=== PATIENT | female | born 1955 | race Caucasian/White ===

== ENCOUNTER 2023-11-13 00:27 | Inpatient (IN) ==
--- NOTE | 2023-11-13 00:48 | Emergency Department Note ---
Impression & Plan Acute on chronic respiratory failure with hypoxia and hypercapnia, CHF (congestive heart failure), Hypotension, Atrial fibrillation with rapid ventricular response, Hypokalemia, Renal insufficiency, Atrial fibrillation, new onset ED Provider Note NAME: KHARI RODRIGUEZ AGE: 68 SEX: F : 1955 ARRIVES VIA: Walk-In INFORMANT: Patient ED PROVIDER(S): Surya Johnson MD CHIEF COMPLAINT: Shortness of breath. PLAN: Disposition: Admit MEDICAL DECISION MAKING: The patient is a pleasant 68-year-old woman with a past medical history of longstanding smoking where she suddenly quit in July after developing increasing shortness of breath however she reports since then her shortness of breath has continued to worsen with bilateral lower extremity swelling who presents to emergency department via walk-in accompanied by her friend for evaluation of worsening shortness of breath. She had not gone to see a doctor in the past several months for her worsening symptoms nor has she seen a doctor regularly in the recent past. She lives by herself. She denies any fevers, nausea, vomiting or urinary symptoms. Of note, the patient did arrive to emergency department during time of high volume, acuity and prolonged emergency department waiting times. On evaluation the patient is uncomfortable, mildly dyspneic in mild respiratory distress, afebrile with heart rate in the 130s in atrial fibrillation with respiratory rate in the mid upper 20s with O2 saturation down to 85% on room air improving to mid 90s on 3 L nasal cannula. She appears hypervolemic with 1+ bilateral lower extremity pitting edema with excoriation of the dorsal aspect of her left foot. She has diminished breath sounds bilaterally with underlying wheeze and prolonged expiratory phase. EKG demonstrates atrial fibrillation with RVR, 141 bpm, LVH, no overt ST elevation or depression, QTc 517, QRS 88 Chest x-ray with vascular congestion and interstitial thickening with bibasilar opacities and suspected left pleural effusion per my preliminary independent interpretation. WBC 16.6K with neutrophil predominance though no left shift, nonspecific. H/H and platelets within normal limits. VBG with pCO2 of 60 with pH of 7.35. Chemistry with bicarbonate of 33 suggestive of component of chronic hypercapnia. Creatinine 1.36 without prior for comparison. Potassium 2.8 and magnesium 1.9 with IV repletion initiated. Initial lactic acid 3.2. High-sensitivity troponin was 125 and BNP 1100 in the setting of suspected new heart failure in the setting of new atrial fibrillation. TSH within normal limits. Respiratory viral panel/BioFire was negative. Treatment initiated with CPAP, Xopenex and Solu-Medrol given component of bronchospasm and suspected underlying COPD. Of note, I was alerted by nursing that patient's blood pressure did drift down to 70 systolic though she appeared improved in terms of respiratory status and was mentating normally. Repeat pressure at this time was in the 80s. This gradually improved to the low 100s with some positioning changes. I did perform a limited bedside cardiac ultrasound that demonstrates mild-moderate pericardial effusion without overt evidence of tamponade. LV is dilated with global hypokinesis with suspected moderately reduced EF. Bilateral left greater than right pleural effusions noted. Patient was given 5 mg of IV Lopressor with improvement in rate to the low 100s and stable blood pressure ranging from 90s/60s-100s/60s with Maps of 68 and above. Given [id number] heparin initiated. Blood cultures were also obtained and empiric antibiotics initiated with Zosyn and daptomycin for patient's left lower extremity/foot cellulitis. Case was discussed with Dr. Beckham, [facility] hospitalist, who will evaluate the patient for admission. Triage Nursing notes reviewed and agree them. Prior/external medical records reviewed Vital Signs: reviewed Differential diagnosis: Reactive airway disease, pneumonia, pneumothorax, COPD, CHF, infections, cardiac ischemia, pulmonary embolism, musculoskeletal, gastrointestinal, as well as other pathologies. ER treatment provided: See below. Diagnostics interpreted by me: ECG: Atrial fibrillation, 141 bpm, no ectopy, LVH, no overt ST elevation or depression, QTc 517, QRS 88. Cardiac Monitoring: An order for continuous cardiac monitoring was placed and demonstrated Atrial fibrillation, 141 bpm, no ectopy. Laboratory studies: See below Imaging studies: See below Consultation(s): Case was discussed with Dr. Beckham [facility] [place] hospitalist, who will evaluate the patient for admission. HPI: The patient is a pleasant 68-year-old woman with a past medical history of longstanding smoking where she suddenly quit in July after developing increasing shortness of breath however she reports since then her shortness of breath has continued to worsen with bilateral lower extremity swelling who presents to emergency department via walk-in accompanied by her friend for evaluation of worsening shortness of breath. She had not gone to see a doctor in the past several months for her worsening symptoms nor has she seen a doctor regularly in the recent past. She lives by herself. She denies any fevers, nausea, vomiting or urinary symptoms. ROS: See above HPI for pertinent positives & negatives. A total of 10 systems reviewed and were otherwise negative. VITALS:See Below PHYSICAL EXAMINATION: GENERAL: Awake, alert, ill-appearing, mildly dyspneic/mild respiratory distress HENT: Normocephalic, atraumatic. Oropharynx unremarkable. EYES: Normal conjunctiva. Sclera non-icteric. NECK: Supple. No nuchal rigidity. FROM. No JVD. RESPIRATORY: Diminished breath sounds bilaterally with underlying wheeze and prolonged expiratory phase. CARDIAC: Tachycardic rate, irregular rhythm. Extremities warm and well perfused. Pulses equal. ABDOMEN: Soft, non-distended. No tenderness to palpation. No rebound or guarding. No masses. RECTAL: Deferred. MUSCULOSKELETAL: Chest examination reveals no tenderness. The back is symmetrical on inspection without obvious abnormality. There is no CVA tenderness to palpation. No joint edema. LOWER EXTREMITIES: 1+ bilateral lower extremity pitting edema with excoriation of the dorsal aspect of her left foot. NEURO: Normal sensorium. No sensory or motor deficits noted. SKIN: No rash or jaundice noted. ED COURSE: Critical Care: I have personally spent greater than 65 minutes of critical care time in the direct management of this patient. This includes bedside care, interpretation of diagnostic studies, and testing, discussion with consultants, patient, and family members, and other required patient management activities. This 65 minutes is in excess of all separately billable procedures. Surya Johnson MD Past Med/Surg History Medical History History of tobacco abuse Social History Smoking Status: Former smoker Tobacco Type: Cigarettes Cigarettes Per Day: 30; Hx Alcohol Use: No Hx Substance Use: No Preferred Language: Swazi Communication Ability: [employer] Dies Required: No Beliefs That Will Affect Care: None Current Living Situation: Alone Current Living Situation Comment: Lives home alone Feels Safe at Home: Yes Assistive Devices: Cane and Walker Allergies Allergies Allergy/AdvReac Type Severity Reaction Status Date / Time Iodinated Contrast Media Allergy Intermediate RASH Unverified 11/13/23 02:29 Home Meds Home Medications Medication Instructions Recorded Confirmed diphenhydramine HCl 25 mg capsule 25 mg PO HS PRN Sleep 11/13/23 11/13/23 (Benadryl) Results & Data (ED) Vital Signs Vital Signs - 24 hr 11/13/23 00:31 11/13/23 00:50 11/13/23 00:54 Temperature 36.3 C L Temperature Source Temporal Artery Scan Pulse Rate 67 97 H Pulse Rate [Apical] Pulse Rate from SpO2 Sensor Pulse Rhythm Regular Pulse Strength Normal Respiratory Rate 20 31 H Respiratory Effort / Characteristics Non-Labored Spontaneous Respiratory Depth Normal Respiratory Pattern Regular Blood Pressure 101/73 Blood Pressure Mean 82 Blood Pressure Position Sitting Pulse Oximetry 93 Oxygen Delivery Method Room Air Room Air Oxygen Flow Rate 93 Fraction of Inspired Oxygen Sepsis Recent Fever Within 48 Hours No Sepsis New/Unexplained Change in Mental Status No Sepsis Action Taken by Nursing No Action Required 11/13/23 00:54 11/13/23 00:54 11/13/23 00:54 Temperature Temperature Source Pulse Rate 120 H Pulse Rate [Apical] 130 H Pulse Rate from SpO2 Sensor Pulse Rhythm Pulse Strength Respiratory Rate 27 H 25 H Respiratory Effort / Characteristics Respiratory Depth Respiratory Pattern Blood Pressure Blood Pressure Mean Blood Pressure Position Pulse Oximetry 94 91 Oxygen Delivery Method Room Air Room Air Oxygen Flow Rate Fraction of Inspired Oxygen Sepsis Recent Fever Within 48 Hours Sepsis New/Unexplained Change in Mental Status Sepsis Action Taken by Nursing 11/13/23 00:54 11/13/23 00:57 11/13/23 00:57 Temperature Temperature Source Pulse Rate 121 H Pulse Rate [Apical] Pulse Rate from SpO2 Sensor 106 H Pulse Rhythm Pulse Strength Respiratory Rate 41 H Respiratory Effort / Characteristics Respiratory Depth Respiratory Pattern Blood Pressure 98/73 L 102/70 Blood Pressure Mean 84 89 Blood Pressure Position Pulse Oximetry 90 Oxygen Delivery Method Oxygen Flow Rate Fraction of Inspired Oxygen Sepsis Recent Fever Within 48 Hours Sepsis New/Unexplained Change in Mental Status Sepsis Action Taken by Nursing 11/13/23 01:00 11/13/23 01:02 11/13/23 01:04 Temperature Temperature Source Pulse Rate 130 H 125 H 127 H Pulse Rate [Apical] Pulse Rate from SpO2 Sensor 119 H 110 H Pulse Rhythm Pulse Strength Respiratory Rate 22 32 H Respiratory Effort / Characteristics Respiratory Depth Respiratory Pattern Blood Pressure Blood Pressure Mean Blood Pressure Position Pulse Oximetry 87 L 95 Oxygen Delivery Method Oxygen Flow Rate Fraction of Inspired Oxygen Sepsis Recent Fever Within 48 Hours Sepsis New/Unexplained Change in Mental Status Sepsis Action Taken by Nursing 11/13/23 01:04 11/13/23 01:30 11/13/23 01:32 Temperature Temperature Source Pulse Rate 107 H 118 H Pulse Rate [Apical] Pulse Rate from SpO2 Sensor 102 H Pulse Rhythm Pulse Strength Respiratory Rate 22 17 Respiratory Effort / Characteristics Non-Labored Spontaneous Respiratory Depth Normal Respiratory Pattern Regular Blood Pressure 93/56 L Blood Pressure Mean 87 Blood Pressure Position Pulse Oximetry 98 93 Oxygen Delivery Method Oxygen Flow Rate Fraction of Inspired Oxygen 30 Sepsis Recent Fever Within 48 Hours Sepsis New/Unexplained Change in Mental Status Sepsis Action Taken by Nursing 11/13/23 01:39 11/13/23 01:39 11/13/23 01:44 Temperature Temperature Source Pulse Rate 135 H Pulse Rate [Apical] Pulse Rate from SpO2 Sensor 108 H Pulse Rhythm Pulse Strength Respiratory Rate 21 Respiratory Effort / Characteristics Respiratory Depth Respiratory Pattern Blood Pressure 83/44 L 74/56 L Blood Pressure Mean 64 66 Blood Pressure Position Pulse Oximetry 99 Oxygen Delivery Method Oxygen Flow Rate Fraction of Inspired Oxygen Sepsis Recent Fever Within 48 Hours Sepsis New/Unexplained Change in Mental Status Sepsis Action Taken by Nursing 11/13/23 01:44 11/13/23 01:48 11/13/23 01:48 Temperature Temperature Source Pulse Rate 125 H 120 H Pulse Rate [Apical] Pulse Rate from SpO2 Sensor 119 H 102 H Pulse Rhythm Pulse Strength Respiratory Rate 11 L 23 Respiratory Effort / Characteristics Respiratory Depth Respiratory Pattern Blood Pressure 84/64 L Blood Pressure Mean 69 Blood Pressure Position Pulse Oximetry 100 99 Oxygen Delivery Method Oxygen Flow Rate Fraction of Inspired Oxygen Sepsis Recent Fever Within 48 Hours Sepsis New/Unexplained Change in Mental Status Sepsis Action Taken by Nursing 11/13/23 01:55 11/13/23 01:55 11/13/23 01:56 Temperature Temperature Source Pulse Rate 121 H Pulse Rate [Apical] Pulse Rate from SpO2 Sensor 112 H Pulse Rhythm Pulse Strength Respiratory Rate 14 Respiratory Effort / Characteristics Respiratory Depth Respiratory Pattern Blood Pressure 106/63 106/63 Blood Pressure Mean 73 Blood Pressure Position Pulse Oximetry 100 Oxygen Delivery Method Oxygen Flow Rate Fraction of Inspired Oxygen Sepsis Recent Fever Within 48 Hours Sepsis New/Unexplained Change in Mental Status Sepsis Action Taken by Nursing 11/13/23 02:00 11/13/23 02:00 11/13/23 02:15 Temperature Temperature Source Pulse Rate 119 H 107 H Pulse Rate [Apical] Pulse Rate from SpO2 Sensor 108 H 104 H Pulse Rhythm Pulse Strength Respiratory Rate 21 22 Respiratory Effort / Characteristics Respiratory Depth Respiratory Pattern Blood Pressure 98/61 L Blood Pressure Mean 68 Blood Pressure Position Pulse Oximetry 97 100 Oxygen Delivery Method Oxygen Flow Rate Fraction of Inspired Oxygen Sepsis Recent Fever Within 48 Hours Sepsis New/Unexplained Change in Mental Status Sepsis Action Taken by Nursing 11/13/23 02:15 11/13/23 02:30 Temperature Temperature Source Pulse Rate 111 H Pulse Rate [Apical] Pulse Rate from SpO2 Sensor 115 H Pulse Rhythm Pulse Strength Respiratory Rate 24 Respiratory Effort / Characteristics Respiratory Depth Respiratory Pattern Blood Pressure 109/62 Blood Pressure Mean 79 Blood Pressure Position Pulse Oximetry 98 Oxygen Delivery Method Oxygen Flow Rate Fraction of Inspired Oxygen Sepsis Recent Fever Within 48 Hours Sepsis New/Unexplained Change in Mental Status Sepsis Action Taken by Nursing Laboratory Data Attestation: I reviewed the patient's lab results. 11/13/23 00:44 11/13/23 00:44 Lab Results 11/13/23 11/13/23 11/13/23 Range/Units 00:44 00:45 00:53 WBC 16.69 H (4.8-10.8) K/ul RBC 4.50 (4.20-5.40) M/uL Hgb 13.1 (12.0-16.0) g/dl Hct 41.9 (37.0-47.0) % MCV 93.1 (80.0-100.0) fL MCH 29.1 (25.0-34.0) pg MCHC 31.3 L (32.0-36.0) g/dL RDW Std Deviation 55.8 H (36.4-46.3) fL RDW Coeff of Jame 17.1 H (11.5-14.5) % Plt Count 202 (130-400) K/uL MPV 10.6 (9.4-12.4) fL Immature Gran % (Auto) 1.0 % Neut % (Auto) 86.5 % Lymph % (Auto) 4.6 % [place] % (Auto) 7.4 % Eos % (Auto) 0.3 % Baso % (Auto) 0.2 % Neut # (Auto) 14.44 H (1.40-6.50) K/uL Lymph # (Auto) 0.76 L (1.20-3.40) K/uL [place] # (Auto) 1.24 H (0.11-0.59) K/uL Eos # (Auto) 0.05 (0.00-0.50) K/uL Baso # (Auto) 0.03 (0.00-0.20) K/uL Immature Gran # (Auto) 0.17 (0.01-0.20) K/uL ESR 14 (0-30) mm/hr PT 12.7 H (9.0-12.0) Seconds INR 1.2 H (0.9-1.1) APTT 27 (21-31) Seconds PTT Ratio 1.0 VBG pH (7.36-7.41) VBG pCO2 (38-50) mmHg VBG pO2 mmHg VBG HCO3 mmol/L VBG O2 Saturation % VBG Base Excess mEq/L Sodium 145 (136-145) mmol/L Potassium 2.8 L (3.5-5.1) mmol/L Chloride 105 (98-107) mmol/L Carbon Dioxide 33 H (21-32) mmol/L Anion Gap 7 (3-11) BUN 29 H (6-23) mg/dl Creatinine 1.36 H (0.6-1.2) mg/dl Est Cr Clr Drug Dosing 40.2 ml/min Est GFR ( Amer) 45.6 ml/min Est GFR (Non-Af Amer) 39.3 ml/min BUN/Creatinine Ratio 21.3 H (10-20) Glucose 112 H (70-99(Fasting)) mg/dl POC Glucose 134 H (70-99) mg/dl Lactate (0.4-2.0) mmol/L Calcium 9.2 (8.6-10.3) mg/dl Phosphorus 2.8 (2.5-4.9) mg/dl Magnesium 1.9 (1.7-2.4) mg/dl Total Bilirubin 1.2 H (0.2-1.0) mg/dl AST 27 (13-39) U/L ALT 39 (7-52) U/L Alkaline Phosphatase 67 (34-104) U/L Troponin I High Sens 125.9 H* (0-14) pg/ml C-Reactive Protein 0.76 H (0-0.5) mg/dl B-Natriuretic Peptide 1115 H (0-100) pg/ml Total Protein 6.2 (6.0-8.3) gm/dl Albumin 3.3 L (3.4-5.0) gm/dl Globulin 2.9 (2.5-4.0) gm/dl Albumin/Globulin Ratio 1.1 (0.9-2) Procalcitonin (0-0.5) ng/ml TSH 3.720 (0.300-4.500) uIu/ml Adenovirus (PCR) Not Detected (NotDetected) B. pertussis DNA (PCR) Not Detected (NotDetected) B.parapertussis DNA PCR Not Detected (NotDetected) C. pneumoniae DNA (PCR) Not Detected (NotDetected) Coronavirus OC43 (PCR) Not Detected (NotDetected) Coronavirus HKU1 (PCR) Not Detected (NotDetected) Coronavirus 229E (PCR) Not Detected (NotDetected) SARS-CoV-2 (PCR) Not Detected (NotDetected) Coronavirus NL63 (PCR) Not Detected (NotDetected) Human Metapneumovir PCR Not Detected (NotDetected) Influenza Type A (PCR) Not Detected (NotDetected) Influenza Type B (PCR) Not Detected (NotDetected) M. pneumoniae (PCR) Not Detected (NotDetected) Parainfluenza 1 (PCR) Not Detected (NotDetected) Parainfluenza 2 (PCR) Not Detected (NotDetected) Parainfluenza 3 (PCR) Not Detected (NotDetected) Parainfluenza 4 (PCR) Not Detected (NotDetected) RSV (PCR) Not Detected (NotDetected) Entero/Rhino (PCR) Not Detected (NotDetected) 11/13/23 Range/Units 01:22 WBC (4.8-10.8) K/ul RBC (4.20-5.40) M/uL Hgb (12.0-16.0) g/dl Hct (37.0-47.0) % MCV (80.0-100.0) fL MCH (25.0-34.0) pg MCHC (32.0-36.0) g/dL RDW Std Deviation (36.4-46.3) fL RDW Coeff of Jame (11.5-14.5) % Plt Count (130-400) K/uL MPV (9.4-12.4) fL Immature Gran % (Auto) % Neut % (Auto) % Lymph % (Auto) % [place] % (Auto) % Eos % (Auto) % Baso % (Auto) % Neut # (Auto) (1.40-6.50) K/uL Lymph # (Auto) (1.20-3.40) K/uL [place] # (Auto) (0.11-0.59) K/uL Eos # (Auto) (0.00-0.50) K/uL Baso # (Auto) (0.00-0.20) K/uL Immature Gran # (Auto) (0.01-0.20) K/uL ESR (0-30) mm/hr PT (9.0-12.0) Seconds INR (0.9-1.1) APTT (21-31) Seconds PTT Ratio VBG pH 7.35 L (7.36-7.41) VBG pCO2 60 H (38-50) mmHg VBG pO2 28 mmHg VBG HCO3 33 mmol/L VBG O2 Saturation < 60.0 % VBG Base Excess 5.6 mEq/L Sodium (136-145) mmol/L Potassium (3.5-5.1) mmol/L Chloride (98-107) mmol/L Carbon Dioxide (21-32) mmol/L Anion Gap (3-11) BUN (6-23) mg/dl Creatinine (0.6-1.2) mg/dl Est Cr Clr Drug Dosing ml/min Est GFR ( Amer) ml/min Est GFR (Non-Af Amer) ml/min BUN/Creatinine Ratio (10-20) Glucose (70-99(Fasting)) mg/dl POC Glucose (70-99) mg/dl Lactate 3.2 H* (0.4-2.0) mmol/L Calcium (8.6-10.3) mg/dl Phosphorus (2.5-4.9) mg/dl Magnesium (1.7-2.4) mg/dl Total Bilirubin (0.2-1.0) mg/dl AST (13-39) U/L ALT (7-52) U/L Alkaline Phosphatase (34-104) U/L Troponin I High Sens (0-14) pg/ml C-Reactive Protein (0-0.5) mg/dl B-Natriuretic Peptide (0-100) pg/ml Total Protein (6.0-8.3) gm/dl Albumin (3.4-5.0) gm/dl Globulin (2.5-4.0) gm/dl Albumin/Globulin Ratio (0.9-2) Procalcitonin 0.18 (0-0.5) ng/ml TSH (0.300-4.500) uIu/ml Adenovirus (PCR) (NotDetected) B. pertussis DNA (PCR) (NotDetected) B.parapertussis DNA PCR (NotDetected) C. pneumoniae DNA (PCR) (NotDetected) Coronavirus OC43 (PCR) (NotDetected) Coronavirus HKU1 (PCR) (NotDetected) Coronavirus 229E (PCR) (NotDetected) SARS-CoV-2 (PCR) (NotDetected) Coronavirus NL63 (PCR) (NotDetected) Human Metapneumovir PCR (NotDetected) Influenza Type A (PCR) (NotDetected) Influenza Type B (PCR) (NotDetected) M. pneumoniae (PCR) (NotDetected) Parainfluenza 1 (PCR) (NotDetected) Parainfluenza 2 (PCR) (NotDetected) Parainfluenza 3 (PCR) (NotDetected) Parainfluenza 4 (PCR) (NotDetected) RSV (PCR) (NotDetected) Entero/Rhino (PCR) (NotDetected) Administered Medications Heparin Sodium/Dextrose (Heparin Sodium/Dextrose) 25,000 units in 500 mls @ 24 mls/hr IV .[id number] [facility]; Protocol Stop: 12/13/23 02:29 Last Titration: 11/13/23 07:21 Dose: 1,200 units/hr, 24 mls/hr Documented By: TLM Co-signed By: MTP Admin: 11/13/23 02:55 Dose: 1,200 units/hr, 24 mls/hr Documented By: NATA Co-signed By: MED Piperacillin Sod/Tazobactam (Sod 4.5 gm/ Dextrose) 100 mls @ 25 mls/hr IV Q8H [facility]; Protocol Stop: 11/20/23 07:59 Last Admin: 11/13/23 09:47 Dose: 25 mls/hr Documented By: RANDAL Diltiazem HCl 125 mg/ Dextrose 125 mls @ 5 mls/hr IV .Q24H [facility]; Protocol Stop: 12/13/23 11:29 Last Admin: 11/13/23 11:40 Dose: 5 mg/hr, 5 mls/hr Documented By: RANDAL Co-signed By: DMB Discontinued Medications Heparin Sodium/Dextrose (Heparin Iv Adult Wt-Based Standard *No* Initial Bolus Protocol) 1 each IV ONE STA; Protocol Stop: 11/13/23 02:08 Last Admin: 11/13/23 04:02 Dose: Not Given Documented By: NISREEN Potassium Chloride (K Mehran / Wtr) 10 meq in 100 mls @ 100 mls/hr IV Q1H [facility] Stop: 11/13/23 04:14 Last Infusion: 11/13/23 05:31 Dose: Infused Documented By: Admin: 11/13/23 03:37 Dose: 100 mls/hr Documented By: Infusion: 11/13/23 03:36 Dose: Infused Documented By: Admin: 11/13/23 02:27 Dose: 100 mls/hr Documented By: NATA Magnesium Sulfate/Dextrose (Magnesium Sulfate / D5w) 1 gm in 100 mls @ 100 mls/hr IV NOW STA Stop: 11/13/23 03:06 Last Infusion: 11/13/23 03:37 Dose: Infused Documented By: Admin: 11/13/23 02:26 Dose: 100 mls/hr Documented By: NATA Piperacillin Sod/Tazobactam Sod (Zosyn) 4.5 gm in 100 mls @ 200 mls/hr IV NOW ONE Stop: 11/13/23 02:54 Last Infusion: 11/13/23 05:30 Dose: Infused Documented By: Admin: 11/13/23 04:57 Dose: 200 mls/hr Documented By: NISREEN Daptomycin 400 mg/ Syringe 8 mls @ 4 mls/min IV Q24H [facility]; Protocol Stop: 11/13/23 02:31 Last Admin: 11/13/23 03:42 Dose: 4 mls/min Documented By: KLS Albumin Human (Albumin 25%) 25 gm in 100 mls @ 50 mls/hr IV ONE STA Stop: 11/13/23 04:30 Last Admin: 11/13/23 09:36 Dose: Not Given Documented By: MTP Levalbuterol HCl (Levalbuterol Hcl 0.63 Mg/3 Ml Neb) 0.63 mg NEB NOW STA; Protocol Stop: 11/13/23 01:08 Last Admin: 11/13/23 01:18 Dose: 0.63 mg Documented By: NATA Methylprednisolone (Methylprednisolone 125 Mg/2 Ml Vial) 125 mg IV NOW STA Stop: 11/13/23 01:08 Last Admin: 11/13/23 01:18 Dose: 125 mg Documented By: NATA Metoprolol Tartrate (Metoprolol Tartrate 1 Mg/Ml Vial) Confirm Administered Dose 5 mg IV .STK-MED ONE Stop: 11/13/23 01:55 Last Admin: 11/13/23 01:56 Dose: Not Given Documented By: NATA Metoprolol Tartrate (Metoprolol Tartrate 1 Mg/Ml Vial) 5 mg IV NOW STA Stop: 11/13/23 01:56 Last Admin: 11/13/23 01:56 Dose: 5 mg Documented By: NATA Imaging Data Radiologist's Impression: Chest X-Ray 11/13/23 00:34 SINGLE VIEW CHEST CLINICAL HISTORY: Dyspnea FINDINGS: An AP, portable, upright chest radiograph is obtained. No prior studies are available for comparison at the time of dictation. The examination is degraded by portable technique and apical lordotic positioning. The heart is enlarged noting atherosclerotic calcification of the thoracic aorta. There is mild pulmonary vascular congestion. There are left larger than right pleural effusions with dependent consolidation. No pneumothorax is seen. The skeletal structures are osteopenic. The bony thorax is grossly intact. IMPRESSION: 1. Cardiomegaly with mild pulmonary vascular congestion. 2. Layering pleural effusions with dependent consolidation. ACT 112: Negative or not required by law. Electronically signed by: Nikhil Owen M.D. 11/13/2023 7:54 AM Discharge Plan Visit Data Chief Complaint: Shortness of Breath/Dyspnea Stated Complaint: HARD TO BREATHE,LEG NUMBNESS AND SWELLING ED Provider: Surya Johnson Discharge Problem: Acute on chronic respiratory failure with hypoxia and hypercapnia, CHF (congestive heart failure), Hypotension, Atrial fibrillation with rapid ventricular response, Hypokalemia, Renal insufficiency, Atrial fibrillation, new onset Patient Disposition: Admitted As Inpatient Discharge Instructions Interventions: ED Discharge Assessment Last Done: 11/13/23 05:45 Discharge Problem: CHF (congestive heart failure) Qualifiers: Heart failure type: unspecified Heart failure chronicity: acute Qualified Code(s): I50.9 - Heart failure, unspecified Hypotension Qualifiers: Hypotension type: unspecified hypotension type Qualified Code(s): I95.9 - Hypotension, unspecified
[2023-11-13 01:06] LABS: Basophils # (auto) 0.03 K/uL (0.00-0.20); Basophils % (auto) 0.2 %; Eosinophils # (auto) 0.05 K/uL (0.00-0.50); Eosinophils % (auto) 0.3 %; Hematocrit (blood only) 41.9 % (37.0-47.0); Hemoglobin 13.1 g/dl (12.0-16.0); Immature Granulocytes # (auto) 0.17 K/uL (0.01-0.20); Lymphocytes # (auto) 0.76 K/uL (1.20-3.40); Lymphocytes % (auto) 4.6 %; Mean Corpuscular Hemoglobin 29.1 pg (25.0-34.0); Mean Corpuscular Hgb Conc 31.3 g/dL (32.0-36.0); Mean Corpuscular Volume 93.1 fL (80.0-100.0); Mean Platelet Volume 10.6 fL (9.4-12.4); Monocytes # (auto) 1.24 K/uL (0.11-0.59); Monocytes % (auto) 7.4 %; Neutrophils # (auto) 14.44 K/uL (1.40-6.50); Neutrophils % (auto) 86.5 %; Platelet Count 202 K/uL (130-400); RDW Coefficient of Variation 17.1 % (11.5-14.5); RDW Standard Deviation 55.8 fL (36.4-46.3); White Blood Count 16.69 K/ul (4.8-10.8)
[2023-11-13 01:18] LABS: Albumin Globulin Ratio 1.1 (0.9-2); Albumin Level 3.3 gm/dl (3.4-5.0); BUN Creatinine Ratio 21.3 (10-20); Bilirubin,Total 1.2 mg/dl (0.2-1.0); Calcium 9.2 mg/dl (8.6-10.3); Creatinine Clr Calc Pharmacy 40.2 ml/min; Est GFR (African American) 45.6 ml/min; Est GFR (Non-African American) 39.3 ml/min; Globulin 2.9 gm/dl (2.5-4.0); Magnesium 1.9 mg/dl (1.7-2.4); Phosphorus 2.8 mg/dl (2.5-4.9); Potassium 2.8 mmol/L (3.5-5.1); Total Protein 6.2 gm/dl (6.0-8.3)
[2023-11-13] MEDS: methylPREDNISolone 125 MG/2 ML VIAL IV STA (01:18)
[2023-11-13] MEDS: LEVALBUTEROL HCL 0.63 MG/3 ML NEB NEB STA (01:18)
[2023-11-13 01:28] LABS: Troponin I High Sensitivity 125.9 pg/ml (0-14)
[2023-11-13 01:34] LABS: Thyroid Stimulating Hormone 3.72 uIu/ml (0.300-4.500)
[2023-11-13 01:36] LABS: Base Excess VBG 5.6 mEq/L; HCO3 VBG 33 mmol/L; Oxygen Saturation VBG < 60.0 %; PCO2 VBG 60 mmHg (38-50); PO2 VBG 28 mmHg; pH VBG 7.35 (7.36-7.41)
[2023-11-13 01:50] LABS: Adenovirus PCR Not Detected (NotDetected); Bordetella parapertussis PCR Not Detected (NotDetected); Bordetella pertussis PCR Not Detected (NotDetected); Chlamydia pneumoniae PCR Not Detected (NotDetected); Coronavirus 229E PCR Not Detected (NotDetected); Coronavirus CoV-2 (COVID19)PCR Not Detected (NotDetected); Coronavirus HKU1 PCR Not Detected (NotDetected); Coronavirus NL63 PCR Not Detected (NotDetected); Coronavirus OC43PCR Not Detected (NotDetected); Human Metapneumovirus PCR Not Detected (NotDetected); Influenza A PCR Not Detected (NotDetected); Influenza B PCR Not Detected (NotDetected); Mycoplasma pneumoniae PCR Not Detected (NotDetected); Parainfluenza Virus 1 PCR Not Detected (NotDetected); Parainfluenza Virus 2 PCR Not Detected (NotDetected); Parainfluenza Virus 3 PCR Not Detected (NotDetected); Parainfluenza Virus 4 PCR Not Detected (NotDetected); Respiratory Syncytial VirusPCR Not Detected (NotDetected); Rhinovirus/Enterovirus PCR Not Detected (NotDetected)
[2023-11-13] MEDS: METOPROLOL TARTRATE 1 MG/ML VIAL IV ONE (01:56)
[2023-11-13] MEDS: METOPROLOL TARTRATE 1 MG/ML VIAL IV STA (01:56)
[2023-11-13] MEDS: MAGNESIUM SULFATE / D5W 1 GM/100 ML BAG IV STA (02:26)
[2023-11-13] MEDS: POTASSIUM CHLORIDE / WTR 10 MEQ/100 ML PLCT IV SCH (02:27)
[2023-11-13 02:38] LABS: C Reactive Protein 0.76 mg/dl (0-0.5)
--- NOTE | 2023-11-13 02:47 | History & Physical Report ---
Date of Service November 13, 2023 Assessment & Plan (1) Acute respiratory failure with hypoxia: (2) Atrial fibrillation with RVR: (3) Hypokalemia: (4) Renal insufficiency: (5) NSTEMI (non-ST elevated myocardial infarction): (6) Pleural effusion: (7) CHF (congestive heart failure): (8) Cellulitis of left lower extremity: (9) Hypotension: (10) Lactic acidosis: (11) History of tobacco abuse: Plan Acute respiratory failure with hypoxia/bilateral pleural effusions/CHF- Continue BiPAP with target pulse ox 92% Blood pressure is relatively low to be able to be diuresed Order complete echocardiogram Control atrial fibrillation to improve blood pressure Atrial fibrillation with RVR/NSTEMI/hypotension- The patient will be admitted to telemetry for serial cardiac enzymes, serial EKG's, cardiac rhythm monitoring and a 2-D echocardiogram with Dopplers. Potassium 2.8, to receive 2 KCl 10 mill equivalent riders Magnesium 1.9 Troponin 125.9, BNP 1115 Repeat laboratories in a.m. Did receive Lopressor 5 mg IV from the ED with modest decrease in from 141 initially down to 100-110 Systolic blood pressure initially in the mid 90s, has improved to the 105 range Give albumin 25 g IV x 1 If blood pressure continues borderline, and heart rate does not improve with supplement of potassium, will give IV digoxin Consult cardiology Left lower extremity cellulitis- Reports significant abrasion and infection on the dorsum of left foot began after buying new sneakers, and then gained a lot of fluid Consult wound care Placed on daptomycin IV and Zosyn IV May be causing a septic picture, with it being the cause of lower blood pressure affecting ability to control atrial fibrillation She will need a PCP upon discharge to follow-up with CODE STATUS: Full code History of Present Illness Chief Complaint: The patient presents to the emergency department with worsening fatigue, shortness of breath, dyspnea on exertion and bilateral lower extremity swelling since July, which initially prompted her to quit tobacco use at that time. Primary Care Provider: NO PCP The patient is a 68-year-old female with no significant PMH, who presents to the emergency department with 4 months of progressively worsening fatigue, shortness of breath, dyspnea on exertion and bilateral lower extremity swelling. She reports that the symptoms prompted her to quit tobacco use, however, she has had persistently worsening symptoms. Upon arrival to the emergency department, she was found to be in atrial fibrillation with RVR, and CHF, with borderline blood pressure, and was referred for evaluation for admission. Allergies Allergy/AdvReac Type Severity Reaction Status Date / Time Iodinated Contrast Media Allergy Intermediate RASH Unverified 11/13/23 02:29 Home Medications Medication Instructions Recorded Confirmed Type diphenhydramine HCl 25 mg capsule 25 mg PO HS PRN Sleep 11/13/23 11/13/23 History (Benadryl) Past Med/Surg History Social History Smoking Status: Former smoker Tobacco Type: Cigarettes Preferred Language: Chilean Feels Safe at Home: Yes Review of Systems Review of Systems: The patient denies chest pain, palpitations, cough, sore throat, fevers, chills, sweats, nausea, vomiting, diarrhea , constipation, abdominal pain, pelvic pain, blood in urine or stool, dysuria, urinary frequency or urgency, lightheadedness, dizziness, headache, memory loss, loss of consciousness, rash, abnormal bruising or bleeding, imbalance, focal weakness, numbness or tingling in arms or legs, generalized arthralgias or myalgias, back or neck pain, or night sweats. The review of systems is otherwise negative other than for that already noted above, and at least 10 systems have been reviewed. Physical Exam Physical Exam: The patient is awake, alert and oriented 3, well developed and well nourished, BiPAP in place, sitting upright in bed and in otherwise no acute distress. HEENT--PERRL, EOMI, mucous membranes and oropharynx mildly dry. Neck--supple. No JVD. No bruits. Thyroid normal, trachea midline, no ad enopathy. Heart--atrial fibrillation with tachycardia. No murmurs, rubs or gallops. Lungs--crackles at the bases bilaterally. No further respiratory distress on BiPAP. No accessory muscle use. Abdomen--normal bowel sounds and soft. Nontender. Nondistended Extremities--2+ bilateral pretibial pitting edema Dermatologic--normal skin turgor, normal color, no abnormal lymph nodes, no rash. Neurologic--cranial nerves II through XII grossly intact. Rheumatologic--normal range of motion. Psychiatric--normal affect. Results & Data Results & Data Vital Signs (Past 12 Hours) Vital Signs Temp Pulse Pulse Resp BP Pulse Ox O2 Del Method 11/13/23 01:56 121 H 106/63 11/13/23 01:32 118 H 17 93 11/13/23 01:02 125 H 11/13/23 00:54 91 Room Air 11/13/23 00:54 130 H 27 H 94 Room Air 11/13/23 00:54 Room Air 11/13/23 00:31 36.3 C L 67 20 101/73 93 Room Air O2 Flow Rate FiO2 11/13/23 01:56 11/13/23 01:32 30 11/13/23 01:02 11/13/23 00:54 11/13/23 00:54 11/13/23 00:54 93 11/13/23 00:31 Laboratory Results Laboratory Results WBC 16.69 K/ul (4.8-10.8) H 11/13/23 00:44 RBC 4.50 M/uL (4.20-5.40) 11/13/23 00:44 Hgb 13.1 g/dl (12.0-16.0) 11/13/23 00:44 Hct 41.9 % (37.0-47.0) 11/13/23 00:44 MCV 93.1 fL (80.0-100.0) 11/13/23 00:44 MCH 29.1 pg (25.0-34.0) 11/13/23 00:44 MCHC 31.3 g/dL (32.0-36.0) L 11/13/23 00:44 RDW Std Deviation 55.8 fL (36.4-46.3) H 11/13/23 00:44 RDW Coeff of Jame 17.1 % (11.5-14.5) H 11/13/23 00:44 Plt Count 202 K/uL (130-400) 11/13/23 00:44 MPV 10.6 fL (9.4-12.4) 11/13/23 00:44 Immature Gran % (Auto) 1.0 % 11/13/23 00:44 Neut % (Auto) 86.5 % 11/13/23 00:44 Lymph % (Auto) 4.6 % 11/13/23 00:44 [place] % (Auto) 7.4 % 11/13/23 00:44 Eos % (Auto) 0.3 % 11/13/23 00:44 Baso % (Auto) 0.2 % 11/13/23 00:44 Neut # (Auto) 14.44 K/uL (1.40-6.50) H 11/13/23 00:44 Lymph # (Auto) 0.76 K/uL (1.20-3.40) L 11/13/23 00:44 [place] # (Auto) 1.24 K/uL (0.11-0.59) H 11/13/23 00:44 Eos # (Auto) 0.05 K/uL (0.00-0.50) 11/13/23 00:44 Baso # (Auto) 0.03 K/uL (0.00-0.20) 11/13/23 00:44 Immature Gran # (Auto) 0.17 K/uL (0.01-0.20) 11/13/23 00:44 ESR 14 mm/hr (0-30) 11/13/23 00:44 PT 12.7 Seconds (9.0-12.0) H 11/13/23 00:44 INR 1.2 (0.9-1.1) H 11/13/23 00:44 APTT 27 Seconds (21-31) 11/13/23 00:44 PTT Ratio 1.0 11/13/23 00:44 VBG pH 7.35 (7.36-7.41) L 11/13/23 01:22 VBG pCO2 60 mmHg (38-50) H 11/13/23 01:22 VBG pO2 28 mmHg 11/13/23 01:22 VBG HCO3 33 mmol/L 11/13/23 01:22 VBG O2 Saturation < 60.0 % 11/13/23 01:22 VBG Base Excess 5.6 mEq/L 11/13/23 01:22 Sodium 145 mmol/L (136-145) 11/13/23 00:44 Potassium 2.8 mmol/L (3.5-5.1) L 11/13/23 00:44 Chloride 105 mmol/L (98-107) 11/13/23 00:44 Carbon Dioxide 33 mmol/L (21-32) H 11/13/23 00:44 Anion Gap 7 (3-11) 11/13/23 00:44 BUN 29 mg/dl (6-23) H 11/13/23 00:44 Creatinine 1.36 mg/dl (0.6-1.2) H 11/13/23 00:44 Est Cr Clr Drug Dosing 40.2 ml/min 11/13/23 00:44 Est GFR ( Amer) 45.6 ml/min 11/13/23 00:44 Est GFR (Non-Af Amer) 39.3 ml/min 11/13/23 00:44 BUN/Creatinine Ratio 21.3 (10-20) H 11/13/23 00:44 Glucose 112 mg/dl (70-99(Fasting)) H 11/13/23 00:44 POC Glucose 134 mg/dl (70-99) H 11/13/23 00:53 Lactate 2.5 mmol/L (0.4-2.0) H* 11/13/23 03:58 Calcium 9.2 mg/dl (8.6-10.3) 11/13/23 00:44 Phosphorus 2.8 mg/dl (2.5-4.9) 11/13/23 00:44 Magnesium 1.9 mg/dl (1.7-2.4) 11/13/23 00:44 Total Bilirubin 1.2 mg/dl (0.2-1.0) H 11/13/23 00:44 AST 27 U/L (13-39) 11/13/23 00:44 ALT 39 U/L (7-52) 11/13/23 00:44 Alkaline Phosphatase 67 U/L (34-104) 11/13/23 00:44 Troponin I High Sens 125.9 pg/ml (0-14) H* 11/13/23 00:44 C-Reactive Protein 0.76 mg/dl (0-0.5) H 11/13/23 00:44 B-Natriuretic Peptide 1115 pg/ml (0-100) H 11/13/23 00:44 Total Protein 6.2 gm/dl (6.0-8.3) 11/13/23 00:44 Albumin 3.3 gm/dl (3.4-5.0) L 11/13/23 00:44 Globulin 2.9 gm/dl (2.5-4.0) 11/13/23 00:44 Albumin/Globulin Ratio 1.1 (0.9-2) 11/13/23 00:44 Procalcitonin 0.18 ng/ml (0-0.5) 11/13/23 01:22 TSH 3.720 uIu/ml (0.300-4.500) 11/13/23 00:44 Adenovirus (PCR) Not Detected (NotDetected) 11/13/23 00:45 B. pertussis DNA (PCR) Not Detected (NotDetected) 11/13/23 00:45 B.parapertussis DNA PCR Not Detected (NotDetected) 11/13/23 00:45 C. pneumoniae DNA (PCR) Not Detected (NotDetected) 11/13/23 00:45 Coronavirus OC43 (PCR) Not Detected (NotDetected) 11/13/23 00:45 Coronavirus HKU1 (PCR) Not Detected (NotDetected) 11/13/23 00:45 Coronavirus 229E (PCR) Not Detected (NotDetected) 11/13/23 00:45 SARS-CoV-2 (PCR) Not Detected (NotDetected) 11/13/23 00:45 Coronavirus NL63 (PCR) Not Detected (NotDetected) 11/13/23 00:45 Human Metapneumovir PCR Not Detected (NotDetected) 11/13/23 00:45 Influenza Type A (PCR) Not Detected (NotDetected) 11/13/23 00:45 Influenza Type B (PCR) Not Detected (NotDetected) 11/13/23 00:45 M. pneumoniae (PCR) Not Detected (NotDetected) 11/13/23 00:45 Parainfluenza 1 (PCR) Not Detected (NotDetected) 11/13/23 00:45 Parainfluenza 2 (PCR) Not Detected (NotDetected) 11/13/23 00:45 Parainfluenza 3 (PCR) Not Detected (NotDetected) 11/13/23 00:45 Parainfluenza 4 (PCR) Not Detected (NotDetected) 11/13/23 00:45 RSV (PCR) Not Detected (NotDetected) 11/13/23 00:45 Entero/Rhino (PCR) Not Detected (NotDetected) 11/13/23 00:45 Code Status & VTE Plan Code Status Full code VTE Prophylaxis Plan VTE Prophylaxis will be ordered: Yes PG Care Time/CCT Total # of Minutes Spent Total Time Spent with Patient: Total time spent is greater than 50% in coordination of care (as documented) at patient's floor/unit and/or counseling patient: Coding Level of Care Code 45354 INT INP/OBS CARE 3/75MIN Diagnoses Acute respiratory failure with hypoxia J96.01 Atrial fibrillation with RVR I48.91 Hypokalemia E87.6 Renal insufficiency N28.9 NSTEMI (non-ST elevated myocardial infarction) I21.4 Pleural effusion J90 CHF (congestive heart failure) I50.9 Cellulitis of left lower extremity L03.116 Hypotension I95.9 Lactic acidosis E87.20 History of tobacco abuse Z87.891
[2023-11-13] MEDS: HEPARIN SODIUM/DEXTROSE 25,000 UNITS/500 ML BAG IV SCH (02:55)
[2023-11-13 03:00] LABS: INR 1.2 (0.9-1.1); Partial Thromboplastin Time 27 Seconds (21-31); Prothrombin Time 12.7 Seconds (9.0-12.0)
[2023-11-13] MEDS: DAPTOmycin 400 MG in SYRINGE 0 ML IV SCH (03:42)
[2023-11-13] MEDS: Heparin IV Adult Wt-Based Standard *NO* INITIAL Bolus Protocol IV STA (04:02)
[2023-11-13] MEDS ORDERED: ONDANSETRON INJ 2 MG/ML 2 ML VIAL IV PRN (04:06)
[2023-11-13] MEDS: PIPERACILLIN/TAZOBACTAM 4.5 GM/100 ML BAG IV ONE (04:57)
--- NOTE | 2023-11-13 07:49 | Hospitalist Progress Note ---
Date of Service November 13, 2023 Assessment & Plan (1) Hypotension: (2) Acute respiratory failure with hypoxia: (3) Atrial fibrillation with RVR: (4) CHF (congestive heart failure): (5) Cellulitis of left lower extremity: Plan Acute respiratory failure with hypoxia/bilateral pleural effusions/CHF -Currently on 4L NC, wean supplemental oxygen as able -CXR shows evidence of pleural effusion, pulmonary vascular congestion -BNP of 1115 on arrival, no prior diagnosis of CHF -Creatinine elevated at 1.46, no known prior history of CKD -Will try gentle diuresis and monitor Cr response Atrial fibrillation with RVR/NSTEMI/hypotension -Echo completed, formal read is pending. Cardiology consulted, appreciate recommendations -Received IV Lopressor in ED, was later started on Cardizem by cardiology -If BP drops, would add Digoxin per cardiology -Monitor electrolytes, hypokalemia on arrival with IV and PO repletion Left lower extremity cellulitis -Reports significant abrasion and infection on the dorsum of left foot began after buying new sneakers, and then gained a lot of fluid -Consult placed for wound care -Placed on daptomycin IV and Zosyn IV initially, now d/c Daptomycin. MRSA nares negative. Blood cultures pending, can consider de-escalation to Ceftriaxone if negative -Monitor daily CBC Admission and Anticipated Discharge Date Admission Date: November 13, 2023 Supervising Physician Co-Signing Physician Notes Attending Physician Supervision Note: I independently interviewed and examined the patient and verified the hinojosa history and physical, reviewed labs and image studies and agree with findings and care plan noted above. Acute resp failure hypoxic - continue O2 support. Acute systolic chf - EF 35%. also with LVH and thus diastolic dysfunction. systolic dysfunction likely from a fib. -s/p lasix 10mgs in ED. with rise in bun/creat - hold further lasix. A fib with RVR - started IV cardizem drip. continue heparin drip. -if hypotensive - add digoxin Leg cellulitis/skin tear - IV abx. if culture neg - will de-escalate. Long standing h/o smoking - ~30ppd. will need outpatient PFT. s/p dose of methylpred in ED Subjective Patient was seen and examined at bedside. Patient notes that she has had shortness of breath since around [place], but generally feels "fine" at rest. But notes she has had trouble breathing while walking around the house, denies chest pain. She notes that she lives alone, does her own cooking and mows her own lawn, etc. She notes she has lower extremity swelling which has gotten better since she came to the hospital. She does not have a PCP at present, states she has not seen a doctor in "many years" as she has felt well. She endorses a family history of her mother having atrial fibrillation. Review of Systems Review of Systems: As per above Physical Exam Constitutional: WD/WN, vitals as above Eyes: + anicteric sclerae; no conjunctival abn ormality ENMT: Ears: no external ear abnormality Nose: no external nose abnormality moist mucous membranes Respiratory: normal respiratory effort Auscultation: + diminished lung sounds nasal cannula oxygen in place Cardiovascular: Rate/Rhythm: + irregularly irregular Gastrointestinal (Abdomen): Inspection/Auscultation: abdomen not distended Percussion/Palpation: abdomen soft; abdomen nontender Skin: +1 edema of bilateral lower extremities, some erythema noted Neurologic: no focal motor deficits Psychiatric: A+Ox3, euthymic affect Results & Data Results & Data Vital Signs (Past 12 Hours) Vital Signs Temp Pulse Pulse Resp BP BP Pulse Ox 11/13/23 06:15 11/13/23 06:06 36.9 C 125 H 28 H 130/87 93 11/13/23 06:04 127 H 11/13/23 05:16 111 H 19 94 11/13/23 05:16 115/70 11/13/23 05:15 113 H 16 97 11/13/23 05:01 115 H 18 11/13/23 05:01 128/97 99 11/13/23 05:00 107 H 19 11/13/23 04:59 123/83 97 11/13/23 04:59 134 H 19 11/13/23 04:45 119 H 23 100 11/13/23 04:45 109/71 11/13/23 04:32 108/79 11/13/23 04:32 111 H 22 92 11/13/23 04:30 115 H 21 95 11/13/23 04:15 105 H 22 95 11/13/23 04:15 105/79 11/13/23 04:01 103 H 115/81 11/13/23 04:00 115/81 11/13/23 04:00 113 H 20 95 11/13/23 03:45 121 H 18 97 11/13/23 03:45 119/70 11/13/23 03:30 117 H 19 99 11/13/23 03:30 116/85 11/13/23 03:16 120 H 23 96 11/13/23 03:15 98/70 L 11/13/23 03:15 104 H 19 98 11/13/23 03:00 111/64 11/13/23 03:00 100 H 21 98 11/13/23 02:58 109 H 21 96/65 L 95 11/13/23 02:45 116 H 22 98 11/13/23 02:45 96/65 L 11/13/23 02:30 111 H 24 98 11/13/23 02:15 109/62 11/13/23 02:15 107 H 22 100 11/13/23 02:00 98/61 L 11/13/23 02:00 119 H 21 97 11/13/23 01:56 121 H 106/63 11/13/23 01:55 106/63 11/13/23 01:55 14 100 11/13/23 01:48 120 H 23 99 11/13/23 01:48 84/64 L 11/13/23 01:44 125 H 11 L 100 11/13/23 01:44 74/56 L 11/13/23 01:39 135 H 21 99 11/13/23 01:39 83/44 L 11/13/23 01:32 118 H 17 93 11/13/23 01:30 107 H 22 98 11/13/23 01:04 93/56 L 11/13/23 01:04 127 H 32 H 95 11/13/23 01:02 125 H 11/13/23 01:00 130 H 22 87 L 11/13/23 00:57 121 H 41 H 90 11/13/23 00:57 102/70 11/13/23 00:54 98/73 L 11/13/23 00:54 120 H 25 H 11/13/23 00:54 91 11/13/23 00:54 130 H 27 H 94 11/13/23 00:54 11/13/23 00:50 97 H 31 H 11/13/23 00:31 36.3 C L 67 20 101/73 93 O2 Del Method O2 Flow Rate FiO2 11/13/23 06:15 Nasal Cannula 4 11/13/23 06:06 Nasal Cannula 3 11/13/23 06:04 11/13/23 05:16 Nasal Cannula 4 11/13/23 05:16 11/13/23 05:15 BiPAP 11/13/23 05:01 11/13/23 05:01 BiPAP 11/13/23 05:00 11/13/23 04:59 BiPAP 11/13/23 04:59 11/13/23 04:45 BiPAP 11/13/23 04:45 11/13/23 04:32 11/13/23 04:32 BiPAP 11/13/23 04:30 BiPAP 11/13/23 04:15 BiPAP 11/13/23 04:15 11/13/23 04:01 11/13/23 04:00 11/13/23 04:00 BiPAP 11/13/23 03:45 BiPAP 11/13/23 03:45 11/13/23 03:30 BiPAP 11/13/23 03:30 11/13/23 03:16 30 11/13/23 03:15 11/13/23 03:15 BiPAP 11/13/23 03:00 11/13/23 03:00 BiPAP 11/13/23 02:58 BiPAP 11/13/23 02:45 11/13/23 02:45 11/13/23 02:30 11/13/23 02:15 11/13/23 02:15 11/13/23 02:00 11/13/23 02:00 11/13/23 01:56 11/13/23 01:55 11/13/23 01:55 11/13/23 01:48 11/13/23 01:48 11/13/23 01:44 11/13/23 01:44 11/13/23 01:39 11/13/23 01:39 11/13/23 01:32 30 11/13/23 01:30 11/13/23 01:04 11/13/23 01:04 11/13/23 01:02 11/13/23 01:00 11/13/23 00:57 11/13/23 00:57 11/13/23 00:54 11/13/23 00:54 11/13/23 00:54 Room Air 11/13/23 00:54 Room Air 11/13/23 00:54 Room Air 93 11/13/23 00:50 11/13/23 00:31 Room Air Diagnostic Findings Chest X-Ray 11/13/23 00:34 SINGLE VIEW CHEST CLINICAL HISTORY: Dyspnea FINDINGS: An AP, portable, upright chest radiograph is obtained. No prior studies are available for comparison at the time of dictation. The examination is degraded by portable technique and apical lordotic positioning. The heart is enlarged noting atherosclerotic calcification of the thoracic aorta. There is mild pulmonary vascular congestion. There are left larger than right pleural effusions with dependent consolidation. No pneumothorax is seen. The skeletal structures are osteopenic. The bony thorax is grossly intact. IMPRESSION: 1. Cardiomegaly with mild pulmonary vascular congestion. 2. Layering pleural effusions with dependent consolidation. ACT 112: Negative or not required by law. Electronically signed by: Nikhil Owen M.D. 11/13/2023 7:54 AM Resident Activity Tracking Resident Involvement: Resident Care Provided Care Provided: Adult Hospital Medicine
--- NOTE | 2023-11-13 07:55 | XRay Report ---
SINGLE VIEW CHEST CLINICAL HISTORY: Dyspnea FINDINGS: An AP, portable, upright chest radiograph is obtained. No prior studies are available for c omparison at the time of dictation. The examination is degraded by portable technique and apical lord otic positioning. The heart is enlarged noting atherosclerotic calcification of the thoracic aorta. There is mild pulmonary vascular congestion. There are left larger than right pleural effusions with dependent consolidation. No pneumothorax is seen. The skeletal structures are osteopenic. The bony th orax is grossly intact. IMPRESSION: 1. Cardiomegaly with mild pulmonary vascular congestion. 2. Layering pleural effusions with dependent consolidation. ACT 112: Negative or not required by law. Electronically signed by: Nikhil Owen M.D. 11/13/2023 7:54 AM
[2023-11-13 09:31] LABS: ANTI-Xa, UFH(UnfractionatedHep 0.37 IU/ml (0.3-0.7)
[2023-11-13] MEDS: ALBUMIN 25% 25 GM/100 ML VIAL IV STA (09:36)
[2023-11-13] MEDS: PIPERACILLIN/TAZOBACTAM 4.5 GM in DEXTROSE 5% MINI-B 100 ML IV SCH (09:47)
--- NOTE | 2023-11-13 10:26 | Cardiology Consultation ---
Date of Consultation November 13, 2023 Assessment & Plan (1) Atrial fibrillation with rapid ventricular response: (2) CHF (congestive heart failure): (3) Elevated troponin: (4) Hypokalemia: (5) Cardiomyopathy: Plan 1. Atrial fibrillation: She presents in atrial fibrillation of unknown duration. It may have been present for the 4 months that she is having symptoms but I cannot be sure. I think it has been a long time since she was evaluated to try to determine an onset. For now I would anticoagulate and attempt rate control. I am going to start low-dose diltiazem, I am going to titrate slowly to try to avoid hypotension. If she gets hypotension we can add digoxin. 2. Congestive heart failure: She has significant congestive heart failure which is likely related to her left ventricular dysfunction, which in turn is likely related to her atrial fibrillation although not definitely so. She also has left ventricular hypertrophy and probably has diastolic dysfunction as well. Agree with diuresis. 3. Elevated troponin: I do not think she has an acute ischemic event, I suspect this is demand ischemia. 4. Hypokalemia: I do not know why she is so hypokalemic, I do not think that that has anything to do with the onset of the atrial fibrillation but since she is not on a diuretic I am not sure why she would lose potassium. 5. Cardiomyopathy: On her echocardiogram she has a cardiomyopathy, in addition she has left ventricular hypertrophy. It is certainly possible that the cardiomyopathy is due to the atrial fibrillation for some period of time. My approach would be to control the arrhythmia and see if the cardiomyopathy resolves. If not we can look for other causes. History of Present Illness Reason for Consultation: Atrial fibrillation, congestive heart failure Attending Physician: Diane Sterling MD History of Present Illness This is a 68-year-old woman with no significant longstanding cardiovascular history who developed worsening shortness of breath over the past 4 months associated with bilateral lower extremity edema. These symptoms have been progressive and she presented to the emergency room where she was noted to be in atrial fibrillation with a rapid heart rate and hypoxic and probably in congestive heart failure. She is on essentially no outpatient medications other than Benadryl for sleeping. A bedside echo suggested left ventricular dysfunction and some element of pericardial effusion. In the emergency room she was treated with intravenous Lopressor but she is on no other rate control medications and she was started on heparin intravenously. An echocardiogram was done this morning and I reviewed it, the formal report is pending. She does not have a significant effusion, the left ventricle is quite thick (LVH) and there is definitely significant left ventricular dysfunction. At the time of my evaluation this morning she was minimally conversational, she was sound asleep and I was able to wake her up however she seemed to have trouble staying awake. I suspect it was from not sleeping much lately. She seems to have no complaints and seems unaware of her rhythm. Allergies Allergy/AdvReac Type Severity Reaction Status Date / Time Iodinated Contrast Media Allergy Intermediate RASH Unverified 11/13/23 02:29 Home Medications Medication Instructions Recorded Confirmed Type diphenhydramine HCl 25 mg capsule 25 mg PO HS PRN Sleep 11/13/23 11/13/23 History (Benadryl) Patient History Medical History History of tobacco abuse Social History Smoking Status: Former smoker Tobacco Type: Cigarettes Cigarettes Per Day: 30; Hx Alcohol Use: No Hx Substance Use: No Preferred Language: Ecuadorean Communication Ability: Effective Building Illuminating Engineer Required: No Beliefs That Will Affect Care: None Current Living Situation: Alone Current Living Situation Comment: Lives home alone Feels Safe at Home: Yes Assistive Devices: Cane and Walker Review of Systems Review of Systems: Unobtainable due to cognitive status Physical Exam Physical Exam: Constitutional: Alert, cooperative and in no distress. Very sleepy. HEENT: Unremarkable Neck: No jugular venous distention, carotid pulses are irregular but otherwise normal and equal bilaterally without bruits. Pulmonary: Crackles on auscultation bilaterally. Cardiac: Irregular rhythm with no murmur, gallop or rub. Abdomen: Soft, nontender with normal bowel sounds. Extremities: +2 pretibial edema. Neurologic: No focal findings. Skin: No rash, ecchymoses or petechiae. Results & Data Vital Signs (Past 12 Hours) Vital Signs Temp Pulse Pulse Resp BP BP Pulse Ox 11/13/23 06:15 11/13/23 06:06 36.9 C 125 H 28 H 130/87 93 11/13/23 06:04 127 H 11/13/23 05:16 111 H 19 94 11/13/23 05:16 115/70 11/13/23 05:15 113 H 16 97 11/13/23 05:01 115 H 18 11/13/23 05:01 128/97 99 11/13/23 05:00 107 H 19 11/13/23 04:59 123/83 97 11/13/23 04:59 134 H 19 11/13/23 04:45 119 H 23 100 11/13/23 04:45 109/71 11/13/23 04:32 108/79 11/13/23 04:32 111 H 22 92 11/13/23 04:30 115 H 21 95 11/13/23 04:15 105 H 22 95 11/13/23 04:15 105/79 11/13/23 04:01 103 H 115/81 11/13/23 04:00 115/81 11/13/23 04:00 113 H 20 95 11/13/23 03:45 121 H 18 97 11/13/23 03:45 119/70 11/13/23 03:30 117 H 19 99 11/13/23 03:30 116/85 11/13/23 03:16 120 H 23 96 11/13/23 03:15 98/70 L 11/13/23 03:15 104 H 19 98 11/13/23 03:00 111/64 11/13/23 03:00 100 H 21 98 11/13/23 02:58 109 H 21 96/65 L 95 11/13/23 02:45 116 H 22 98 11/13/23 02:45 96/65 L 11/13/23 02:30 111 H 24 98 11/13/23 02:15 109/62 11/13/23 02:15 107 H 22 100 11/13/23 02:00 98/61 L 11/13/23 02:00 119 H 21 97 11/13/23 01:56 121 H 106/63 11/13/23 01:55 106/63 11/13/23 01:55 14 100 11/13/23 01:48 120 H 23 99 11/13/23 01:48 84/64 L 11/13/23 01:44 125 H 11 L 100 11/13/23 01:44 74/56 L 11/13/23 01:39 135 H 21 99 11/13/23 01:39 83/44 L 11/13/23 01:32 118 H 17 93 11/13/23 01:30 107 H 22 98 11/13/23 01:04 93/56 L 11/13/23 01:04 127 H 32 H 95 11/13/23 01:02 125 H 11/13/23 01:00 130 H 22 87 L 11/13/23 00:57 121 H 41 H 90 11/13/23 00:57 102/70 11/13/23 00:54 98/73 L 11/13/23 00:54 120 H 25 H 11/13/23 00:54 91 11/13/23 00:54 130 H 27 H 94 11/13/23 00:54 11/13/23 00:50 97 H 31 H 11/13/23 00:31 36.3 C L 67 20 101/73 93 O2 Del Method O2 Flow Rate FiO2 11/13/23 06:15 Nasal Cannula 4 11/13/23 06:06 Nasal Cannula 3 11/13/23 06:04 11/13/23 05:16 Nasal Cannula 4 11/13/23 05:16 11/13/23 05:15 BiPAP 11/13/23 05:01 11/13/23 05:01 BiPAP 11/13/23 05:00 11/13/23 04:59 BiPAP 11/13/23 04:59 11/13/23 04:45 BiPAP 11/13/23 04:45 11/13/23 04:32 11/13/23 04:32 BiPAP 11/13/23 04:30 BiPAP 11/13/23 04:15 BiPAP 11/13/23 04:15 11/13/23 04:01 11/13/23 04:00 11/13/23 04:00 BiPAP 11/13/23 03:45 BiPAP 11/13/23 03:45 11/13/23 03:30 BiPAP 11/13/23 03:30 11/13/23 03:16 30 11/13/23 03:15 11/13/23 03:15 BiPAP 11/13/23 03:00 11/13/23 03:00 BiPAP 11/13/23 02:58 BiPAP 11/13/23 02:45 11/13/23 02:45 11/13/23 02:30 11/13/23 02:15 11/13/23 02:15 11/13/23 02:00 11/13/23 02:00 11/13/23 01:56 11/13/23 01:55 11/13/23 01:55 11/13/23 01:48 11/13/23 01:48 11/13/23 01:44 11/13/23 01:44 11/13/23 01:39 11/13/23 01:39 11/13/23 01:32 30 11/13/23 01:30 11/13/23 01:04 11/13/23 01:04 11/13/23 01:02 11/13/23 01:00 11/13/23 00:57 11/13/23 00:57 11/13/23 00:54 11/13/23 00:54 11/13/23 00:54 Room Air 11/13/23 00:54 Room Air 11/13/23 00:54 Room Air 93 11/13/23 00:50 11/13/23 00:31 Room Air Laboratory Results Cardiac Enzymes 11/13/23 Range/Units 00:44 AST 27 (13-39) U/L Troponin I High Sens 125.9 H* (0-14) pg/ml B-Natriuretic Peptide 1115 H (0-100) pg/ml Coagulation 11/13/23 Range/Units 00:44 PT 12.7 H (9.0-12.0) Seconds APTT 27 (21-31) Seconds B-Natriuretic Peptide 1115 H (0-100) pg/ml CBC 11/13/23 Range/Units 00:44 WBC 16.69 H (4.8-10.8) K/ul RBC 4.50 (4.20-5.40) M/uL Hgb 13.1 (12.0-16.0) g/dl Hct 41.9 (37.0-47.0) % Plt Count 202 (130-400) K/uL Neut # (Auto) 14.44 H (1.40-6.50) K/uL Lymph # (Auto) 0.76 L (1.20-3.40) K/uL [place] # (Auto) 1.24 H (0.11-0.59) K/uL Eos # (Auto) 0.05 (0.00-0.50) K/uL Baso # (Auto) 0.03 (0.00-0.20) K/uL Comprehensive Metabolic Panel 11/13/23 Range/Units 00:44 Sodium 145 (136-145) mmol/L Potassium 2.8 L (3.5-5.1) mmol/L Chloride 105 (98-107) mmol/L Carbon Dioxide 33 H (21-32) mmol/L BUN 29 H (6-23) mg/dl Creatinine 1.36 H (0.6-1.2) mg/dl Glucose 112 H (70-99(Fasting)) mg/dl Calcium 9.2 (8.6-10.3) mg/dl AST 27 (13-39) U/L ALT 39 (7-52) U/L Alkaline Phosphatase 67 (34-104) U/L Total Protein 6.2 (6.0-8.3) gm/dl Albumin 3.3 L (3.4-5.0) gm/dl Intake and Output 11/12/23 11/13/23 11/13/23 22:59 06:59 14:59 Intake Total 400 / 400 106.4 / 106.4 Balance 400 / 400 106.4 / 106.4 Intake: IV 400 / 400 106.4 / 106.4 Heparin Sodium/Dextrose 25,000 106.4 / 106.4 units In 500 ml @ 1,200 UNITS/ HR 24 mls/hr IV .[id number] [facility] Rx #:[id number] Magnesium Sulfate / D5w 1 gm In 100 / 100 100 ml @ 100 mls/hr IV NOW STA Rx#:[id number] Piperacillin/Tazobactam 4.5 gm 100 / 100 In 100 ml @ 200 mls/hr IV NOW ONE Rx#:[id number] Potassium Chloride / Wtr 10 meq 200 / 200 In 100 ml @ 100 mls/hr IV Q1H [facility] Rx#:[id number] Other: Weight 83.5 kg Weight Measurement Method Built in [facility] Diagnostic Findings Telemetry: Atrial fibrillation with a rapid heart rate. PG Care Time/CCT Total # of Minutes Spent Total Time Spent with Patient: Total time spent is greater than 50% in coordination of care (as documented) at patient's floor/unit and/or counseling patient: Coding Level of Care Code 43199 INT INP/OBS CARE 3/75MIN Diagnoses Atrial fibrillation with rapid ventricular response I48.91 Acute on chronic combined systolic and diastolic congestive heart failure I50.43 Heart failure type: combined systolic and diastolic Heart failure chronicity: acute on chronic Elevated troponin R79.89 Hypokalemia E87.6 Cardiomyopathy, unspecified type I42.9 Cardiomyopathy type: unspecified (2) CHF (congestive heart failure) Heart failure type: combined systolic and diastolic Heart failure chronicity: acute on chronic Qualified Code(s): I50.43 - Acute on chronic combined systolic (congestive) and diastolic (congestive) heart failure (5) Cardiomyopathy Cardiomyopathy type: unspecified Qualified Code(s): I42.9 - Cardiomyopathy, unspecified
[2023-11-13] MEDS ORDERED: STAT IV Infusion **Titration per Protocol STA (11:07)
[2023-11-13] MEDS ORDERED: dilTIAZem HCL 125 MG in DEXTROSE 5% 100 ML IV SCH (11:15)
[2023-11-13] MEDS: dilTIAZem HCL 125 MG in DEXTROSE 5% 100 ML IV SCH (11:40)
[2023-11-13] MEDS: POTASSIUM CHLORIDE CRTAB 20 MEQ TABCR PO STA ×2 (12:34→18:43)
[2023-11-13] MEDS: dilTIAZem HCl 5 MG/ML 5 ML VIAL IV STA (14:01)
[2023-11-13 15:02] LABS: ANTI-Xa, UFH(UnfractionatedHep 0.48 IU/ml (0.3-0.7)
[2023-11-13 15:11] LABS: Calcium 8.4 mg/dl (8.6-10.3); Potassium 3.3 mmol/L (3.5-5.1)
[2023-11-13 15:16] LABS: BUN Creatinine Ratio 22.6 (10-20); Creatinine Clr Calc Pharmacy 37.5 ml/min; Est GFR (African American) 41.8 ml/min; Est GFR (Non-African American) 36.1 ml/min
[2023-11-13] MEDS: FUROSEMIDE INJ 20 MG/2 ML VIAL IV ONE (18:43)
--- NOTE | 2023-11-13 19:36 | XCELERA ---
[id number] \\[email or web address]\[email or web address]_[email or web address]\[id number]
[2023-11-14] MEDS: ACETAMINOPHEN 325 MG TAB PO PRN
[2023-11-14 04:23] LABS: Basophils # (auto) 0.01 K/uL (0.00-0.20); Basophils % (auto) 0.1 %; Eosinophils # (auto) 0.12 K/uL (0.00-0.50); Eosinophils % (auto) 0.9 %; Hemoglobin 10.3 g/dl (12.0-16.0); Immature Granulocytes % (auto) 0.8 %; Lymphocytes # (auto) 0.78 K/uL (1.20-3.40); Lymphocytes % (auto) 5.9 %; Mean Corpuscular Hemoglobin 29.5 pg (25.0-34.0); Mean Corpuscular Hgb Conc 31.2 g/dL (32.0-36.0); Mean Corpuscular Volume 94.6 fL (80.0-100.0); Mean Platelet Volume 11.8 fL (9.4-12.4); Monocytes # (auto) 1.02 K/uL (0.11-0.59); Monocytes % (auto) 7.7 %; Neutrophils # (auto) 11.28 K/uL (1.40-6.50); Neutrophils % (auto) 84.6 %; Platelet Count 145 K/uL (130-400); RDW Coefficient of Variation 17.2 % (11.5-14.5); RDW Standard Deviation 58.1 fL (36.4-46.3); Red Blood Count 3.49 M/uL (4.20-5.40); White Blood Count 13.31 K/ul (4.8-10.8)
[2023-11-14 04:54] LABS: Albumin Level 2.7 gm/dl (3.4-5.0); Calcium 8.2 mg/dl (8.6-10.3); Creatinine Clr Calc Pharmacy 31.1 ml/min; Est GFR (African American) 33.4 ml/min; Est GFR (Non-African American) 28.8 ml/min; Phosphorus 3.9 mg/dl (2.5-4.9); Potassium 3.5 mmol/L (3.5-5.1)
[2023-11-14 05:21] LABS: ANTI-Xa, UFH(UnfractionatedHep 0.48 IU/ml (0.3-0.7)
[2023-11-14] MEDS ORDERED: DAPTOmycin 275 MG in SYRINGE 0 ML IV SCH (06:00)
--- NOTE | 2023-11-14 09:30 | Hospitalist Progress Note ---
Date of Service November 14, 2023 Assessment & Plan (1) Hypotension: (2) Acute respiratory failure with hypoxia: (3) Atrial fibrillation with RVR: (4) CHF (congestive heart failure): (5) Cellulitis of left lower extremity: Plan Acute respiratory failure with hypoxia/bilateral pleural effusions/CHF -Not on home O2, currently on 3L NC, wean supplemental oxygen as able -Still with shortness of breath with exertion. -Initial CXR shows evidence of pleural effusion, pulmonary vascular congestion -BNP of 1115 on arrival, no prior diagnosis of CHF -Creatinine elevated at 1.46, no known prior history of CKD -Creatinine bump with 10mg IV Lasix to 1.76. -Will hold on further diuresis for now. Atrial fibrillation with RVR/NSTEMI/hypotension/cardiomyopathy -Echo completed, EF 35-40%, pericardial effusion without evidence tamponade, L ventricular hypertrophy. -Received lopresser 5mg in ER. -Cardiology consulted, appreciate recommendations -Cardiology titrating diltiazem, if hypotension an issue can add digoxin. -CHF likely related to left ventricular hypertrophy, in turn related to a. fib. -Cardiomyopathy on echo possibly from atrial fibrillation - control arrhythmia and check for resolution. -Monitor electrolytes, hypokalemia on arrival with IV and PO repletion Left lower extremity cellulitis -Reports significant abrasion and infection on the dorsum of left foot began after buying new sneakers, and then gained a lot of fluid -Consult placed for wound care -Placed on daptomycin IV and Zosyn IV initially, now d/c Daptomycin. MRSA nares negative. Blood cultures negative at 24 hours, will switch to Ceftriaxone 2g q24h -Monitor daily CBC DVT Prophylaxis: Heparin gtt Dispo: PCU, will add on PT/OT to help with strength and movement while hospitalized. Admission and Anticipated Discharge Date Admission Date: November 13, 2023 Supervising Physician Co-Signing Physician Notes Attending Physician Supervision Note: I independently interviewed and examined the patient and verified the hinojosa history and physical, reviewed labs and image studies and agree with findings and care plan noted above. Acute resp failure hypoxic - continue O2 support. Acute systolic chf - EF 35%. also with LVH and thus diastolic dysfunction. systolic dysfunction likely from a fib. -s/p lasix 10mgs in ED and also a repeat dose with rise in bun/creat - hold further lasix. -controlling HR should improve renal perfusion. A fib with RVR - started on IV cardizem drip - held this am due to drop in BP. BP better - will start metoprolol 25mgs bid. -consider digoxin for further HR titration if BP limits metoprolol dose adjustment. -continue heparin drip. Leg cellulitis/skin tear - IV abx switched to rocephin. cultures neg. Long standing h/o smoking - ~30ppd. will need outpatient PFT. s/p dose of methylpred in ED Subjective Patient feeling okay today no complaints other than she is fine with sitting and then gets more short of breath with movement. Other than that her friend did bring her some candy however she states she does not like [employer] as she has not had them since she was 18, kindly offered to this physician however this physician politely declined. Review of Systems Review of Systems: As per above Physical Exam Constitutional: WD/WN, vitals as above Eyes: PERRL, conjunctivae normal, anicteric sclerae Respiratory: normal respiratory effort, lungs clear to auscultation Cardiovascular: Rate/Rhythm: regular rate and regular rhythm Heart Sounds: normal S1 and normal S2 2+ pitting edema up to the knees bilater ally. Gastrointestinal (Abdomen): normal bowel sounds, soft, nontender, no hepatosplenomegaly Skin: erythema noted surrounding skin ulceration sites at two locations on the dorsal foot and lateral heel. Psychiatric: A+Ox3, euthymic affect Results & Data Results & Data Vital Signs (Past 12 Hours) Vital Signs Pulse Pulse Resp BP BP Pulse Ox O2 Del Method 11/14/23 04:04 85/48 L 11/14/23 03:16 85 14 96/56 L 97 Nasal Cannula 11/14/23 00:45 93 H 27 H 100 11/14/23 00:30 90 24 99 11/14/23 00:15 95 H 30 H 98 11/14/23 00:01 95 H 24 99 11/14/23 00:01 119/66 11/14/23 00:00 93 H 11/14/23 00:00 90 19 97 11/13/23 23:45 94 H 17 98 11/13/23 23:30 93 H 19 96 11/13/23 23:15 91 H 25 H 90 11/13/23 23:01 98 H 30 H 89 L 11/13/23 23:01 104/60 11/13/23 23:00 98 H 29 H 87 L 11/13/23 22:45 99 H 14 97 11/13/23 22:30 81 17 90 11/13/23 22:15 89 15 96 11/13/23 22:00 91 H 17 91 11/13/23 21:45 95 H 14 98 11/13/23 21:30 90 15 99 O2 Flow Rate 11/14/23 04:04 11/14/23 03:16 3 11/14/23 00:45 11/14/23 00:30 11/14/23 00:15 11/14/23 00:01 11/14/23 00:01 11/14/23 00:00 11/14/23 00:00 11/13/23 23:45 11/13/23 23:30 11/13/23 23:15 11/13/23 23:01 11/13/23 23:01 11/13/23 23:00 11/13/23 22:45 11/13/23 22:30 11/13/23 22:15 11/13/23 22:00 11/13/23 21:45 11/13/23 21:30 Resident Activity Tracking Resident Involvement: Resident Care Provided Care Provided: Adult Hospital Medicine (1) Hypotension Hypotension type: unspecified hypotension type Qualified Code(s): I95.9 - Hypotension, unspecified (4) CHF (congestive heart failure) Heart failure chronicity: acute on chronic Heart failure type: combined systolic and diastolic Qualified Code(s): I50.43 - Acute on chronic combined systolic (congestive) and diastolic (congestive) heart failure
[2023-11-14 12:30] LABS: Appearance Urine Cloudy (Clear); Bacteria Urine Automated Negative (Negative); Bilirubin Urine Negative (Negative); Blood Urine 3+ (Negative); Color Urine Dark Yellow; Epithelial Cell Urine Auto >30 /lpf (0-5); Glucose Urine UA Negative (Negative); Ketones Urine Trace (Negative); Leukocyte Esterase Urine 2+ (Negative); Nitrite Urine Negative (Negative); Protein Urine 2+ (Negative); Specific Gravity Urine 1.024 (1.000-1.030); Urobilinogen Urine Negative (Negative); WBC Urine Automated >30 /hpf (0-5); pH Urine 5.5 (4.5-7.5)
[2023-11-14 13:11] LABS: RBC Urine Automated >30 /hpf (0-4)
[2023-11-14 13:13] LABS: Renal Epithelial Cells Urine 0-5 /lpf (0-5)
[2023-11-14] MEDS: POTASSIUM CHLORIDE CRTAB 20 MEQ TABCR PO STA (15:10)
--- NOTE | 2023-11-14 16:29 | Cardiology Progress Note ---
Date of Service November 14, 2023 Assessment & Plan (1) Atrial fibrillation with rapid ventricular response: (2) CHF (congestive heart failure): (3) Elevated troponin: (4) Hypokalemia: (5) Cardiomyopathy: Plan 1. Atrial fibrillation: She presents in atrial fibrillation of unknown duration. It may have been present for the 4 months that she is having symptoms but I cannot be sure. I think it has been a long time since she was evaluated to try to determine an onset. For now I would anticoagulate and attempt rate control. Her heart rate is little bit better on intravenous diltiazem, oral metoprolol tartrate started today. Agree with titration of metoprolol to try to keep heart rate consistently under 100. I would use Eliquis 5 mg twice a day once we are able to convert to oral anticoagulation. 2. Congestive heart failure: She has significant congestive heart failure which is likely related to her left ventricular dysfunction, which in turn is likely related to her atrial fibrillation although not definitely so. She also has left ventricular hypertrophy and probably has diastolic dysfunction as well. Agree with diuresis. 3. Elevated troponin: I do not think she has an acute ischemic event, I suspect this is demand ischemia. 4. Hypokalemia: I do not know why she was so hypokalemic, I do not think that that has anything to do with the onset of the atrial fibrillation but since she is not on a diuretic I am not sure why she would lose potassium. That is gradually improving. 5. Cardiomyopathy: On her echocardiogram she has a cardiomyopathy, in addition she has left ventricular hypertrophy. It is certainly possible that the cardiomyopathy is due to the atrial fibrillation for some period of time. My approach would be to control the arrhythmia and see if the cardiomyopathy resolves. If not we can look for other causes. Admission and Anticipated Discharge Date Admission Date: November 13, 2023 Subjective She is feeling quite well today, she is not aware of her arrhythmia and has no sense of palpitations. No shortness of breath but she has not been active. Physical Exam Physical Exam: Constitutional: Alert, cooperative and in no distress. Very sleepy. HEENT: Unremarkable Neck: No jugular venous distention, carotid pulses are irregular but otherwise normal and equal bilaterally without bruits. Pulmonary: Crackles on auscultation bilaterally. Cardiac: Irregular rhythm with no murmur, gallop or rub. Abdomen: Soft, nontender with normal bowel sounds. Extremities: +1 pretibial edema. Neurologic: No focal findings. Skin: No rash, ecchymoses or petechiae. Results & Data Vital Signs (Past 12 Hours) Vital Signs Pulse Resp BP Pulse Ox O2 Del Method O2 Flow Rate 11/14/23 11:00 109 H 21 95 Nasal Cannula 3 11/14/23 11:00 117/55 L 11/14/23 10:01 108 H 21 98 Nasal Cannula 3 11/14/23 10:01 99/81 L 11/14/23 10:00 107 H 20 86 L Nasal Cannula 3 11/14/23 09:38 Nasal Cannula 3 11/14/23 09:22 102 H 16 95 Nasal Cannula 3 11/14/23 09:22 115/60 11/14/23 08:00 99 H 26 H 96 Nasal Cannula 3 11/14/23 08:00 116/87 11/14/23 07:00 89/62 L 11/14/23 07:00 94 H 23 96 Nasal Cannula 3 11/14/23 07:00 100 H Laboratory Results CBC 11/14/23 Range/Units 03:38 WBC 13.31 H (4.8-10.8) K/ul RBC 3.49 L (4.20-5.40) M/uL Hgb 10.3 L (12.0-16.0) g/dl Hct 33.0 L (37.0-47.0) % Plt Count 145 (130-400) K/uL Neut # (Auto) 11.28 H (1.40-6.50) K/uL Lymph # (Auto) 0.78 L (1.20-3.40) K/uL [place] # (Auto) 1.02 H (0.11-0.59) K/uL Eos # (Auto) 0.12 (0.00-0.50) K/uL Baso # (Auto) 0.01 (0.00-0.20) K/uL Comprehensive Metabolic Panel 11/14/23 Range/Units 03:38 Sodium 143 (136-145) mmol/L Potassium 3.5 (3.5-5.1) mmol/L Chloride 106 (98-107) mmol/L Carbon Dioxide 31 (21-32) mmol/L BUN 37 H (6-23) mg/dl Creatinine 1.76 H D (0.6-1.2) mg/dl Glucose 127 H (70-99(Fasting)) mg/dl Calcium 8.2 L (8.6-10.3) mg/dl Albumin 2.7 L (3.4-5.0) gm/dl Intake and Output 11/14/23 11/14/23 11/14/23 06:59 14:59 22:59 Intake Total 417.367 / 1194.925 100 / 100 Output Total 375 / 625 Balance 42.367 / 569.925 100 / 100 Intake: IV 417.367 / 1044.925 100 / 100 Heparin Sodium/Dextrose 25,000 251.2 / 634.8 units In 500 ml @ 1,200 UNITS/ HR 24 mls/hr IV .[id number] [facility] Rx #:[id number] Piperacillin/Tazobactam 4.5 gm 100 / 300 100 / 100 In Dextrose 5% Mini-B 100 ml @ 25 mls/hr IV Q8H [facility] Rx#: [id number] dilTIAZem HCL 125 mg In 66.167 / 110.125 Dextrose 5% 100 ml @ 0 MG/HR IV .Q0M [facility] Rx#:[id number] Output: Urine Amount (Catheter) 375 / 625 Frias/Indwelling 375 / 625 Diagnostic Findings Telemetry: Atrial fibrillation continues, heart rate slightly improved today but still running around 100. PG Care Time/CCT Total # of Minutes Spent Total Time Spent with Patient: Total time spent is greater than 50% in coordination of care (as documented) at patient's floor/unit and/or counseling patient: Coding Level of Care Code 44901 SUB INP/OBS CARE 2/35MIN Diagnoses Atrial fibrillation with rapid ventricular response I48.91 Acute on chronic combined systolic and diastolic congestive heart failure I50.43 Heart failure chronicity: acute on chronic Heart failure type: combined systolic and diastolic Elevated troponin R79.89 Hypokalemia E87.6 Cardiomyopathy, unspecified type I42.9 Cardiomyopathy type: unspecified (2) CHF (congestive heart failure) Heart failure chronicity: acute on chronic Heart failure type: combined systolic and diastolic Qualified Code(s): I50.43 - Acute on chronic combined systolic (congestive) and diastolic (congestive) heart failure (5) Cardiomyopathy Cardiomyopathy type: unspecified Qualified Code(s): I42.9 - Cardiomyopathy, unspecified
[2023-11-14] MEDS: cefTRIAXone SODIUM 2,000 MG in DEXTROSE 5 % MINI-B 50 ML IV SCH (16:48)
[2023-11-14] MEDS: METOPROLOL TARTRATE 25 MG TAB PO SCH (20:14)
[2023-11-15 04:27] LABS: Albumin Level 2.8 gm/dl (3.4-5.0); Basophils # (auto) 0.02 K/uL (0.00-0.20); Basophils % (auto) 0.1 %; Creatinine Clr Calc Pharmacy 30.9 ml/min; Eosinophils # (auto) 0.16 K/uL (0.00-0.50); Eosinophils % (auto) 1.2 %; Est GFR (African American) 33.1 ml/min; Est GFR (Non-African American) 28.6 ml/min; Hematocrit (blood only) 34.1 % (37.0-47.0); Hemoglobin 10.5 g/dl (12.0-16.0); Immature Granulocytes # (auto) 0.19 K/uL (0.01-0.20); Immature Granulocytes % (auto) 1.4 %; Lymphocytes # (auto) 1.09 K/uL (1.20-3.40); Lymphocytes % (auto) 7.8 %; Mean Corpuscular Hemoglobin 29.5 pg (25.0-34.0); Mean Corpuscular Hgb Conc 30.8 g/dL (32.0-36.0); Mean Corpuscular Volume 95.8 fL (80.0-100.0); Mean Platelet Volume 11.2 fL (9.4-12.4); Monocytes # (auto) 0.97 K/uL (0.11-0.59); Neutrophils # (auto) 11.46 K/uL (1.40-6.50); Neutrophils % (auto) 82.5 %; Phosphorus 4.1 mg/dl (2.5-4.9); Platelet Count 170 K/uL (130-400); Potassium 4.1 mmol/L (3.5-5.1); RDW Coefficient of Variation 17.2 % (11.5-14.5); RDW Standard Deviation 59.6 fL (36.4-46.3); Red Blood Count 3.56 M/uL (4.20-5.40); White Blood Count 13.89 K/ul (4.8-10.8)
[2023-11-15 04:51] LABS: ANTI-Xa, UFH(UnfractionatedHep 0.47 IU/ml (0.3-0.7)
--- NOTE | 2023-11-15 06:33 | Electrocardiogram Report ---
Test Reason : Blood Pressure : / mmHG Vent. Rate : 141 BPM Atrial Rate : 000 BPM P-R Int : 000 ms QRS Dur : 088 ms QT Int : 338 ms P-R-T Axes : 000 -18 164 degrees QTc Int : 517 ms Atrial fibrillation with rapid ventricular response Moderate voltage criteria for LVH, may be normal variant ( R in aVL , Animas product ) Poor R wave progression, consider anterior [place] vs. lead placement vs. LVH Nonspecific T wave abnormality Abnormal ECG No previous ECGs available Confirmed by Eddie Faust ([id number]) on 11/15/2023 6:32:46 AM Referred By: NO PCP Confirmed By:Eddie Faust
--- NOTE | 2023-11-15 07:23 | Electrocardiogram Report ---
Test Reason : Blood Pressure : / mmHG Vent. Rate : 093 BPM Atrial Rate : 080 BPM P-R Int : 000 ms QRS Dur : 090 ms QT Int : 354 ms P-R-T Axes : 000 -19 124 degrees QTc Int : 440 ms Poor data quality, interpretation may be adversely affected Atrial fibrillation Anterior infarct (cited on or before 13-NOV-2023) Abnormal ECG When compared with ECG of 13-NOV-2023 00:40, (unconfirmed) Vent. rate has decreased BY 48 BPM Serial changes of Anterior infarct Present Confirmed by Mick Martinez ([id number]) on 11/15/2023 7:23:26 AM Referred By: NO PCP Confirmed By:Mick Martinez
--- NOTE | 2023-11-15 07:27 | Hospitalist Progress Note ---
Date of Service November 15, 2023 Assessment & Plan (1) Hypotension: Plan: Acute respiratory failure with hypoxia/bilateral pleural effusions/CHF -Not on home O2, currently on 3L NC, wean supplemental oxygen as able -Still with shortness of breath with exertion. -Initial CXR shows evidence of pleural effusion, pulmonary vascular congestion -BNP of 1115 on arrival, no prior diagnosis of CHF -Creatinine bump to 1.76 after only IV Lasix 10 mg -Continue holding on further diuresis. Atrial fibrillation with RVR/NSTEMI/hypotension/cardiomyopathy -Echo completed, EF 35-40%, pericardial effusion without evidence tamponade, L ventricular hypertrophy. -Received Lopressor 5mg in ER. -Cardiology consulted, appreciate recommendations -CHF likely related to left ventricular hypertrophy, in turn related to a. fib. -Cardiomyopathy on echo possibly from atrial fibrillation - control arrhythmia and check for resolution. * Stopped diltiazem drip. Continue metoprolol 25 mg twice daily. * Monitor electrolytes, hypokalemia on arrival with IV and PO repletion Left lower extremity cellulitis -Reports significant abrasion and infection on the dorsum of left foot began after buying new sneakers, and then gained a lot of fluid -Consult placed for wound care -Placed on daptomycin IV and Zosyn IV initially, now d/c Daptomycin. MRSA nares negative. Blood cultures negative at 24 hours, will switch to Ceftriaxone 2g q24h -Monitor daily CBC DVT Prophylaxis: Eliquis 5 mg twice daily Dispo: PCU, will add on PT/OT to help with strength and movement while hospitalized. (2) Acute respiratory failure with hypoxia: (3) Atrial fibrillation with RVR: (4) CHF (congestive heart failure): (5) Cellulitis of left lower extremity: Admission and Anticipated Discharge Date Admission Date: November 13, 2023 Supervising Physician Co-Signing Physician Notes Attending Physician Supervision Note: I independently interviewed and examined the patient and verified the hinojosa history and physical, reviewed labs and image studies and agree with findings and care plan noted above. Acute resp failure hypoxic - resolved Acute systolic chf - EF 35% with moderate pericardial effusion. also with LVH and thus diastolic dysfunction. systolic dysfunction likely from a fib. -s/p lasix 10mgs in ED and also a repeat dose with rise in bun/creat. -per cardio - will diurese further and monitor renal function. -40mgs lasix IV today -recheck echo to f/u on effusion in am A fib with RVR - received IV cardizem drip - d/alicia d/t hypotension. Initiated metoprolol 25mgs bid. -to consider digoxin for further HR titration if BP limits metoprolol dose adjustment. -switch anticoagulation to apixaban. NARAYAN - follow renal function while diuresing Leg cellulitis/skin tear - IV abx switched to rocephin. cultures neg. Long standing h/o smoking - ~30ppd. will need outpatient PFT. s/p dose of methylpred in ED Subjective Patient sleeping on arrival this morning. Easily roused to voice. She reports some tiredness this morning. Otherwise, denies headaches, shortness of breath, chest pain, nausea, or vomiting. Review of Systems Review of Systems: All systems reviewed & are unremarkable except as noted in HPI & below Physical Exam Physical Exam: General: No acute distress HEENT: PERRLA. Normal conjunctiva, anicteric sclera. Oropharynx normal. Respiratory: Normal respiratory effort, CTABL. Cardiovascular: RRR without murmurs, gallops, or rubs. No pedal edema. GI: Soft abdomen with normal bowel sounds heard on auscultation. Nontender x4 quadrants Neuro: Alert and oriented x3. Results & Data Results & Data Vital Signs (Past 12 Hours) Vital Signs Pulse Resp BP Pulse Ox 11/15/23 07:17 96 H 11/15/23 06:00 85/48 L 11/15/23 06:00 94 H 1 L 98 11/15/23 05:00 86/43 L 11/15/23 05:00 85 14 100 11/15/23 04:03 89 16 99 11/15/23 04:03 90/49 L 11/15/23 04:01 88 13 99 11/15/23 04:01 76/53 L 11/15/23 04:00 86 18 98 11/15/23 03:01 86 8 L 94 11/15/23 03:01 104/66 11/15/23 03:00 88 20 95 11/15/23 02:00 88 16 96 11/15/23 01:00 91/61 L 11/15/23 01:00 87 14 96 11/15/23 00:01 103/67 11/15/23 00:01 87 15 95 11/15/23 00:00 89 15 96 11/14/23 23:00 96/70 L 11/14/23 23:00 92 H 15 99 11/14/23 22:02 83 24 99 11/14/23 22:02 125/73 11/14/23 22:00 90 24 97 11/14/23 21:00 117 H 29 H 94 11/14/23 20:00 115 H 20 95 11/14/23 20:00 115/73 Resident Activity Tracking Resident Involvement: Resident Care Provided Care Provided: Adult Hospital Medicine (1) Hypotension Hypotension type: unspecified hypotension type Qualified Code(s): I95.9 - Hypotension, unspecified (4) CHF (congestive heart failure) Heart failure chronicity: acute on chronic Heart failure type: combined systolic and diastolic Qualified Code(s): I50.43 - Acute on chronic combined systolic (congestive) and diastolic (congestive) heart failure
[2023-11-15] MEDS: APIXABAN 5 MG TABLET PO SCH (11:42)
--- NOTE | 2023-11-15 11:53 | Electrocardiogram Report ---
Test Reason : Blood Pressure : / mmHG Vent. Rate : 102 BPM Atrial Rate : 208 BPM P-R Int : 000 ms QRS Dur : 084 ms QT Int : 334 ms P-R-T Axes : 000 -05 149 degrees QTc Int : 435 ms Atrial fibrillation with rapid ventricular response Possible Anterior infarct (cited on or before 14-NOV-2023) T wave abnormality, consider lateral ischemia Abnormal ECG When compared with ECG of 14-NOV-2023 06:35, No significant change was found Confirmed by Eddie Faust ([id number]) on 11/15/2023 11:53:45 AM Referred By: CHEIKH PCP Confirmed By:Eddie Faust
--- NOTE | 2023-11-15 15:55 | Cardiology Progress Note ---
Date of Service November 15, 2023 Assessment & Plan (1) Acute HFrEF (heart failure with reduced ejection fraction): (2) Cardiomyopathy: (3) Atrial fibrillation with rapid ventricular response: (4) Pericardial effusion: (5) Elevated troponin: Plan ASSESSMENT/PLAN: 1. Acute heart failure with reduced EF: She appears hypervolemic. Will give Lasix 40 mg IV x 1. Monitor renal function and electrolytes carefully. Strict I's and O's. Daily weights. Low-sodium diet, less than 2000 mg daily. She does not maintain a low-sodium diet at home. Recommend metoprolol succinate in place of metoprolol tartrate when done titrating. When volume status improved, if renal function allows, plan on initiating typical heart failure medications such as ARNI, mineralocorticoid receptor antagonist, and consideration for SGLT2 inhibitor. 2. Cardiomyopathy: Likely related to tachycardia in the setting of atrial fibrillation with RVR. If LV systolic function does not improve with improved rate control, would consider ischemic evaluation and secondary workup. Does not qualify for ICD for primary prevention at this time. Medical therapy as above. 3. Atrial fibrillation: Persistent/permanent. Asymptomatic from the rhythm itself but likely contributing to her cardiomyopathy. Agree with anticoagulation for stroke risk reduction. Heart rate much improved with low- dose beta-mckay. Could titrate beta-mckay if tolerated. Continue current regimen for now. Can add dose of digoxin if needed and BP won't allow for betablocker, but not needed currently. 4. Pericardial effusion: No tamponade physiology on echo. Heart rate has improved. Blood pressure stable. Repeat limited echo. 5. Elevated troponin: Likely represents demand ischemia due to A-fib with RVR and heart failure. Repeat to ensure no significant further elevation. 6. Disposition: Cardiology will continue to follow along. Plan of care communicated with Dr. Sterling of the primary hospitalist service. Discussed plan with Josette CASIANO. Admission and Anticipated Discharge Date Admission Date: November 13, 2023 Subjective Patient seen this morning. She feels much better today than previously this hospital stay. She continues to require supplemental oxygen, but she does not require such at home. She denies chest pain, syncope, near syncope, palpitations. She has had edema and increased dyspnea on exertion for months. She does not maintain a low-sodium diet. She is typically active at home. She was alone in her hospital room. Physical Exam Physical Exam: Gen.: No acute distress. Alert. HEENT: Anicteric sclera. Neck: Mild JVD. Cardiac: Irregularly irregular. Normal rate. Normal S1-S2. No murmurs, rubs, or gallops. Pulmonary: Decreased breath sounds bilaterally, specifically at the bases and occasional expiratory wheezes. No rales. Abdomen: Soft, nontender, nondistended, with normoactive bowel sounds. No bruits noted. Extremities: 2+ radial pulses bilaterally. 2+ posterior tibialis pulses bilaterally. 3+ bilateral lower extremity edema. No cyanosis. Psychiatric: Affect appears appropriate. Results & Data Vital Signs (Past 12 Hours) Vital Signs Pulse Pulse Resp BP BP BP Pulse Ox 11/15/23 15:46 103 H 14 91/58 L 99 11/15/23 12:00 101/63 11/15/23 12:00 90 4 L 100 11/15/23 11:00 102/71 11/15/23 11:00 97 H 100 11/15/23 10:00 105/71 11/15/23 10:00 87 100 11/15/23 09:00 97 H 22 98 11/15/23 09:00 105/56 L 11/15/23 08:54 99 H 23 98 11/15/23 08:54 105/53 L 11/15/23 08:28 11/15/23 08:00 103/68 11/15/23 07:49 103 H 22 104/75 97 11/15/23 07:47 101 H 92 11/15/23 07:47 104/75 11/15/23 07:17 96 H 11/15/23 07:00 93 H 17 97 11/15/23 07:00 87/70 L 11/15/23 06:00 85/48 L 11/15/23 06:00 94 H 1 L 98 11/15/23 05:00 86/43 L 11/15/23 05:00 85 14 100 11/15/23 04:03 89 16 99 11/15/23 04:03 90/49 L 11/15/23 04:01 88 13 99 11/15/23 04:01 76/53 L 11/15/23 04:00 86 18 98 O2 Del Method O2 Flow Rate 11/15/23 15:46 Nasal Cannula 11/15/23 12:00 11/15/23 12:00 Nasal Cannula 3 11/15/23 11:00 11/15/23 11:00 Nasal Cannula 3 11/15/23 10:00 11/15/23 10:00 11/15/23 09:00 Nasal Cannula 3 11/15/23 09:00 11/15/23 08:54 11/15/23 08:54 11/15/23 08:28 Nasal Cannula 3 11/15/23 08:00 11/15/23 07:49 Nasal Cannula 11/15/23 07:47 11/15/23 07:47 11/15/23 07:17 11/15/23 07:00 11/15/23 07:00 11/15/23 06:00 11/15/23 06:00 11/15/23 05:00 11/15/23 05:00 11/15/23 04:03 11/15/23 04:03 11/15/23 04:01 11/15/23 04:01 11/15/23 04:00 Intake & Output 11/13/23 11/14/23 11/15/23 11/16/23 06:59 06:59 06:59 06:59 Intake Total 400 / 400 1194.925 / 1194.925 856.5 / 856.5 319.083 / 319.083 Output Total 625 / 625 450 / 450 Balance 400 / 400 569.925 / 569.925 406.5 / 406.5 319.083 / 319.083 Weight 184 lb 1.376 oz 184 lb 1.376 oz 194 lb 0.108 oz Laboratory Results Laboratory Results - last 24 hr 11/15/23 03:25 WBC 13.89 H RBC 3.56 L Hgb 10.5 L Hct 34.1 L MCV 95.8 MCH 29.5 MCHC 30.8 L RDW Std Deviation 59.6 H RDW Coeff of Jame 17.2 H Plt Count 170 MPV 11.2 Immature Gran % (Auto) 1.4 Neut % (Auto) 82.5 Lymph % (Auto) 7.8 [place] % (Auto) 7.0 Eos % (Auto) 1.2 Baso % (Auto) 0.1 Neut # (Auto) 11.46 H Lymph # (Auto) 1.09 L [place] # (Auto) 0.97 H Eos # (Auto) 0.16 Baso # (Auto) 0.02 Immature Gran # (Auto) 0.19 Heparin Anti-Xa, Unfract 0.47 Sodium 143 Potassium 4.1 Chloride 106 Carbon Dioxide 30 Anion Gap 7 BUN 39 H Creatinine 1.77 H Est Cr Clr Drug Dosing 30.9 Est GFR ( Amer) 33.1 Est GFR (Non-Af Amer) 28.6 BUN/Creatinine Ratio 22.0 H Glucose 123 H Calcium 8.0 L Phosphorus 4.1 Magnesium 2.0 Albumin 2.8 L Diagnostic Findings Labs reviewed and notable for elevated BNP, abnormal renal function, mild anemia, mild leukocytosis, normal transaminase levels, normal TSH, elevated high-sensitivity troponin. Telemetry personally reviewed: Remains in atrial fibrillation but heart rate trend has improved and mostly 80 to 100 bpm today. ECG personally reviewed from 11/15/2023: Atrial fibrillation 102 bpm. Possible anterior infarct. T wave inversion. Blood and urine cultures negative to date. Chart reviewed. Echo 11/13/2023: Reports moderately reduced systolic function with an EF of 35 to 40%. No significant valvular abnormalities. Small pericardial effusion. Echo images personally reviewed: Pericardial effusion appears moderate in some views but agree no echocardiographic evidence of tamponade physiology. Wall motion seems globally hypokinetic. Medications Administered Current Inpatient Medications Acetaminophen (Acetaminophen 325 Mg Tab) 650 mg PO Q4H PRN PRN Reason: Pain or Fever Stop: 12/13/23 04:05 Last Admin: 11/14/23 00:00 Dose: 650 mg Apixaban (Apixaban 5 Mg Tablet) 5 mg PO BID [facility] Stop: 12/15/23 11:29 Last Admin: 11/15/23 11:42 Dose: 5 mg Ceftriaxone Sodium 2,000 mg/ (Dextrose) 50 mls @ 100 mls/hr IV Q24H [facility]; Protocol Stop: 11/21/23 15:59 Last Infusion: 11/14/23 18:15 Dose: Infused Metoprolol Tartrate (Metoprolol Tartrate 25 Mg Tab) 25 mg PO BID [facility] Stop: 12/14/23 20:59 Last Admin: 11/15/23 07:46 Dose: 25 mg Ondansetron HCl (Ondansetron Inj 2 Mg/Ml 2 Ml Vial) 4 mg IV Q6H PRN PRN Reason: Nausea Stop: 12/13/23 04:05 PG Care Time/CCT Total # of Minutes Spent Total Time Spent with Patient: Total time spent is greater than 50% in coordination of care (as documented) at patient's floor/unit and/or counseling patient: Coding Level of Care Code 59616 SUB INP/OBS CARE 3/50MIN Diagnoses Acute HFrEF (heart failure with reduced ejection fraction) I50.21 Cardiomyopathy, unspecified type I42.9 Cardiomyopathy type: unspecified Atrial fibrillation with rapid ventricular response I48.91 Pericardial effusion I31.39 Elevated troponin R79.89 (2) Cardiomyopathy Cardiomyopathy type: unspecified Qualified Code(s): I42.9 - Cardiomyopathy, unspecified
[2023-11-15] MEDS: FUROSEMIDE INJ 20 MG/2 ML VIAL IV ONE ×2 (16:20→20:11)
[2023-11-15] MEDS: POLYETHYLENE (MIRALAX) 17 GM PACK PO PRN (20:40)
[2023-11-16 04:27] LABS: BUN Creatinine Ratio 24.6 (10-20); Calcium 8.1 mg/dl (8.6-10.3); Creatinine Clr Calc Pharmacy 29.4 ml/min; Est GFR (African American) 30.2 ml/min; Est GFR (Non-African American) 26.1 ml/min; Potassium 4.8 mmol/L (3.5-5.1)
--- NOTE | 2023-11-16 07:47 | Hospitalist Progress Note ---
Date of Service November 16, 2023 Assessment & Plan (1) Hypotension: Plan: 68 F with no significant past medical history, who presented to the emergency room with progressively worsening fatigue, shortness of breath, dyspnea on exertion, and bilateral pedal edema x 4 months. Admitted to the hospital for further evaluation, management of AF with RVR, CHF. Now stable, undergoing medical management. Acute respiratory failure with hypoxia/bilateral pleural effusions/CHF -Not on home O2, currently on 3L NC, wean supplemental oxygen as able -Still with shortness of breath with exertion. -Initial CXR shows evidence of pleural effusion, pulmonary vascular congestion -BNP of 1115 on arrival, no prior diagnosis of CHF -Creatinine bump to 1.76 after only IV Lasix 10 mg * Diurese as tolerated: IV Lasix 40 mg x 1 dose (cardiology) * Low-sodium diet (<2 g daily) * Metoprolol tartrate 25 mg twice daily. Atrial fibrillation with RVR/NSTEMI/hypotension/cardiomyopathy -Echo completed, EF 35-40%, pericardial effusion without evidence tamponade, L ventricular hypertrophy. -Received Lopressor 5mg in ER. -Cardiology consulted, appreciate recommendations -CHF likely related to left ventricular hypertrophy, in turn related to a. fib. -Cardiomyopathy on echo possibly from atrial fibrillation - control arrhythmia and check for resolution. * Continue metoprolol 25 mg twice daily as above. * Monitor electrolytes, hypokalemia on arrival with IV and PO repletion Left lower extremity cellulitis -Reports significant abrasion and infection on the dorsum of left foot began after buying new sneakers, and then gained a lot of fluid -Consult placed for wound care -Placed on daptomycin IV and Zosyn IV initially, now d/c Daptomycin. MRSA nares negative. Blood cultures negative at 24 hours, will switch to Ceftriaxone 2g q24h * Monitor daily CBC * IV ceftriaxone 2 g every 24 hours: Day 11/15 Code: Full code Dispo: PCU FEN/GI: Heart Healthy/Low-Sodium Diet (<2 g) DVT Prophylaxis: Eliquis 5 mg twice daily PT/OT: Yes Consults: Cardiology (2) Acute respiratory failure with hypoxia: (3) Atrial fibrillation with RVR: (4) CHF (congestive heart failure): (5) Cellulitis of left lower extremity: Admission and Anticipated Discharge Date Admission Date: November 13, 2023 Supervising Physician Co-Signing Physician Notes Attending Physician Supervision Note: I independently interviewed and examined the patient and verified the hinojosa history and physical, reviewed labs and image studies and agree with findings and care plan noted above. Acute resp failure hypoxic - resolved Acute systolic chf - EF 35% with moderate pericardial effusion. also with LVH and thus diastolic dysfunction. systolic dysfunction likely from a fib. -negative fluid volume after 40mgs lasix 11/14 though with creatinine rise. -per cardio - will give another dose of lasix 40mgs 11/15. follow Is and Os and creat. A fib with RVR - metoprolol dose increased to 37.5mgs bid. -switched anticoagulation to apixaban. Moderate Pericardial effusion -repeat echo 11/15 - slight improvement vs stable. NARAYAN - follow renal function while diuresing Leg cellulitis/skin tear - IV abx switched to rocephin. cultures neg. Long standing h/o smoking - ~30ppd. will need outpatient PFT. s/p dose of methylpred in ED Subjective Awake and alert in bed on arrival this morning. No acute complaints. Review of Systems Review of Systems: All systems reviewed & are unremarkable except as noted in HPI & below Physical Exam Physical Exam: General: No acute distress HEENT: PERRLA. Normal conjunctiva, anicteric sclera. Oropharynx normal. Respiratory: Normal respiratory effort, CTABL. Cardiovascular: RRR without murmurs, gallops, or rubs. No pedal edema. GI: Soft abdomen with normal bowel sounds heard on auscultation. Nontender x4 quadrants Neuro: Alert and oriented x3. Results & Data Results & Data Vital Signs (Past 12 Hours) Vital Signs Temp Pulse Pulse Resp BP BP Pulse Ox 11/16/23 00:16 96 H 11/16/23 00:10 36.6 C 90 14 95/62 L 100 11/16/23 00:00 110 H 14 100 11/15/23 23:00 112/66 11/15/23 23:00 106 H 18 91 11/15/23 22:50 102/70 11/15/23 22:50 114 H 17 93 11/15/23 22:00 111 H 17 98 11/15/23 22:00 113/70 11/15/23 21:00 99/81 L 11/15/23 21:00 116 H 21 92 11/15/23 20:47 111 H 19 93 11/15/23 20:47 100/78 11/15/23 20:04 120 H 14 93 O2 Del Method O2 Flow Rate 11/16/23 00:16 11/16/23 00:10 Nasal Cannula 3 11/16/23 00:00 Nasal Cannula 3 11/15/23 23:00 11/15/23 23:00 11/15/23 22:50 11/15/23 22:50 Nasal Cannula 3 11/15/23 22:00 11/15/23 22:00 11/15/23 21:00 11/15/23 21:00 11/15/23 20:47 11/15/23 20:47 11/15/23 20:04 Nasal Cannula 3 Resident Activity Tracking Resident Involvement: Resident Care Provided Care Provided: Adult Hospital Medicine (1) Hypotension Hypotension type: unspecified hypotension type Qualified Code(s): I95.9 - Hypotension, unspecified (4) CHF (congestive heart failure) Heart failure chronicity: acute on chronic Heart failure type: combined systolic and diastolic Qualified Code(s): I50.43 - Acute on chronic combined systolic (congestive) and diastolic (congestive) heart failure
--- NOTE | 2023-11-16 11:14 | Cardiology Progress Note ---
Date of Service November 16, 2023 Assessment & Plan (1) Acute HFrEF (heart failure with reduced ejection fraction): (2) Cardiomyopathy: (3) Atrial fibrillation with rapid ventricular response: (4) Pericardial effusion: (5) Elevated troponin: Plan ASSESSMENT/PLAN: 1. Acute heart failure with reduced EF: She appears hypervolemic. Had reasonable response to 40 mg of Lasix yesterday. Creatinine changed slightly upward. Repeat another dose of Lasix 40 mg IV today. Monitor renal function and electrolytes carefully. Strict I's and O's. Daily weights. Low-sodium diet, less than 2000 mg daily. She does not maintain a low-sodium diet at home. Recommend metoprolol succinate in place of metoprolol tartrate when done titrating. When volume status improved, if renal function allows, plan on initiating typical heart failure medications such as ARNI, mineralocorticoid receptor antagonist, and consideration for SGLT2 inhibitor. 2. Cardiomyopathy: Likely related to tachycardia in the setting of atrial fibrillation with RVR. If LV systolic function does not improve with improved rate control, would consider ischemic evaluation and secondary workup. Does not qualify for ICD for primary prevention at this time. Medical therapy as above. 3. Atrial fibrillation: Persistent/permanent. Asymptomatic from the rhythm itself but likely contributing to her cardiomyopathy. Agree with anticoagulation for stroke risk reduction. Heart rate much improved with low-do se beta-mckay. Increase metoprolol to 37.5 mg twice daily. Can add dose of digoxin if needed and BP won't allow for betablocker, but not needed currently. 4. Pericardial effusion: No tamponade physiology on echo. Heart rate has improved. Blood pressure stable. Repeat limited echo demonstrated stable versus slightly improved effusion. Monitor over time. 5. Elevated troponin: Likely represents demand ischemia due to A-fib with RVR and heart failure. 6. Disposition: Cardiology will continue to follow along. Plan of care communicated with Dr. Sterling of the primary hospitalist service. Admission and Anticipated Discharge Date Admission Date: November 13, 2023 Subjective Patient seen earlier today. She admits that she is more tired today. She denies chest pain, shortness of breath, syncope, near syncope, palpitations, or bleeding. She was unaccompanied in her room. Physical Exam Physical Exam: Gen.: No acute distress. Alert. HEENT: Anicteric sclera. Neck: Thick neck but mildly elevated JVD. Cardiac: Irregularly irregular. Mild tachycardia. Normal S1-S2. No murmurs, rubs, or gallops. Pulmonary: Decreased breath sounds bilaterally, specifically at the bases and occasional expiratory wheezes. No rales. Abdomen: Soft, nontender, nondistended, with normoactive bowel sounds. No bruits noted. Extremities: 2+ radial pulses bilaterally. 2+ posterior tibialis pulses bilaterally. 3+ bilateral lower extremity edema to the knees and 1+ above the knees bilaterally. No cyanosis. Psychiatric: Affect appears appropriate. Results & Data Vital Signs (Past 12 Hours) Vital Signs Temp Pulse Pulse Resp BP Pulse Ox O2 Del Method 11/16/23 11:01 37.1 C 86 20 99/68 L 99 Nasal Cannula 11/16/23 08:00 Nasal Cannula 11/16/23 07:00 36.7 C 99 H 22 116/69 99 Nasal Cannula 11/16/23 00:16 96 H 11/16/23 00:10 36.6 C 90 14 95/62 L 100 Nasal Cannula 11/16/23 00:00 110 H 14 100 Nasal Cannula O2 Flow Rate 11/16/23 11:01 3 11/16/23 08:00 3 11/16/23 07:00 3 11/16/23 00:16 11/16/23 00:10 3 11/16/23 00:00 3 Intake & Output 11/14/23 11/15/23 11/16/23 11/17/23 06:59 06:59 06:59 06:59 Intake Total 1194.925 / 1194.925 856.5 / 856.5 369.083 / 369.083 Output Total 625 / 625 450 / 450 965 / 965 Balance 569.925 / 569.925 406.5 / 406.5 -595.917 / -595.917 Weight 184 lb 1.376 oz 194 lb 14.218 oz Laboratory Results Laboratory Results - last 24 hr 11/15/23 11/16/23 21:47 03:34 Sodium 140 Potassium 4.8 Chloride 106 Carbon Dioxide 30 Anion Gap 4 BUN 47 H Creatinine 1.91 H Est Cr Clr Drug Dosing 29.4 Est GFR ( Amer) 30.2 Est GFR (Non-Af Amer) 26.1 BUN/Creatinine Ratio 24.6 H Glucose 141 H Calcium 8.1 L Troponin I High Sens 46.5 H 42.0 H Diagnostic Findings LIMITED ECHO 11/16/23: 1. Normal left ventricular size with moderately to severely reduced systolic function. EF 35-40%. Global hypokinesis. Mild to moderate concentric left ventricular hypertrophy. 2. Small to moderate circumferential pericardial effusion without echocardi ographic evidence of tamponade physiology. 3. Limited 2D echo with limited spectral Doppler. 4. Compared to prior study on 11/13/2023, pericardial fusion is stable to slightly smaller. Telemetry personally reviewed: Atrial fibrillation with heart rate mostly 90s to 110 bpm. Labs reviewed from 11/16/2023 and demonstrated mildly increased creatinine from previous days, normal potassium. Medications Administered Current Inpatient Medications Acetaminophen (Acetaminophen 325 Mg Tab) 650 mg PO Q4H PRN PRN Reason: Pain or Fever Stop: 12/13/23 04:05 Last Admin: 11/14/23 00:00 Dose: 650 mg Apixaban (Apixaban 5 Mg Tablet) 5 mg PO BID [facility] Stop: 12/15/23 11:29 Last Admin: 11/16/23 07:55 Dose: 5 mg Ceftriaxone Sodium 2,000 mg/ (Dextrose) 50 mls @ 100 mls/hr IV Q24H [facility]; Protocol Stop: 11/21/23 15:59 Last Infusion: 11/15/23 19:10 Dose: Infused Metoprolol Tartrate (Metoprolol Tartrate 25 Mg Tab) 25 mg PO BID [facility] Stop: 12/14/23 20:59 Last Admin: 11/16/23 07:55 Dose: 25 mg Ondansetron HCl (Ondansetron Inj 2 Mg/Ml 2 Ml Vial) 4 mg IV Q6H PRN PRN Reason: Nausea Stop: 12/13/23 04:05 Polyethylene Glycol (Polyethylene (Miralax) 17 Gm Pack) 17 gm PO DAILY PRN PRN Reason: Constipation Stop: 12/15/23 20:26 Last Admin: 11/15/23 20:40 Dose: 17 gm PG Care Time/CCT Total # of Minutes Spent Total Time Spent with Patient: Total time spent is greater than 50% in coordination of care (as documented) at patient's floor/unit and/or counseling patient: Coding Level of Care Code 86126 SUB INP/OBS CARE 3/50MIN Diagnoses Acute HFrEF (heart failure with reduced ejection fraction) I50.21 Cardiomyopathy, unspecified type I42.9 Cardiomyopathy type: unspecified Atrial fibrillation with rapid ventricular response I48.91 Pericardial effusion I31.39 Elevated troponin R79.89 (2) Cardiomyopathy Cardiomyopathy type: unspecified Qualified Code(s): I42.9 - Cardiomyopathy, unspecified
--- NOTE | 2023-11-16 11:56 | XCELERA ---
[id number]
[2023-11-16] MEDS: FUROSEMIDE 40 MG/4 ML VIAL IV ONE (16:04)
[2023-11-16] MEDS: METOPROLOL TARTRATE 25 MG TAB PO SCH (16:04)
[2023-11-17 06:11] LABS: Basophils # (auto) 0.02 K/uL (0.00-0.20); Basophils % (auto) 0.2 %; Eosinophils # (auto) 0.08 K/uL (0.00-0.50); Eosinophils % (auto) 0.9 %; Hemoglobin 9.3 g/dl (12.0-16.0); Immature Granulocytes % (auto) 1.1 %; Lymphocytes # (auto) 1.12 K/uL (1.20-3.40); Lymphocytes % (auto) 12.3 %; Mean Corpuscular Hemoglobin 29.7 pg (25.0-34.0); Mean Platelet Volume 10.4 fL (9.4-12.4); Monocytes # (auto) 0.87 K/uL (0.11-0.59); Monocytes % (auto) 9.5 %; Neutrophils # (auto) 6.95 K/uL (1.40-6.50); Platelet Count 161 K/uL (130-400); RDW Coefficient of Variation 17.2 % (11.5-14.5); Red Blood Count 3.13 M/uL (4.20-5.40); White Blood Count 9.14 K/ul (4.8-10.8)
[2023-11-17 06:36] LABS: BUN Creatinine Ratio 27.8 (10-20); Calcium 8.6 mg/dl (8.6-10.3); Est GFR (African American) 33.4 ml/min; Est GFR (Non-African American) 28.8 ml/min; Potassium 5.3 mmol/L (3.5-5.1)
--- NOTE | 2023-11-17 07:23 | Hospitalist Progress Note ---
Date of Service November 17, 2023 Assessment & Plan (1) Hypotension: Plan: 68 F with no significant past medical history, who presented to the emergency room with progressively worsening fatigue, shortness of breath, dyspnea on exertion, and bilateral pedal edema x 4 months. Admitted to the hospital for further evaluation, management of AF with RVR, CHF. Now stable, undergoing medical management. Acute respiratory failure with hypoxia/bilateral pleural effusions/CHF -Not on home O2, currently on 3L NC, wean supplemental oxygen as able -Still with shortness of breath with exertion. -Initial CXR shows evidence of pleural effusion, pulmonary vascular congestion -BNP of 1115 on arrival, no prior diagnosis of CHF -Creatinine bump to 1.76 after only IV Lasix 10 mg * Diurese as tolerated: IV Lasix 40 mg x 2 dose (cardiology) * Cr improved from 1.91--> 1.76. Will continue to monitor * Low-sodium diet (<2 g daily) * Metoprolol tartrate 37.5 mg twice daily. Atrial fibrillation with RVR/NSTEMI/hypotension/cardiomyopathy -Echo completed, EF 35-40%, pericardial effusion without evidence tamponade, L ventricular hypertrophy. -Received Lopressor 5mg in ER. -Cardiology consulted, appreciate recommendations -CHF likely related to left ventricular hypertrophy, in turn related to a. fib. -Cardiomyopathy on echo possibly from atrial fibrillation - control arrhythmia and check for resolution. * Continue metoprolol 37.5 mg twice daily as above. * Monitor electrolytes, hypokalemia on arrival with IV and PO repletion * can consider digoxin via cards. * Will refer to cardiology regarding if ischemic evaluation is needed d/t LV systolic function has not improved on ECHO. Left lower extremity cellulitis -Reports significant abrasion and infection on the dorsum of left foot began after buying new sneakers, and then gained a lot of fluid -Consult placed for wound care -Placed on daptomycin IV and Zosyn IV initially, now d/c Daptomycin. MRSA nares negative. Blood cultures negative at 24 hours, will switch to Ceftriaxone 2g q24h * Monitor daily CBC * IV ceftriaxone 2 g every 24 hours. Hyperkalemia -hypokalemia on arrival, repleted. -K of 5.3, will continue monitor. History of smoking -30 ppd, recommend outpatient PFTs. Code: Full code Dispo: PCU FEN/GI: Heart Healthy/Low-Sodium Diet (<2 g) DVT Prophylaxis: Eliquis 5 mg twice daily PT/OT: Yes, inpatient rehab needed. Consults: Cardiology (2) Acute respiratory failure with hypoxia: (3) Atrial fibrillation with RVR: (4) CHF (congestive heart failure): (5) Cellulitis of left lower extremity: Admission and Anticipated Discharge Date Admission Date: November 13, 2023 Supervising Physician Co-Signing Physician Notes I personally examined the patient and verified all hinojosa points of history and exam, discussed case, and agree with decision making with Dr Schmidt feeling better breathing better. vitals noted lungs clear Acute resp failure hypoxic - resolved Acute systolic chf - EF 35% with moderate pericardial effusion. also with LVH and thus diastolic dysfunction. systolic dysfunction likely from a fib. -doing better A fib with RVR - escalate rate control, continue anticoagulation Moderate Pericardial effusion -repeat echo 11/15 - slight improvement vs stable. NARAYAN - follow renal function while diuresing Leg cellulitis/skin tear - continue abx Long standing h/o smoking - ~30ppd. will need outpatient PFT. s/p dose of methylpred in ED Subjective Patient was seen bedside this AM. Continues to require 3L NC. Still having some SOB but improving. Orthopnea has vastly improved. No chest pain or palpations. Review of Systems Review of Systems: All systems reviewed & are unremarkable except as noted in Subjective Physical Exam Physical Exam: General: No acute distress HEENT: PERRLA. Normal conjunctiva, anicteric sclera. Oropharynx normal. Respiratory: Normal respiratory effort, CTABL. Cardiovascular: Irregularly irregular without murmurs, gallops, or rubs.BL LE putting edema GI: Soft abdomen with normal bowel sounds heard on auscultation. Nontender x4 quadrants Neuro: Alert and oriented x3. Results & Data Results & Data Vital Signs (Past 12 Hours) Vital Signs Temp Pulse Resp BP BP Pulse Ox O2 Del Method 11/17/23 03:10 36.9 C 97 H 18 133/73 99 Nasal Cannula 11/16/23 22:57 36.5 C 111 H 18 107/72 100 Nasal Cannula 11/16/23 19:52 Nasal Cannula 11/16/23 19:52 36.7 C 109 H 22 111/79 94 Nasal Cannula O2 Flow Rate 11/17/23 03:10 3 04/07/24 22:57 3 11/16/23 19:52 2 11/16/23 19:52 2 Resident Activity Tracking Resident Involvement: Resident Care Provided Care Provided: Adult Hospital Medicine (1) Hypotension Hypotension type: unspecified hypotension type Qualified Code(s): I95.9 - Hypotension, unspecified (4) CHF (congestive heart failure) Heart failure chronicity: acute on chronic Heart failure type: combined systolic and diastolic Qualified Code(s): I50.43 - Acute on chronic combined systolic (congestive) and diastolic (congestive) heart failure
[2023-11-17] MEDS: FUROSEMIDE 40 MG/4 ML VIAL IV ONE (09:37)
--- NOTE | 2023-11-17 13:24 | Billing Data ---
Date of Service November 17, 2023 Coding Level of Care Code 10974 SUB INP/OBS CARE
--- NOTE | 2023-11-17 15:54 | Cardiology Progress Note ---
Date of Service November 17, 2023 Assessment & Plan (1) Acute HFrEF (heart failure with reduced ejection fraction): (2) Cardiomyopathy: (3) Atrial fibrillation with rapid ventricular response: (4) Pericardial effusion: (5) Elevated troponin: Plan ASSESSMENT/PLAN: 1. Acute heart failure with reduced EF: She appears hypervolemic. Continue Lasix. Creatinine actually trended downward today. Increase Lasix to 40 mg IV twice daily. Repeat BMP this afternoon given mild hyperkalemia. Monitor renal function and electrolytes carefully. Strict I's and O's. Daily weights. Low- sodium diet, less than 2000 mg daily. She does not maintain a low-sodium diet at home. Recommend metoprolol succinate in place of metoprolol tartrate when done titrating. When volume status improved, if renal function allows, plan on initiating typical heart failure medications such as ARNI, mineralocorticoid receptor antagonist, and consideration for SGLT2 inhibitor. 2. Cardiomyopathy: Likely related to tachycardia in the setting of atrial fibrillation with RVR. If LV systolic function does not improve with improved rate control, would consider ischemic evaluation and secondary workup. Does not qualify for ICD for primary prevention at this time. Medical therapy as above. 3. Atrial fibrillation: Persistent/permanent. Asymptomatic from the rhythm itself but likely contributing to her cardiomyopathy. Agree with anticoagulation for stroke risk reduction. Heart rate much improved with low- dose beta-mckay. Increase metoprolol to 50 mg twice daily. Can add dose of digoxin if needed and BP won't allow for betablocker, but not needed currently. 4. Pericardial effusion: No tamponade physiology on echo. Heart rate has improved. Blood pressure stable. Repeat limited echo demonstrated stable versus slightly improved effusion. Monitor over time. 5. Elevated troponin: Likely represents demand ischemia due to A-fib with RVR and heart failure. 6. Disposition: Cardiology will continue to follow along. Plan of care communicated with Dr. Young of the primary hospitalist service. Admission and Anticipated Discharge Date Admission Date: November 13, 2023 Subjective Patient seen earlier today. Shortness of breath has improved. Still has dyspnea on exertion. She denies chest pain, palpitations, syncope, near syncope. Her legs remain edematous with some weeping but overall, feels better today. She was alone in her hospital room. Physical Exam Physical Exam: Gen.: No acute distress. Alert. HEENT: Anicteric sclera. Neck: Thick neck but mildly elevated JVD. Cardiac: Irregularly irregular. Normal rate. Normal S1-S2. No murmurs, rubs, or gallops. Pulmonary: Decreased breath sounds bilaterally, specifically at the bases. No rales. Abdomen: Soft, nontender, nondistended, with normoactive bowel sounds. No bruits noted. Extremities: 2+ radial pulses bilaterally. 2+ posterior tibialis pulses bilaterally. 3+ bilateral lower extremity edema to the knees and 1+ above the knees bilaterally. No cyanosis. Psychiatric: Affect appears appropriate. Results & Data Vital Signs (Past 12 Hours) Vital Signs Temp Pulse Pulse Resp BP Pulse Ox O2 Del Method 11/17/23 15:51 97 H 11/17/23 15:50 99 H 11/17/23 15:12 36.5 C 91 H 18 111/68 96 Nasal Cannula 11/17/23 10:54 36.8 C 94 H 16 96/61 L 100 Nasal Cannula 11/17/23 07:44 Nasal Cannula 11/17/23 07:21 36.6 C 107 H 20 101/77 99 Nasal Cannula O2 Flow Rate 11/17/23 15:51 11/17/23 15:50 11/17/23 15:12 11/17/23 10:54 11/17/23 07:44 3 11/17/23 07:21 3 Intake & Output 11/15/23 11/16/23 11/17/23 11/18/23 06:59 06:59 06:59 06:59 Intake Total 856.5 / 856.5 369.083 / 369.083 500 / 500 480 / 480 Output Total 450 / 450 965 / 965 1356 / 1356 850 / 850 Balance 406.5 / 406.5 -595.917 / -595.917 -856 / -856 -370 / -370 Weight 194 lb 14.218 oz Laboratory Results Laboratory Results - last 24 hr 11/17/23 05:31 WBC 9.14 RBC 3.13 L Hgb 9.3 L Hct 31.0 L MCV 99.0 MCH 29.7 MCHC 30.0 L RDW Std Deviation 61.0 H RDW Coeff of Jame 17.2 H Plt Count 161 MPV 10.4 Immature Gran % (Auto) 1.1 Neut % (Auto) 76.0 Lymph % (Auto) 12.3 [place] % (Auto) 9.5 Eos % (Auto) 0.9 Baso % (Auto) 0.2 Neut # (Auto) 6.95 H Lymph # (Auto) 1.12 L [place] # (Auto) 0.87 H Eos # (Auto) 0.08 Baso # (Auto) 0.02 Immature Gran # (Auto) 0.10 Sodium 141 Potassium 5.3 H Chloride 107 Carbon Dioxide 32 Anion Gap 2 L BUN 49 H Creatinine 1.76 H Est Cr Clr Drug Dosing 32.0 Est GFR ( Amer) 33.4 Est GFR (Non-Af Amer) 28.8 BUN/Creatinine Ratio 27.8 H Glucose 110 H Calcium 8.6 Diagnostic Findings Telemetry personally reviewed: Atrial fibrillation with heart rate mostly 90 to 110 bpm. Labs reviewed from 11/17/2023 and notable for anemia, abnormal but stable renal function, mild hyperkalemia. Medications Administered Current Inpatient Medications Acetaminophen (Acetaminophen 325 Mg Tab) 650 mg PO Q4H PRN PRN Reason: Pain or Fever Stop: 12/13/23 04:05 Last Admin: 11/14/23 00:00 Dose: 650 mg Apixaban (Apixaban 5 Mg Tablet) 5 mg PO BID [facility] Stop: 12/15/23 11:29 Last Admin: 11/17/23 08:21 Dose: 5 mg Ceftriaxone Sodium 2,000 mg/ (Dextrose) 50 mls @ 100 mls/hr IV Q24H [facility]; Protocol Stop: 11/21/23 15:59 Last Infusion: 11/16/23 17:00 Dose: Infused Metoprolol Tartrate (Metoprolol Tartrate 25 Mg Tab) 37.5 mg PO BID [facility] Stop: 12/16/23 15:14 Last Admin: 11/17/23 08:21 Dose: 37.5 mg Ondansetron HCl (Ondansetron Inj 2 Mg/Ml 2 Ml Vial) 4 mg IV Q6H PRN PRN Reason: Nausea Stop: 12/13/23 04:05 Polyethylene Glycol (Polyethylene (Miralax) 17 Gm Pack) 17 gm PO DAILY PRN PRN Reason: Constipation Stop: 12/15/23 20:26 Last Admin: 11/15/23 20:40 Dose: 17 gm PG Care Time/CCT Total # of Minutes Spent Total Time Spent with Patient: Total time spent is greater than 50% in coordination of care (as documented) at patient's floor/unit and/or counseling patient: Coding Level of Care Code 66009 SUB INP/OBS CARE MIN Diagnoses Acute HFrEF (heart failure with reduced ejection fraction) I50.21 Cardiomyopathy, unspecified type I42.9 Cardiomyopathy type: unspecified Atrial fibrillation with rapid ventricular response I48.91 Pericardial effusion I31.39 Elevated troponin R79.89 (2) Cardiomyopathy Cardiomyopathy type: unspecified Qualified Code(s): I42.9 - Cardiomyopathy, unspecified
[2023-11-17] MEDS: FUROSEMIDE 40 MG/4 ML VIAL IV SCH (16:35)
[2023-11-17 16:46] LABS: Calcium 8.7 mg/dl (8.6-10.3); Creatinine Clr Calc Pharmacy 33.5 ml/min; Est GFR (African American) 35.3 ml/min; Est GFR (Non-African American) 30.5 ml/min; Potassium 5.2 mmol/L (3.5-5.1)
[2023-11-17] MEDS: METOPROLOL TARTRATE 50 MG TAB PO SCH (20:41)
[2023-11-18 06:55] LABS: Basophils # (auto) 0.02 K/uL (0.00-0.20); Basophils % (auto) 0.2 %; Eosinophils # (auto) 0.11 K/uL (0.00-0.50); Eosinophils % (auto) 1.2 %; Hematocrit (blood only) 31.5 % (37.0-47.0); Hemoglobin 9.3 g/dl (12.0-16.0); Immature Granulocytes % (auto) 1.1 %; Lymphocytes # (auto) 1.06 K/uL (1.20-3.40); Lymphocytes % (auto) 11.8 %; Mean Corpuscular Hemoglobin 28.8 pg (25.0-34.0); Mean Corpuscular Hgb Conc 29.5 g/dL (32.0-36.0); Mean Corpuscular Volume 97.5 fL (80.0-100.0); Mean Platelet Volume 10.7 fL (9.4-12.4); Monocytes # (auto) 0.79 K/uL (0.11-0.59); Monocytes % (auto) 8.8 %; Neutrophils % (auto) 76.9 %; Platelet Count 172 K/uL (130-400); RDW Standard Deviation 59.7 fL (36.4-46.3); Red Blood Count 3.23 M/uL (4.20-5.40); White Blood Count 8.98 K/ul (4.8-10.8)
[2023-11-18 07:05] LABS: Estimated Average Glucose 94 mg/dl; Hemoglobin A1C 4.9 % (4.5-5.6)
[2023-11-18 07:07] LABS: BUN Creatinine Ratio 28.8 (10-20); Calcium 8.9 mg/dl (8.6-10.3); Creatinine Clr Calc Pharmacy 35.8 ml/min; Est GFR (African American) 38.6 ml/min; Est GFR (Non-African American) 33.3 ml/min
--- NOTE | 2023-11-18 07:23 | Hospitalist Progress Note ---
Date of Service November 18, 2023 Assessment & Plan (1) Hypotension: Plan: 68 F with no significant past medical history, who presented to the emergency room with progressively worsening fatigue, shortness of breath, dyspnea on exertion, and bilateral pedal edema x 4 months. Admitted to the hospital for further evaluation, management of AF with RVR, CHF. Now stable, undergoing medical management. Acute respiratory failure with hypoxia/bilateral pleural effusions/CHF -Not on home O2, currently on 3L NC, wean supplemental oxygen as able -Still with shortness of breath with exertion. -Initial CXR shows evidence of pleural effusion, pulmonary vascular congestion -BNP of 1115 on arrival, no prior diagnosis of CHF -Creatinine bump to 1.76 after only IV Lasix 10 mg * Diurese as tolerated: IV Lasix 40 mg x 2 dose (cardiology) * Cr continues to improve. * Low-sodium diet (<2 g daily) * Metoprolol tartrate 50 mg twice daily. Atrial fibrillation with RVR/NSTEMI/hypotension/cardiomyopathy -Echo completed, EF 35-40%, pericardial effusion without evidence tamponade, L ventricular hypertrophy. -Received Lopressor 5mg in ER. -Cardiology consulted, appreciate recommendations -CHF likely related to left ventricular hypertrophy, in turn related to a. fib. -Cardiomyopathy on echo possibly from atrial fibrillation - control arrhythmia and check for resolution. * Continue metoprolol 37.5 mg twice daily as above. * Monitor electrolytes, hypokalemia on arrival with IV and PO repletion * can consider digoxin via cards. * Will refer to cardiology regarding if ischemic evaluation is needed. Left lower extremity cellulitis -Reports significant abrasion and infection on the dorsum of left foot began after buying new sneakers, and then gained a lot of fluid -Consult placed for wound care -Placed on daptomycin IV and Zosyn IV initially, now d/c Daptomycin. MRSA nares negative. Blood cultures negative at 24 hours, will switch to Ceftriaxone 2g q24h * Monitor daily CBC * IV ceftriaxone 2 g every 24 hours. Hyperkalemia -hypokalemia on arrival, repleted. -K of 5.3, will continue monitor. Bowel Incontinence -Patient with right upper quadrant tenderness. Will get right upper quadrant ultrasound. -Recommend dietary changes. History of smoking -30 ppd, recommend outpatient PFTs. Code: Full code Dispo: PCU FEN/GI: Heart Healthy/Low-Sodium Diet (<2 g) DVT Prophylaxis: Eliquis 5 mg twice daily PT/OT: Yes, inpatient rehab needed. Consults: Cardiology (2) Acute respiratory failure with hypoxia: (3) Atrial fibrillation with RVR: (4) CHF (congestive heart failure): (5) Cellulitis of left lower extremity: Admission and Anticipated Discharge Date Admission Date: November 13, 2023 Subjective Patient seen earlier today. Shortness of breath has improved. She c/o of incontinence. She states that she has never had this issue. Review of Systems Review of Systems: All systems reviewed & are unremarkable except as noted in Subjective Physical Exam Physical Exam: General: No acute distress HEENT: PERRLA. Normal conjunctiva, anicteric sclera. Oropharynx normal. Respiratory: Normal respiratory effort, CTABL. Cardiovascular: Irregularly irregular without murmurs, gallops, or rubs.BL LE putting edema GI: Soft abdomen with normal bowel sounds heard on auscultation. RUQ tenderness Neuro: Alert and oriented x3. Results & Data Results & Data Vital Signs (Past 12 Hours) Vital Signs Temp Pulse Resp BP BP Pulse Ox O2 Del Method 11/18/23 02:38 36.8 C 109 H 16 109/66 93 Nasal Cannula 11/17/23 23:54 36.5 C 104 H 22 110/71 91 Nasal Cannula 11/17/23 19:35 Nasal Cannula 11/17/23 19:33 36.8 C 103 H 20 116/81 93 Nasal Cannula O2 Flow Rate 11/18/23 02:38 2.0 11/17/23 23:54 1.0 11/17/23 19:35 1 11/17/23 19:33 1 Resident Activity Tracking Resident Involvement: Resident Care Provided Care Provided: Adult Hospital Medicine (1) Hypotension Hypotension type: unspecified hypotension type Qualified Code(s): I95.9 - Hypotension, unspecified (4) CHF (congestive heart failure) Heart failure chronicity: acute on chronic Heart failure type: combined systolic and diastolic Qualified Code(s): I50.43 - Acute on chronic combined systolic (congestive) and diastolic (congestive) heart failure
[2023-11-18] MEDS ORDERED: FUROSEMIDE 40 MG/4 ML VIAL IV SCH (09:00)
--- NOTE | 2023-11-18 09:03 | Cardiology Progress Note ---
Date of Service November 18, 2023 Assessment & Plan (1) Acute HFrEF (heart failure with reduced ejection fraction): (2) Cardiomyopathy: (3) Atrial fibrillation with rapid ventricular response: (4) Pericardial effusion: (5) Elevated troponin: Plan ASSESSMENT/PLAN: 1. Acute heart failure with reduced EF: Still hypervolemic but volume status improving daily. Creatinine continues to trend downward. Continue Lasix to 40 mg IV twice daily. Hyperkalemia improved with additional Lasix. Monitor renal function and electrolytes carefully. Strict I's and O's. Daily weights. Low- sodium diet, less than 2000 mg daily. She does not maintain a low-sodium diet at home. Recommend metoprolol succinate in place of metoprolol tartrate when done titrating. When volume status improved, if renal function allows, plan on initiating typical heart failure medications such as ARNI, mineralocorticoid receptor antagonist, and consideration for SGLT2 inhibitor. ARNI and mineralocorticoid receptor antagonist are not currently prescribed as she has been having hyperkalemia during this hospital stay intermittently. 2. Cardiomyopathy: Likely related to tachycardia in the setting of atrial fibrillation with RVR. If LV systolic function does not improve with improved rate control, would consider ischemic evaluation and secondary workup. Does not qualify for ICD for primary prevention at this time. Medical therapy as above. 3. Atrial fibrillation: Persistent/permanent. Asymptomatic from the rhythm itself but likely contributing to her cardiomyopathy. Agree with anticoagulation for stroke risk reduction. Heart rate much improved with low- dose beta-mckay. Increase metoprolol to 75 mg twice daily. Can add dose of digoxin if needed and BP won't allow for betablocker, but not needed currently. 4. Pericardial effusion: No tamponade physiology on echo. Heart rate has improved. Blood pressure stable. Repeat limited echo demonstrated stable versus slightly improved effusion. Monitor over time. 5. Elevated troponin: Likely represents demand ischemia due to A-fib with RVR and heart failure. 6. Disposition: Cardiology will continue to follow along. Heart failure program on discharge. Plan of care communicated with Dr. Young of the primary hospitalist service. Admission and Anticipated Discharge Date Admission Date: November 13, 2023 Subjective Patient seen this morning. She states she feels better today than yesterday. Breathing continues to improve. She denies chest pain, syncope, near syncope, palpitations. She agrees that her edema is improving as well. Nursing staff was present, addressing her foot wounds. Physical Exam Physical Exam: Gen.: No acute distress. Alert. HEENT: Anicteric sclera. Neck: Thick neck but mildly elevated JVD. Cardiac: Irregularly irregular. Normal rate. Normal S1-S2. No murmurs, rubs, or gallops. Pulmonary: Decreased breath sounds bilaterally, specifically at the bases. No rales. Abdomen: Soft, nontender, nondistended, with normoactive bowel sounds. No bruits noted. Extremities: 2+ radial pulses bilaterally. 2+ posterior tibialis pulses bilaterally. 2+ bilateral lower extremity edema to the knees. No cyanosis. Psychiatric: Affect appears appropriate. Results & Data Vital Signs (Past 12 Hours) Vital Signs Temp Pulse Pulse Resp BP Pulse Ox O2 Del Method 11/18/23 08:11 36.8 C 91 H 17 123/80 99 Nasal Cannula 11/18/23 07:41 102 H 11/18/23 02:38 36.8 C 109 H 16 109/66 93 Nasal Cannula 11/17/23 23:54 36.5 C 104 H 22 110/71 91 Nasal Cannula O2 Flow Rate 11/18/23 08:11 11/18/23 07:41 11/18/23 02:38 2.0 11/17/23 23:54 1.0 Intake & Output 11/16/23 11/17/23 11/18/23 11/19/23 06:59 06:59 06:59 06:59 Intake Total 369.083 / 369.083 500 / 500 630 / 630 Output Total 965 / 965 1356 / 1356 1850 / 1850 300 / 300 Balance -595.917 / -595.917 -856 / -856 -1220 / -1220 -300 / -300 Weight 194 lb 14.218 oz 191 lb 9.307 oz Laboratory Results Laboratory Results - last 24 hr 11/17/23 11/18/23 16:12 06:08 WBC 8.98 RBC 3.23 L Hgb 9.3 L Hct 31.5 L MCV 97.5 MCH 28.8 MCHC 29.5 L RDW Std Deviation 59.7 H RDW Coeff of Jame 17.0 H Plt Count 172 MPV 10.7 Immature Gran % (Auto) 1.1 Neut % (Auto) 76.9 Lymph % (Auto) 11.8 Mclennan % (Auto) 8.8 Eos % (Auto) 1.2 Baso % (Auto) 0.2 Neut # (Auto) 6.90 H Lymph # (Auto) 1.06 L Mclennan # (Auto) 0.79 H Eos # (Auto) 0.11 Baso # (Auto) 0.02 Immature Gran # (Auto) 0.10 Sodium 140 141 Potassium 5.2 H 5.0 Chloride 104 104 Carbon Dioxide 34 H 34 H Anion Gap 2 L 3 BUN 47 H 45 H Creatinine 1.68 H 1.56 H Est Cr Clr Drug Dosing 33.5 35.8 Est GFR ( Amer) 35.3 38.6 Est GFR (Non-Af Amer) 30.5 33.3 BUN/Creatinine Ratio 28.0 H 28.8 H Glucose 120 H 98 Estimat Average Glucose 94 Hemoglobin A1c 4.9 Calcium 8.7 8.9 Diagnostic Findings Telemetry personally reviewed: Atrial fibrillation with heart rates 90-120s bpm. Labs reviewed from 11/18/2023 notable for continued improvement of renal function, normal potassium, stable anemia. Medications Administered Current Inpatient Medications Acetaminophen (Acetaminophen 325 Mg Tab) 650 mg PO Q4H PRN PRN Reason: Pain or Fever Stop: 12/13/23 04:05 Last Admin: 11/14/23 00:00 Dose: 650 mg Apixaban (Apixaban 5 Mg Tablet) 5 mg PO BID [facility] Stop: 12/15/23 11:29 Last Admin: 11/17/23 20:42 Dose: 5 mg Furosemide (Furosemide 40 Mg/4 Ml Vial) 40 mg IV BID17 [facility] Stop: 12/17/23 16:59 Last Admin: 11/17/23 16:35 Dose: 40 mg Ceftriaxone Sodium 2,000 mg/ (Dextrose) 50 mls @ 100 mls/hr IV Q24H [facility]; Protocol Stop: 11/21/23 15:59 Last Infusion: 11/17/23 16:28 Dose: Infused Metoprolol Tartrate (Metoprolol Tartrate 50 Mg Tab) 50 mg PO BID [facility] Stop: 12/17/23 20:59 Last Admin: 11/17/23 20:41 Dose: 50 mg Ondansetron HCl (Ondansetron Inj 2 Mg/Ml 2 Ml Vial) 4 mg IV Q6H PRN PRN Reason: Nausea Stop: 12/13/23 04:05 Polyethylene Glycol (Polyethylene (Miralax) 17 Gm Pack) 17 gm PO DAILY PRN PRN Reason: Constipation Stop: 12/15/23 20:26 Last Admin: 11/15/23 20:40 Dose: 17 gm PG Care Time/CCT Total # of Minutes Spent Total Time Spent with Patient: Total time spent is greater than 50% in coordination of care (as documented) at patient's floor/unit and/or counseling patient: Coding Level of Care Code 32275 SUB INP/OBS CARE 3/50MIN Diagnoses Acute HFrEF (heart failure with reduced ejection fraction) I50.21 Cardiomyopathy, unspecified type I42.9 Cardiomyopathy type: unspecified Atrial fibrillation with rapid ventricular response I48.91 Pericardial effusion I31.39 Elevated troponin R79.89 (2) Cardiomyopathy Cardiomyopathy type: unspecified Qualified Code(s): I42.9 - Cardiomyopathy, unspecified
--- NOTE | 2023-11-18 13:23 | Heart Failure Consultation ---
Date of Consultation November 18, 2023 Assessment & Plan (1) Acute HFrEF (heart failure with reduced ejection fraction): History of Present Illness Attending Physician: Satish Young DO History of Present Illness Meet with patient in their hospital room. We discussed the nature of heart failure and the goals of the heart failure program. Patient is agreeable to ongoing participation and will be formally enrolled in the [facility] heart failure program. Patient advised to weigh themselves daily on their home scale. Notify the office if 2+ lb weight gain overnight or 5+ lb in 1 week. Low sodium diet recommended on discharge. Contact information provided. Patient will have scheduled outpatient follow up within 7 days of discharge. Please see full cardiology consult for additional recommendations and formal plan of care. Allergies Allergy/AdvReac Type Severity Reaction Status Date / Time Iodinated Contrast Media Allergy Intermediate RASH Unverified 11/13/23 02:29 Home Medications Medication Instructions Recorded Confirmed Type diphenhydramine HCl 25 mg capsule 25 mg PO HS PRN Sleep 11/13/23 11/13/23 History (Benadryl) Patient History Medical History Pericardial effusion Acute HFrEF (heart failure with reduced ejection fraction) Cardiomyopathy Atrial fibrillation with rapid ventricular response History of tobacco abuse Social History Smoking Status: Former smoker Tobacco Type: Cigarettes Cigarettes Per Day: 30; Hx Alcohol Use: No Hx Substance Use: No Preferred Language: Panamanian Communication Ability: Effective Senior Marketing Analyst Required: No Beliefs That Will Affect Care: None Current Living Situation: Alone Current Living Situation Comment: Lives home alone Feels Safe at Home: Yes Assistive Devices: Cane and Walker Results & Data Vital Signs (Past 12 Hours) Vital Signs Temp Pulse Pulse Resp BP Pulse Ox O2 Del Method 11/18/23 12:46 Nasal Cannula 11/18/23 11:28 97.9 F 86 18 124/78 97 Nasal Cannula 11/18/23 08:11 98.2 F 91 H 17 123/80 99 Nasal Cannula 11/18/23 07:41 102 H 11/18/23 02:38 98.2 F 109 H 16 109/66 93 Nasal Cannula O2 Flow Rate 11/18/23 12:46 1 11/18/23 11:28 11/18/23 08:11 11/18/23 07:41 11/18/23 02:38 2.0 Heart Failure Data/Metrics Heart Failure Type: HFrEf (EF < 40%) Ejection Fraction: 35-40% Evidenced Based Beta Lexus Therapy Beta Lexus Therapy: Yes Beta Lexus Name: Metoprolol Succinate STEPHEN/ARB/ARNI Therapy STEPHEN/ARB/ARNI Therapy: Contraindicated STEPHEN/ARB/ANI Contraindications: NARAYAN/AKD Coding Level of Care Code None Diagnoses Acute HFrEF (heart failure with reduced ejection fraction) I50.21
--- NOTE | 2023-11-18 15:44 | Ultrasound Report ---
US liver CLINICAL HISTORY: RUQ tenderness TECHNIQUE: Multiple real-time sonographic images of the right upper quadrant were obtained. Comparison: None available at the time of this dictation. FINDINGS: The liver is diffusely homogenous with normal contour and echogenicity. No focal mass lesions are see n. No intrahepatic ductal dilatation is seen. Low level internal echoes are identified layering d ependently within the gallbladder, which is consistent with gallbladder sludge. The gallbladder wall measures 0.4 cm. There is mild pericholecystic fluid present. A sonographic Mcgrath's sign was not el icited by the market investigator. The common duct measures 0.6 cm in diameter at the level of the hepatic artery. The visualized portions of the pancreas appear normal. The right kidney shows normal echogenicity, cortical thickness and renal contour. The right kidney sh ows no evidence of hydronephrosis or mass. No ascites or free fluid is seen in Zuluaga's pouch. Incidental note is made of right pleural effusi on. IMPRESSION: Thickened gallbladder wall with sludge and mild pericholecystic fluid, however sonographic Mcgrath's s ign is negative. Findings are equivocal for acute cholecystitis. If further evaluation is desired, [facility] HIDA scan can be performed. ACT 112: Negative or not required by law. Electronically signed by: Jem Eli M.D. 11/18/2023 3:42 PM
--- NOTE | 2023-11-18 17:12 | Discharge Summary ---
Date of Service November 18, 2023 Admission HPI Per Admitting Provider The patient is a 68-year-old female with no significant PMH, who presents to the emergency department with 4 months of progressively worsening fatigue, shortness of breath, dyspnea on exertion and bilateral lower extremity swelling. She reports that the symptoms prompted her to quit tobacco use, however, she has had persistently worsening symptoms. Upon arrival to the emergency department, she was found to be in atrial fibrillation with RVR, and CHF, with borderline blood pressure, and was referred for evaluation for admission. Admission Exam Per Admitting Provider The patient is awake, alert and oriented 3, well developed and well nourished, BiPAP in place, sitting upright in bed and in otherwise no acute distress. HEENT--PERRL, EOMI, mucous membranes and oropharynx mildly dry. Neck--supple. No JVD. No bruits. Thyroid normal, trachea midline, no adenopathy. Heart--atrial fibrillation with tachycardia. No murmurs, rubs or gallops. Lungs--crackles at the bases bilaterally. No further respiratory distress on BiPAP. No accessory muscle use. Abdomen--normal bowel sounds and soft. Nontender. Nondistended Extremities--2+ bilateral pretibial pitting edema Dermatologic--normal skin turgor, normal color, no abnormal lymph nodes, no rash. Neurologic--cranial nerves II through XII grossly intact. Rheumatologic--normal range of motion. Psychiatric--normal affect. Principal Diagnosis CHF Discharge Exam General: No acute distress HEENT: PERRLA. Normal conjunctiva, anicteric sclera. Oropharynx normal. Respiratory: Normal respiratory effort, CTABL. Cardiovascular: Irregularly irregular without murmurs, gallops, or rubs.BL LE putting edema GI: Soft abdomen with normal bowel sounds heard on auscultation. Nontender x4 quadrants Neuro: Alert and oriented x3. Discharge Data Allergies Allergy/AdvReac Type Severity Reaction Status Date / Time Iodinated Contrast Media Allergy Intermediate RASH Unverified 11/13/23 02:29 Consultations 11/13/23 02:04 ED Decision to Admit Stat 11/13/23 04:06 Consult Cardiology Routine 11/17/23 15:54 [facility] CHF Program Referral Routine Ordered Studies 11/18/23 09:53 US RUQ [US liver] Urgent Hospital Course (1) Hypotension: (2) Acute respiratory failure with hypoxia: (3) Atrial fibrillation with RVR: (4) CHF (congestive heart failure): (5) Cellulitis of left lower extremity: Plan 68 F with no significant past medical history, who presented to the emergency room with progressively worsening fatigue, shortness of breath, dyspnea on exertion, and bilateral pedal edema x 4 months. Admitted to the hospital for further evaluation, management of AF with RVR, CHF. Now stable, undergoing medical management. Acute respiratory failure with hypoxia/bilateral pleural effusions/CHF -Not on home O2, currently on 3L NC, wean supplemental oxygen as able -Still with shortness of breath with exertion. -Initial CXR shows evidence of pleural effusion, pulmonary vascular congestion -BNP of 1115 on arrival, no prior diagnosis of CHF * Diurese as tolerated: IV Lasix 40 mg BID, will convert to lasix 80mg po BID. PLEASE RECHECK BMP 3 DAYS AFTER DISCHARGE, STOP LASIX IF CREAT RISING * Cr continues to improve. * Low-sodium diet (<2 g daily) * Metoprolol tartrate 75 mg twice daily. Atrial fibrillation with RVR/NSTEMI/hypotension/cardiomyopathy -CHF likely related to left ventricular hypertrophy, in turn related to a. fib. -Cardiomyopathy on echo possibly from atrial fibrillation -Echo completed, EF 35-40%, pericardial effusion without evidence tamponade, L ventricular hypertrophy. -Received Lopressor 5mg in ER. -Cardiology consulted volume status improved, if renal function allows, plan on initiating typical heart failure medications such as ARNI, mineralocorticoid receptor antagonist, and consideration for SGLT2 inhibitor add dose of digoxin if needed and BP won't allow for betablocker, but not needed currently Patient to follow Heart Failure Program upon discharge -continue metoprolol 75mg BID, eliquis 5mg BID Pericardial Effusion -no tamponade on echo, repeat echo slight improvement, HR BP stable -continue to monitor Left lower extremity cellulitis -Reports significant abrasion and infection on the dorsum of left foot began after buying new sneakers, and then gained a lot of fluid -Consult placed for wound care -Placed on daptomycin IV and Zosyn IV initially, now d/c Daptomycin. MRSA nares negative. Blood cultures negative at 24 hours, switched to Ceftriaxone 2g q24h. Has been treated for a total of 7 days, d/c at discharge Hyperkalemia -hypokalemia on arrival, repleted. -K of 5.3, has since improved Bowel Incontinence -Patient with right upper quadrant tenderness. -US: equivocal for acute cholecystitis. Negative hamlin sign -Recommend dietary changes. -given benign patient presentation, not concerned for cholecystitis at this time. History of smoking -30 ppd, recommend outpatient PFTs. Total Time Total Time Spent Total Time Spent (In Minutes): <30 mins Discharge Plan Discharge Items Patient Disposition: Transfer Inpatient Rehab Fac Reason For Visit: ATRIAL FIB W/ RVR, CHF, LLE CELLULITIS Discharge Diagnosis: CHF Activity: Per Instructions section Non-emergency contact: Primary Care Provider Call non-emergency contact if: your symptoms worsen, your pain is concerning for you and you have a fever Follow-up/Referrals: Ina Keyes PA-C [Physician Customer Loyalty Representative] - (Heart Failure Program) PCP,NO [Primary Care Provider] - Diet: Heart Healthy Ambulatory Orders: Basic Metabolic Panel (Routine) Timeframe: 3 Days Location: Determined by Patient Ordered By: Jelena Erickson Attending Provider Instructions: 68 F with no significant past medical history, who presented to the emergency room with progressively worsening fatigue, shortness of breath, dyspnea on exertion, and bilateral pedal edema x 4 months. Admitted to the hospital for further evaluation, management of AF with RVR, CHF. Now stable, undergoing medical management. Acute respiratory failure with hypoxia/bilateral pleural effusions/CHF -Not on home O2, currently on 3L NC, wean supplemental oxygen as able -Still with shortness of breath with exertion. -Initial CXR shows evidence of pleural effusion, pulmonary vascular congestion -BNP of 1115 on arrival, no prior diagnosis of CHF * Diurese as tolerated: IV Lasix 40 mg BID, will convert to lasix 80mg po BID. PLEASE RECHECK BMP 3 DAYS AFTER DISCHARGE, STOP LASIX IF CREAT RISING * Cr continues to improve. * Low-sodium diet (<2 g daily) * Metoprolol tartrate 75 mg twice daily. Atrial fibrillation with RVR/NSTEMI/hypotension/cardiomyopathy -CHF likely related to left ventricular hypertrophy, in turn related to a. fib. -Cardiomyopathy on echo possibly from atrial fibrillation -Echo completed, EF 35-40%, pericardial effusion without evidence tamponade, L ventricular hypertrophy. -Received Lopressor 5mg in ER. -Cardiology consulted volume status improved, if renal function allows, plan on initiating typical heart failure medications such as ARNI, mineralocorticoid receptor antagonist, and consideration for SGLT2 inhibitor add dose of digoxin if needed and BP won't allow for betablocker, but not needed currently Patient to follow Heart Failure Program upon discharge -continue metoprolol 75mg BID, eliquis 5mg BID Pericardial Effusion -no tamponade on echo, repeat echo slight improvement, HR BP stable -continue to monitor Left lower extremity cellulitis -Reports significant abrasion and infection on the dorsum of left foot began after buying new sneakers, and then gained a lot of fluid -Consult placed for wound care -Placed on daptomycin IV and Zosyn IV initially, now d/c Daptomycin. MRSA nares negative. Blood cultures negative at 24 hours, switched to Ceftriaxone 2g q24h. Has been treated for a total of 7 days, d/c at discharge Hyperkalemia -hypokalemia on arrival, repleted. -K of 5.3, has since improved Bowel Incontinence -Patient with right upper quadrant tenderness. -US: equivocal for acute cholecystitis. Negative hamlin sign -Recommend dietary changes. -given benign patient presentation, not concerned for cholecystitis at this time. History of smoking -30 ppd, recommend outpatient PFTs. Pending Studies at Discharge: No Stand-Alone Forms: My [facility] Skilled Items Patient informed of condition?: Yes DNR: No Discharge Level of Care: Acute rehab Communicable Disease: No Discharge Prognosis: Stable Lines: None Urinary Catheter: No Medications and DC Order Prescriptions: New Eliquis 5 mg Tablet 5 mg PO BID 30 Days Qty: 60 0RF metoprolol tartrate 25 mg Tablet 75 mg PO BID 30 Days Qty: 180 0RF furosemide [Lasix] 80 mg tablet 80 mg PO BID 7 Days Qty: 14 0RF Continued diphenhydramine HCl [Benadryl] 25 mg Capsule 25 mg PO HS PRN (Reason: Sleep) Discharge Orders: Discharge Order (Routine); Ordered 11/18/23 Ordered By: Jelena Haley Admission Data Admit Date/Time: 11/13/23 02:44 Attending Provider: Satish Young Admit Provider: Dawit Beckham Primary Care Provider: PCP,NO Other Providers: Dawit Beckham; Benny Ramsay; [facility]; Ina Keyes Other Interventions: Discharge Summary Assessment (RN) Last Done: 11/18/23 17:02 Supervising Physician Co-Signing Physician Notes I personally examined the patient and verified all hinojosa points of history and exam, discussed case, and agree with decision making with Dr Schmidt feels like her breathing is pretty good. would like to get to rehab. systems development consultant input greatly appreciated vitals noted lungs clear overall somewhat poor effort but no r/r/w Acute resp failure hypoxic - resolved Acute systolic chf - EF 35% with moderate pericardial effusion. also with LVH and thus diastolic dysfunction. systolic dysfunction likely from a fib. -doing better - [facility] PO lasix, BMP ~2-3 days, titrate dosing from there A fib with RVR - continue rate control, continue anticoagulation Moderate Pericardial effusion -repeat echo 11/15 - slight improvement vs stable. NARAYAN - follow renal function while diuresing - periodic BMP Leg cellulitis/skin tear - treated wtih course of abx Long standing h/o smoking - ~30ppd. will need outpatient PFT. s/p dose of methylpred in ED Resident Activity Tracking Resident Involvement: Resident Care Provided Care Provided: Adult Hospital Medicine
--- NOTE | 2023-11-18 18:29 | Billing Data ---
Date of Service November 18, 2023 Coding Level of Care Code 29301 IN/OBS DISCH 30 MIN/LESS
[2023-11-18] MEDS ORDERED: METOPROLOL TARTRATE 25 MG TAB PO SCH (21:00)
--- NOTE | 2023-11-21 12:59 | Coding Query ---
CODING QUERY To promote full compliance with coding requirements relating to patient care, provider participation is requested in all cases of elementary esl teacher uncertainty. Please assist us with the question(s) below: Coding Question(s): There is documentation of NSTEMI starting on the H&P and documented in the Hospitalist Progress Notes and on the Discharge Summary, however, the 11/12 Cardiology Consultation documents, "Elevated troponin: I do not think she has an acute ischemic event, I suspect this is demand ischemia, and the Cardiology Progress Notes document the same. It is not clear if there was still Possible NSTEMI, or if it was ruled out and was not removed from documentation. Please specify below, in your clinical opinion, regarding NSTEMI: ( ) Possible NSTEMI (x ) NSTEMI is Ruled-Out ( ) Other: Please Specify Physician's Response(s): Thank you Karen Ortiz Principal Diagnosis: "that condition established after study, to be chiefly responsible for occasioning the admission of the patient to the hospital for care." Co-Existing Principal Diagnosis: "when two or more diagnoses equally meet the criteria for principal diagnosis as determined by the circumstances of admission, diagnostic work up, and/or therapy provided, and the Alphabetic Index, Tabular List, or another coding guideline does not provide sequencing direction, any one of the diagnoses may be sequenced first." "When the physician has documented what appears to be a current diagnosis in the body of the record, but has not included the diagnosis in the final diagnostic statement, the physician should be asked whether the diagnosis should be added." (Source Coding Clinic 2 QTR90. p3-4) KMI
== END 2023-11-18 17:49 | DRG 291 ==
LOC: ED 00:27 → EDINP 02:44 → SUATTDRO 02:44 → 1E 05:45 → 2E 11-16 14:06

== ENCOUNTER 2024-02-09 14:58 | Inpatient (IN) ==
--- NOTE | 2024-02-09 15:16 | ED Triage Note ---
Date of Service February 09, 2024 Provider in Triage Author: Barrett Bateman History of Present Illness This patient was briefly evaluated while in triage. An abbreviated physical exam was performed. This patient is a 68-year-old Female who presents to the ED for evaluation sent by cardiology for elevated potassium (7.0) on routine labs done 1000 no CP or SOB +lightheaded/dizzy Physical Exam GENERAL: NAD CARDIOVASCULAR: RRR RESPIRATORY: CTA ABDOMEN: BS x 4. Nontender to palpation. Initial orders for labs and / or imaging were placed and patient was placed in the waiting area until a bed is available. Please see further documentation for the full ED course.
--- NOTE | 2024-02-09 15:49 | XRay Report ---
XR chest 1V not portable CLINICAL HISTORY: chest pain TECHNIQUE: Single frontal radiograph of the chest was obtained. Comparison: Comparison is made to 11/13/2023 FINDINGS: Exam is limited by underpenetration. Cardiomegaly is noted. The aortic arch is calcified. The lungs a re clear. No evidence of pleural effusion or pneumothorax. IMPRESSION: No acute chest disease. Cardiomegaly is noted. ACT 112: Negative or not required by law. Electronically signed by: Jem Eli M.D. 02/09/2024 3:48 PM
--- NOTE | 2024-02-09 16:11 | Emergency Department Note ---
Impression & Plan Hyperkalemia, Atrial fibrillation with rapid ventricular response, NARAYAN (acute kidney injury), Kidney stone on left side ED Provider Note Provider: Jimbo Amaya MD DATE OF SERVICE: 02/09/2024 CHIEF COMPLAINT: Abnormal labs HISTORY OF PRESENT ILLNESS: Patient is a 68-year-old female history diagnosis aspirin of atrial fibrillation, CHF, and CKD following with cardiology and nephrology referred today due to abnormal blood work. Patient is on Bumex daily and states has been eating and drinking. Reports she noticed some seeping from her left great toe and that was infected and Dr. With her doctors and was prescribed on February 04 prescription for Bactrim. Has been taking this send redness and seepage has begun to decrease a good bit. No significant swelling of the lower legs with her use of compression stockings. Denies significant breathing issues, fevers, sore throat, rhinorrhea, abdominal pain, nausea pain. Reports last several weeks has been having little bit of pain to left lower chest and breast area but she thought this might be related to her kidney stones and did not further work this up. Does states she has occasionally had some dizziness and last night she states at home with her home pulse ox her heart rate was reportedly 27. States has been feeling a little bit off but no syncope or fainting. Did take her medicines including her blood thinner and metoprolol this morning. Called by her doctor after routine blood work this morning and told to come here to elevated potassium levels. PAST MEDICAL HISTORY: As noted above MEDICATIONS: Reviewed home medications SOCIAL HISTORY: Resides at home PHYSICAL EXAM: GENERAL: alert and oriented in no acute distress on stretcher Head: normocephalic and atraumatic EYES: No injection, discharge or icterus. PERRL, EOMI. NECK: Trachea midline. ENT: Mucous membranes pink and moist. LUNGS: Airway patent. No retractions. Breath sounds clear HEART: Regular rate and rhythm. No chest wall tenderness ABDOMEN: Soft and non-tender, without guarding or rebound. SKIN: Acyanotic, warm, dry, without rashes lower extremities and compression stockings. Slight abrasion to the dorsum of the left foot bandaged without significant erythema. Left great toenail has some erythema and some dried crusting along the edges of the nail as well as some peeling skin on the lateral aspect of the great toe. No gangrenous changes noted. EXTREMITIES: Without swelling, tenderness or deformity NEUROLOGICAL: No focal deficits. No aphasia. No facial droop or slurred speech. Normal strength and tone in the extremities. Sensation to gross touch normal. EK beats per minute atrial fibrillation without acute ST segment elevation and nonspecific lateral T wave inversions. QTc 378. CONTINUOUS CARDIAC MONITORING: was ordered and showed a heart rate of 100s-120s bpm in atrial fibrillation Patient's laboratory studies and imaging reviewed. Differential includes Infection, kidney dysfunction, dehydration, metabolic abnormality, hypo/hyperglycemia, electrolyte disturbance, anemia, hypoxia, cardiac sources, intracerebral event, neurologic, as well as other pathologies. IMPRESSION/MEDICAL DECISION MAKING: Patient well-appearing in no distress. Does appear to be in rapid A-fib and given a dose of metoprolol here. Does report interestingly she does have some low heart rates at home by her report and has been feeling a bit off. Little bit left chest pain reported as well. Troponin was sent. Blood work electrolytes repeated here to look confirm worsened renal function and elevated potassium. Has been on Bactrim several days may be leading to her hyperkalemia. EKG without significantly peaked T waves. Benign abdomen without abdominal pain. Noncontrast CT abdomen pelvis to exclude obstructive uropathy once completed. Anticoagulated doubt PE. Not in any distress and I doubt dissection. No focal neurological deficits and doubt CVA. No significant findings of severe erythema around the left toe and I doubt osteomyelitis or sepsis. Does not appear fluid overload and chest x-ray reassuring without significant effusion or pulmonary edema. CT abdomen pelvis with nonobstructing right kidney stone with an obstructing chronic left kidney stone and hydronephrosis. Not assisting with her situation in regards to worsened renal function which is confirmed here today. Blood or today otherwise without leukocytosis minimal anemia. Again slightly worsening creatinine 2.5 with a potassium of 5.2. This is somewhat improved but still elevated compared to blood work earlier today. Troponin is normal. Again has been having reportedly some episodes of low heart rates. Given the worsened renal dysfunction, mild hyperkalemia, and reports of some dizziness and chest discomfort did recommend that we observe her here overnight. Will likely need to change antibiotics although she is not septic appearing in relation to the left great toe. She was agreeable to stay in the hospitalist was contacted. No significant bradycardia here but do question given her reported she may have underlying tachybradycardia syndrome. Further telemetry could be helpful as well. DIAGNOSIS: Mild hyperkalemia, NARAYAN, atrial fibrillation RVR, left-sided chronic kidney stone DISPOSITION: Hospitalist will evaluate Patient was agreeable with this plan. Past Med/Surg History Problem List (Updated 02/09/24 @ 17:32 by Courtney Cid PA-C) Kidney stone on left side (Acute) NARAYAN (acute kidney injury) (Acute) Hyperkalemia (Acute) Vitamin D deficiency Anemia Open wound of right ankle (Acute) Ulcer of right leg (Acute) Pressure ulcer of right foot, stage 3 (Acute) Atrial fibrillation with rapid ventricular response (Acute) Pericardial effusion Acute HFrEF (heart failure with reduced ejection fraction) Cardiomyopathy Pleural effusion NSTEMI (non-ST elevated myocardial infarction) Renal insufficiency (Acute) Medical History CKD (chronic kidney disease) stage 3, GFR 30-59 ml/min History of tobacco abuse Family History (Updated 02/09/24 @ 17:32 by Courtney Cid PA-C) Other Cancer Clotting disorder Social History (Updated 02/09/24 @ 17:32 by Courtney Cid PA-C) Smoking Status: Former smoker Tobacco Type: Cigarettes Age Started Using Tobacco: 18; Age Quit Using Tobacco: 68; Cigarettes Per Day: 30; Do You Dip or Chew Tobacco: No; Hx Alcohol Use: No Hx Substance Use: No Preferred Language: Sami Communication Ability: Effective Visual Impairment: No Limitations Hearing Ability: Normal 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 Beliefs That Will Affect Care: None marital status: Single Current Living Situation: Alone Current Living Situation Comment: Lives home alone current occupational status: retired current occupation: [employer] How many Children do You have: 0 Feels Safe at Home: Yes Diet: low salt caffeine: Yes Dental Care, Regularly: No Physical Activity Frequency: Daily Seatbelt Use: always Do you think of yourself as: straight/heterosexual Gender Identity: Female Assistive Devices: Cane and Walker Allergies Allergies Allergy/AdvReac Type Severity Reaction Status Date / Time Iodinated Contrast Media Allergy Intermediate RASH Unverified 02/09/24 17:27 Home Meds Home Medications Medication Instructions Recorded Confirmed sulfamethoxazole 800 1 tab PO BID 02/09/24 02/09/24 mg-trimethoprim 160 mg tablet (Bactrim DS) Previous Rx's Medication Instructions Recorded apixaban 5 mg tablet (Eliquis) 5 mg PO BID 90 days #180 tabs 12/04/23 empagliflozin 10 mg tablet 10 mg PO DAILY #14 tabs 01/12/24 (Jardiance) metoprolol succinate 200 mg 200 mg PO DAILY #90 tabs 01/12/24 tablet,extended release 24 hr bumetanide 2 mg tablet 2 mg PO DAILY #360 tabs 01/13/24 Results & Data (ED) Vital Signs Vital Signs - 24 hr 02/09/24 15:16 02/09/24 15:56 02/09/24 15:56 Temperature 36.5 C Temperature Source Temporal Artery Scan Pulse Rate 111 H Pulse Rate [Apical] 117 H Pulse Rhythm [Apical] Regular Respiratory Rate 20 18 Respiratory Effort / Characteristics Non-Labored Spontaneous Non-Labored Spontaneous Respiratory Depth Normal Normal Respiratory Pattern Regular Blood Pressure 109/71 Blood Pressure [Left Arm] Blood Pressure Mean 83 Blood Pressure Mean [Left Arm] Blood Pressure Position [Left Arm] Pulse Oximetry 97 99 99 Oxygen Delivery Method Room Air Room Air Room Air Sepsis Recent Fever Within 48 Hours No Sepsis New/Unexplained Change in Mental Status No Sepsis Action Taken by Nursing No Action Required 02/09/24 16:08 02/09/24 16:28 02/09/24 16:30 Temperature Temperature Source Pulse Rate 100 H Pulse Rate [Apical] 112 H Pulse Rhythm [Apical] Respiratory Rate 18 22 Respiratory Effort / Characteristics Non-Labored Spontaneous Respiratory Depth Normal Respiratory Pattern Regular Blood Pressure 101/65 Blood Pressure [Left Arm] 96/65 L 114/62 Blood Pressure Mean 78 Blood Pressure Mean [Left Arm] 75 79 Blood Pressure Position [Left Arm] Lying Lying Pulse Oximetry 99 97 Oxygen Delivery Method Sepsis Recent Fever Within 48 Hours Sepsis New/Unexplained Change in Mental Status Sepsis Action Taken by Nursing 02/09/24 16:45 02/09/24 17:00 02/09/24 17:00 Temperature Temperature Source Pulse Rate 111 H 99 H 105 H Pulse Rate [Apical] Pulse Rhythm [Apical] Respiratory Rate Respiratory Effort / Characteristics Respiratory Depth Respiratory Pattern Blood Pressure 101/65 99/64 L 99/64 L Blood Pressure [Left Arm] Blood Pressure Mean 81 Blood Pressure Mean [Left Arm] Blood Pressure Position [Left Arm] Pulse Oximetry 96 Oxygen Delivery Method Sepsis Recent Fever Within 48 Hours Sepsis New/Unexplained Change in Mental Status Sepsis Action Taken by Nursing Laboratory Data 02/09/24 15:59 02/09/24 15:59 Lab Results 02/09/24 02/09/24 Range/Units 15:59 17:25 WBC 7.75 (4.8-10.8) K/ul RBC 4.07 L (4.20-5.40) M/uL Hgb 11.3 L (12.0-16.0) g/dl Hct 36.4 L (37.0-47.0) % MCV 89.4 (80.0-100.0) fL MCH 27.8 (25.0-34.0) pg MCHC 31.0 L (32.0-36.0) g/dL RDW Std Deviation 48.5 H (36.4-46.3) fL RDW Coeff of Jame 14.8 H (11.5-14.5) % Plt Count 216 (130-400) K/uL MPV 10.2 (9.4-12.4) fL Immature Gran % (Auto) 1.8 % Neut % (Auto) 72.6 % Lymph % (Auto) 17.7 % Mcdonald % (Auto) 5.9 % Eos % (Auto) 1.5 % Baso % (Auto) 0.5 % Neut # (Auto) 5.62 (1.40-6.50) K/uL Lymph # (Auto) 1.37 (1.20-3.40) K/uL Mcdonald # (Auto) 0.46 (0.11-0.59) K/uL Eos # (Auto) 0.12 (0.00-0.50) K/uL Baso # (Auto) 0.04 (0.00-0.20) K/uL Immature Gran # (Auto) 0.14 (0.01-0.20) K/uL PT 11.3 (9.0-12.0) Seconds INR 1.0 (0.9-1.1) Sodium 136 (136-145) mmol/L Potassium 5.2 H D (3.5-5.1) mmol/L Chloride 104 (98-107) mmol/L Carbon Dioxide 25 (21-32) mmol/L Anion Gap 7 (3-11) BUN 60 H (6-23) mg/dl Creatinine 2.57 H (0.6-1.2) mg/dl Est Cr Clr Drug Dosing 19.6 ml/min Est GFR ( Amer) 21.1 ml/min Est GFR (Non-Af Amer) 18.2 ml/min BUN/Creatinine Ratio 23.3 H (10-20) Glucose 129 H (70-99(Fasting)) mg/dl Calcium 9.5 (8.6-10.3) mg/dl Magnesium 2.5 H (1.7-2.4) mg/dl Total Bilirubin 0.3 (0.2-1.0) mg/dl AST 11 L (13-39) U/L ALT 7 (7-52) U/L Alkaline Phosphatase 61 (34-104) U/L Troponin I High Sens 8.1 (0-14) pg/ml Total Protein 7.3 (6.0-8.3) gm/dl Albumin 4.2 (3.4-5.0) gm/dl Globulin 3.1 (2.5-4.0) gm/dl Albumin/Globulin Ratio 1.4 (0.9-2) Urine Color Yellow Urine Appearance Clear (Clear) Urine pH 6.0 (4.5-7.5) Ur Specific [place] 1.020 (1.000-1.030) Urine Protein 2+ H (Negative) Urine Glucose (UA) 3+ H (Negative) Urine Ketones Negative (Negative) Urine Blood 2+ H (Negative) Urine Nitrite Negative (Negative) Urine Bilirubin Negative (Negative) Urine Urobilinogen Negative (Negative) Ur Leukocyte Esterase 1+ H (Negative) Urine WBC (Auto) 21-50 H (0-5) /hpf Urine RBC (Auto) 11-20 H (0-2) /hpf U Hyaline Cast (Auto) 0-2 (0-2) /lpf U Epithel Cells (Auto) 6-10 H (0-2) /hpf Urine Bacteria (Auto) None Seen (None Seen) Urine Yeast Present A (None Prsent) Administered Medications Discontinued Medications Metoprolol Tartrate (Metoprolol Tartrate 1 Mg/Ml Vial) 5 mg IV NOW STA Stop: 02/09/24 16:03 Last Admin: 02/09/24 16:45 Dose: 5 mg Documented By: ROSAMARIA Imaging Data Radiologist's Impression: Chest X-Ray 02/09/24 15:16 XR chest 1V not portable CLINICAL HISTORY: chest pain TECHNIQUE: Single frontal radiograph of the chest was obtained. Comparison: Comparison is made to 11/13/2023 FINDINGS: Exam is limited by underpenetration. Cardiomegaly is noted. The aortic arch is calcified. The lungs are clear. No evidence of pleural effusion or pneumothorax. IMPRESSION: No acute chest disease. Cardiomegaly is noted. ACT 112: Negative or not required by law. Electronically signed by: Jem Eli M.D. 02/09/2024 3:48 PM Abdomen/Pelvis CT 02/09/24 15:58 CT abd pelvis wo con CLINICAL HISTORY: NARAYAN, hx stones TECHNIQUE: Helical axial images of the abdomen and pelvis were obtained. Automated dose lowering techniques and/or adjustment according to patient size were utilized for this exam. This exam was performed without intravenous contrast. CT DOSE: 1162.75 mGy.cm COMPARISON: Comparison is made to liver ultrasound 11/18/2023 FINDINGS: Lower chest: Partial visualization of a pericardial effusion. Liver: Unremarkable. No focal lesions are seen. Gallbladder and biliary tree: Cholelithiasis is seen without evidence of cholecystitis. No intra- or extrahepatic biliary ductal dilation. Pancreas: Fatty replacement of the pancreas is seen. Spleen: Unremarkable. Adrenals: Adrenal thickening is seen. Kidneys and ureters: Nonobstructive nephrolithiasis is seen. Atrophic left kidney is seen with hydronephrosis and an obstructing stone on the left measuring 9 mm. Bladder: Unremarkable. Reproductive organs: Unremarkable. Bowel: Diverticulosis is seen without diverticulitis. The appendix is normal. Lymph nodes Retroperitoneal: Unremarkable. Pelvic: Unremarkable. Mesenteric: Unremarkable. Peritoneum: Normal. Vessels: Atherosclerotic calcifications are seen. Abdominal wall: Unremarkable. Bones: Degenerative changes in the visualized spine. IMPRESSION: Nonobstructive nephrolithiasis is seen on the right. There is an obstructive stone on the left with chronic hydronephrosis and atrophic kidney. ACT 112: Negative or not required by law. Electronically signed by: Jem Eli M.D. 02/09/2024 4:40 PM Discharge Plan Visit Data Chief Complaint: Referred by Doctor Stated Complaint: HIGH POTASSIUM ED Provider: Jimbo Amaya Discharge Problem: Hyperkalemia, Atrial fibrillation with rapid ventricular response, NARAYAN (acute kidney injury), Kidney stone on left side Patient Disposition: Being Evaluated by Hospitalist Forms Stand Alone Forms: [facility] [employer] Prescriptions Prescriptions: No Action Eliquis 5 mg tablet 5 mg PO BID 90 Days Qty: 180 3RF bumetanide 2 mg tablet 2 mg PO DAILY Qty: 360 3RF metoprolol succinate 200 mg tablet extended release 24 hr 200 mg PO DAILY Qty: 90 3RF Jardiance 10 mg tablet 10 mg PO DAILY Qty: 14 2RF sulfamethoxazole-trimethoprim [Bactrim DS] 800-160 mg Tablet 1 tab PO BID Rx Instructions: BEGIN 02/05/24 X 10 DAYS Referrals Referrals: Rahel Buck MD [Primary Care Provider] -
[2024-02-09 16:27] LABS: Basophils # (auto) 0.04 K/uL (0.00-0.20); Basophils % (auto) 0.5 %; Eosinophils # (auto) 0.12 K/uL (0.00-0.50); Eosinophils % (auto) 1.5 %; Hematocrit (blood only) 36.4 % (37.0-47.0); Hemoglobin 11.3 g/dl (12.0-16.0); Immature Granulocytes # (auto) 0.14 K/uL (0.01-0.20); Immature Granulocytes % (auto) 1.8 %; Lymphocytes # (auto) 1.37 K/uL (1.20-3.40); Lymphocytes % (auto) 17.7 %; Mean Corpuscular Hemoglobin 27.8 pg (25.0-34.0); Mean Corpuscular Volume 89.4 fL (80.0-100.0); Mean Platelet Volume 10.2 fL (9.4-12.4); Monocytes # (auto) 0.46 K/uL (0.11-0.59); Monocytes % (auto) 5.9 %; Neutrophils # (auto) 5.62 K/uL (1.40-6.50); Neutrophils % (auto) 72.6 %; Platelet Count 216 K/uL (130-400); RDW Coefficient of Variation 14.8 % (11.5-14.5); RDW Standard Deviation 48.5 fL (36.4-46.3); Red Blood Count 4.07 M/uL (4.20-5.40); White Blood Count 7.75 K/ul (4.8-10.8)
[2024-02-09 16:32] LABS: Prothrombin Time 11.3 Seconds (9.0-12.0)
--- NOTE | 2024-02-09 16:42 | CT Scan Report ---
CT abd pelvis wo con CLINICAL HISTORY: NARAYAN, hx stones TECHNIQUE: Helical axial images of the abdomen and pelvis were obtained. Automated dose lowering tech niques and/or adjustment according to patient size were utilized for this exam. This exam was perfor med without intravenous contrast. CT DOSE: 1162.75 mGy.cm COMPARISON: Comparison is made to liver ultrasound 11/18/2023 FINDINGS: Lower chest: Partial visualization of a pericardial effusion. Liver: Unremarkable. No focal lesions are seen. Gallbladder and biliary tree: Cholelithiasis is seen without evidence of cholecystitis. No intra- or extrahepatic biliary ductal dilation. Pancreas: Fatty replacement of the pancreas is seen. Spleen: Unremarkable. Adrenals: Adrenal thickening is seen. Kidneys and ureters: Nonobstructive nephrolithiasis is seen. Atrophic left kidney is seen with hydron ephrosis and an obstructing stone on the left measuring 9 mm. Bladder: Unremarkable. Reproductive organs: Unremarkable. Bowel: Diverticulosis is seen without diverticulitis. The appendix is normal. Lymph nodes Retroperitoneal: Unremarkable. Pelvic: Unremarkable. Mesenteric: Unremarkable. Peritoneum: Normal. Vessels: Atherosclerotic calcifications are seen. Abdominal wall: Unremarkable. Bones: Degenerative changes in the visualized spine. IMPRESSION: Nonobstructive nephrolithiasis is seen on the right. There is an obstructive stone on the left with c hronic hydronephrosis and atrophic kidney. ACT 112: Negative or not required by law. Electronically signed by: Jem Eli M.D. 02/09/2024 4:40 PM
[2024-02-09 16:44] LABS: Albumin Globulin Ratio 1.4 (0.9-2); Albumin Level 4.2 gm/dl (3.4-5.0); BUN Creatinine Ratio 23.3 (10-20); Bilirubin,Total 0.3 mg/dl (0.2-1.0); Calcium 9.5 mg/dl (8.6-10.3); Creatinine Clr Calc Pharmacy 19.6 ml/min; Est GFR (African American) 21.1 ml/min; Est GFR (Non-African American) 18.2 ml/min; Globulin 3.1 gm/dl (2.5-4.0); Magnesium 2.5 mg/dl (1.7-2.4); Potassium 5.2 mmol/L (3.5-5.1); Total Protein 7.3 gm/dl (6.0-8.3); Troponin I High Sensitivity 8.1 pg/ml (0-14)
[2024-02-09] MEDS: METOPROLOL TARTRATE 1 MG/ML VIAL IV STA (16:45)
--- NOTE | 2024-02-09 17:33 | History & Physical Report ---
Date of Service February 09, 2024 Assessment & Plan (1) NARAYAN (acute kidney injury): Plan: This is a 68 y/o female with HFrEF, CKD3b, cardiomyopathy, persistent atrial fibrillation, pericardial effusion, bilateral ureteral calculi, and other history as outlined who was referred to the ED today after outpatient labs showed a potassium of 7.0. Repeat labs in the ED showed improvement to 5.2 but continued worsening of creatinine. Pt is scheduled for urologic procedure in March due to known stones. Pt's recent course of Bactrim started last week for cellulitis thought to be the etiology of pt's hyperkalemia and NARAYAN. - Admit to PCU - Potassium already improving so will continue to monitor closely - repeat in AM - Hold diuretic for now - repeat BMP in the AM and reassess - Consult nephrology for additional recommendations (2) Atrial fibrillation with rapid ventricular response: Plan: Improvement with Lopressor 5 mg IV x 1 in the ED Continue baseline beta-mckay for now due to afiib with RVR in the ED but will monitor rates closely in view of reported episodes of bradycardia Consult cardiology Continue Eliquis for anticoagulation Monitor in PCU - concern for tachy-harvey syndrome based on pt's report of episodes of bradycardia into the 20s and 30s with associated episodes of lightheadedness. EKG in the AM (3) Kidney stone on left side: Plan: Has f/u with urology (Dr. Frederick) for procedure in March Will defer to nephrology if more urgent evaluation in required while admitted (4) Hyperkalemia: Plan: See plan for #1 (5) Acute HFrEF (heart failure with reduced ejection fraction): Plan: Holding diuretics today due to NARAYAN and reassess in the AM Continue other outpatient meds Appreciate cardiology input (6) Cardiomyopathy: Plan: Defer need for repeat echo to cardiology - last one done on 01/27 (7) Cellulitis of left foot: Plan: Partially treated with Bactrim - d/c due to NARAYAN/elevated K Change to doxycycline to complete the course Plan Pt seen and reviewed with collaborating physician, Dr. Diggs. Plan of care discussed and as outlined above. Code status: Full code DVT Prophylaxis: on Eliquis Admit to PCU for close monitoring due to afib with RVR, reported episodes of bradycardia, hyperkalemia. Gualberto Cid PA-C History of Present Illness Chief Complaint: abnormal labs Primary Care Provider: Rahel Buck MD This is a 68 y/o female with HFrEF, CKD3b, cardiomyopathy, persistent atrial fibrillation, pericardial effusion, bilateral ureteral calculi, and other history as outlined who was referred to the ED today after outpatient labs showed a potassium of 7.0. Pt was seen at PCP office on 02/05/24 for new sores on left foot x 2, diagnosed with cellulitis, and started on Bactrim for ten days. Pt had been seeing wound care but original wounds had healed so she stopped seeing them. Since being on the antibiotics, pt has had some nausea with the antibiotics but feels like this has helped her foot so she was trying to finish the prescribed course. Pt was seen by cardiology today and had her pre-operative evaluation for urologic procedure scheduled in March that included routine labs done this morning. Potassium was 7.0 so pt was referred to the ED. Pt reports episodes of dizziness and lightheadedness since November. She has not been able to identify a specific pattern to her symptoms but the symptoms seem to go away on their own. She denies associated palpitations or chest pain. She checks her heart rate at home and has noted episodes of low heart rate in the 20s-30s as well as high heart rates in the 110s-120s. She also cannot identify a pattern to the heart rates. She reports feeling "washed out" and tired recently. She has known ureteral stones and is scheduled for a procedure in March. She notes good urine response to diuretics in the morning but output seems to drop throughout the day. She has noted some difficulty starting urinary stream but denies dysuria or hematuria. ECHO 01/28/24 (limited) - severe LV systolic dysfunction (EF 20-25%); severe global hypokinesis of LV; moderate LVH; normal RV systolic function; moderate left atrial dilatation; mild to moderate MR; small circumferential pericardial effusion without evidence of cardiac tamponade; probable elevated CVP Allergies Allergy/AdvReac Type Severity Reaction Status Date / Time Iodinated Contrast Media Allergy Intermediate RASH Unverified 02/09/24 17:27 Home Medications Medication Instructions Recorded Confirmed Type apixaban 5 mg tablet (Eliquis) 5 mg PO BID 90 days #180 tabs 12/04/23 02/09/24 Rx empagliflozin 10 mg tablet 10 mg PO DAILY #14 tabs 01/12/24 02/09/24 Rx (Jardiance) metoprolol succinate 200 mg 200 mg PO DAILY #90 tabs 01/12/24 02/09/24 Rx tablet,extended release 24 hr bumetanide 2 mg tablet 2 mg PO DAILY #360 tabs 01/13/24 02/09/24 Rx sulfamethoxazole 800 1 tab PO BID 02/09/24 02/09/24 History mg-trimethoprim 160 mg tablet (Bactrim DS) Past Med/Surg History Problem List (Updated 02/09/24 @ 18:23 by Courtney Cid PA-C) Cellulitis of left foot Kidney stone on left side (Acute) NARAYAN (acute kidney injury) (Acute) Hyperkalemia (Acute) Vitamin D deficiency Anemia Open wound of right ankle (Acute) Ulcer of right leg (Acute) Pressure ulcer of right foot, stage 3 (Acute) Atrial fibrillation with rapid ventricular response (Acute) Pericardial effusion Acute HFrEF (heart failure with reduced ejection fraction) Cardiomyopathy Pleural effusion NSTEMI (non-ST elevated myocardial infarction) Renal insufficiency (Acute) Medical History CKD (chronic kidney disease) stage 3, GFR 30-59 ml/min History of tobacco abuse Family History (Updated 02/09/24 @ 17:32 by Courtney Cid PA-C) Other Cancer Clotting disorder Social History (Updated 02/09/24 @ 17:32 by Courtney Cid PA-C) Smoking Status: Former smoker Tobacco Type: Cigarettes Age Started Using Tobacco: 18; Age Quit Using Tobacco: 68; Cigarettes Per Day: 30; Do You Dip or Chew Tobacco: No; Hx Alcohol Use: No Hx Substance Use: No Preferred Language: Nauruan Communication Ability: Effective Visual Impairment: No Limitations Hearing Ability: Normal 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 Required: No Beliefs That Will Affect Care: None marital status: Single Current Living Situation: Alone Current Living Situation Comment: Lives home alone current occupational status: retired 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 Results & Data Results & Data Vital Signs (Past 12 Hours) Vital Signs Temp Pulse Pulse Resp BP BP Pulse Ox 02/09/24 17:00 105 H 99/64 L 02/09/24 17:00 99 H 99/64 L 96 02/09/24 16:45 111 H 101/65 02/09/24 16:30 100 H 22 101/65 97 02/09/24 16:28 112 H 18 114/62 99 02/09/24 16:08 96/65 L 02/09/24 15:56 99 02/09/24 15:56 117 H 18 99 02/09/24 15:16 36.5 C 111 H 20 109/71 97 O2 Del Method 02/09/24 17:00 02/09/24 17:00 02/09/24 16:45 02/09/24 16:30 02/09/24 16:28 02/09/24 16:08 02/09/24 15:56 Room Air 02/09/24 15:56 Room Air 02/09/24 15:16 Room Air Laboratory Results Lab Results 02/09/24 Range/Units 15:59 WBC 7.75 (4.8-10.8) K/ul RBC 4.07 L (4.20-5.40) M/uL Hgb 11.3 L (12.0-16.0) g/dl Hct 36.4 L (37.0-47.0) % MCV 89.4 (80.0-100.0) fL MCH 27.8 (25.0-34.0) pg MCHC 31.0 L (32.0-36.0) g/dL RDW Std Deviation 48.5 H (36.4-46.3) fL RDW Coeff of Jame 14.8 H (11.5-14.5) % Plt Count 216 (130-400) K/uL MPV 10.2 (9.4-12.4) fL Immature Gran % (Auto) 1.8 % Neut % (Auto) 72.6 % Lymph % (Auto) 17.7 % Gilliam % (Auto) 5.9 % Eos % (Auto) 1.5 % Baso % (Auto) 0.5 % Neut # (Auto) 5.62 (1.40-6.50) K/uL Lymph # (Auto) 1.37 (1.20-3.40) K/uL Gilliam # (Auto) 0.46 (0.11-0.59) K/uL Eos # (Auto) 0.12 (0.00-0.50) K/uL Baso # (Auto) 0.04 (0.00-0.20) K/uL Immature Gran # (Auto) 0.14 (0.01-0.20) K/uL PT 11.3 (9.0-12.0) Seconds INR 1.0 (0.9-1.1) Sodium 136 (136-145) mmol/L Potassium 5.2 H D (3.5-5.1) mmol/L Chloride 104 (98-107) mmol/L Carbon Dioxide 25 (21-32) mmol/L Anion Gap 7 (3-11) BUN 60 H (6-23) mg/dl Creatinine 2.57 H (0.6-1.2) mg/dl Est Cr Clr Drug Dosing 19.6 ml/min Est GFR ( Amer) 21.1 ml/min Est GFR (Non-Af Amer) 18.2 ml/min BUN/Creatinine Ratio 23.3 H (10-20) Glucose 129 H (70-99(Fasting)) mg/dl Calcium 9.5 (8.6-10.3) mg/dl Magnesium 2.5 H (1.7-2.4) mg/dl Total Bilirubin 0.3 (0.2-1.0) mg/dl AST 11 L (13-39) U/L ALT 7 (7-52) U/L Alkaline Phosphatase 61 (34-104) U/L Troponin I High Sens 8.1 (0-14) pg/ml Total Protein 7.3 (6.0-8.3) gm/dl Albumin 4.2 (3.4-5.0) gm/dl Globulin 3.1 (2.5-4.0) gm/dl Albumin/Globulin Ratio 1.4 (0.9-2) Diagnostic Findings Chest X-Ray 02/09/24 15:16 XR chest 1V not portable CLINICAL HISTORY: chest pain TECHNIQUE: Single frontal radiograph of the chest was obtained. Comparison: Comparison is made to 11/13/2023 FINDINGS: Exam is limited by underpenetration. Cardiomegaly is noted. The aortic arch is calcified. The lungs are clear. No evidence of pleural effusion or pneumothorax. IMPRESSION: No acute chest disease. Cardiomegaly is noted. ACT 112: Negative or not required by law. Electronically signed by: Jem Eli M.D. 02/09/2024 3:48 PM Abdomen/Pelvis CT 02/09/24 15:58 CT abd pelvis wo con CLINICAL HISTORY: NARAYAN, hx stones TECHNIQUE: Helical axial images of the abdomen and pelvis were obtained. Automated dose lowering techniques and/or adjustment according to patient size were utilized for this exam. This exam was performed without intravenous contrast. CT DOSE: 1162.75 mGy.cm COMPARISON: Comparison is made to liver ultrasound 11/18/2023 FINDINGS: Lower chest: Partial visualization of a pericardial effusion. Liver: Unremarkable. No focal lesions are seen. Gallbladder and biliary tree: Cholelithiasis is seen without evidence of cholecystitis. No intra- or extrahepatic biliary ductal dilation. Pancreas: Fatty replacement of the pancreas is seen. Spleen: Unremarkable. Adrenals: Adrenal thickening is seen. Kidneys and ureters: Nonobstructive nephrolithiasis is seen. Atrophic left kidney is seen with hydronephrosis and an obstructing stone on the left measuring 9 mm. Bladder: Unremarkable. Reproductive organs: Unremarkable. Bowel: Diverticulosis is seen without diverticulitis. The appendix is normal. Lymph nodes Retroperitoneal: Unremarkable. Pelvic: Unremarkable. Mesenteric: Unremarkable. Peritoneum: Normal. Vessels: Atherosclerotic calcifications are seen. Abdominal wall: Unremarkable. Bones: Degenerative changes in the visualized spine. IMPRESSION: Nonobstructive nephrolithiasis is seen on the right. There is an obstructive stone on the left with chronic hydronephrosis and atrophic kidney. ACT 112: Negative or not required by law. Electronically signed by: Jem Eli M.D. 02/09/2024 4:40 PM Medications Administered Discontinued Medications Metoprolol Tartrate (Metoprolol Tartrate 1 Mg/Ml Vial) 5 mg IV NOW STA Stop: 02/09/24 16:03 Last Admin: 02/09/24 16:45 Dose: 5 mg Documented By: ROSAMARIA Supervising Physician Co-Signing Physician Notes Patient was seen and examined independently at bedside. Chart reviewed. Case discussed with and agree with the documentation above. In summary, this is a 68 year old female with systolic cardiomyopathy with EF <20%, systolic CHF, Afib, obstructing left UPJ stone with atrophic left kidney and resultant CKD who was sent to the ED from cardio office for hyperkalemia. Patient is being planned for lithotripsy in Mar and saw cardio today for medical clearance- labs was done which showed K of 7 with Cr 2.7 for which she was sent to the ED. In the ED, her K 5.2 and Cr 2.57. She was also in Afib with RVR and received 1 dose of iv lopressor. During my encounter, she is sitting in bed, feels fine, complains of intermittent dizziness with HR in 30s at home, most recent episode being yesterday. Cardio was also planning for DCCV per patient. She is on eliquis which she does not miss any dose. She is on bumex and looks euvolemic. She was started on bactrim on 02/04 for her right great toe infection by her PCP which likely resulted in her hyperkalemia and worsening renal function- bactrim will be switched to doxycycline. UA noted to be concerning for UTI, hence will start on ceftriaxone pending final urine clx results. If UTI, will need to consider discontinuation of Jardiance. Lokelma x3 doses started for hyperkalemia given her renal dysfunction and will follow up BMP in the morning. Hold bumex for now, consider resuming in morning if renal function stable to improved. Reported episodes of bradycardia at home ?tachybrady syndrome. Cardio will be consulted for her Afib for ?DCCV or ?pacer if tachybrady syndrome and for systolic cardiomyopathy ?ischemic eval or life vest. GDMT challenging due to CKD and low BP. Will keep NPO overnight just in case cardio decides for DCCV tomorrow. Continue eliquis which she denies missing any dose. Rest as per the note above. On exam- General: Sitting comfortably in bed, not in distress, on room air HEENT: EOMI, MARIYA, MMM Chest: Clear breath sounds bilaterally, no wheezes or crackles CVS: Irregular rate and rhythm Abdomen: Soft, non tender, not distended, normal bowel sounds Neuro: Awake, alert, oriented, conversing well, non focal Extremities: Mild edema, on compression stocking Onychomycosis of toenails with healing wound of left great toe (6) Cardiomyopathy Cardiomyopathy type: unspecified Qualified Code(s): I42.9 - Cardiomyopathy, unspecified
[2024-02-09 18:10] LABS: Appearance Urine Clear (Clear); Bacteria Urine Automated None Seen (None Seen); Bilirubin Urine Negative (Negative); Blood Urine 2+ (Negative); Cast Urine Automated 0-2 /lpf (0-2); Color Urine Yellow; Glucose Urine UA 3+ (Negative); Ketones Urine Negative (Negative); Leukocyte Esterase Urine 1+ (Negative); Nitrite Urine Negative (Negative); Protein Urine 2+ (Negative); Urobilinogen Urine Negative (Negative); WBC Urine Automated 21-50 /hpf (0-5)
[2024-02-09] MEDS: cefTRIAXone SODIUM 2,000 MG/50 ML BAG IV SCH (20:24)
[2024-02-09] MEDS: SODIUM ZIRCONIUM CYCLOSILICATE 10 GM PACKET PO SCH (20:43)
[2024-02-09] MEDS: APIXABAN 5 MG TABLET PO SCH (22:36)
[2024-02-09] MEDS: DOXYCYCLINE HYCLATE 100 MG CAP PO SCH (22:36)
[2024-02-10 06:40] LABS: Basophils # (auto) 0.05 K/uL (0.00-0.20); Basophils % (auto) 0.7 %; Eosinophils # (auto) 0.13 K/uL (0.00-0.50); Eosinophils % (auto) 1.9 %; Hematocrit (blood only) 32.3 % (37.0-47.0); Hemoglobin 10.1 g/dl (12.0-16.0); Immature Granulocytes # (auto) 0.03 K/uL (0.01-0.20); Immature Granulocytes % (auto) 0.4 %; Lymphocytes # (auto) 1.45 K/uL (1.20-3.40); Mean Corpuscular Hemoglobin 27.8 pg (25.0-34.0); Mean Corpuscular Hgb Conc 31.3 g/dL (32.0-36.0); Mean Platelet Volume 10.1 fL (9.4-12.4); Monocytes # (auto) 0.53 K/uL (0.11-0.59); Monocytes % (auto) 7.7 %; Neutrophils % (auto) 68.3 %; Platelet Count 185 K/uL (130-400); RDW Coefficient of Variation 14.7 % (11.5-14.5); RDW Standard Deviation 48.6 fL (36.4-46.3); Red Blood Count 3.63 M/uL (4.20-5.40); White Blood Count 6.89 K/ul (4.8-10.8)
[2024-02-10 07:38] LABS: Magnesium 2.5 mg/dl (1.7-2.4); Potassium 5.2 mmol/L (3.5-5.1)
[2024-02-10 07:44] LABS: BUN Creatinine Ratio 27.9 (10-20); Creatinine Clr Calc Pharmacy 21.4 ml/min; Est GFR (African American) 24.3 ml/min; Est GFR (Non-African American) 20.9 ml/min
[2024-02-10] MEDS: EMPAGLIFLOZIN 10 MG TAB PO SCH (07:55)
[2024-02-10] MEDS: METOPROLOL SUCC 50MG EXT REL TAB PO SCH (07:55)
--- NOTE | 2024-02-10 09:25 | Anesthesiology Consultation ---
Date of Service February 10, 2024 Assessment & Plan (1) Encounter for pre-operative examination: Chart Review Chart Review: Acceptable Risk for Surgery ((cardioversion)) History Surgery Operation Date: 02/10/24 12:00 Proposed Procedures p Cardioversion [id number] Administrator w/Anesthesia - Mick Martinez MD Height/Weight Height: 5 ft 2 in Weight: 73.2 kg Allergies Allergy/AdvReac Type Severity Reaction Status Date / Time Iodinated Contrast Media Allergy Intermediate Nausea Verified 02/09/24 20:17 Medications Home Medications Medication Instructions Recorded Confirmed Last Taken apixaban 5 mg tablet (Eliquis) 5 mg PO BID 90 days #180 tabs 12/04/23 02/09/24 Unknown empagliflozin 10 mg tablet 10 mg PO DAILY #14 tabs 01/12/24 02/09/24 Unknown (Jardiance) metoprolol succinate 200 mg 200 mg PO DAILY #90 tabs 01/12/24 02/09/24 Unknown tablet,extended release 24 hr bumetanide 2 mg tablet 2 mg PO DAILY #360 tabs 01/13/24 02/09/24 Unknown sulfamethoxazole 800 1 tab PO BID 02/09/24 02/09/24 Unknown mg-trimethoprim 160 mg tablet (Bactrim DS) Active Medications Generic Name Dose Route Start Last Admin Trade Name Freq PRN Reason Stop Dose Admin Apixaban 5 mg 02/09/24 21:00 02/10/24 07:55 Apixaban 5 Mg Tablet PO 03/10/24 20:59 5 mg BID PILO Administration Doxycycline Hyclate 100 mg 02/09/24 21:00 02/10/24 07:55 Doxycycline Hyclate 100 Mg Cap PO 02/13/24 20:59 100 mg BID PILO Administration Empagliflozin 10 mg 02/10/24 09:00 02/10/24 07:55 Empagliflozin 10 Mg Tab PO 03/11/24 08:59 10 mg DAILY PILO Administration Ceftriaxone Sodium 2,000 mg in 50 mls @ 100 mls/hr 02/09/24 19:30 02/09/24 20:54 Rocephin IV 02/14/24 19:29 Infused Q24H PILO Infusion Metoprolol Succinate 200 mg 02/10/24 09:00 02/10/24 07:55 Metoprolol Succ 50mg Ext Rel Tab PO 03/11/24 08:59 200 mg DAILY PILO Administration Sodium Zirconium Cyclosilicate 10 gm 02/09/24 21:00 02/10/24 07:56 Sodium Zirconium Cyclosilicate 10 Gm Packet PO 02/10/24 14:01 10 gm TID PILO Administration Past Medical History Medical History Hyperkalemia Anemia 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, stage 3 Acute HFrEF (heart failure with reduced ejection fraction) Atrial fibrillation with rapid ventricular response NSTEMI (non-ST elevated myocardial infarction) Renal insufficiency CKD (chronic kidney disease) stage 3, GFR 30-59 ml/min History of tobacco abuse Past Family History Family History Other Cancer Clotting disorder Past Surgical History Surgical History (Updated 02/10/24 @ 09:28 by Raul Peacock MD) No pertinent past surgical history Social History Smoking Status: Former smoker Smoking cigarettes per day: 30 Do You Dip or Chew Tobacco: No Smoking End Date: 07/2023 Hx Alcohol Use: No Hx Substance Use: No substance use type: does not use Physical Exam Vital Signs Last Vital Signs Temp 36.3 C L 02/10/24 07:45 Pulse 100 H 02/10/24 07:45 Resp 25 H 02/10/24 07:45 BP 111/78 02/10/24 07:45 Pulse Ox 98 02/10/24 07:45 O2 Del Method Room Air 02/10/24 07:45 Testing Laboratory Results 02/10/24 05:46 02/10/24 05:46 PT 11.3 Seconds (9.0-12.0) 02/09/24 15:59 INR 1.0 (0.9-1.1) 02/09/24 15:59 Urine Color Yellow 02/09/24 17:25 Urine Appearance Clear (Clear) 02/09/24 17:25 Urine pH 6.0 (4.5-7.5) 02/09/24 17:25 Ur Specific [place] 1.020 (1.000-1.030) 02/09/24 17:25 Urine Protein 2+ (Negative) H 02/09/24 17:25 Urine Glucose (UA) 3+ (Negative) H 02/09/24 17:25 Urine Ketones Negative (Negative) 02/09/24 17:25 Urine Nitrite Negative (Negative) 02/09/24 17:25 Ur Leukocyte Esterase 1+ (Negative) H 02/09/24 17:25 Urine WBC (Auto) 21-50 /hpf (0-5) H 02/09/24 17:25 Urine RBC (Auto) 11-20 /hpf (0-2) H 02/09/24 17:25 U Hyaline Cast (Auto) 0-2 /lpf (0-2) 02/09/24 17:25 U Epithel Cells (Auto) 6-10 /hpf (0-2) H 02/09/24 17:25 Urine Bacteria (Auto) None Seen (None Seen) 02/09/24 17:25 Echocardiogram Date: 02/27/24 EF: 20-25% Valvular Disease: + no significant valvular disease RV function normal small pericardial effusion - not hemodynamically significant
--- NOTE | 2024-02-10 09:52 | Cardiology Progress Note ---
Date of Service February 10, 2024 Assessment & Plan (1) Unspecified atrial fibrillation: Plan 1. Atrial fibrillation: She has what appears to be persistent atrial fibrillation, her left ventricular function has not improved and although she does not feel her atrial fibrillation we were planning on performing cardioversion as an outpatient. Since she is hospitalized now I think we should go ahead and plan cardioversion here. 2. Hyperkalemia: Her potassium is 5.2 on the last 2 measures, that is what it had been historically for the most part. Perhaps the 7 reading was spurious, or it has been appropriately treated. In either case I think it is safe enough to proceed to cardioversion this afternoon. I will try to arrange that and she should be kept NPO. Admission and Anticipated Discharge Date Admission Date: February 09, 2024 Results & Data Vital Signs (Past 12 Hours) Vital Signs Temp Pulse Pulse Resp BP Pulse Ox O2 Del Method 02/10/24 07:45 36.3 C L 100 H 25 H 111/78 98 Room Air 02/10/24 02:10 36.5 C 102 H 18 134/92 98 Room Air 02/09/24 23:00 36.6 C 108 H 22 126/92 97 Room Air 02/09/24 23:00 111 H PG Care Time/CCT Total # of Minutes Spent Total Time Spent with Patient: Total time spent is greater than 50% in coordination of care (as documented) at patient's floor/unit and/or counseling patient: Coding Diagnoses Unspecified atrial fibrillation I48.91
--- NOTE | 2024-02-10 10:18 | Nephrology Consultation ---
Date of Consultation February 10, 2024 Assessment & Plan (1) NARAYAN (acute kidney injury): (2) Kidney stone on left side: (3) Hyperkalemia: (4) Anemia: Plan 68-year-old female with history of hypertension, cardiomyopathy, A-fib with RVR and progressive worsening of renal function over 3 months with left atrophic kidney and hydronephrosis with ureteral stone. Admitted with routine labs showing hyperkalemia and NARAYAN as well as A-fib with RVR. Potassium was 7, improved with Lokelma down to 5.2. Creatinine on admission was 2.7 which improved to 2.3 this morning. Creatinine was 1.4 in early November which has been progressively worsening. No prior record available. Hyperkalemia and acute kidney injury improving, off of Bactrim. -- Considering progressive worsening of kidney function over just 3 months with left-sided hydronephrosis and atrophic kidney, it is reasonable to consider urological intervention now rather than waiting for mid March. -- Cardioversion is planned for this afternoon, once her heart rate improved and cardiac escamilla she is otherwise stable, appreciate urology recommendation for further management of left-sided hydronephrosis. -- Continue to monitor kidney function and electrolyte -- Avoid nephrotoxic medications, encouraged to keep well-hydrated, if she is n.p.o. for procedure, consider maintenance IV fluids Thank you for allowing me to participate in your patient's care. It was a pleasure to see Angela History of Present Illness Reason for Consultation: NARAYAN, Hyperkalemia, obstructive uropathy. Attending Physician: Curtis Sawant MD History of Present Illness Ms. Angela Acuna is a 68-year-old female with past medical history is significant for hypertension, cardiomyopathy, A-fib with RVR and progressive renal insufficiency over last few months with obstructive uropathy admitted to the hospital with hyperkalemia, NARAYAN and A-fib with RVR. Nephrology consult requested for management of NARAYAN, hyperkalemia. EMR records are reviewed in detail during patient's visit. Angela presented to ER yesterday after outpatient lab showing hyperkalemia, potassium was 7.0. She was started on Bactrim on 02/05/24 for left foot cellulitis. She has been having some nausea after started on antibiotic but no vomiting or diarrhea. She was seen by cardiology yesterday as part of preoperative evaluation for upcoming urological intervention in March for left- sided hydronephrosis with ureteral stone. Routine labs done yesterday showed hyperkalemia and she was referred to ER for further evaluation. She reports feeling episodes of dizziness, lightheadedness as well as feeling washed out. Lab on admission was notable for potassium 7, creatinine 2.7. Was on Bumex 2 mg daily at home which has been on hold now. Continued on Jardiance. Has not been on STEPHEN inhibitor or ARB. She was started on Lokelma and received 2 doses already and potassium came down to 5.2. Creatinine slightly improved to 2.3 this morning. Urinalysis with proteinuria and microscopic hematuria. CT abdomen pelvis showing left-sided hydronephrosis and relatively atrophic left kidney. Bactrim was stopped and she was started on ceftriaxone and doxycycline. Since admission her heart rate staying around 110s to 120s and currently plan to have cardioversion this afternoon. 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 Records available from early November showed creatinine 1.3-1.4 mg/dl which progressively worsened over last 3 months and recent lab showing creatinines mostly staying around 2 or higher. As part of evaluation she was noted to have left-sided hydronephrosis and plan was to have outpatient urological intervention 03/18/2024 with [facility] urology in [place]. She was also found to have cardiomyopathy, EF around 25 to 30%, thought to be tachycardia induced. Overall she feels tired but denies SOB, CP. Reports low UO. Allergies Allergy/AdvReac Type Severity Reaction Status Date / Time Iodinated Contrast Media Allergy Intermediate Nausea Verified 02/09/24 20:17 Home Medications Medication Instructions Recorded Confirmed Type apixaban 5 mg tablet (Eliquis) 5 mg PO BID 90 days #180 tabs 12/04/23 02/09/24 Rx empagliflozin 10 mg tablet 10 mg PO DAILY #14 tabs 01/12/24 02/09/24 Rx (Jardiance) metoprolol succinate 200 mg 200 mg PO DAILY #90 tabs 01/12/24 02/09/24 Rx tablet,extended release 24 hr bumetanide 2 mg tablet 2 mg PO DAILY #360 tabs 01/13/24 02/09/24 Rx sulfamethoxazole 800 1 tab PO BID 02/09/24 02/09/24 History mg-trimethoprim 160 mg tablet (Bactrim DS) Patient History Medical History 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, stage 3 Acute HFrEF (heart failure with reduced ejection fraction) Atrial fibrillation with rapid ventricular response NSTEMI (non-ST elevated myocardial infarction) Renal insufficiency CKD (chronic kidney disease) stage 3, GFR 30-59 ml/min History of tobacco abuse Surgical History (Updated 02/10/24 @ 09:28 by Raul Peacock MD) No pertinent past surgical history Family History Other Cancer Clotting disorder Social History (Updated 02/09/24 @ 17:32 by Courtney Cid PA-C) Smoking Status: Former smoker Tobacco Type: Cigarettes Age Started Using Tobacco: 18; Age Quit Using Tobacco: 68; Cigarettes Per Day: 30; Smoking End Date: 07/2023; Do You Dip or Chew Tobacco: No; Hx Alcohol Use: No Hx Substance Use: No Preferred Language: Gabonese Communication Ability: Effective Visual Impairment: No Limitations Hearing Ability: Normal Digital Account Supervisor Required: No Beliefs That Will Affect Care: None marital status: Single Current Living Situation: Alone Current Living Situation Comment: Lives home alone current occupational status: retired 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 Physical Exam Constitutional: WD/WN, vitals as above no acute distress Eyes: + anicteric sclerae Neck: normal visual inspection Respiratory: Auscultation: lungs clear to auscultation bilaterally Cardiovascular: Rate/Rhythm: + tachycardic and + irregularly irregular Heart Sounds: normal S1 and normal S2 Extremities: no edema Gastrointestinal (Abdomen): Inspection/Auscultation: abdomen normal to inspection and normal bowel sounds Percussion/Palpation: abdomen soft; abdomen nontender Musculoskeletal: Extremities: extremities normal to inspection Neurologic: no focal motor deficits Psychiatric: Orientation: alert and oriented x 3 Affect: euthymic affect Results & Data Vital Signs (Past 12 Hours) Vital Signs Temp Pulse Pulse Resp BP Pulse Ox O2 Del Method 02/10/24 09:50 Room Air 02/10/24 07:45 36.3 C L 100 H 25 H 111/78 98 Room Air 02/10/24 02:10 36.5 C 102 H 18 134/92 98 Room Air 02/09/24 23:00 36.6 C 108 H 22 126/92 97 Room Air 02/09/24 23:00 111 H PG Care Time/CCT Total # of Minutes Spent Total Time Spent with Patient: Total time spent is greater than 50% in coordination of care (as documented) at patient's floor/unit and/or counseling patient: Coding Level of Care Code 51343 INT INP/OBS CARE 375MIN Diagnoses NARAYAN (acute kidney injury) N17.9 Kidney stone on left side N20.0 Hyperkalemia E87.5 Anemia D64.9
--- NOTE | 2024-02-10 11:02 | Urology Consultation ---
Date of Consultation February 10, 2024 Assessment & Plan (1) Kidney stone on left side: (2) Calcium nephrolithiasis: Plan Bilateral nephrolithiasis She has no urgent needs I did discuss her long-term management She has surgery tentatively planned with [facility] but not for greater than 1 month I think we could certainly offer her surgery sooner although she is not currently under any duress to pursue this urgently Her left kidney is compromised beyond recovery and I suspect is completely asymptomatic. Her right kidney has some stones but nothing obstructing the ureter or causing major issues. Current focus should reside on improving her lab parameters and stabilizing her from a cardiac standpoint. No intervention planned during this hospitalization barring a substantial change. History of Present Illness Attending Physician: Curtis Sawant MD History of Present Illness 68-year-old female admitted secondary to hyperkalemia found incidentally during outpatient labs She denies any severe abnormal feelings although she had a bit of extra fatigue over the past several days Her potassium has corrected substantially since arrival Her kidney function is inching back towards baseline (~1.8), but is currently still elevated at 2.[address] Frederick from [facility] urology and has surgery scheduled for right renal stones and a left ureteral stonethis surgery is not scheduled until March 18 She is not currently experience any symptoms from the right renal stones and on imaging these are nonobstructive calculi She has no hydronephrosis on the right Her left kidney is severely atrophic/nonfunctional and does have some dilation of the renal pelvis with a stone in the proximal ureter, however I highly doubt that this is the cause of her underlying pain She is not toxic or manifesting signs of infection She tentatively has cardioversion planned for later today She is on Eliquis currently She denies any hematuria Allergies Allergy/AdvReac Type Severity Reaction Status Date / Time Iodinated Contrast Media Allergy Intermediate Nausea Verified 02/09/24 20:17 Home Medications Medication Instructions Recorded Confirmed Type apixaban 5 mg tablet (Eliquis) 5 mg PO BID 90 days #180 tabs 12/04/23 02/09/24 Rx empagliflozin 10 mg tablet 10 mg PO DAILY #14 tabs 01/12/24 02/09/24 Rx (Jardiance) metoprolol succinate 200 mg 200 mg PO DAILY #90 tabs 01/12/24 02/09/24 Rx tablet,extended release 24 hr bumetanide 2 mg tablet 2 mg PO DAILY #360 tabs 01/13/24 02/09/24 Rx sulfamethoxazole 800 1 tab PO BID 02/09/24 02/09/24 History mg-trimethoprim 160 mg tablet (Bactrim DS) Patient History Medical History 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, stage 3 Acute HFrEF (heart failure with reduced ejection fraction) Atrial fibrillation with rapid ventricular response NSTEMI (non-ST elevated myocardial infarction) Renal insufficiency CKD (chronic kidney disease) stage 3, GFR 30-59 ml/min History of tobacco abuse Surgical History No pertinent past surgical history Family History Other Cancer Clotting disorder Social History Smoking Status: Former smoker Tobacco Type: Cigarettes Age Started Using Tobacco: 18; Age Quit Using Tobacco: 68; Cigarettes Per Day: 30; Smoking End Date: 07/2023; Do You Dip or Chew Tobacco: No; Hx Alcohol Use: No Hx Substance Use: No Preferred Language: Serbian Communication Ability: Effective Visual Impairment: No Limitations Hearing Ability: Normal Zoning Assistant Required: No Beliefs That Will Affect Care: None marital status: Single Current Living Situation: Alone Current Living Situation Comment: Lives home alone current occupational status: 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 Physical Exam Constitutional: well developed and well nourished Neck: neck nontender Respiratory: normal respiratory effort; no respiratory distress and does not use accessory muscles Cardiovascular: Vessels: radial pulses present Extremities: no edema Gastrointestinal (Abdomen): Inspection/Auscultation: abdomen normal to inspection Percussion/Palpation: abdomen soft; abdomen nontender and no guarding Musculoskeletal: Head/Neck/Chest: normocephalic and head atraumatic Extremities: extremities normal to inspection Skin: no rashes and no lesions Trauma: no evidence of skin trauma Neurologic: awake; not obtunded Speech / Cognition: normal speech Motor/Sensory: no tremor Psychiatric: Orientation: alert and oriented x 3 Lymphatic: no lymphadenopathy Results & Data Vital Signs (Past 12 Hours) Vital Signs Temp Pulse Pulse Resp BP BP Pulse Ox 02/10/24 10:45 36.3 C L 95 H 20 113/89 98 02/10/24 09:50 02/10/24 07:45 36.3 C L 100 H 25 H 111/78 98 02/10/24 02:10 36.5 C 102 H 18 134/92 98 02/09/24 23:00 36.6 C 108 H 22 126/92 97 02/09/24 23:00 111 H O2 Del Method 02/10/24 10:45 Room Air 02/10/24 09:50 Room Air 02/10/24 07:45 Room Air 02/10/24 02:10 Room Air 02/09/24 23:00 Room Air 02/09/24 23:00 PG Care Time/CCT Total # of Minutes Spent Total Time Spent with Patient: Total time spent is greater than 50% in coordination of care (as documented) at patient's floor/unit and/or counseling patient: Coding Level of Care Code 60427 IN/OBS CONSULT LVL 4,60M Diagnoses Kidney stone on left side N20.0 Calcium nephrolithiasis N20.0
--- NOTE | 2024-02-10 11:17 | Hospitalist Progress Note ---
Date of Service February 10, 2024 Assessment & Plan (1) Hyperkalemia: Plan 68 y/o female with PMH of HFrEF, CKD3b, cardiomyopathy, persistent atrial fibrillation, pericardial effusion, bilateral ureteral calculi, and other history as outlined who was referred to the ED 02/08 after outpatient labs showed a potassium of 7.0. Repeat labs in the ED showed improvement to 5.2 but continued worsening of creatinine. Pt is scheduled for urologic procedure in March due to known stones. Pt's recent course of Bactrim started last week for cellulitis thought to be the etiology of pt's hyperkalemia and NARAYAN. She is being managed for the following: Possible UTI: Patient with increased urinary frequency at presentation, urine culture pending, continue with Rocephin 02/08, hold Jardiance. Patient reports improving urinary frequency. Acute kidney injury over CKD stage IIIb Hyperkalemia Obstructive uropathy Admitting creatinine of 2.7, creatinine was 1.4 in early November which has been progressively worsening Admitting potassium of 7.0 Renal fxn worsening likely /2 use of bactrim. Admitting CTAP: Nonobstructive nephrolithiasis on the right, obstructive stone on the left with chronic hydronephrosis and atrophic kidney. Potassium of 5.2 and creatinine of 2.3 this morning. Due to progressive worsening of renal function ISO left-sided hydronephrosis/renal stone/atrophic kidney, urology evaluated Discussed with urology 02/09, Plan for urological intervention as an outpatient earlier than her scheduled procedure on March. Continue with IV fluid, avoid nephrotoxic's, labs in AM. Nephrology following, appreciate recommendation. Discontinue Bactrim at discharge. Atrial fibrillation with rapid ventricular response Improvement with Lopressor 5 mg IV x 1 in the ED Continue home beta-mckay and home Eliquis Cardiology on board, plan for cardioversion later in the noon today. Continue telemetry monitoring Cellulitis of left foot: Partially treated with Bactrim, discontinued due to NARAYAN/elevated potassium. Changed to doxycycline. Complete the course. Other chronic medical conditions: Continue with/resume home meds as and when able History of heart failure with reduced ejection fraction: Not in any acute exacerbation, BNP lower than her previous BNP level. At 639. Chest x-ray without congestion. Patient with no shortness of breath. Diuretics on hold due to NARAYAN, resume when able. Patient on gentle IV fluid due to n.p.o. status and NARAYAN. Reassess volume status daily for continuous monitoring. Cardiomyopathycontinue home medications Code status: Full code DVT Prophylaxis: on Eliquis Admission and Anticipated Discharge Date Admission Date: February 09, 2024 Subjective Patient was seen and examined at bedside. Patient was lying in bed, on room air, resting comfortably, not in any acute distress. Patient reports improving urinary frequency, reports feeling better. Patient denies vomiting/cough/chest pain. Patient is n.p.o., plan for cardioversion later in the noon. Physical Exam Physical Exam: GENERAL: Alert and oriented x3. NAD, on RA. HEENT: No pallor, no icterus. Pupils equal, round and reactive to light. Oral mucosa moist. NECK: No JVD, no neck masses. HEART: S1 and S2 heard. irregular rate and rhythm. No murmur, no gallop. RESPIRATORY SYSTEM: Normal AP diameter. No accessory muscle use. No wheezing, no crackles. ABDOMEN: Soft, bowel sounds present, nontender, no distention. CENTRAL NERVOUS SYSTEM: No facial droop. Speech is clear. Obeys simple commands. Moves extremities. EXTREMITIES: mild edema on compression stockings Onychomycosis of toenails with healing wound of left great toe Results & Data Results & Data Vital Signs (Past 12 Hours) Vital Signs Temp Pulse Resp BP BP Pulse Ox O2 Del Method 02/10/24 10:45 36.3 C L 95 H 20 113/89 98 Room Air 02/10/24 09:50 Room Air 02/10/24 07:45 36.3 C L 100 H 25 H 111/78 98 Room Air 02/10/24 02:10 36.5 C 102 H 18 134/92 98 Room Air
[2024-02-10] MEDS ORDERED: PROPOFOL IV EMULSION 10 MG/ML 20 ML VIAL IV ONE (13:28)
--- NOTE | 2024-02-10 13:28 | Cardioversion ---
Date of Service February 10, 2024 PG Electrical Cardioversion Rp Electrical Cardioversion Report The patient was brought to the laboratory being NPO after midnight and was identified in the laboratory, connected to the recording apparatus including electrocardiographic monitoring, noninvasive blood pressure monitoring and pulse oximetry. Anteroposterior patch electrodes were placed. The patient was anesthetized by the anesthesia department. Once adequate anesthesia was obtained a synchronized biphasic shock was delivered using 200 J with conversion to a sinus rhythm. The patient awoke from the anesthetic without sequela, will be observed briefly and returned to her room. She can be discharged today if appropriate. Coding Level of Care Code 22167 CARDIOVERSION, ELECTIVE Additional Codes Electrical Cardioversion Report ([id number])
--- NOTE | 2024-02-10 13:34 | Anesthesiology Progress Note ---
Date of Service February 10, 2024 Anesthesia Post Procedure Vital Signs Vital Signs: Temp Pulse Pulse Resp BP BP BP 02/10/24 13:29 50 L 16 96/57 L 02/10/24 12:23 99 H 16 122/93 02/10/24 10:45 36.3 C L 95 H 20 113/89 02/10/24 09:50 02/10/24 07:45 36.3 C L 100 H 25 H 111/78 02/10/24 02:10 36.5 C 102 H 18 134/92 02/09/24 23:00 36.6 C 108 H 22 126/92 02/09/24 23:00 111 H 02/09/24 21:00 02/09/24 19:51 36.3 C L 94 H 18 116/75 02/09/24 19:50 02/09/24 19:50 02/09/24 18:33 105 H 17 02/09/24 18:31 94/74 L 02/09/24 18:18 108 H 17 02/09/24 18:00 123 H 02/09/24 17:00 105 H 99/64 L 02/09/24 17:00 99 H 99/64 L 02/09/24 16:45 111 H 101/65 02/09/24 16:30 100 H 22 101/65 02/09/24 16:28 112 H 18 114/62 02/09/24 16:08 96/65 L 02/09/24 15:56 02/09/24 15:56 117 H 18 02/09/24 15:16 36.5 C 111 H 20 109/71 Pulse Ox O2 Del Method 02/10/24 13:29 99 Room Air 02/10/24 12:23 99 Room Air 02/10/24 10:45 98 Room Air 02/10/24 09:50 Room Air 02/10/24 07:45 98 Room Air 02/10/24 02:10 98 Room Air 02/09/24 23:00 97 Room Air 02/09/24 23:00 02/09/24 21:00 Room Air 02/09/24 19:51 96 Room Air 02/09/24 19:50 Room Air 02/09/24 19:50 Room Air 02/09/24 18:33 95 Room Air 02/09/24 18:31 02/09/24 18:18 02/09/24 18:00 98 Room Air 02/09/24 17:00 02/09/24 17:00 96 02/09/24 16:45 02/09/24 16:30 97 02/09/24 16:28 99 02/09/24 16:08 02/09/24 15:56 99 Room Air 02/09/24 15:56 99 Room Air 02/09/24 15:16 97 Room Air Transfer of Care Handoff Completed per policy Notes Mental Status: alert / awake / arousable Patient Amnestic to Procedure: Yes Nausea / Vomiting: adequately controlled Pain: adequately controlled Airway Patency, RR, SpO2: stable & adequate BP & HR: stable & adequate Hydration State: stable & adequate Anesthetic Complications: no major complications apparent
[2024-02-10] MEDS: SODIUM CHLORIDE 0.9% 1,000 ML IV SCH (13:54)
[2024-02-10] MEDS: ADVANCED PROBIOTIC 625 MG CAPSULE PO SCH (16:52)
[2024-02-11] MEDS: ACETAMINOPHEN 325 MG TAB PO PRN (01:41)
--- NOTE | 2024-02-11 06:06 | Electrocardiogram Report ---
Test Reason : Blood Pressure : / mmHG Vent. Rate : 110 BPM Atrial Rate : 000 BPM P-R Int : 000 ms QRS Dur : 086 ms QT Int : 312 ms P-R-T Axes : 000 -13 155 degrees QTc Int : 422 ms Atrial fibrillation with rapid ventricular response Nonspecific T wave abnormality Abnormal ECG When compared with ECG of 09-FEB-2024 09:26, No significant change was found Confirmed by Eddie Faust ([id number]) on 02/11/2024 6:05:49 AM Referred By: Confirmed By:Eddie Faust
--- NOTE | 2024-02-11 06:41 | Electrocardiogram Report ---
Test Reason : Blood Pressure : / mmHG Vent. Rate : 100 BPM Atrial Rate : 110 BPM P-R Int : 000 ms QRS Dur : 086 ms QT Int : 352 ms P-R-T Axes : 000 -03 123 degrees QTc Int : 454 ms Atrial fibrillation Nonspecific T wave abnormality Abnormal ECG When compared with ECG of 09-FEB-2024 15:46, No significant change was found Confirmed by Eddie Faust ([id number]) on 02/11/2024 6:40:47 AM Referred By: REFERRED SELF Confirmed By:Eddie Faust
[2024-02-11 07:36] LABS: Basophils # (auto) 0.05 K/uL (0.00-0.20); Basophils % (auto) 0.8 %; Eosinophils # (auto) 0.13 K/uL (0.00-0.50); Eosinophils % (auto) 2.1 %; Hematocrit (blood only) 30.6 % (37.0-47.0); Hemoglobin 9.5 g/dl (12.0-16.0); Immature Granulocytes # (auto) 0.01 K/uL (0.01-0.20); Immature Granulocytes % (auto) 0.2 %; Lymphocytes # (auto) 1.41 K/uL (1.20-3.40); Lymphocytes % (auto) 22.2 %; Mean Corpuscular Hemoglobin 27.9 pg (25.0-34.0); Mean Platelet Volume 9.9 fL (9.4-12.4); Monocytes # (auto) 0.44 K/uL (0.11-0.59); Monocytes % (auto) 6.9 %; Neutrophils % (auto) 67.8 %; Platelet Count 184 K/uL (130-400); RDW Coefficient of Variation 15.1 % (11.5-14.5); RDW Standard Deviation 49.8 fL (36.4-46.3); White Blood Count 6.34 K/ul (4.8-10.8)
[2024-02-11] MEDS: METOPROLOL SUCC 50MG EXT REL TAB PO SCH (07:38)
[2024-02-11 07:47] LABS: BUN Creatinine Ratio 26.1 (10-20); Calcium 9.1 mg/dl (8.6-10.3); Creatinine Clr Calc Pharmacy 18.9 ml/min; Est GFR (African American) 20.7 ml/min; Est GFR (Non-African American) 17.9 ml/min; Magnesium 2.4 mg/dl (1.7-2.4); Potassium 5.4 mmol/L (3.5-5.1)
[2024-02-11] MEDS: SODIUM ZIRCONIUM CYCLOSILICATE 10 GM PACKET PO SCH (09:19)
--- NOTE | 2024-02-11 11:17 | Nephrology Progress Note ---
Date of Service February 11, 2024 Assessment & Plan (1) NARAYAN (acute kidney injury): (2) Kidney stone on left side: (3) Hyperkalemia: (4) Anemia: Plan 68-year-old female with history of hypertension, cardiomyopathy, A-fib with RVR and progressive worsening of renal function over 3 months with left atrophic kidney and hydronephrosis with ureteral stone. Admitted with routine labs showing hyperkalemia and NARAYAN as well as A-fib with RVR. Potassium was 7, improved with Lokelma down to 5.2. Creatinine on admission was 2.7 which improved to 2.3. Creatinine was 1.4 in early November which has been progressively worsening. No prior record available. Hyperkalemia and acute kidney injury, slightly improved but again noted to have worsened on labs today with potassium 5.4 and creatinine 2.7. -- Continue to monitor kidney function and electrolyte, appreciate urology recommendation with plan for intervention next week. However, if kidney function continue to worsen may need to consider intervention during this hospitalization. -- Avoid nephrotoxic medications, encouraged to keep well-hydrated. Admission and Anticipated Discharge Date Admission Date: February 09, 2024 Dima Miller was seen and evaluated this morning. Overall she is feeling better, had cardioversion yesterday, converted to sinus rhythm, rate controlled, blood pressure stable. Slight worsening of creatinine again noted with potassium 5.4. Decent urine output. Review of Systems Review of Systems: Detail ROS was otherwise unremarkable. Physical Exam Constitutional: WD/WN, vitals as above no acute distress Eyes: + anicteric sclerae Neck: normal visual inspection Respiratory: Auscultation: lungs clear to auscultation bilaterally Cardiovascular: RRR, no murmur, no edema Musculoskeletal: Extremities: extremities normal to inspection Skin: no rashes, warm and dry Neurologic: no focal motor deficits Psychiatric: Orientation: alert and oriented x 3 Affect: euthymic affect Results & Data Vital Signs (Past 12 Hours) Vital Signs Temp Pulse Pulse Resp BP BP Pulse Ox 02/11/24 08:26 58 L 02/11/24 08:26 02/11/24 08:05 36.7 C 57 L 18 115/61 97 02/11/24 02:50 36.7 C 55 L 16 107/60 97 O2 Del Method 02/11/24 08:26 07/03/24 08:26 Room Air 02/11/24 08:05 Room Air 02/11/24 02:50 Room Air PG Care Time/CCT Total # of Minutes Spent Total Time Spent with Patient: Total time spent is greater than 50% in coordination of care (as documented) at patient's floor/unit and/or counseling patient: Coding Level of Care Code 89489 SUB INP/OBS CARE 2/35MIN Diagnoses NARAYAN (acute kidney injury) N17.9 Kidney stone on left side N20.0 Hyperkalemia E87.5 Anemia D64.9
--- NOTE | 2024-02-11 12:40 | Hospitalist Progress Note ---
Date of Service February 11, 2024 Assessment & Plan (1) Hyperkalemia: Plan 68 y/o female with PMH of HFrEF, CKD3b, cardiomyopathy, persistent atrial fibrillation, pericardial effusion, bilateral ureteral calculi, and other history as outlined who was referred to the ED 02/08 after outpatient labs showed a potassium of 7.0. Repeat labs in the ED showed improvement to 5.2 but continued worsening of creatinine. Pt is scheduled for urologic procedure in March due to known stones. Pt's recent course of Bactrim started last week for cellulitis thought to be the etiology of pt's hyperkalemia and NARAYAN. She is being managed for the following: Concern for UTI: Patient with increased urinary frequency at presentation, continue with Rocephin 02/08, JORGE Jardicharlie. Patient reports improving urinary frequency. Rx w/ 5 day course. Acute kidney injury over CKD stage IIIb Hyperkalemia Obstructive uropathy Admitting creatinine of 2.7, creatinine was 1.4 in early November which has been progressively worsening Admitting potassium of 7.0 Renal fxn worsening likely 2/2 use of bactrim. Admitting CTAP: Nonobstructive nephrolithiasis on the right, obstructive stone on the left with chronic hydronephrosis and atrophic kidney. Potassium of 5.4 and creatinine of 2.61 this morning. Due to progressive worsening of renal function ISO left-sided hydronephrosis/renal stone/atrophic kidney, urology evaluated Discussed with urology 02/09, Plan for urological intervention as an outpatient earlier than her scheduled procedure on March. likely coming Friday. D/w cardio 02/09 for preop clearance eval for urological procedure coming friday. c/w nephro 02/10, avoid nephrotoxic's, labs in AM, observe next 1-2 days. Nephrology following, appreciate recommendation. Discontinue Bactrim at discharge. Atrial fibrillation with rapid ventricular response Improvement with Lopressor 5 mg IV x 1 in the ED s/p cardioversion 7.2, now in sinus rhythm Continue home beta-mckay and home Eliquis Cardiology on board, plan for cardioversion later in the noon today. Continue telemetry monitoring Cellulitis of left foot: Partially treated with Bactrim, discontinued due to NARAYAN /elevated potassium. Changed to doxycycline. Complete the course. Other chronic medical conditions: Continue with/resume home meds as and when able History of heart failure with reduced ejection fraction: Not in any acute exacerbation, BNP lower than her previous BNP level. At 639. Chest x-ray without congestion. Patient with no shortness of breath. Diuretics on hold due to NARAYAN, resume when able. Reassess volume status daily for continuous monitoring. Cardiomyopathycontinue home medications Code status: Full code DVT Prophylaxis: on Eliquis Admission and Anticipated Discharge Date Admission Date: February 09, 2024 Subjective Patient was seen and examined at bedside. Patient was sitting up in bed, on room air, resting comfortably, not in any acute distress. Patient reports improving urinary frequency, reports feeling better. Patient denies vomiting/cough/chest pain. s/p cardioversion yesterday, in sinus rhythm. Physical Exam Physical Exam: GENERAL: Alert and oriented x3. NAD, on RA. HEENT: No pallor, no icterus. Pupils equal, round and reactive to light. Oral mucosa moist. NECK: No JVD, no neck masses. HEART: S1 and S2 heard. irregular rate and rhythm. No murmur, no gallop. RESPIRATORY SYSTEM: Normal AP diameter. No accessory muscle use. No wheezing, no crackles. ABDOMEN: Soft, bowel sounds present, nontender, no distention. CENTRAL NERVOUS SYSTEM: No facial droop. Speech is clear. Obeys simple commands. Moves extremities. EXTREMITIES: mild edema on compression stockings Onychomycosis of toenails with healing wound of left great toe Results & Data Results & Data Vital Signs (Past 12 Hours) Vital Signs Temp Pulse Pulse Resp BP BP Pulse Ox 02/11/24 11:50 36.7 C 51 L 18 122/79 97 02/11/24 08:26 58 L 02/11/24 08:26 02/11/24 08:05 36.7 C 57 L 18 115/61 97 02/11/24 02:50 36.7 C 55 L 16 107/60 97 O2 Del Method 02/11/24 11:50 Room Air 02/11/24 08:26 02/11/24 08:26 Room Air 02/11/24 08:05 Room Air 02/11/24 02:50 Room Air
--- NOTE | 2024-02-11 16:07 | Cardiology Progress Note ---
Date of Service February 11, 2024 Assessment & Plan (1) Unspecified atrial fibrillation: Plan 1. Atrial fibrillation: She has not had recurrence of her atrial fibrillation since cardioversion. I would continue as we are with anticoagulation and observation. 2. Hyperkalemia: Her potassium has normalized following admission. Admission and Anticipated Discharge Date Admission Date: February 09, 2024 Subjective She is feeling well following cardioversion, she has remained in sinus rhythm. Physical Exam Physical Exam: Constitutional: Alert, cooperative and in no distress. HEENT: Unremarkable Neck: No jugular venous distention, carotid pulses are normal and equal bilaterally without bruits. Pulmonary: Clear to auscultation bilaterally. Cardiac: Regular rhythm with no murmur, gallop or rub. Abdomen: Soft, nontender with normal bowel sounds. Extremities: No edema. Distal pulses intact. Neurologic: No focal findings. Skin: No rash, ecchymoses or petechiae. Results & Data Vital Signs (Past 12 Hours) Vital Signs Temp Pulse Pulse Resp BP Pulse Ox O2 Del Method 02/11/24 13:37 56 L 02/11/24 11:50 36.7 C 51 L 18 122/79 97 Room Air 02/11/24 08:26 58 L 02/11/24 08:26 Room Air 02/11/24 08:05 36.7 C 57 L 18 115/61 97 Room Air Diagnostic Findings Telemetry: She has remained in sinus rhythm since cardioversion PG Care Time/CCT Total # of Minutes Spent Total Time Spent with Patient: Total time spent is greater than 50% in coordination of care (as documented) at patient's floor/unit and/or counseling patient: Coding Level of Care Code 92903 SUB INP/OBS CARE 2/35MIN Diagnoses Unspecified atrial fibrillation I48.91
--- NOTE | 2024-02-11 23:58 | Electrocardiogram Report ---
Test Reason : Blood Pressure : / mmHG Vent. Rate : 048 BPM Atrial Rate : 048 BPM P-R Int : 182 ms QRS Dur : 086 ms QT Int : 442 ms P-R-T Axes : 073 -12 073 degrees QTc Int : 394 ms Sinus bradycardia Nonspecific T wave abnormality Abnormal ECG When compared with ECG of 10-FEB-2024 05:06, Sinus rhythm has replaced Atrial fibrillation Vent. rate has decreased BY 52 BPM QT has shortened Confirmed by Eddie Faust ([id number]) on 02/11/2024 11:58:06 PM Referred By: REFERRED SELF Confirmed By:Eddie Faust
--- NOTE | 2024-02-12 07:33 | Electrocardiogram Report ---
Test Reason : Blood Pressure : / mmHG Vent. Rate : 060 BPM Atrial Rate : 060 BPM P-R Int : 204 ms QRS Dur : 086 ms QT Int : 444 ms P-R-T Axes : 061 -05 257 degrees QTc Int : 444 ms Normal sinus rhythm Septal infarct , age undetermined Nonspecific T wave abnormality Abnormal ECG When compared with ECG of 10-FEB-2024 13:26, Septal infarct is now Present Confirmed by Eddie Faust ([id number]) on 02/12/2024 7:32:55 AM Referred By: REFERRED SELF Confirmed By:Eddie Faust
[2024-02-12 07:47] LABS: Basophils # (auto) 0.05 K/uL (0.00-0.20); Basophils % (auto) 0.8 %; Eosinophils # (auto) 0.13 K/uL (0.00-0.50); Hematocrit (blood only) 30.7 % (37.0-47.0); Hemoglobin 9.6 g/dl (12.0-16.0); Immature Granulocytes # (auto) 0.02 K/uL (0.01-0.20); Immature Granulocytes % (auto) 0.3 %; Lymphocytes # (auto) 1.25 K/uL (1.20-3.40); Lymphocytes % (auto) 19.4 %; Mean Corpuscular Hemoglobin 28.2 pg (25.0-34.0); Mean Corpuscular Hgb Conc 31.3 g/dL (32.0-36.0); Mean Corpuscular Volume 90.3 fL (80.0-100.0); Mean Platelet Volume 10.2 fL (9.4-12.4); Monocytes # (auto) 0.41 K/uL (0.11-0.59); Monocytes % (auto) 6.4 %; Neutrophils # (auto) 4.59 K/uL (1.40-6.50); Neutrophils % (auto) 71.1 %; Platelet Count 181 K/uL (130-400); RDW Coefficient of Variation 14.9 % (11.5-14.5); RDW Standard Deviation 48.7 fL (36.4-46.3); White Blood Count 6.45 K/ul (4.8-10.8)
[2024-02-12 08:00] LABS: BUN Creatinine Ratio 31.2 (10-20); Calcium 9.1 mg/dl (8.6-10.3); Creatinine Clr Calc Pharmacy 22.2 ml/min; Est GFR (African American) 25.3 ml/min; Est GFR (Non-African American) 21.9 ml/min; Magnesium 2.5 mg/dl (1.7-2.4)
--- NOTE | 2024-02-12 10:38 | Nephrology Progress Note ---
Date of Service February 12, 2024 Assessment & Plan (1) NARAYAN (acute kidney injury): (2) Kidney stone on left side: (3) Hyperkalemia: (4) Anemia: Plan 68-year-old female with history of hypertension, cardiomyopathy, A-fib with RVR and progressive worsening of renal function over 3 months with left atrophic kidney and hydronephrosis with ureteral stone. Admitted with routine labs showing hyperkalemia and NARAYAN as well as A-fib with RVR. Potassium was 7, improved with Lokelma down to 5.2. Creatinine on admission was 2.7 which improved to 2.3. Creatinine was 1.4 in early November which has been progressively worsening. No prior record available. Hyperkalemia and acute kidney injury, potassium improved on Lokelma but creatinine continues to be variable with slight improvement today. Hemoglobin dropped and has been staying low. -- Hold discharge today, continue to monitor kidney function and electrolyte, if kidney function continue to improve and stay relatively stable, will be okay to discharge tomorrow with outpatient lab monitoring early next week. -- Follow-up with urology and nephrology as an outpatient. -- Continue on Lokelma 10 g daily and discharge with 3 times a week -- Avoid nephrotoxic medications, encouraged to keep well-hydrated. -- Recommend iron study Admission and Anticipated Discharge Date Admission Date: February 09, 2024 Dima Miller was seen and evaluated this morning. Overall she is feeling better, in sinus rhythm, rate controlled, blood pressure stable. Creatinine relatively stable, potassium 5. Decent urine output. Review of Systems Review of Systems: Detail ROS was otherwise unremarkable. Physical Exam Constitutional: WD/WN, vitals as above no acute distress Eyes: + anicteric sclerae Neck: normal visual inspection Respiratory: Auscultation: lungs clear to auscultation bilaterally Cardiovascular: RRR, no murmur, no edema Musculoskeletal: Extremities: extremities normal to inspection Skin: no rashes, warm and dry Neurologic: no focal motor deficits Psychiatric: Orientation: alert and oriented x 3 Affect: euthymic affect Results & Data Vital Signs (Past 12 Hours) Vital Signs Temp Pulse Pulse Resp BP Pulse Ox O2 Del Method 02/12/24 07:00 Room Air 02/12/24 07:00 62 02/12/24 07:00 36.5 C 62 18 120/65 98 Room Air 02/12/24 03:01 36.8 C 61 18 126/59 L 99 Room Air 02/11/24 22:48 37.0 C 48 L 18 120/61 97 Room Air PG Care Time/CCT Total # of Minutes Spent Total Time Spent with Patient: Total time spent is greater than 50% in coordination of care (as documented) at patient's floor/unit and/or counseling patient: Coding Level of Care Code 24692 SUB INP/OBS CARE 2/35MIN Diagnoses NARAYAN (acute kidney injury) N17.9 Kidney stone on left side N20.0 Hyperkalemia E87.5 Anemia D64.9
--- NOTE | 2024-02-12 14:33 | Hospitalist Progress Note ---
Date of Service February 12, 2024 Assessment & Plan (1) Hyperkalemia: Plan 68 y/o female with PMH of HFrEF, CKD3b, cardiomyopathy, persistent atrial fibrillation, pericardial effusion, bilateral ureteral calculi, and other history as outlined who was referred to the ED 02/08 after outpatient labs showed a potassium of 7.0. Repeat labs in the ED showed improvement to 5.2 but continued worsening of creatinine. Pt is scheduled for urologic procedure in March due to known stones. Pt's recent course of Bactrim started last week for cellulitis thought to be the etiology of pt's hyperkalemia and NARAYAN. She is being managed for the following: Concern for UTI: Patient with increased urinary frequency at presentation, continue with Rocephin 02/08, JORGE Mesadicharlie. Patient reports improving urinary frequency. Rx w/ 5 day course. Acute kidney injury over CKD stage IIIb Hyperkalemia Obstructive uropathy Admitting creatinine of 2.7, creatinine was 1.4 in early November which has been progressively worsening Admitting potassium of 7.0 Renal fxn worsening likely 2/2 use of bactrim. Admitting CTAP: Nonobstructive nephrolithiasis on the right, obstructive stone on the left with chronic hydronephrosis and atrophic kidney. Potassium of 5.4 and creatinine of 2.61 this morning. Due to progressive worsening of renal function ISO left-sided hydronephrosis/renal stone/atrophic kidney, urology evaluated Discussed with urology 02/09, Plan for urological intervention as an outpatient earlier than her scheduled procedure on March. likely coming Friday. D/w cardio 02/09 for preop clearance eval for urological procedure coming friday. c/w nephro 02/11, avoid nephrotoxic's, labs in AM, observe today. Nephrology following, appreciate recommendation. Discontinue Bactrim at discharge. Atrial fibrillation with rapid ventricular response Improvement with Lopressor 5 mg IV x 1 in the ED s/p cardioversion 7.2, now in sinus rhythm Continue home beta-mckay and home Eliquis Cardiology on board, plan for cardioversion later in the noon today. Continue telemetry monitoring Cellulitis of left foot: Partially treated with Bactrim, discontinued due to NARAYAN/elevated potassium. Changed to doxycycline. Complete the course. Other chronic medical conditions: Continue with/resume home meds as and when able History of heart failure with reduced ejection fraction: Not in any acute exacerbation, BNP lower than her previous BNP level. At 639. Chest x-ray without congestion. Patient with no shortness of breath. Diuretics on hold due to NARAYAN, resume when able. Reassess volume status daily for continuous monitoring. Cardiomyopathycontinue home medications Code status: Full code DVT Prophylaxis: on Eliquis Admission and Anticipated Discharge Date Admission Date: February 09, 2024 Subjective Patient was seen and examined at bedside. Patient was sitting up in bed, on room air, resting comfortably, not in any acute distress. Patient reports improving urinary frequency, reports feeling better. Patient denies vomiting/cough/chest pain. s/p cardioversion 02/09, in sinus rhythm. Physical Exam Physical Exam: GENERAL: Alert and oriented x3. NAD, on RA. HEENT: No pallor, no icterus. Pupils equal, round and reactive to light. Oral mucosa moist. NECK: No JVD, no neck masses. HEART: S1 and S2 heard. regular rate and rhythm. No murmur, no gallop. RESPIRATORY SYSTEM: Normal AP diameter. No accessory muscle use. No wheezing, no crackles. ABDOMEN: Soft, bowel sounds present, nontender, no distention. CENTRAL NERVOUS SYSTEM: No facial droop. Speech is clear. Obeys simple commands. Moves extremities. EXTREMITIES: mild edema on compression stockings Onychomycosis of toenails with healing wound of left great toe Results & Data Results & Data Vital Signs (Past 12 Hours) Vital Signs Temp Pulse Pulse Resp BP Pulse Ox O2 Del Method 02/12/24 13:00 61 02/12/24 11:33 36.6 C 66 20 146/82 H 100 Room Air 02/12/24 07:00 Room Air 02/12/24 07:00 62 02/12/24 07:00 36.5 C 62 18 120/65 98 Room Air 02/12/24 03:01 36.8 C 61 18 126/59 L 99 Room Air
[2024-02-12] MEDS: NITROGLYCERIN SL 0.4 MG/TAB TAB SL STA (22:48)
--- NOTE | 2024-02-12 23:11 | Communication Note ---
Date of Service: February 12, 2024 Patient with chest pain relieved by nitroglycerin as per RN. EKG as per my interpretation rate 55, sinus bradycardia, LAD, LAFB, nonspecific T wave abnormalities Check troponin x 2
[2024-02-13 00:01] LABS: Partial Thromboplastin Time 28 Seconds (21-31)
[2024-02-13 06:45] LABS: BUN Creatinine Ratio 32.3 (10-20); Calcium 9.2 mg/dl (8.6-10.3); Creatinine Clr Calc Pharmacy 25.2 ml/min; Est GFR (African American) 29.5 ml/min; Est GFR (Non-African American) 25.4 ml/min; Magnesium 2.4 mg/dl (1.7-2.4); Phosphorus 4.4 mg/dl (2.5-4.9); Potassium 4.9 mmol/L (3.5-5.1)
[2024-02-13 07:58] VITALS: O2SAT 97
--- NOTE | 2024-02-13 09:59 | Nephrology Progress Note ---
Date of Service February 13, 2024 Assessment & Plan (1) NARAYAN (acute kidney injury): (2) Kidney stone on left side: (3) Hyperkalemia: (4) Anemia: Plan 68-year-old female with history of hypertension, cardiomyopathy, A-fib with RVR and progressive worsening of renal function over 3 months with left atrophic kidney and hydronephrosis with ureteral stone. Admitted with routine labs showing hyperkalemia and NARAYAN as well as A-fib with RVR. Potassium was 7, improved with Lokelma down to 5.2. Creatinine on admission was 2.7 which improved to 2.3. Creatinine was 1.4 in early November which has been progressively worsening. No prior record available. Hyperkalemia and acute kidney injury resolved, creatinine down to 1.9, electrolyte acceptable. Currently getting evaluated for new onset chest pain, so far troponin normal. -- continue to monitor kidney function and electrolyte while inpatient and okay to be discharged when clinically stable with outpatient lab early next week and copy to her PCP and nephrology. -- Follow-up with urology and nephrology as an outpatient. -- Continue on Lokelma 10 g daily and discharge with 3 times a week -- Avoid nephrotoxic medications, encouraged to keep well-hydrated. Admission and Anticipated Discharge Date Admission Date: February 09, 2024 Dima Miller was seen and evaluated this morning. She has been having off and on crushing chest pain since last night. Denies shortness of breath, dizziness, lightheadedness or diaphoresis. Blood pressure stable. Heart rate controlled, on sinus rhythm. Kidney function continues to improve, creatinine down to 1.9, close to baseline, electrolyte acceptable. Voiding normally. Reports decent appetite. Review of Systems Review of Systems: Detail ROS was otherwise unremarkable. Physical Exam Constitutional: WD/WN, vitals as above no acute distress Eyes: + anicteric sclerae Neck: normal visual inspection Respiratory: Auscultation: lungs clear to auscultation bilaterally Cardiovascular: RRR, no murmur, no edema Musculoskeletal: Extremities: extremities normal to inspection Skin: no rashes, warm and dry Neurologic: no focal motor deficits Psychiatric: Orientation: alert and oriented x 3 Affect: euthymic affect Results & Data Vital Signs (Past 12 Hours) Vital Signs Temp Pulse Pulse Resp BP Pulse Ox O2 Del Method 02/13/24 08:00 60 02/13/24 07:57 36.4 C L 52 L 18 137/97 97 Room Air 02/13/24 02:09 36.6 C 57 L 18 128/87 98 Room Air 02/12/24 23:01 36.7 C 55 L 18 119/65 96 Room Air 02/12/24 22:47 142/77 H PG Care Time/CCT Total # of Minutes Spent Total Time Spent with Patient: Total time spent is greater than 50% in coordination of care (as documented) at patient's floor/unit and/or counseling patient: Coding Level of Care Code 84149 SUB INP/OBS CARE 235MIN Diagnoses NARAYAN (acute kidney injury) N17.9 Kidney stone on left side N20.0 Hyperkalemia E87.5 Anemia D64.9
--- NOTE | 2024-02-13 10:14 | Cardiology Progress Note ---
Date of Service February 13, 2024 Assessment & Plan (1) Chest discomfort: (2) Unspecified atrial fibrillation: (3) Cardiomyopathy: (4) Hyperkalemia: Plan 1. Chest discomfort: I suspect this is not cardiac in nature, at least not ischemic, based on her electrocardiogram and her lack of enzyme elevation. The symptoms are suggestive however. In addition we had intended to do an ischemia evaluation for her cardiomyopathy (although it is likely rate related from A- fib), however I wanted to wait until she was in sinus rhythm to do that as she has not had evidence of ischemia. Now with this discomfort and now that she is back in sinus rhythm I would like to do an ischemic evaluation. Possibilities are catheterization or nuclear stress testing, I believe a pharmacologic nuclear stress test is reasonable and I will schedule that. If that is positive we will have to consider catheterization but if negative I would not pursue this further. 2. Atrial fibrillation: She has remained in sinus rhythm since cardioversion, this is encouraging and I am hopeful she will remain in sinus rhythm but only time will tell. 3. Cardiomyopathy: I have suspected that her cardiomyopathy is due to atrial fibrillation with a rapid heart rate but that is a diagnosis of exclusion. Typ ically we exclude ischemia and other causes, as noted above we have not done an ischemic evaluation as yet. 4. Hyperkalemia: Her potassium often runs around 5, I suspect the 7 prompting her admission was spurious. Her potassium has been under good control during the hospitalization. Admission and Anticipated Discharge Date Admission Date: February 09, 2024 Subjective She has been feeling relatively well but did develop some chest discomfort last evening and again this morning. She describes it as a heaviness, smothering sensation, which she has not experienced before. She is pain-free at the moment. Evaluation has included an electrocardiogram and cardiac enzymes, 2 sets of cardiac enzymes are negative so far with the third pending. Electrocardiogram does not show ischemic change and she remains in sinus rhythm. Of note we had intended to do an ischemic evaluation for her cardiomyopathy once we got her back into sinus rhythm, that has not been done as yet so we do not know the status of her coronary arteries. Physical Exam Physical Exam: Constitutional: Alert, cooperative and in no distress. HEENT: Unremarkable Neck: No jugular venous distention, carotid pulses are normal and equal bilaterally without bruits. Pulmonary: Clear to auscultation bilaterally. Cardiac: Regular rhythm with no murmur, gallop or rub. Abdomen: Soft, nontender with normal bowel sounds. Extremities: No edema. Distal pulses intact. Neurologic: No focal findings. Skin: No rash, ecchymoses or petechiae. Results & Data Vital Signs (Past 12 Hours) Vital Signs Temp Pulse Pulse Resp BP Pulse Ox O2 Del Method 02/13/24 08:00 60 02/13/24 07:57 36.4 C L 52 L 18 137/97 97 Room Air 02/13/24 02:09 36.6 C 57 L 18 128/87 98 Room Air 02/12/24 23:01 36.7 C 55 L 18 119/65 96 Room Air 02/12/24 22:47 142/77 H Laboratory Results Cardiac Enzymes 02/12/24 02/13/24 Range/Units 22:54 02:29 Troponin I High Sens 10.4 9.1 (0-14) pg/ml Coagulation 02/12/24 Range/Units 22:54 APTT 28 (21-31) Seconds Comprehensive Metabolic Panel 02/13/24 Range/Units 05:32 Sodium 137 (136-145) mmol/L Potassium 4.9 (3.5-5.1) mmol/L Chloride 109 H (98-107) mmol/L Carbon Dioxide 21 (21-32) mmol/L BUN 63 H (6-23) mg/dl Creatinine 1.95 H (0.6-1.2) mg/dl Glucose 86 (70-99(Fasting)) mg/dl Calcium 9.2 (8.6-10.3) mg/dl Intake and Output 02/12/24 02/13/24 02/13/24 22:59 06:59 14:59 Intake Total 290 / 630 100 / 630 Output Total 1000 / 1000 Balance -710 / -370 100 / -370 Intake: IV 50 / 50 [id number] SODIUM 2,000 mg In 50 / 50 50 ml @ 100 mls/hr IV Q24H [facility] Rx#:[id number] Oral 240 / 580 100 / 580 Output: Urine 1000 / 1000 Other: # Unmeasured Voids 350 Weight 73.6 kg Weight Measurement Method Built in [facility] Diagnostic Findings ECG this a.m.: Sinus rhythm, no acute changes. PG Care Time/CCT Total # of Minutes Spent Total Time Spent with Patient: Total time spent is greater than 50% in coordination of care (as documented) at patient's floor/unit and/or counseling patient: Coding Level of Care Code 12274 SUB INP/OBS CARE 3/50MIN Diagnoses Chest discomfort R07.89 Unspecified atrial fibrillation I48.91 Cardiomyopathy, unspecified type I42.9 Cardiomyopathy type: unspecified Hyperkalemia E87.5 (3) Cardiomyopathy Cardiomyopathy type: unspecified Qualified Code(s): I42.9 - Cardiomyopathy, unspecified
[2024-02-13 11:43] VITALS: PULSE 48; RESP 20; TEMP 97.7
--- NOTE | 2024-02-13 12:06 | XCELERA ---
[id number] \\[id number]
[2024-02-13] MEDS ORDERED: NITROGLYCERIN SL 0.4 MG/TAB TAB SL PRN (13:10)
--- NOTE | 2024-02-13 13:10 | Discharge Summary ---
Date of Service February 13, 2024 Admission HPI Per Admitting Provider This is a 68 y/o female with HFrEF, CKD3b, cardiomyopathy, persistent atrial fibrillation, pericardial effusion, bilateral ureteral calculi, and other history as outlined who was referred to the ED today after outpatient labs showed a potassium of 7.0. Pt was seen at PCP office on 02/05/24 for new sores on left foot x 2, diagnosed with cellulitis, and started on Bactrim for ten days. Pt had been seeing wound care but original wounds had healed so she stopped seeing them. Since being on the antibiotics, pt has had some nausea with the antibiotics but feels like this has helped her foot so she was trying to finish the prescribed course. Pt was seen by cardiology today and had her pre- operative evaluation for urologic procedure scheduled in March that included routine labs done this morning. Potassium was 7.0 so pt was referred to the ED. Pt reports episodes of dizziness and lightheadedness since November. She has not been able to identify a specific pattern to her symptoms but the symptoms seem to go away on their own. She denies associated palpitations or chest pain. She checks her heart rate at home and has noted episodes of low heart rate in the 20s-30s as well as high heart rates in the 110s-120s. She also cannot identify a pattern to the heart rates. She reports feeling "washed out" and tired recently. She has known ureteral stones and is scheduled for a procedure in March. She notes good urine response to diuretics in the morning but output seems to drop throughout the day. She has noted some difficulty starting urinary stream but denies dysuria or hematuria. ECHO 01/28/24 (limited) - severe LV systolic dysfunction (EF 20-25%); severe global hypokinesis of LV; moderate LVH; normal RV systolic function; moderate left atrial dilatation; mild to moderate MR; small circumferential pericardial effusion without evidence of cardiac tamponade; probable elevated CVP Admission Exam Per Admitting Provider General: Sitting comfortably in bed, not in distress, on room air HEENT: EOMI, MARIYA, MMM Chest: Clear breath sounds bilaterally, no wheezes or crackles CVS: Irregular rate and rhythm Abdomen: Soft, non tender, not distended, normal bowel sounds Neuro: Awake, alert, oriented, conversing well, non focal Extremities: Mild edema, on compression stocking Onychomycosis of toenails with healing wound of left great toe Principal Diagnosis concern for UTI Cellulitis of left foot NARAYAN over CKD IIIb Hyperkalemia Adverse reaction to Bactrim Obstructive uropathy Afib RVR Chest pain, ruled out ACS. Discharge Exam GENERAL: Alert and oriented x3. NAD, on RA. HEENT: No pallor, no icterus. Pupils equal, round and reactive to light. Oral mucosa moist. NECK: No JVD, no neck masses. HEART: S1 and S2 heard. regular rate and rhythm. No murmur, no gallop. RESPIRATORY SYSTEM: Normal AP diameter. No accessory muscle use. No wheezing, no crackles. ABDOMEN: Soft, bowel sounds present, nontender, no distention. CENTRAL NERVOUS SYSTEM: No facial droop. Speech is clear. Obeys simple commands. Moves extremities. EXTREMITIES: mild edema on compression stockings Onychomycosis of toenails with healing wound of left great toe Discharge Data Allergies Allergy/AdvReac Type Severity Reaction Status Date / Time Iodinated Contrast Media Allergy Intermediate Nausea Verified 02/09/24 20:17 Consultations 02/09/24 17:13 ED Decision to Admit Stat 02/09/24 19:51 Consult Cardiology Routine Consult Nephrology Routine 02/10/24 08:34 Consult Urology Routine Procedures Performed Operation Date: 02/10/24 12:00 Actual Procedures p Cardioversion - Mick Martinez MD Ordered Studies 02/09/24 15:58 CT abd pelvis wo con Stat Hospital Course (1) Hyperkalemia: Plan 68 y/o female with PMH of HFrEF, CKD3b, cardiomyopathy, persistent atrial fibrillation, pericardial effusion, bilateral ureteral calculi, and other history as outlined who was referred to the ED 02/08 after outpatient labs showed a potassium of 7.0. Repeat labs in the ED showed improvement to 5.2 but contin ued worsening of creatinine. Pt is scheduled for urologic procedure in March due to known stones. Pt's recent course of Bactrim started last week for cellulitis thought to be the etiology of pt's hyperkalemia and NARAYAN. She was managed for the following: Concern for UTI: Patient with increased urinary frequency at presentation, continue with Rocephin 02/08, DC Jardiance. Patient reports improving urinary frequency. to po antibiotic on dc. Acute kidney injury over CKD stage IIIb Hyperkalemia Obstructive uropathy Admitting creatinine of 2.7, creatinine was 1.4 in early November which has been progressively worsening Admitting potassium of 7.0 Renal fxn worsening likely 2/2 use of bactrim. Admitting CTAP: Nonobstructive nephrolithiasis on the right, obstructive stone on the left with chronic hydronephrosis and atrophic kidney. Potassium of 5.4 and creatinine of 2.61 this morning. Due to progressive worsening of renal function ISO left-sided hydronephrosis/renal stone/atrophic kidney, urology evaluated, plan for Ix on Friday as OP Cardio aware for pre-op clearance for the same. Nephro evaled, ok for DC from their POV, dc on lokelma 3x/week and avoid nephrotoxics. Bactrim DC'd Atrial fibrillation with rapid ventricular response Improvement with Lopressor 5 mg IV x 1 in the ED s/p cardioversion 02/09, now in sinus rhythm Continue w/ beta-mckay and home Eliquis Chest discomfort: noted since last evening, on and off, trop x 3 neg, EKG x 2 w/ no acute changes, ECHO w/ no regional wall motion abn. d/w cardio, less likely ACS, ok to dc from their POV. Plan for OP stress test on Friday prior to preop clearance for Friday's urological procedure. Pt has been made aware of the plan and advised to report to emergency if she has increasing chest pain/sob. Communicated w/ uro as well regarding this development, they are aware. Cellulitis of left foot: Partially treated with Bactrim, discontinued due to NARAYAN/elevated potassium. Changed to doxycycline. Complete the course. Other chronic medical conditions: Continue with/resume home meds as and when able History of heart failure with reduced ejection fraction: Not in any acute exacerbation, BNP lower than her previous BNP level. At 639. Chest x-ray without congestion. Patient with no shortness of breath. Diuretics on hold due to NARAYAN, resume when able. Reassess volume status daily for continuous monitoring. Cardiomyopathycontinue home medications Code status: Full code DVT Prophylaxis: on Eliquis Patient is being discharged home with home health with following instruction at the point of discharge: Follow-up with your primary care physician within a week time and likely you will need labs CBC/CMP/magnesium/phosphorus. You were evaluated for acute kidney injury over CKD stage IIIb and hyperkalemia in the setting of kidney stones and adverse drug reaction from Bactrim. Discontinue Bactrim. Follow-up with urology, you have tentative plan for urological intervention on coming Friday. Follow-up with nephrology in 1 to 2 weeks time upon discharge . Follow low potassium diet, you will be discharged on Lokelma 3 times a week. For your atrial fibrillation with rapid ventricular response, you underwent cardioversion which was successful. You had chest pain while in the hospital, cardiology evaluated you, there is a plan for outpatient stress test on Friday. As discussed at the bedside, you will have to come to the hospital for stress test on Friday for you to be able to undergo urological intervention on Friday. Take your medications as prescribed. Please make sure that you are able to get your medications today by calling your pharmacy before you leave the hospital so that your treatment continuity is not broken. Home Health Attestation I certify that this patient is under my care and that I, or a physicians seed analysis laboratory assistant working with me, had a face to-face encounter that meets the home health [id number] encounter requirements with this patient. The encounter with the patient was in whole, or in part, for the following medical condition, which is the primary reason for home health care (list medical condition): I certify that, based on my findings, the following services are medically necessary home health services: My clinical findings support the need for the above services because: OT Assess ADL Status and Restore Function w ADLs PT Assessment for Endurance / Balance / Strength Skilled Nsg Assessment Further, I certify that my clinical findings support that this patient is homebound (i.e. absences from home require considerable and taxing effort and are for medical reasons or anglican services or infrequently or of short duration when for other reasons) because: Certification for Home Health Services: Based on the above findings, I certify that this patient is confined to the home and needs intermittent jail care, physical therapy and/or speech therapy or continues to need occupational therapy. The patient is under my care, and I have initiated the establishment of the plan of care. This patient will be followed by a physician who will periodically review the plan of care. Total Time Total Time Spent Total Time Spent (In Minutes): 55 Discharge Plan Discharge Items Patient Disposition: Home - Home Health Services Reason For Visit: HYPERKALEMIA, AFIB W/ RVR Discharge Diagnosis: concern for UTI Cellulitis of left foot NARAYAN over CKD IIIb Hyperkalemia Adverse reaction to Bactrim Obstructive uropathy Afib RVR Chest pain, ruled out ACS. Activity: Resume your previous activity Non-emergency contact: Primary Care Provider Call non-emergency contact if: you have any medication questions and your pain is worsening Follow-up/Referrals: Benny Perez MD [Physician] - 02/13/24 10:30 am Rahel Buck MD [Primary Care Provider] - (Date & Time 02/16/2024 12:20 PM Provider Iftikhar Borden MD Department [facility] ) Diet: Heart Healthy and Low Potassium (2gm) Addtl Attending Provider Instructions: Follow-up with your primary care physician within a week time and likely you will need labs CBC/CMP/magnesium/phosphorus. You were evaluated for acute kidney injury over CKD stage IIIb and hyperkalemia in the setting of kidney stones and adverse drug reaction from Bactrim. Discontinue Bactrim. Follow-up with urology, you have tentative plan for urological intervention on coming Friday. Follow-up with nephrology in 1 to 2 weeks time upon discharge . Follow low potassium diet, you will be discharged on Lokelma 3 times a week. For your atrial fibrillation with rapid ventricular response, you underwent cardioversion which was successful. You had chest pain while in the hospital, cardiology evaluated you, there is a plan for outpatient stress test on Friday. As discussed at the bedside, you will have to come to the hospital for stress test on Friday for you to be able to undergo urological intervention on Friday. Take your medications as prescribed. Please make sure that you are able to get your medications today by calling your pharmacy before you leave the hospital so that your treatment continuity is not broken. Pending Studies at Discharge: No Stand-Alone Forms: [facility], Smoking Cessation Medications and DC Order Prescriptions: New metoprolol succinate 100 mg tablet extended release 24 hr 100 mg PO DAILY Qty: 30 0RF Lokelma 10 gram Powder In Packet 10 g PO UD Qty: 15 0RF Rx Instructions: take 10 g every other day. doxycycline hyclate 100 mg Capsule 100 mg PO BID 4 Days Qty: 8 0RF Advanced Probiotic 625 mg (10 billion cell) Capsule 1 cap PO DAILY 7 Days Qty: 7 0RF cefdinir 300 mg capsule 300 mg PO DAILY 4 Days Qty: 4 0RF nitroglycerin [Nitrostat] 0.4 mg Tablet, Sublingual 0.4 mg sublingual UD PRN (Reason: chest pain) Qty: 20 0RF Continued Eliquis 5 mg tablet 5 mg PO BID 90 Days Qty: 180 3RF Held bumetanide 2 mg tablet 2 mg PO DAILY Qty: 360 3RF Hold Instructions: Resume on 02/18/24. Hold until PCP evaluation in 3-5 days time upon discharge. Discontinued metoprolol succinate 200 mg tablet extended release 24 hr 200 mg PO DAILY Qty: 90 3RF Jardiance 10 mg tablet 10 mg PO DAILY Qty: 14 2RF sulfamethoxazole-trimethoprim [Bactrim DS] 800-160 mg Tablet 1 tab PO BID Rx Instructions: BEGIN 02/05/24 X 10 DAYS Discharge Orders: Discharge Order (Routine); Ordered 02/13/24 Ordered By: Curtis Sawant Admission Data Admit Date/Time: 02/09/24 17:45 Attending Provider: Curtis Sawant Admit Provider: Jimmy Diggs Primary Care Provider: Rahel Buck Other Providers: Jimmy Diggs; Brendan Callahan Jr; Rhianna Francois; Mick Sanders; Ugo Santos; Benny Perez; Liseth Ramírez; Alvarado Alonso; Vidhi Berg; Marisa Fernando; Kal Lassiter; Rahel Hong; Ji Fernández; Fareed Real; Christopher Quigley; [facility]
[2024-02-13 13:41] VITALS: BP 107/60
--- NOTE | 2024-02-13 22:45 | Electrocardiogram Report ---
Test Reason : Blood Pressure : / mmHG Vent. Rate : 053 BPM Atrial Rate : 053 BPM P-R Int : 174 ms QRS Dur : 090 ms QT Int : 470 ms P-R-T Axes : 000 -12 054 degrees QTc Int : 441 ms Sinus bradycardia Otherwise normal ECG When compared with ECG of 11-FEB-2024 05:02, Criteria for Septal infarct are no longer Present Confirmed by Eddie Faust ([id number]) on 02/13/2024 10:45:25 PM Referred By: REFERRED SELF Confirmed By:Eddie Faust
--- NOTE | 2024-02-13 23:09 | Electrocardiogram Report ---
Test Reason : Blood Pressure : / mmHG Vent. Rate : 066 BPM Atrial Rate : 066 BPM P-R Int : 200 ms QRS Dur : 086 ms QT Int : 432 ms P-R-T Axes : 106 -11 092 degrees QTc Int : 452 ms Sinus rhythm with Premature supraventricular complexes Nonspecific T wave abnormality Abnormal ECG When compared with ECG of 12-FEB-2024 23:02, Premature supraventricular complexes are now Present Confirmed by Eddie Faust ([id number]) on 02/13/2024 11:09:44 PM Referred By: REFERRED SELF Confirmed By:Eddie Faust
== END 2024-02-13 15:50 | disposition home health service (06) | DRG 683 ==
LOC: ED 14:58 → SUATTDRO 17:45 → 2E 17:45

== ENCOUNTER 2024-04-05 08:56 | Inpatient (IN) ==
--- NOTE | 2024-04-05 09:18 | Emergency Department Note ---
Impression & Plan BRBPR (bright red blood per rectum), Anemia, UTI (urinary tract infection) ED Provider Note NAME: KHARI RODRIGUEZ AGE: 68 SEX: F : 1955 ARRIVES VIA: Walk-In INFORMANT: Patient ED PROVIDER(S): Satish Arias DO CHIEF COMPLAINT: BRBPR HPI: Patient is a 68-year-old female with a past medical history of A-fib, anticoagulated on Eliquis and Plavix, CAD, and a cardiomyopathy who presents to the ER for bright red blood per rectum which occurred earlier today. She notes she had a large amount of blood in the stool. She believes it was more bright and dark. She denies all other complaints including headache, change in vision, chest pain, shortness of breath, nausea, and vomiting. She denies any new belly pain. No dizziness or lightheadedness. No other exacerbating or remitting factors. ADDITIONAL HISTORY OBTAINED: Per HPI Chronic Medical/Social Conditions Affecting Care: Per HPI PAST MEDICAL HISTORY:See Below PAST SURGICAL HISTORY:See Below FAMILY HISTORY:See Below SOCIAL HISTORY:See Below HOME MEDICATIONS:See Below ALLERGIES:See Below VITALS:See Below PHYSICAL EXAMINATION: GENERAL: Sitting up in bed, alert, well appearing, well nourished, no distress, non-toxic EYE EXAM: normal conjunctiva. OROPHARYNX: mucous membranes are moist LUNGS: Clear to auscultation. Normal chest wall mechanics HEART: no murmurs, S1 normal and S2 normal ABDOMEN: abdomen soft, non-tender, normo-active bowel sounds, no masses, no rebound or guarding. BACK: Back is symmetrical on inspection and there is no deformity, no midline tenderness, no CVA tenderness. SKIN: no rashes and no bruising UPPER EXTREMITIES: upper extremities are grossly normal. LOWER EXTREMITIES: No pitting edema. NEURO EXAM: Normal sensorium, cranial nerves II-XII grossly intact, normal speech, no gross weakness of arms, no gross weakness of legs. MEDICAL DECISION MAKING: Patient is a 68-year-old female who presents ER for above-stated complaint. IV was established blood work was obtained. Labs show no significant leukocytosis. Mild anemia 10.6. BMP with a creatinine 1.9 up from baseline of 1.4. LFTs and lipase is unremarkable. UA was slightly contaminated. Patient was given IV antibiotics and IV fluids. She was updated at bedside. CT abdomen pelvis showed no acute pathology. Case was discussed with the hospitalist for further evaluation management treatment. She will continue to be monitored for any additional GI bleeding. Consults/Care Managements Discussions: Per [facility] Triage Nursing notes reviewed. Limited review of prior medical records performed Vital Signs: reviewed and remarkable for no significant abnormalities Differential diagnosis: Differential diagnoses includes but is not limited to gastritis, peptic ulcer disease, GERD, gallbladder disease, pancreatitis, small bowel obstruction, appendicitis, diverticulitis, hernia, urinary tract infection, torsion, perforation, trauma, infectious. ER treatment provided: See below Diagnostics interpreted by me include EKG and cardiac monitoring as listed below: -Cardiac Monitoring: An order was placed for continuous cardiac monitoring. The monitor shows a rate of 80 with sinus rhythm. -ECG: Sinus rhythm rate of 79 Normal axis PVCs QTc 421 T wave inversion in aVL No change from previous -Laboratory studies:Interpreted by me as stated above in MDM and shown below. Imaging studies: Xrays: As interpreted by me:none CTs show: CT abdomen pelvis per my preliminary interpretation showed no pneumonia CT abdomen pelvis per radiology showed no acute pathology Procedures:none Critical Care: None Past Med/Surg History Problem List (Updated 04/05/24 @ 15:22 by Satish Arias DO) UTI (urinary tract infection) (Acute) Anemia (Acute) BRBPR (bright red blood per rectum) (Acute) Bright red blood per rectum Congestive heart failure Anticoagulant long-term use Persistent atrial fibrillation CAD (coronary artery disease) 03/2024- PCI x 2 LAD Chest discomfort Calcium nephrolithiasis Unspecified atrial fibrillation Cellulitis of left foot Kidney stone on left side (Acute) NARAYAN (acute kidney injury) (Acute) Hyperkalemia Vitamin D deficiency Anemia Open wound of right ankle (Acute) Ulcer of right leg (Acute) Pressure ulcer of right foot, stage 3 (Acute) Pericardial effusion Cardiomyopathy Pleural effusion Medical History Cellulitis of left foot being treated for at present 02/2024 Hx of non-ST elevation myocardial infarction (NSTEMI) November 2023 [facility] Kidney stone at present 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, stage 3 Acute HFrEF (heart failure with reduced ejection fraction) follows with Ina [facility] Atrial fibrillation with rapid ventricular response one episode at [facility] 02/2024 > cardioversion Renal insufficiency CKD (chronic kidney disease) stage 3, GFR 30-59 ml/min History of tobacco abuse Surgical History History of tooth extraction History of colonoscopy Family History Other Cancer Clotting disorder Social History Smoking Status: Never smoker Tobacco Type: Cigarettes Age Started Using Tobacco: 18; Age Quit Using Tobacco: 68; Cigarettes Per Day: 30; Second Hand Exposure: No; Do You Dip or Chew Tobacco: No; Hx Alcohol Use: No Hx Substance Use: No Preferred Language: Danish Communication Ability: Effective Visual Impairment: No Limitations Hearing Ability: Normal [employer]inter [employer] Operator Required: No Beliefs That Will Affect Care: None marital status: Single Current Living Situation: Alone Current Living Situation Comment: friend 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 How many Children do You have: 0 Feels Safe at Home: Yes Diet: low salt caffeine: Yes Dental Care, Regularly: No Physical Activity Frequency: Daily Seatbelt Use: always Do you think of yourself as: straight/heterosexual Gender Identity: Female Assistive Devices: None Allergies Allergies Allergy/AdvReac Type Severity Reaction Status Date / Time Iodinated Contrast Media AdvReac Intermediate Nausea Verified 04/02/24 09:18 Home Meds Home Medications Medication Instructions Recorded Confirmed metoprolol succinate 100 mg 100 mg PO QAM 02/16/24 04/05/24 tablet,extended release 24 hr atorvastatin 40 mg tablet 40 mg PO DAILY 04/05/24 04/05/24 bumetanide 2 mg tablet 2 mg PO DAILY 04/05/24 04/05/24 Previous Rx's Medication Instructions Recorded apixaban 5 mg tablet (Eliquis) 5 mg PO BID 90 days #180 tabs 12/04/23 nitroglycerin 0.4 mg sublingual 0.4 mg sublingual UD PRN chest 02/13/24 tablet (Nitrostat) pain #20 tabs clopidogrel 75 mg tablet 75 mg PO DAILY #30 tabs 03/11/24 Results & Data (ED) Vital Signs Vital Signs - 24 hr 04/05/24 09:04 04/05/24 09:29 04/05/24 09:29 Temperature 36.2 C L Temperature Source Oral Pulse Rate 78 102 H Pulse Rate [Apical] 102 H Pulse Rhythm Regular Pulse Rhythm [Apical] Regular Pulse Strength [Apical] Normal Respiratory Rate 18 22 23 Respiratory Effort / Characteristics Non-Labored Spontaneous Respiratory Depth Normal Respiratory Pattern Regular Blood Pressure 122/58 L Blood Pressure [Left Arm] 150/67 H Blood Pressure Mean 79 Blood Pressure Mean [Left Arm] 94 Blood Pressure Position Sitting Blood Pressure Position [Left Arm] Lying Pulse Oximetry 98 92 92 Oxygen Delivery Method Room Air Room Air Room Air Sepsis Recent Fever Within 48 Hours No Sepsis New/Unexplained Change in Mental Status No Sepsis Action Taken by Nursing No Action Required 04/05/24 10:27 04/05/24 10:38 Temperature Temperature Source Pulse Rate 66 Pulse Rate [Apical] 73 Pulse Rhythm Pulse Rhythm [Apical] Regular Pulse Strength [Apical] Normal Respiratory Rate 13 Respiratory Effort / Characteristics Non-Labored Spontaneous Respiratory Depth Normal Respiratory Pattern Regular Blood Pressure Blood Pressure [Left Arm] 134/71 Blood Pressure Mean Blood Pressure Mean [Left Arm] 92 Blood Pressure Position Blood Pressure Position [Left Arm] Lying Pulse Oximetry 97 Oxygen Delivery Method Room Air Sepsis Recent Fever Within 48 Hours Sepsis New/Unexplained Change in Mental Status Sepsis Action Taken by Nursing Laboratory Data 04/05/24 09:18 04/05/24 10:27 Lab Results 04/05/24 04/05/24 04/05/24 Range/Units 09:18 10:27 10:35 WBC 9.81 (4.8-10.8) K/ul RBC 3.64 L (4.20-5.40) M/uL Hgb 10.7 L (12.0-16.0) g/dl Hct 32.5 L (37.0-47.0) % MCV 89.3 (80.0-100.0) fL MCH 29.4 (25.0-34.0) pg MCHC 32.9 (32.0-36.0) g/dL RDW Std Deviation 53.1 H (36.4-46.3) fL RDW Coeff of Jame 16.4 H (11.5-14.5) % Plt Count 230 (130-400) K/uL MPV 10.1 (9.4-12.4) fL Immature Gran % (Auto) 0.2 % Neut % (Auto) 80.9 % Lymph % (Auto) 12.2 % [place] % (Auto) 4.1 % Eos % (Auto) 2.0 % Baso % (Auto) 0.6 % Neut # (Auto) 7.93 H (1.40-6.50) K/uL Lymph # (Auto) 1.20 (1.20-3.40) K/uL [place] # (Auto) 0.40 (0.11-0.59) K/uL Eos # (Auto) 0.20 (0.00-0.50) K/uL Baso # (Auto) 0.06 (0.00-0.20) K/uL Immature Gran # (Auto) 0.02 (0.01-0.20) K/uL Sodium Cancelled 137 Potassium Cancelled 4.7 Chloride Cancelled 109 H Carbon Dioxide Cancelled 24 Anion Gap Cancelled 4 BUN Cancelled 88 H Creatinine Cancelled 1.98 H Est Cr Clr Drug Dosing Cancelled 26.4 Est GFR ( Amer) Cancelled 28.9 Est GFR (Non-Af Amer) Cancelled 25.0 BUN/Creatinine Ratio Cancelled 44.4 H Glucose Cancelled 119 H Calcium Cancelled 10.0 Iron 62 (35-150) mcg/dl TIBC 379 (250-450) mcg/dl Unsaturated IBC 317 (155-355) mcg/dl Transferrin % Sat 16 (15-50) % Ferritin 26.0 (8-388) ng/ml Total Bilirubin Cancelled 0.4 AST Cancelled 11 L ALT Cancelled 8 Alkaline Phosphatase Cancelled 64 Total Protein Cancelled 7.4 Albumin Cancelled 4.4 Globulin Cancelled 3.0 Albumin/Globulin Ratio Cancelled 1.5 Lipase Cancelled 22 Vitamin B12 227 (180-914) pg/ml Folate > 22.30 (>5.38) ng/ml Urine Color Yellow Urine Appearance Cloudy A (Clear) Urine pH 5.5 (4.5-7.5) Ur Specific [place] 1.018 (1.000-1.030) Urine Protein 2+ H (Negative) Urine Glucose (UA) Negative (Negative) Urine Ketones Negative (Negative) Urine Blood 2+ H (Negative) Urine Nitrite Negative (Negative) Urine Bilirubin Negative (Negative) Urine Urobilinogen Negative (Negative) Ur Leukocyte Esterase 1+ H (Negative) Urine WBC (Auto) 11-20 H (0-5) /hpf Urine RBC (Auto) 3-5 H (0-2) /hpf U Hyaline Cast (Auto) 0-2 (0-2) /lpf U Epithel Cells (Auto) 11-20 H (0-2) /hpf Urine Bacteria (Auto) 2+ H (None Seen) Administered Medications Discontinued Medications Ceftriaxone Sodium (Rocephin) 2,000 mg in 50 mls @ 100 mls/hr IV NOW STA Stop: 04/05/24 12:07 Last Infusion: 04/05/24 12:20 Dose: Infused Documented By: Admin: 04/05/24 11:50 Dose: 100 mls/hr Documented By: YAJAIRA Imaging Data Radiologist's Impression: Abdomen/Pelvis CT 04/05/24 09:50 CT SCAN OF THE ABDOMEN AND PELVIS WITHOUT IV CONTRAST CLINICAL HISTORY: Generalized abdominal pain. Hematochezia. COMPARISON STUDY: Abdominal CT dated 02/09/2024 TECHNIQUE: CT scan of the abdomen and pelvis is performed from the lung bases to the proximal femora. Images are reviewed in the axial, sagittal, and coronal planes. IV contrast was not administered for this examination. A dose lowering technique was utilized adhering to the principles of ALARA. CT DOSE: 1150.29 mGy.cm FINDINGS: Lung bases: The heart is mildly enlarged noting a small to moderate pericardial effusion. There is diminished attenuation of the cardiac blood pool as compared to the myocardium suggesting anemia. The coronary arteries are densely calcified. Scattered lower lobe pulmonary nodules measuring up to 5 mm carcinoma previous. Persistent nodules in the right lower lobe are seen on images #9 and #21. No airspace consolidation or pleural effusion is identified. There is a tiny hiatal hernia. Liver: The unenhanced liver is normal in size, contour, and attenuation. There is no intrahepatic biliary ductal dilatation. Gallbladder: There are numerous layering calcified gallstones with no CT evidence of acute cholecystitis. Spleen: Normal in size and attenuation. There are calcified splenic granulomas. Pancreas: The unenhanced pancreas is mildly atrophic and grossly unremarkable. Adrenal glands: Nonspecific thickening of the adrenal glands is similar to previous. Kidneys: There is markedly asymmetric cortical atrophy of the left kidney as compared to the right. Large calculi at/below the left ureteropelvic junction measure up to 1.5 cm in aggregate dimension as seen on axial image #125. This causes severe left hydroureteronephrosis and is similar to previous. There are at least 4 additional nonobstructing left renal calculi which measure up to 8 mm. There are at least 6 nonobstructing right renal calculi which measure up to 12 mm. There is no right ureteral stone and no right-sided hydronephrosis is seen. There is no evidence of contour deforming renal mass lesion. Abdominal vasculature: The abdominal aorta is normal in course and caliber noting advanced atherosclerotic calcification. Bowel: There is moderate to advanced colonic diverticulosis without CT evidence of acute diverticulitis. No bowel obstruction is seen. The appendix is well- visualized and normal. Peritoneum: There is no intraperitoneal free air or abdominal ascites. There is a fat-containing umbilical hernia. Lymphadenopathy: None. Pelvic viscera: The bladder and uterus are normal as visualized. The ovaries are prominent for age. Skeletal structures: The skeletal structures are osteopenic. There is moderate lumbosacral spondylosis. No lytic or blastic lesions are seen. IMPRESSION: 1. There is a 1.5 cm obstructing calculus/calculi at/below the left ureteropelvic junction. This causes severe left-sided hydronephrosis and is similar to the 02/09/2024 examination. 2. Additional bilateral nonobstructing renal calculi as above. 3. There is markedly asymmetric cortical atrophy of the left kidney as compared to the right. 4. Colonic diverticulosis without CT evidence of acute diverticulitis. 5. Cardiomegaly noting a small to moderate pericardial effusion. 6. Cholelithiasis. 7. The ovaries are prominent for age. This is not well assessed by CT. A nonemergent pelvic ultrasound is recommended in follow-up. 8. Additional findings as above. ACT 112: Negative or not required by law. Electronically signed by: Nikhil Owen M.D. 04/05/2024 10:25 AM Discharge Plan Visit Data Chief Complaint: GI Assessment Stated Complaint: BLOOD IN STOOL, ON BLOOD THINNERS. BACK PAIN ED Provider: Satish Arias Discharge Problem: BRBPR (bright red blood per rectum), Anemia, UTI (urinary tract infection) Patient Disposition: Admitted As Inpatient Discharge Instructions Interventions: ED Discharge Assessment Last Done: 04/05/24 14:20 Discharge Problem: Anemia Qualifiers: Anemia type: unspecified type Qualified Code(s): D64.9 - Anemia, unspecified UTI (urinary tract infection) Qualifiers: Urinary tract infection type: site unspecified Hematuria presence: without hematuria Qualified Code(s): N39.0 - Urinary tract infection, site not specified
[2024-04-05 09:45] LABS: Basophils # (auto) 0.06 K/uL (0.00-0.20); Basophils % (auto) 0.6 %; Hematocrit (blood only) 32.5 % (37.0-47.0); Hemoglobin 10.7 g/dl (12.0-16.0); Immature Granulocytes # (auto) 0.02 K/uL (0.01-0.20); Immature Granulocytes % (auto) 0.2 %; Lymphocytes % (auto) 12.2 %; Mean Corpuscular Hemoglobin 29.4 pg (25.0-34.0); Mean Corpuscular Hgb Conc 32.9 g/dL (32.0-36.0); Mean Corpuscular Volume 89.3 fL (80.0-100.0); Mean Platelet Volume 10.1 fL (9.4-12.4); Monocytes % (auto) 4.1 %; Neutrophils # (auto) 7.93 K/uL (1.40-6.50); Neutrophils % (auto) 80.9 %; Platelet Count 230 K/uL (130-400); RDW Coefficient of Variation 16.4 % (11.5-14.5); RDW Standard Deviation 53.1 fL (36.4-46.3); Red Blood Count 3.64 M/uL (4.20-5.40); White Blood Count 9.81 K/ul (4.8-10.8)
--- NOTE | 2024-04-05 10:28 | CT Scan Report ---
CT SCAN OF THE ABDOMEN AND PELVIS WITHOUT IV CONTRAST CLINICAL HISTORY: Generalized abdominal pain. Hematochezia. COMPARISON STUDY: Abdominal CT dated 02/09/2024 TECHNIQUE: CT scan of the abdomen and pelvis is performed from the lung bases to the proximal femora. Images are reviewed in the axial, sagittal, and coronal planes. IV contrast was not administered for this examination. A dose lowering technique was utilized adhering to the principles of ALARA. CT DOSE: 1150.29 mGy.cm FINDINGS: Lung bases: The heart is mildly enlarged noting a small to moderate pericardial effusion. There is di minished attenuation of the cardiac blood pool as compared to the myocardium suggesting anemia. The c oronary arteries are densely calcified. Scattered lower lobe pulmonary nodules measuring up to 5 mm c arcinoma previous. Persistent nodules in the right lower lobe are seen on images #9 and #21. No airsp annika consolidation or pleural effusion is identified. There is a tiny hiatal hernia. Liver: The unenhanced liver is normal in size, contour, and attenuation. There is no intrahepatic manuel iary ductal dilatation. Gallbladder: There are numerous layering calcified gallstones with no CT evidence of acute cholecysti tis. Spleen: Normal in size and attenuation. There are calcified splenic granulomas. Pancreas: The unenhanced pancreas is mildly atrophic and grossly unremarkable. Adrenal glands: Nonspecific thickening of the adrenal glands is similar to previous. Kidneys: There is markedly asymmetric cortical atrophy of the left kidney as compared to the right. L arge calculi at/below the left ureteropelvic junction measure up to 1.5 cm in aggregate dimension as seen on axial image #125. This causes severe left hydroureteronephrosis and is similar to previous. T here are at least 4 additional nonobstructing left renal calculi which measure up to 8 mm. There are at least 6 nonobstructing right renal calculi which measure up to 12 mm. There is no right ureteral s tone and no right-sided hydronephrosis is seen. There is no evidence of contour deforming renal mass lesion. Abdominal vasculature: The abdominal aorta is normal in course and caliber noting advanced atheroscle rotic calcification. Bowel: There is moderate to advanced colonic diverticulosis without CT evidence of acute diverticulit is. No bowel obstruction is seen. The appendix is well-visualized and normal. Peritoneum: There is no intraperitoneal free air or abdominal ascites. There is a fat-containing umbi lical hernia. Lymphadenopathy: None. Pelvic viscera: The bladder and uterus are normal as visualized. The ovaries are prominent for age. Skeletal structures: The skeletal structures are osteopenic. There is moderate lumbosacral spondylosi s. No lytic or blastic lesions are seen. IMPRESSION: 1. There is a 1.5 cm obstructing calculus/calculi at/below the left ureteropelvic junction. This caus es severe left-sided hydronephrosis and is similar to the 02/09/2024 examination. 2. Additional bilateral nonobstructing renal calculi as above. 3. There is markedly asymmetric cortical atrophy of the left kidney as compared to the right. 4. Colonic diverticulosis without CT evidence of acute diverticulitis. 5. Cardiomegaly noting a small to moderate pericardial effusion. 6. Cholelithiasis. 7. The ovaries are prominent for age. This is not well assessed by CT. A nonemergent pelvic ultrasoun d is recommended in follow-up. 8. Additional findings as above. ACT 112: Negative or not required by law. Electronically signed by: Nikhil Owen M.D. 04/05/2024 10:25 AM
[2024-04-05 11:01] LABS: Albumin Globulin Ratio 1.5 (0.9-2); Albumin Level 4.4 gm/dl (3.4-5.0); BUN Creatinine Ratio 44.4 (10-20); Bilirubin,Total 0.4 mg/dl (0.2-1.0); Creatinine Clr Calc Pharmacy 26.4 ml/min; Est GFR (African American) 28.9 ml/min; Potassium 4.7 mmol/L (3.5-5.1); Total Protein 7.4 gm/dl (6.0-8.3)
[2024-04-05 11:20] LABS: Appearance Urine Cloudy (Clear); Bacteria Urine Automated 2+ (None Seen); Bilirubin Urine Negative (Negative); Blood Urine 2+ (Negative); Cast Urine Automated 0-2 /lpf (0-2); Color Urine Yellow; Glucose Urine UA Negative (Negative); Ketones Urine Negative (Negative); Leukocyte Esterase Urine 1+ (Negative); Nitrite Urine Negative (Negative); Protein Urine 2+ (Negative); Specific Gravity Urine 1.018 (1.000-1.030); Urobilinogen Urine Negative (Negative); pH Urine 5.5 (4.5-7.5)
[2024-04-05] MEDS: cefTRIAXone SODIUM 2,000 MG/50 ML BAG IV STA (11:50)
--- NOTE | 2024-04-05 12:23 | History & Physical Report ---
Date of Service April 05, 2024 Assessment & Plan (1) Bright red blood per rectum: (2) CAD (coronary artery disease): (3) Anticoagulant long-term use: (4) Congestive heart failure: (5) CKD (chronic kidney disease) stage 3, GFR 30-59 ml/min: Plan This is a 68 yr old F Who has a significant past medical history of CAD (PCI mid LAD and distal LAD 03/2024), chronic HFpEF with hx of cardiomyopathy, atrial fibrillation, CKD stage IIIb, chronic anemia, history of renal calculi, hyperkalemia no longer tolerating lokelma who presents to ED in setting of bright red blood per rectum x 1 day. Bright red blood per rectum on antiplatelet/DOAC Chronic anemia admit to [facility] tele repeat hgb at 1700, obtain anemia panel Dr. Sawant obtained blood consent hold eliquis, plavix until cardiology eval - last dose was on 04/04 p.m. for eliquis and a.m. for plavix - sent message to Dr. Crystal regarding recs --CT abd w/o identifiable source of bleeding possible diverticular vs hemorrhoidal consult gastroenterology clear liquids for now, NPO after midnight in event scope warranted CAD (PCI mid LAD and distal LAD 03/2024) Chronic HFpEF Hx of tachycardic induced cardiomyopathy (EF improved) Atrial fibrillation follows [facility] cardiology obtain repeat echocardiogram (pt reports was scheduled to have it done today at OP) consult cardiology for recs regarding antiplatelet/anticoag in setting of recent stents and concern for bleeding on metoprolol, bumex, statin, plavix, eliquis as OP hold bumex due to concerns for blood loss - resume as soon as able daily weights, strict intake and output pt is not on jardiance, ARB in setting of UTI hx and hyperkalemia CKD-3b: chronic, baseline cr 1.4, stable follows [facility] nephro, avoid nephrotoxic agents, in setting of ureteral obstruction and L renal atrophy, conside nephro consult if worsens Obstructing L UPJ Calculus Possible complicated UTI vs contamination CT a/p: There is a 1.5 cm obstructing calculus/calculi at/below the left ureteropelvic junction. This causes severe left-sided hydronephrosis and is similar to the 02/09/2024 examination. follows [facility] urology - awaiting NM renal scan, plan for OP treatment continue IV ceftriaxone consider urology consult Abnormal CT a/p finding: prominent ovaries for age, recommend OP Pelvic US DVT ppx:SCDS FULL CODE PCP: Nicholas Magallanes Dispo: admit to [facility] tele Pt was seen and examined in collaboration with Dr. Sawant, please see addendum A total of 76 minutes was spent coordinating, documenting, and providing care for this patient excluding time spent in the performance of separately billed services. This included personally viewing all current laboratories and imaging studies, medication reconciliation, outpatient chart review, and discussion with specialists. History of Present Illness Chief Complaint: BRBPR x 1 day. Primary Care Provider: Rahel Buck MD This is a 68 yr old F Who has a significant past medical history of CAD (PCI mid LAD and distal LAD 03/2024), chronic HFpEF with hx of cardiomyopathy, atrial fibrillation, CKD stage IIIb, chronic anemia, history of renal calculi, hyperkalemia no longer tolerating lokelma who presents to ED in setting of bright red blood per rectum x 1 day. She complains of bleeding per rectum. This morning she woke up and had a bowel movement and had bright red blood. She has been taking miralax to help her move her bowels. She reports previously her stools have been orange and she attributes this to a tea mix she was using. Yesterday she had a brown bowel movement and thought it was resolved and it was just the tea mix. This morning when she passed a small amount of stool with significant bright red blood and clots mixed with stool. She denies any recent f/c/s, chest pain, sob, dizziness, lightheaded, n/v/d, abd pain, dysuria, increased urg/freq with urination and hematuria. Patient follows [facility] cardiology and has a significant cardiac history. In November 2023 she was Admitted to hospital for CHF and new onset A-fib in setting of worsening shortness of breath and lower extremity edema for 4 months. Symptoms have been progressive. She was noted to have an ejection fraction of 35 to 40% with a pericardial effusion, global hypokinesis. upon presentation she was essentially on no outpatient medications at this time and did not follow with a physician regularly. She was started on diuresis, metoprolol and Jardiance. She has been following closely with cardiology and due to a UTI her Jardiance was discontinued. She was also having difficulty with hyperkalemia and was placed on Lokelma but has not tolerated this and this has since been discontinued and her potassium has normalized. she was hospitalized February 08February 12 in setting of UTI, cellulitis, NARAYAN, A-fib and chest pain. During this hospitalization she underwent cardioversion on 02/10/2024. On 03/11/24 she underwent a cardiac cath which revealed Multivessel coronary artery disease with 90% mid LAD, 80% diffuse earlydistal LAD, Diffusely diseased second diagonal up to 90%, 60% sequential OM2 lesions,40-50% distal RCA, 50% small RPDA. She underwent successful PCI of mid LAD with 2.75 x 12 mm [place] ST[place] and distal LAD with 2.25 x 30 mm [place] ST[place]. She is to continue with eliquis and plavix for at least 6 months. It is recommend medical management of residual diffuse diagonal disease and moderate OM2, RCA disease. Of significance she also was following with urology in setting of an obstructing left ureteral stone and an atrophic left kidney. Given her recent cardiac history and anticoagulation she is high risk for surgery and therefore they have been awaiting cardiac clearance prior to proceeding with treatment for ureteral stone. Allergies Allergy/AdvReac Type Severity Reaction Status Date / Time Iodinated Contrast Media AdvReac Intermediate Nausea Verified 04/02/24 09:18 Home Medications Medication Instructions Recorded Confirmed Type apixaban 5 mg tablet (Eliquis) 5 mg PO BID 90 days #180 tabs 12/04/23 04/05/24 Rx nitroglycerin 0.4 mg sublingual 0.4 mg sublingual UD PRN chest 02/13/24 04/05/24 Rx tablet (Nitrostat) pain #20 tabs metoprolol succinate 100 mg 100 mg PO QAM 02/16/24 04/05/24 History tablet,extended release 24 hr clopidogrel 75 mg tablet 75 mg PO DAILY #30 tabs 03/11/24 04/05/24 Rx atorvastatin 40 mg tablet 40 mg PO DAILY 04/05/24 04/05/24 History bumetanide 2 mg tablet 2 mg PO DAILY 04/05/24 04/05/24 History Past Med/Surg History Problem List (Updated 04/05/24 @ 13:40 by Socorro Lorenzo PA-C) Bright red blood per rectum Congestive heart failure Anticoagulant long-term use Persistent atrial fibrillation CAD (coronary artery disease) 03/2024- PCI x 2 LAD Chest discomfort Calcium nephrolithiasis Unspecified atrial fibrillation Cellulitis of left foot Kidney stone on left side (Acute) NARAYAN (acute kidney injury) (Acute) Hyperkalemia Vitamin D deficiency Anemia Open wound of right ankle (Acute) Ulcer of right leg (Acute) Pressure ulcer of right foot, stage 3 (Acute) Pericardial effusion Cardiomyopathy Pleural effusion Medical History Cellulitis of left foot being treated for at present 02/2024 Hx of non-ST elevation myocardial infarction (NSTEMI) November 2023 [place] Kidney stone at present 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, stage 3 Acute HFrEF (heart failure with reduced ejection fraction) follows with [facility] Atrial fibrillation with rapid ventricular response one episode at [place] 02/2024 > cardioversion Renal insufficiency CKD (chronic kidney disease) stage 3, GFR 30-59 ml/min History of tobacco abuse Surgical History History of tooth extraction History of colonoscopy Family History Other Cancer Clotting disorder Social History Smoking Status: Never smoker Tobacco Type: Cigarettes Age Started Using Tobacco: 18; Age Quit Using Tobacco: 68; Cigarettes Per Day: 30; Second Hand Exposure: No; Do You Dip or Chew Tobacco: No; Hx Alcohol Use: No Hx Substance Use: No Preferred Language: Cymro Communication Ability: Effective Visual Impairment: No Limitations Hearing Ability: Normal 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 Required: No Beliefs That Will Affect Care: None marital status: Single Current Living Situation: Alone Current Living Situation Comment: friend current occupational status: retired 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 Sawant addendum for physical exam findings. Results & Data Results & Data Vital Signs (Past 12 Hours) Vital Signs Temp Pulse Pulse Resp BP BP Pulse Ox 04/05/24 10:38 73 13 134/71 97 04/05/24 10:27 66 04/05/24 09:29 102 H 23 92 04/05/24 09:29 102 H 22 150/67 H 92 04/05/24 09:04 36.2 C L 78 18 122/58 L 98 O2 Del Method 04/05/24 10:38 Room Air 04/05/24 10:27 04/05/24 09:29 Room Air 04/05/24 09:29 Room Air 04/05/24 09:04 Room Air Diagnostic Findings Abdomen/Pelvis CT 04/05/24 09:50 CT SCAN OF THE ABDOMEN AND PELVIS WITHOUT IV CONTRAST CLINICAL HISTORY: Generalized abdominal pain. Hematochezia. COMPARISON STUDY: Abdominal CT dated 02/09/2024 TECHNIQUE: CT scan of the abdomen and pelvis is performed from the lung bases to the proximal femora. Images are reviewed in the axial, sagittal, and coronal planes. IV contrast was not administered for this examination. A dose lowering technique was utilized adhering to the principles of ALARA. CT DOSE: 1150.29 mGy.cm FINDINGS: Lung bases: The heart is mildly enlarged noting a small to moderate pericardial effusion. There is diminished attenuation of the cardiac blood pool as compared to the myocardium suggesting anemia. The coronary arteries are densely calcified. Scattered lower lobe pulmonary nodules measuring up to 5 mm carcinoma previous. Persistent nodules in the right lower lobe are seen on images #9 and #21. No airspace consolidation or pleural effusion is identified. There is a tiny hiatal hernia. Liver: The unenhanced liver is normal in size, contour, and attenuation. There is no intrahepatic biliary ductal dilatation. Gallbladder: There are numerous layering calcified gallstones with no CT evidence of acute cholecystitis. Spleen: Normal in size and attenuation. There are calcified splenic granulomas. Pancreas: The unenhanced pancreas is mildly atrophic and grossly unremarkable. Adrenal glands: Nonspecific thickening of the adrenal glands is similar to previous. Kidneys: There is markedly asymmetric cortical atrophy of the left kidney as compared to the right. Large calculi at/below the left ureteropelvic junction measure up to 1.5 cm in aggregate dimension as seen on axial image #125. This causes severe left hydroureteronephrosis and is similar to previous. There are at least 4 additional nonobstructing left renal calculi which measure up to 8 mm. There are at least 6 nonobstructing right renal calculi which measure up to 12 mm. There is no right ureteral stone and no right-sided hydronephrosis is seen. There is no evidence of contour deforming renal mass lesion. Abdominal vasculature: The abdominal aorta is normal in course and caliber noting advanced atherosclerotic calcification. Bowel: There is moderate to advanced colonic diverticulosis without CT evidence of acute diverticulitis. No bowel obstruction is seen. The appendix is well- visualized and normal. Peritoneum: There is no intraperitoneal free air or abdominal ascites. There is a fat-containing umbilical hernia. Lymphadenopathy: None. Pelvic viscera: The bladder and uterus are normal as visualized. The ovaries are prominent for age. Skeletal structures: The skeletal structures are osteopenic. There is moderate lumbosacral spondylosis. No lytic or blastic lesions are seen. IMPRESSION: 1. There is a 1.5 cm obstructing calculus/calculi at/below the left ureteropelvic junction. This causes severe left-sided hydronephrosis and is similar to the 02/09/2024 examination. 2. Additional bilateral nonobstructing renal calculi as above. 3. There is markedly asymmetric cortical atrophy of the left kidney as compared to the right. 4. Colonic diverticulosis without CT evidence of acute diverticulitis. 5. Cardiomegaly noting a small to moderate pericardial effusion. 6. Cholelithiasis. 7. The ovaries are prominent for age. This is not well assessed by CT. A nonemergent pelvic ultrasound is recommended in follow-up. 8. Additional findings as above. ACT 112: Negative or not required by law. Electronically signed by: Nikhil Owen M.D. 04/05/2024 10:25 AM Medications Administered Medication List Discontinued Medications Ceftriaxone Sodium (Rocephin) 2,000 mg in 50 mls @ 100 mls/hr IV NOW STA Stop: 04/05/24 12:07 Last Admin: 04/05/24 11:50 Dose: 100 mls/hr Documented By: YAJAIRA ECG Additional Comments: I have independently reviewed and interpreted patient's admitting EKG which revealed: 79, NSR, PVC qtc 421ms COVID-19 Results Results COVID-19 Adm Lab Results: RBC 3.64 M/uL (4.20-5.40) L 04/05/24 WBC 9.81 K/ul (4.8-10.8) 04/05/24 Hgb 10.7 g/dl (12.0-16.0) L 04/05/24 Hct 32.5 % (37.0-47.0) L 04/05/24 Plt Count 230 K/uL (130-400) 04/05/24 Neutrophils (%) (Auto) 80.9 % 04/05/24 Lymphocytes (%) (Auto) 12.2 % 04/05/24 Monocytes # (Auto) 0.40 K/uL (0.11-0.59) 04/05/24 Eosinophils # (Auto) 0.20 K/uL (0.00-0.50) 04/05/24 Immature Granulocyte % (Auto) 0.2 % 04/05/24 Neutrophils # (Auto) 7.93 K/uL (1.40-6.50) H 04/05/24 Lymphocytes # (Auto) 1.20 K/uL (1.20-3.40) 04/05/24 Monocytes # (Auto) 0.40 K/uL (0.11-0.59) 04/05/24 Eosinophils # (Auto) 0.20 K/uL (0.00-0.50) 04/05/24 Basophils # (Auto) 0.06 K/uL (0.00-0.20) 04/05/24 Immature Granulocyte # (Auto) 0.02 K/uL (0.01-0.20) 4 Na 137 mmol/L (136-145) 04/05/24 K 4.7 mmol/L (3.5-5.1) 04/05/24 Cl 109 mmol/L (98-107) H 04/05/24 CO2 24 mmol/L (21-32) 04/05/24 Anion Gap 4 (3-11) 04/05/24 BUN 88 mg/dl (6-23) H 04/05/24 Creatinine 1.98 mg/dl (0.6-1.2) H 04/05/24 BUN/Creatinine Ratio 44.4 (10-20) H 04/05/24 Glucose Level 119 mg/dl (70-99(Fasting)) H 04/05/24 Ca 10.0 mg/dl (8.6-10.3) 04/05/24 Total Bilirubin 0.4 mg/dl (0.2-1.0) 04/05/24 AST/SGOT 11 U/L (13-39) L 04/05/24 ALT/SGPT 8 U/L (7-52) 04/05/24 Alkaline Phosphatase 64 U/L (34-104) 04/05/24 Total Protein 7.4 gm/dl (6.0-8.3) 04/05/24 Albumin 4.4 gm/dl (3.4-5.0) 04/05/24 Globulin 3.0 gm/dl (2.5-4.0) 04/05/24 Albumin/Globulin Ratio 1.5 (0.9-2) 04/05/24 Ferritin Pending 04/05/24 Code Status & VTE Plan Code Status FULL CODE Supervising Physician Co-Signing Physician Notes 68-year-old lady with PMH of CAD status post stent x 2 in March 2024, A-fib on Eliquis, cardiomyopathy presented to the ED with complaint of blood per rectum. Patient reports 1 episode of red blood per rectum today morning, describes it as a large volume, also noted some dark clots in it per patient. Patient denies abdominal pain. Patient denies febrile illness. Patient denies fever/sore throat/cough/chest pain. Patient reports taking her last blood thinner medication last evening. GI bleed, likely LGIB , rule out UGIB: Hemoglobin stable around her baseline which is 10. Monitor H&H every 6 hours, clear liquid diet and NPO midnight, GI consult, hold Eliquis/continue Plavix given recent stent placement until otherwise recommended by cardiology, PPI IV twice daily. Avoid NSAIDs. Gentle IV fluid at 60 mL an hour. Blood transfusion consent obtained, transfuse blood for hemoglobin less than 9. Will get a stool PCR if with loose stools. Iron profile/B12/folate levels. Recent cardiac stent placement: Continue Plavix/hold Eliquis until otherwise recommended by cardiology. Cardiology consult placed. Cardiology was made aware, await recs. Concern for UTI: Patient received Rocephin in the ED, follow urine culture, continue with Rocephin from tomorrow. Bilateral renal calculi and severe left hydronephrosis ISO left UPJ stone: Urology following as an outpatient, plan for [place] renal scan, follow-up with urology as an outpatient. On exam: GENERAL: Alert and oriented x3. NAD, on RA. HEENT: No pallor, no icterus. Pupils equal, round and reactive to light. Oral mucosa moist. NECK: No JVD, no neck masses. HEART: S1 and S2 heard. Regular rate and rhythm. No murmur, no gallop. RESPIRATORY SYSTEM: Normal AP diameter. No accessory muscle use. No wheezing, no crackles. ABDOMEN: Soft, bowel sounds present, nontender, no distention. CENTRAL NERVOUS SYSTEM: No facial droop. Speech is clear. Obeys simple commands. Moves extremities. EXTREMITIES: No edema, no erythema seen. No CVA angle tenderness. I have seen and examined the patient and have discussed the case with the provider above. I agree with the assessment and plan as stated. (2) CAD (coronary artery disease) Associated angina: without angina Coronary Disease-Associated Artery/Lesion type: [place] artery [place] vs. transplanted heart: [place] heart Qualified Code(s): I25.10 - Atherosclerotic heart disease of [place] coronary artery without angina pectoris (4) Congestive heart failure Heart failure type: combined systolic and diastolic
--- NOTE | 2024-04-05 14:44 | Gastrointestinal Consultation ---
Date of Consultation April 05, 2024 Assessment & Plan (1) BRBPR (bright red blood per rectum): Patient is a 68 year old female with a significant past medical history of CAD (PCI mid LAD and distal LAD 03/11/2024 - on plavix), chronic HFpEF with hx of cardiomyopathy, atrial fibrillation (new in 11/2023) on eliquis, CKD stage IIIb, chronic anemia, history of renal calculi, hyperkalemia who presents to ED today in setting of bright red blood per rectum x 1 day. Would need to have eliquis held in order to perform a colonoscopy to further evaluate. - follow hgb/hct and transfuse as needed. - would recommend cardiac clear patient to have a colonoscopy to further evaluate. - will continue to follow. Supervising Physician Co-Signing Physician Notes I saw and examined this patient with our nurse practitioner and agree with her assessment and plan. Presents with lower GI bleeding while on anticoagulation. Rectal exam revealed no fissures no rectal masses but bright red blood. CT scan shows diverticulosis which would be the most common cause for lower GI bleeding. Unlikely this represents colonic ischemia or neoplasm. Depending upon her clinical course she will ultimately need a colonoscopy the timing of which depends upon whether she continues to bleed, with the cardiology clears her and when and if we can stop her anticoagulation. History of Present Illness Reason for Consultation: BRBPR Requesting Physician: Socorro Lorenzo PA-C Attending Physician: Curtis Sawant MD History of Present Illness Patient is a 68 year old female with a significant past medical history of CAD (PCI mid LAD and distal LAD 03/11/2024 - on plavix), chronic HFpEF with hx of cardiomyopathy, atrial fibrillation (new in 11/2023) on eliquis, CKD stage IIIb, chronic anemia, history of renal calculi, hyperkalemia who presents to ED today in setting of bright red blood per rectum x 1 day. she denies any abdominal pain or rectal pain. she does admit to some constipation in the days prior to the episode and had tried taking miralax to help move bowels. rest of GI ros are unremarkable. she admits to a colonoscopy years ago that was unremarkable per patient. 04/05 hgb 10.7 03/[address] abd/pelvis 04/05 unremarkable from GI standpoint outside of diverticulosis. Allergies Allergy/AdvReac Type Severity Reaction Status Date / Time Iodinated Contrast Media AdvReac Intermediate Nausea Verified 04/02/24 09:18 Home Medications Medication Instructions Recorded Confirmed Type apixaban 5 mg tablet (Eliquis) 5 mg PO BID 90 days #180 tabs 12/04/23 04/05/24 Rx nitroglycerin 0.4 mg sublingual 0.4 mg sublingual UD PRN chest 02/13/24 04/05/24 Rx tablet (Nitrostat) pain #20 tabs metoprolol succinate 100 mg 100 mg PO QAM 02/16/24 04/05/24 History tablet,extended release 24 hr clopidogrel 75 mg tablet 75 mg PO DAILY #30 tabs 03/11/24 04/05/24 Rx atorvastatin 40 mg tablet 40 mg PO DAILY 04/05/24 04/05/24 History bumetanide 2 mg tablet 2 mg PO DAILY 04/05/24 04/05/24 History Patient History Medical History Cellulitis of left foot being treated for at present 02/2024 Hx of non-ST elevation myocardial infarction (NSTEMI) November 2023 [place] Kidney stone at present 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, stage 3 Acute HFrEF (heart failure with reduced ejection fraction) follows with Ina Keyes Atrial fibrillation with rapid ventricular response one episode at OR 02/2024 > cardioversion Renal insufficiency CKD (chronic kidney disease) stage 3, GFR 30-59 ml/min History of tobacco abuse Surgical History History of tooth extraction History of colonoscopy Family History Other Cancer Clotting disorder Social History Smoking Status: Never smoker Tobacco Type: Cigarettes Age Started Using Tobacco: 18; Age Quit Using Tobacco: 68; Cigarettes Per Day: 30; Second Hand Exposure: No; Do You Dip or Chew Tobacco: No; Hx Alcohol Use: No Hx Substance Use: No Preferred Language: Uzbek Communication Ability: Effective Visual Impairment: No Limitations Hearing Ability: Normal Machine Pecan Gatherer Required: No Beliefs That Will Affect Care: None marital status: Single Current Living Situation: Alone Current Living Situation Comment: friend current occupational status: retired 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 How many Children do You have: 0 Feels Safe at Home: Yes Diet: low salt caffeine: Yes Dental Care, Regularly: No Physical Activity Frequency: Daily Seatbelt Use: always Do you think of yourself as: straight/heterosexual Gender Identity: Female Assistive Devices: None Review of Systems Review of Systems: All systems reviewed & are unremarkable except as noted in HPI & below Physical Exam Constitutional: WD/WN, vitals as above Respiratory: normal respiratory effort, lungs clear to auscultation Cardiovascular: Rate/Rhythm: regular rate and regular rhythm Gastrointestinal (Abdomen): normal bowel sounds, soft, nontender, no hepatosplenomegaly Psychiatric: Orientation: alert and oriented x 3 Results & Data Vital Signs (Past 12 Hours) Vital Signs Temp Pulse Pulse Resp BP BP Pulse Ox 04/05/24 10:38 73 13 134/71 97 04/05/24 10:27 66 04/05/24 09:29 102 H 23 92 04/05/24 09:29 102 H 22 150/67 H 92 04/05/24 09:04 97.2 F L 78 18 122/58 L 98 O2 Del Method 04/05/24 10:38 Room Air 04/05/24 10:27 04/05/24 09:29 Room Air 04/05/24 09:29 Room Air 04/05/24 09:04 Room Air Diagnostic Findings CT SCAN OF THE ABDOMEN AND PELVIS WITHOUT IV CONTRAST CLINICAL HISTORY: Generalized abdominal pain. Hematochezia. COMPARISON STUDY: Abdominal CT dated 02/09/2024 TECHNIQUE: CT scan of the abdomen and pelvis is performed from the lung bases to the proximal femora. Images are reviewed in the axial, sagittal, and coronal planes. IV contrast was not administered for this examination. A dose lowering t echnique was utilized adhering to the principles of ALARA. CT DOSE: 1150.29 mGy.cm FINDINGS: Lung bases: The heart is mildly enlarged noting a small to moderate pericardial effusion. There is diminished attenuation of the cardiac blood pool as compared to the myocardium suggesting anemia. The coronary arteries are densely calcified. Scattered lower lobe pulmonary nodules measuring up to 5 mm carcinoma previous. Persistent nodules in the right lower lobe are seen on images #9 and #21. No airspace consolidation or pleural effusion is identified. There is a tiny hiatal hernia. Liver: The unenhanced liver is normal in size, contour, and attenuation. There is no intrahepatic biliary ductal dilatation. Gallbladder: There are numerous layering calcified gallstones with no CT evidence of acute cholecystitis. Spleen: Normal in size and attenuation. There are calcified splenic granulomas. Pancreas: The unenhanced pancreas is mildly atrophic and grossly unremarkable. Adrenal glands: Nonspecific thickening of the adrenal glands is similar to previous. Kidneys: There is markedly asymmetric cortical atrophy of the left kidney as compared to the right. Large calculi at/below the left ureteropelvic junction measure up to 1.5 cm in aggregate dimension as seen on axial image #125. This causes severe left hydroureteronephrosis and is similar to previous. There are at least 4 additional nonobstructing left renal calculi which measure up to 8 mm. There are at least 6 nonobstructing right renal calculi which measure up to 12 mm. There is no right ureteral stone and no right-sided hydronephrosis is seen. There is no evidence of contour deforming renal mass lesion. Abdominal vasculature: The abdominal aorta is normal in course and caliber noting advanced atherosclerotic calcification. Bowel: There is moderate to advanced colonic diverticulosis without CT evidence of acute diverticulitis. No bowel obstruction is seen. The appendix is well- visualized and normal. Peritoneum: There is no intraperitoneal free air or abdominal ascites. There is a fat-containing umbilical hernia. Lymphadenopathy: None. Pelvic viscera: The bladder and uterus are normal as visualized. The ovaries are prominent for age. Skeletal structures: The skeletal structures are osteopenic. There is moderate lumbosacral spondylosis. No lytic or blastic lesions are seen. IMPRESSION: 1. There is a 1.5 cm obstructing calculus/calculi at/below the left ureteropelvic junction. This causes severe left-sided hydronephrosis and is similar to the 02/09/2024 examination. 2. Additional bilateral nonobstructing renal calculi as above. 3. There is markedly asymmetric cortical atrophy of the left kidney as compared to the right. 4. Colonic diverticulosis without CT evidence of acute diverticulitis. 5. Cardiomegaly noting a small to moderate pericardial effusion. 6. Cholelithiasis. 7. The ovaries are prominent for age. This is not well assessed by CT. A nonemergent pelvic ultrasound is recommended in follow-up. 8. Additional findings as above. ACT 112: Negative or not required by law. Electronically signed by: Nikhil Owen M.D. 04/05/2024 10:25 AM Coding Level of Care Code 90779 ER DEPT VISIT LOW LVL 3 Diagnoses BRBPR (bright red blood per rectum) K62.5
--- NOTE | 2024-04-05 14:51 | XCELERA ---
[id number]
--- NOTE | 2024-04-05 14:52 | Cardiology Consultation ---
Date of Consultation April 05, 2024 Assessment & Plan (1) CAD (coronary artery disease): (2) Pericardial effusion: (3) Cardiomyopathy: (4) Persistent atrial fibrillation: (5) Heart failure with improved ejection fraction (HFimpEF): Plan ASSESSMENT/PLAN: 1. CAD s/p LAD PCI x 2: Recent PCI on 03/11/2024. No angina. Would recommend antiplatelet therapy without interruption. Communicated with primary hospitalist service and recommended aspirin 81 mg daily and less life-t hreatening bleed. As soon as able, would recommend replacing with Plavix and resuming Eliquis. Dual antiplatelet therapy or Plavix with Eliquis recommended for at least 6 months from initial PCI. Continue beta-mckay. Continue high intensity statin therapy. 2. GI bleed with acute blood loss anemia: As per GI and primary hospitalist service. Unless life-threatening bleed, would recommend at least aspirin 81 mg daily. Hospitalist service agreeable. Okay to pursue colonoscopy from a cardiology perspective. 3. Atrial fibrillation s/p prior DC CV: Regular on exam. Repeat ECG tomorrow morning. Okay to hold Eliquis given GI bleed. Would resume Eliquis when safe from a bleeding standpoint, for stroke risk reduction. Monitor CBC. 4. Heart failure with improved EF: She does not appear hypervolemic. Takes Bumex at home, currently on hold. Monitor volume status closely and if she receives blood products, would consider low-dose diuretic to maintain euvolemia. Low-sodium diet. Strict I's and O's. 5. Cardiomyopathy: Likely tachycardia induced as LV systolic function improved with improved heart rate and buddhist of sinus rhythm. 6. Pericardial effusion: Clinically not in tamponade. Stable compared to 02/13/2024 study. Continue to monitor in the outpatient setting intermittently. 7. Disposition: Please call with any further questions or concerns. Patient care communicated with primary hospitalist service, Socorro Lorenzo PA-C. On discharge, follow-up with Ina Keyes of the heart failure program and Dr. Martinez of electrophysiology, her primary pilot steam yacht. Today's visit was 55 minutes, which includes [id number] time, counseling patient, coordinating care, reviewing multiple records, and completing documentation. Thank you for allowing me to participate in the care of your patient. Please call for any other questions or concerns. Sincerely, Andres Faust M.D. History of Present Illness Reason for Consultation: "brbpr on eliquis, plavix, recent coronary stents" Requesting Physician: Socorro Lorenzo PA-C Attending Physician: Curtis Sawant MD History of Present Illness Ms. Acuna is a very pleasant 68-year-old female with a history significant for CAD s/p LAD PCI x 2, heart failure with improved EF, tachycardia induced cardiomyopathy, persistent atrial fibrillation s/p DC CV, pericardial effusion, and hyperkalemia. Her primary pilot steam yacht is Dr. Martinez. She is also followed in the heart failure program with Ina Keyes PA-C. She has had the following studies/procedures: 1. Echo 11/13/23 : Normal LV size. EF 35-40%. Pericardial effusion. No valvular pathology. 2. Echo 11/16/23: Normal LV size with moderate to severely reduced systolic function. EF 35-40%. Global hypokinesis. Mild to moderate LVH. Small to moderate pericardial effusion. 3. Echo 02/13/24: Normal LV size with low normal systolic function. EF 50-55%. No RWMA. Moderate concentric LVH. Severe left atrial dilation. No significant valve abnormalities. Normal RVSP. Moderate pericardial effusion without tamponade. 4. Lexiscan 02/16/24: Normal size LV. EF 52%. Medium moderate intensity mostly reversible MPI defect of the mid and distal anterior, anterolateral, and apical myocardium. 5. Elective cardioversion 02/10/24 6. Cardiac cath 03/11/24 : Multivessel coronary artery disease. 90% mid LAD, 80% diffuse early distal LAD. Diffusely diseased second diagonal up to 90%. 60% sequential OM2 lesions. 40-50% distal RCA, 50% small RPDA. Underwent PCI of mid LAD with 2.75 x 12 mm Osmar STERLING and distal LAD with 2.25 x 30 mm [place] STERLING (stents postdilated with 3.0 NC). She was admitted on 04/05/2024 with bright red blood per rectum. She was using an orange iced tea mixed recently and she noted that her stool became orange. She then took MiraLAX yesterday and had brown stool only to note bright red blood per rectum this morning. She reports passing "quite a bit of blood" and blood clots, but not much stool. She denies melena. While here, she tried to have other bowel movements and although did not pass significant amounts of blood, admitted that there was some blood on the toilet paper afterwards. Her last dose of Eliquis was on 04/04/2024 at 8 PM while her last dose of Plavix was 04/04/2020 4 in the morning. She was seen by GI with plans of performing colonoscopy and close monitoring of her hemoglobin. She denies chest pain, shortness of breath at rest, syncope, near syncope, palpitations, edema, or hematuria. She has chronic dyspnea on exertion which seems to be stable. She sleeps with 2 pillows to elevate her head. She has intermittent warmth in her chest that occurs without trigger since PCI was performed, but no chest discomfort. Review of systems: As above. Family history: No known premature CAD. Social history: She quit smoking in July 2023 for the most part. She denies alcohol abuse. She lives alone. No children. She was unaccompanied. Allergies Allergy/AdvReac Type Severity Reaction Status Date / Time Iodinated Contrast Media AdvReac Intermediate Nausea Verified 04/02/24 09:18 Home Medications Medication Instructions Recorded Confirmed Type apixaban 5 mg tablet (Eliquis) 5 mg PO BID 90 days #180 tabs 12/04/23 04/05/24 Rx nitroglycerin 0.4 mg sublingual 0.4 mg sublingual UD PRN chest 02/13/24 04/05/24 Rx tablet (Nitrostat) pain #20 tabs metoprolol succinate 100 mg 100 mg PO QAM 02/16/24 04/05/24 History tablet,extended release 24 hr clopidogrel 75 mg tablet 75 mg PO DAILY #30 tabs 03/11/24 04/05/24 Rx atorvastatin 40 mg tablet 40 mg PO DAILY 04/05/24 04/05/24 History bumetanide 2 mg tablet 2 mg PO DAILY 04/05/24 04/05/24 History Problem List (Updated 04/05/24 @ 22:57 by Eddie Faust MD) Heart failure with improved ejection fraction (HFimpEF) UTI (urinary tract infection) (Acute) Anemia (Acute) BRBPR (bright red blood per rectum) (Acute) Bright red blood per rectum Congestive heart failure Anticoagulant long-term use Persistent atrial fibrillation CAD (coronary artery disease) 03/2024- PCI x 2 LAD Chest discomfort Calcium nephrolithiasis Unspecified atrial fibrillation Cellulitis of left foot Kidney stone on left side (Acute) NARAYAN (acute kidney injury) (Acute) Hyperkalemia Vitamin D deficiency Anemia Open wound of right ankle (Acute) Ulcer of right leg (Acute) Pressure ulcer of right foot, stage 3 (Acute) Pericardial effusion Cardiomyopathy Pleural effusion Patient History Medical History Cellulitis of left foot being treated for at present 02/2024 Hx of non-ST elevation myocardial infarction (NSTEMI) November 2023 [place] Kidney stone at present 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, stage 3 Acute HFrEF (heart failure with reduced ejection fraction) follows with Ina Keyes Atrial fibrillation with rapid ventricular response one episode at [place] 02/2024 > cardioversion Renal insufficiency CKD (chronic kidney disease) stage 3, GFR 30-59 ml/min History of tobacco abuse Surgical History History of tooth extraction History of colonoscopy Family History Other Cancer Clotting disorder Social History Smoking Status: Never smoker Tobacco Type: Cigarettes Age Started Using Tobacco: 18; Age Quit Using Tobacco: 68; Cigarettes Per Day: 30; Second Hand Exposure: No; Do You Dip or Chew Tobacco: No; Hx Alcohol Use: No Hx Substance Use: No Preferred Language: Polish Communication Ability: Effective Visual Impairment: No Limitations Hearing Ability: Normal Cra Officer Required: No Beliefs That Will Affect Care: None marital status: Single Current Living Situation: Alone Current Living Situation Comment: friend current occupational status: retired 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 Alert. HEENT: Anicteric sclera. Neck: No JVD. No bruits. Normal carotid upstrokes bilaterally. Cardiac: Regular. Normal S1-S2. No murmurs, rubs, or gallops. Pulmonary: Clear to auscultation bilaterally without wheezes, rales, or rhonchi. Abdomen: Soft, nondistended, with normoactive bowel sounds. No bruits noted. Very mild right upper quadrant pain initially. Extremities: 2+ radial pulses bilaterally. 2+ posterior tibialis pulses bilaterally. No edema or cyanosis. Results & Data Vital Signs (Past 12 Hours) Vital Signs Temp Pulse Pulse Resp BP BP Pulse Ox 04/05/24 10:38 73 13 134/71 97 04/05/24 10:27 66 04/05/24 09:29 102 H 23 92 04/05/24 09:29 102 H 22 150/67 H 92 04/05/24 09:04 36.2 C L 78 18 122/58 L 98 O2 Del Method 04/05/24 10:38 Room Air 04/05/24 10:27 04/05/24 09:29 Room Air 04/05/24 09:29 Room Air 04/05/24 09:04 Room Air Laboratory Results Laboratory Results - last 24 hr 04/05/24 04/05/24 04/05/24 09:18 10:27 10:35 WBC 9.81 RBC 3.64 L Hgb 10.7 L Hct 32.5 L MCV 89.3 MCH 29.4 MCHC 32.9 RDW Std Deviation 53.1 H RDW Coeff of Jame 16.4 H Plt Count 230 MPV 10.1 Immature Gran % (Auto) 0.2 Neut % (Auto) 80.9 Lymph % (Auto) 12.2 [place] % (Auto) 4.1 Eos % (Auto) 2.0 Baso % (Auto) 0.6 Neut # (Auto) 7.93 H Lymph # (Auto) 1.20 [place] # (Auto) 0.40 Eos # (Auto) 0.20 Baso # (Auto) 0.06 Immature Gran # (Auto) 0.02 Sodium Cancelled 137 Potassium Cancelled 4.7 Chloride Cancelled 109 H Carbon Dioxide Cancelled 24 Anion Gap Cancelled 4 BUN Cancelled 88 H Creatinine Cancelled 1.98 H Est Cr Clr Drug Dosing Cancelled 26.4 Est GFR ( Amer) Cancelled 28.9 Est GFR (Non-Af Amer) Cancelled 25.0 BUN/Creatinine Ratio Cancelled 44.4 H Glucose Cancelled 119 H Calcium Cancelled 10.0 Iron 62 TIBC 379 Unsaturated IBC 317 Transferrin % Sat 16 Ferritin 26.0 Total Bilirubin Cancelled 0.4 AST Cancelled 11 L ALT Cancelled 8 Alkaline Phosphatase Cancelled 64 Total Protein Cancelled 7.4 Albumin Cancelled 4.4 Globulin Cancelled 3.0 Albumin/Globulin Ratio Cancelled 1.5 Lipase Cancelled 22 Vitamin B12 227 Folate > 22.30 Urine Color Yellow Urine Appearance Cloudy A Urine pH 5.5 Ur Specific [place] 1.018 Urine Protein 2+ H Urine Glucose (UA) Negative Urine Ketones Negative Urine Blood 2+ H Urine Nitrite Negative Urine Bilirubin Negative Urine Urobilinogen Negative Ur Leukocyte Esterase 1+ H Urine WBC (Auto) 11-20 H Urine RBC (Auto) 3-5 H U Hyaline Cast (Auto) 0-2 U Epithel Cells (Auto) 11-20 H Urine Bacteria (Auto) 2+ H Blood Type Blood Type Recheck Antibody Screen Crossmatch 04/05/24 04/05/24 04/05/24 17:40 19:24 20:50 WBC RBC Hgb 9.0 L Hct 28.0 L MCV MCH MCHC RDW Std Deviation RDW Coeff of Jame Plt Count MPV Immature Gran % (Auto) Neut % (Auto) Lymph % (Auto) [place] % (Auto) Eos % (Auto) Baso % (Auto) Neut # (Auto) Lymph # (Auto) [place] # (Auto) Eos # (Auto) Baso # (Auto) Immature Gran # (Auto) Sodium Potassium Chloride Carbon Dioxide Anion Gap BUN Creatinine Est Cr Clr Drug Dosing Est GFR ( Amer) Est GFR (Non-Af Amer) BUN/Creatinine Ratio Glucose Calcium Iron TIBC Unsaturated IBC Transferrin % Sat Ferritin Total Bilirubin AST ALT Alkaline Phosphatase Total Protein Albumin Globulin Albumin/Globulin Ratio Lipase Vitamin B12 Folate Urine Color Urine Appearance Urine pH Ur Specific [place] Urine Protein Urine Glucose (UA) Urine Ketones Urine Blood Urine Nitrite Urine Bilirubin Urine Urobilinogen Ur Leukocyte Esterase Urine WBC (Auto) Urine RBC (Auto) U Hyaline Cast (Auto) U Epithel Cells (Auto) Urine Bacteria (Auto) Blood Type A Positive Blood Type Recheck A Positive Antibody Screen NEGATIVE Crossmatch See Detail Diagnostic Findings ECHO 04/05/24: 1. Normal left ventricular size and systolic function. EF 55-60%. No regional wall motion abnormalities. Moderate concentric left ventricular hypertrophy. 2. Mild left atrial dilation. 3. No significant valvular abnormalities. 4. Moderate pericardial effusion without echocardiographic evidence of tamponade physiology. 5. No significant change from prior study on 02/13/2024. On 04/05/2024, chart, history and physical report, cardiac cath report, and GI consultation reviewed as noted. Labs reviewed and notable for chronically abnormal but stable renal function, nonelevated transaminase levels, anemia. Hemoglobin initially 10.7 this morning and dropped to 9 this evening. ECG personally reviewed 03/11/2024 at 9:36 AM: Sinus 62 bpm. Lateral T wave abnormality. Medications Administered Current Inpatient Medications Acetaminophen (Acetaminophen 325 Mg Tab) 650 mg PO Q4H PRN PRN Reason: Pain or Fever Stop: 05/05/24 16:05 Acetaminophen (Acetaminophen 325 Mg Tab) 650 mg PO PRE-TREAT ONE Stop: 04/06/24 02:54 Last Admin: 04/05/24 21:53 Dose: 650 mg Aspirin (Aspirin 81 Mg Ectab) 81 mg PO QAM PILO Stop: 05/05/24 16:14 Last Admin: 04/05/24 16:12 Dose: 81 mg Atorvastatin Calcium (Atorvastatin 40 Mg Tab) 40 mg PO DAILY PILO Stop: 05/06/24 08:59 Famotidine (Famotidine 20 Mg Tab) 20 mg PO DAILY PRN PRN Reason: Heartburn Stop: 05/05/24 16:05 Ceftriaxone Sodium (Rocephin) 2,000 mg in 50 mls @ 100 mls/hr IV Q24H PILO Stop: 04/16/24 08:59 Pantoprazole Sodium 40 mg/ (Syringe) 10 mls @ 5 mls/min IV BID PILO Stop: 05/05/24 16:29 Last Admin: 04/05/24 16:39 Dose: 5 mls/min Sodium Chloride (Nss) 1,000 mls @ 60 mls/hr IV .[id number] PILO Stop: 04/07/24 01:25 Last Admin: 04/05/24 16:14 Dose: 60 mls/hr Sodium Chloride (Nss) 250 mls @ 15 mls/hr IV .[id number] PRN PRN Reason: For Transfusion Duration Stop: 04/06/24 04:53 Melatonin (Melatonin 3 Mg Tab) 6 mg PO HS PRN PRN Reason: Sleep Stop: 05/05/24 20:59 Metoprolol Succinate (Metoprolol Succ 50mg Ext Rel Tab) 100 mg PO QAM PILO Stop: 05/05/24 16:29 Last Admin: 04/05/24 17:00 Dose: 100 mg Ondansetron HCl (Ondansetron Inj 2 Mg/Ml 2 Ml Vial) 4 mg IV Q6H PRN PRN Reason: Nausea Stop: 05/05/24 16:05 Polyethylene Glycol (Polyethylene (Miralax) 17 Gm Pack) 17 gm PO DAILY PRN PRN Reason: Constipation Stop: 05/05/24 16:05 PG Care Time/CCT Total # of Minutes Spent Total Time Spent: 55 Total Time Spent with Patient: Total time spent is greater than 50% in coordination of care (as documented) at patient's floor/unit and/or counseling patient: Coding Level of Care Code 24932 INT INP/OBS CARE 2/55MIN Diagnoses Coronary artery disease involving [place] coronary artery of [place] heart without angina pectoris I25.10 Coronary Disease-Associated Artery/Lesion type: [place] artery [place] vs. transplanted heart: [place] heart Associated angina: without angina Pericardial effusion I31.39 Cardiomyopathy, unspecified type I42.9 Cardiomyopathy type: unspecified Persistent atrial fibrillation I48.19 Heart failure with improved ejection fraction (HFimpEF) I50.32 Time Spent (min) 55 (1) CAD (coronary artery disease) Coronary Disease-Associated Artery/Lesion type: [place] artery [place] vs. transplanted heart: [place] heart Associated angina: without angina Qualified Code(s): I25.10 - Atherosclerotic heart disease of [place] coronary artery without angina pectoris (3) Cardiomyopathy Cardiomyopathy type: unspecified Qualified Code(s): I42.9 - Cardiomyopathy, unspecified
[2024-04-05 15:05] LABS: Vitamin B12 227 pg/ml (180-914)
[2024-04-05 15:06] LABS: Folate (Folic Acid),Ser orPlas > 22.30 ng/ml (>5.38)
[2024-04-05] MEDS ORDERED: POLYETHYLENE (MIRALAX) 17 GM PACK PO PRN (16:06)
[2024-04-05] MEDS ORDERED: FAMOTIDINE 20 MG TAB PO PRN (16:06)
[2024-04-05] MEDS: ASPIRIN 81 MG ECTAB PO SCH (16:12)
[2024-04-05] MEDS: SODIUM CHLORIDE 0.9% 1,000 ML IV SCH (16:14)
[2024-04-05] MEDS: PANTOprazole 40 MG in SYRINGE 0 ML IV SCH (16:39)
[2024-04-05] MEDS: METOPROLOL SUCC 50MG EXT REL TAB PO SCH (17:00)
[2024-04-05] MEDS ORDERED: SODIUM CHLORIDE 0.9% 250 ML IV PRN (18:52)
[2024-04-05] MEDS: ACETAMINOPHEN 325 MG TAB PO ONE (21:53)
[2024-04-06 08:01] LABS: Basophils # (auto) 0.05 K/uL (0.00-0.20); Basophils % (auto) 0.7 %; Eosinophils # (auto) 0.17 K/uL (0.00-0.50); Eosinophils % (auto) 2.5 %; Hematocrit (blood only) 30.8 % (37.0-47.0); Hemoglobin 10.2 g/dl (12.0-16.0); Immature Granulocytes # (auto) 0.02 K/uL (0.01-0.20); Immature Granulocytes % (auto) 0.3 %; Lymphocytes # (auto) 0.92 K/uL (1.20-3.40); Lymphocytes % (auto) 13.6 %; Mean Corpuscular Hgb Conc 33.1 g/dL (32.0-36.0); Mean Corpuscular Volume 87.5 fL (80.0-100.0); Mean Platelet Volume 9.1 fL (9.4-12.4); Monocytes # (auto) 0.33 K/uL (0.11-0.59); Monocytes % (auto) 4.9 %; Neutrophils # (auto) 5.28 K/uL (1.40-6.50); Platelet Count 180 K/uL (130-400); RDW Coefficient of Variation 15.6 % (11.5-14.5); RDW Standard Deviation 49.8 fL (36.4-46.3); Red Blood Count 3.52 M/uL (4.20-5.40); White Blood Count 6.77 K/ul (4.8-10.8)
[2024-04-06 08:24] LABS: Albumin Globulin Ratio 1.6 (0.9-2); Albumin Level 3.9 gm/dl (3.4-5.0); BUN Creatinine Ratio 37.3 (10-20); Bilirubin,Total 0.8 mg/dl (0.2-1.0); Calcium 9.6 mg/dl (8.6-10.3); Creatinine Clr Calc Pharmacy 30.3 ml/min; Est GFR (African American) 37.2 ml/min; Est GFR (Non-African American) 32.1 ml/min; Globulin 2.5 gm/dl (2.5-4.0); Magnesium 2.6 mg/dl (1.7-2.4); Potassium 4.9 mmol/L (3.5-5.1); Total Protein 6.4 gm/dl (6.0-8.3)
[2024-04-06] MEDS: cefTRIAXone SODIUM 2,000 MG/50 ML BAG IV SCH (08:41)
[2024-04-06] MEDS: ATORVASTATIN 40 MG TAB PO SCH (09:07)
[2024-04-06] MEDS: ACETAMINOPHEN 325 MG TAB PO PRN (09:10)
--- NOTE | 2024-04-06 10:29 | Gastroenterology Progress Note ---
Date of Service April 06, 2024 Assessment & Plan (1) BRBPR (bright red blood per rectum): Plan: Patient is a 68 year old female with a significant past medical history of CAD (PCI mid LAD and distal LAD 03/11/2024 - on plavix), chronic HFpEF with hx of cardiomyopathy, atrial fibrillation (new in 11/2023) on eliquis, CKD stage IIIb, chronic anemia, history of renal calculi, hyperkalemia who presents to ED today in setting of bright red blood per rectum x 1 day. still seeing some blood on toilet tissue with wiping today. Cardiology has cleared patient for procedure. - follow hgb/hct and transfuse as needed. - cardiology has cleared for procedure. Likely will need to prep today with colonoscopy tomorrow. will discuss further with Dr. Mcguire. Admission and Anticipated Discharge Date Admission Date: April 05, 2024 Supervising Physician Co-Signing Physician Notes I saw and examined this patient with our nurse practitioner and agree with her assessment and plan. Resolving GI bleed. Hemodynamically stable. Hemoglobin 10.2. Suspect lower GI bleed most likely diverticular. Will plan for colonoscopy in AM. Subjective Patient had a bowel movement this morning without blood in it, but she did notice some minimal blood on the toilet tissue when she wiped. she was transfused last evening 1 unit PRBC as her hgb was 9. 8/ hgb 10.2 after transfusion. she denies any nausea, vomiting, abdominal pain, heartburn, rectal pain. cardiology has cleared for procedure. Review of Systems Review of Systems: All systems reviewed & are unremarkable except as noted in HPI & below Physical Exam Constitutional: WD/WN, vitals as above Respiratory: normal respiratory effort, lungs clear to auscultation Cardiovascular: Rate/Rhythm: regular rate and regular rhythm Gastrointestinal (Abdomen): normal bowel sounds, soft, nontender, no hepatosplenomegaly Psychiatric: Orientation: alert and oriented x 3 Affect: euthymic affect Results & Data Results & Data Vital Signs (Past 12 Hours) Vital Signs Temp Pulse Pulse Pulse Resp BP BP 04/06/24 07:45 04/06/24 07:20 98.1 F 70 18 126/59 L 04/06/24 07:12 67 04/06/24 02:57 98.1 F 75 18 135/74 04/06/24 02:05 97.9 F 70 18 130/72 04/06/24 01:38 73 115/73 04/06/24 01:05 97.7 F 76 18 164/78 H 04/06/24 00:05 97.9 F 72 18 126/66 04/05/24 23:35 97.3 F L 74 18 128/72 04/05/24 23:20 97.5 F L 73 18 130/75 04/05/24 22:59 97.9 F 63 18 104/57 L Pulse Ox O2 Del Method 04/06/24 07:45 Room Air 04/06/24 07:20 97 Room Air 04/06/24 07:12 04/06/24 02:57 97 04/06/24 02:05 96 04/06/24 01:38 04/06/24 01:05 100 04/06/24 00:05 97 04/05/24 23:35 100 04/05/24 23:20 99 04/05/24 22:59 99 Laboratory Results Laboratory Results - last 48 hr 04/05/24 04/05/24 04/05/24 09:18 10:27 10:35 WBC 9.81 RBC 3.64 L Hgb 10.7 L Hct 32.5 L MCV 89.3 MCH 29.4 MCHC 32.9 RDW Std Deviation 53.1 H RDW Coeff of Jame 16.4 H Plt Count 230 MPV 10.1 Immature Gran % (Auto) 0.2 Neut % (Auto) 80.9 Lymph % (Auto) 12.2 [place] % (Auto) 4.1 Eos % (Auto) 2.0 Baso % (Auto) 0.6 Neut # (Auto) 7.93 H Lymph # (Auto) 1.20 [place] # (Auto) 0.40 Eos # (Auto) 0.20 Baso # (Auto) 0.06 Immature Gran # (Auto) 0.02 Sodium Cancelled 137 Potassium Cancelled 4.7 Chloride Cancelled 109 H Carbon Dioxide Cancelled 24 Anion Gap Cancelled 4 BUN Cancelled 88 H Creatinine Cancelled 1.98 H Est Cr Clr Drug Dosing Cancelled 26.4 Est GFR ( Amer) Cancelled 28.9 Est GFR (Non-Af Amer) Cancelled 25.0 BUN/Creatinine Ratio Cancelled 44.4 H Glucose Cancelled 119 H Calcium Cancelled 10.0 Magnesium Iron 62 TIBC 379 Unsaturated IBC 317 Transferrin % Sat 16 Ferritin 26.0 Total Bilirubin Cancelled 0.4 AST Cancelled 11 L ALT Cancelled 8 Alkaline Phosphatase Cancelled 64 Total Protein Cancelled 7.4 Albumin Cancelled 4.4 Globulin Cancelled 3.0 Albumin/Globulin Ratio Cancelled 1.5 Lipase Cancelled 22 Vitamin B12 227 Folate > 22.30 Urine Color Yellow Urine Appearance Cloudy A Urine pH 5.5 Ur Specific [place] 1.018 Urine Protein 2+ H Urine Glucose (UA) Negative Urine Ketones Negative Urine Blood 2+ H Urine Nitrite Negative Urine Bilirubin Negative Urine Urobilinogen Negative Ur Leukocyte Esterase 1+ H Urine WBC (Auto) 11-20 H Urine RBC (Auto) 3-5 H U Hyaline Cast (Auto) 0-2 U Epithel Cells (Auto) 11-20 H Urine Bacteria (Auto) 2+ H Blood Type Blood Type Recheck Antibody Screen Crossmatch 04/05/24 04/05/24 04/05/24 17:40 19:24 20:50 WBC RBC Hgb 9.0 L Hct 28.0 L MCV MCH MCHC RDW Std Deviation RDW Coeff of Jame Plt Count MPV Immature Gran % (Auto) Neut % (Auto) Lymph % (Auto) [place] % (Auto) Eos % (Auto) Baso % (Auto) Neut # (Auto) Lymph # (Auto) [place] # (Auto) Eos # (Auto) Baso # (Auto) Immature Gran # (Auto) Sodium Potassium Chloride Carbon Dioxide Anion Gap BUN Creatinine Est Cr Clr Drug Dosing Est GFR ( Amer) Est GFR (Non-Af Amer) BUN/Creatinine Ratio Glucose Calcium Magnesium Iron TIBC Unsaturated IBC Transferrin % Sat Ferritin Total Bilirubin AST ALT Alkaline Phosphatase Total Protein Albumin Globulin Albumin/Globulin Ratio Lipase Vitamin B12 Folate Urine Color Urine Appearance Urine pH Ur Specific [place] Urine Protein Urine Glucose (UA) Urine Ketones Urine Blood Urine Nitrite Urine Bilirubin Urine Urobilinogen Ur Leukocyte Esterase Urine WBC (Auto) Urine RBC (Auto) U Hyaline Cast (Auto) U Epithel Cells (Auto) Urine Bacteria (Auto) Blood Type A Positive Blood Type Recheck A Positive Antibody Screen NEGATIVE Crossmatch See Detail 04/06/24 07:47 WBC 6.77 RBC 3.52 L Hgb 10.2 L Hct 30.8 L MCV 87.5 MCH 29.0 MCHC 33.1 RDW Std Deviation 49.8 H RDW Coeff of Jame 15.6 H Plt Count 180 MPV 9.1 L Immature Gran % (Auto) 0.3 Neut % (Auto) 78.0 Lymph % (Auto) 13.6 [place] % (Auto) 4.9 Eos % (Auto) 2.5 Baso % (Auto) 0.7 Neut # (Auto) 5.28 Lymph # (Auto) 0.92 L [place] # (Auto) 0.33 Eos # (Auto) 0.17 Baso # (Auto) 0.05 Immature Gran # (Auto) 0.02 Sodium 138 Potassium 4.9 Chloride 113 H Carbon Dioxide 22 Anion Gap 3 BUN 60 H D Creatinine 1.61 H D Est Cr Clr Drug Dosing 30.3 Est GFR ( Amer) 37.2 Est GFR (Non-Af Amer) 32.1 BUN/Creatinine Ratio 37.3 H Glucose 100 H Calcium 9.6 Magnesium 2.6 H Iron TIBC Unsaturated IBC Transferrin % Sat Ferritin Total Bilirubin 0.8 AST 10 L ALT 7 Alkaline Phosphatase 57 Total Protein 6.4 Albumin 3.9 Globulin 2.5 Albumin/Globulin Ratio 1.6 Lipase Vitamin B12 Folate Urine Color Urine Appearance Urine pH Ur Specific [place] Urine Protein Urine Glucose (UA) Urine Ketones Urine Blood Urine Nitrite Urine Bilirubin Urine Urobilinogen Ur Leukocyte Esterase Urine WBC (Auto) Urine RBC (Auto) U Hyaline Cast (Auto) U Epithel Cells (Auto) Urine Bacteria (Auto) Blood Type Blood Type Recheck Antibody Screen Crossmatch Coding Level of Care Code 02364 SUB INP/OBS CARE /25MIN Diagnoses BRBPR (bright red blood per rectum) K62.5
--- NOTE | 2024-04-06 12:20 | Hospitalist Progress Note ---
<Statement entered by Moody Escobedo, DO - 04/06/24 14:49> I have seen and examined the patient and have discussed the case with the provider above. I have reviewed the advanced practitioner's documentation, and I agree with, and take responsibility for that plan of care. 12 minutes spent in evaluation of patient and coordination of care with ROSE History very consistent with diverticular bleed, patient reports that bleeding seems to have stopped. Continue to coordinate care with GI Plan of care as outlined below Date of Service April 06, 2024 Assessment & Plan (1) Bright red blood per rectum: (2) CAD (coronary artery disease): (3) Anticoagulant long-term use: (4) Congestive heart failure: (5) CKD (chronic kidney disease) stage 3, GFR 30-59 ml/min: Plan This is a 68 yr old F Who has a significant past medical history of CAD (PCI mid LAD and distal LAD 03/2024), chronic HFpEF with hx of cardiomyopathy, atrial fibrillation, CKD stage IIIb, chronic anemia, history of renal calculi, hyperkalemia no longer tolerating lokelma who presents to ED in setting of bright red blood per rectum x 1 day. Bright red blood per rectum on antiplatelet/DOAC Chronic anemia admit to [facility] tele Dr. Sawant obtained blood consent Pt required 1 unit PRBC evening of 04/05 due to hgb 9.0 in setting of active GIB and recent coronary stents hold eliquis, plavix- last dose was on 04/04 p.m. for eliquis and a.m. for plavix Per cardiology recommend at least ASA 81mg daily and as soon as able recommend switching ASA to plavix. [facility] tx for her is plavix/eliquis when able --CT abd w/o identifiable source of bleeding possible diverticular vs hemorrhoidal appreciate GI recs- likely plan for C scope tomorrow and prep today, await for final GI recs CBC, BMP in a.m. CAD (PCI mid LAD and distal LAD 03/2024) Chronic HFpEF Hx of tachycardic induced cardiomyopathy (EF improved) Atrial fibrillation follows [facility] cardiology Echo: LVEF 55-60%, moderate pericardial effusion w/o tamponade on metoprolol, bumex, statin, plavix, eliquis as OP Resume Bumex today in setting of IVF/PRBC, + UOP Continue ASA for now, replace with Plavix as soon as able and reintroduce el iquis as soon as able daily weights, strict intake and output pt is not on Jardiance, ARB in setting of UTI hx and hyperkalemia CKD-3b: chronic, baseline cr 1.4, stable follows [facility] nephro, avoid nephrotoxic agents, in setting of ureteral obstruction and L renal atrophy, consider nephro consult if worsens, Cr improving today to 1.6 Obstructing L UPJ Calculus Possible complicated UTI vs contamination CT a/p: There is a 1.5 cm obstructing calculus/calculi at/below the left ureteropelvic junction. This causes severe left-sided hydronephrosis and is similar to the 02/09/2024 examination. follows [facility] urology - awaiting NM renal scan, plan for OP treatment continue IV ceftriaxone consider urology consult Abnormal CT a/p finding: prominent ovaries for age, recommend OP Pelvic US DVT ppx:SCDS FULL CODE PCP: Nicholas Magallanes Dispo: admit to [facility] A total of 51 minutes was spent coordinating, documenting, and providing care for this patient excluding time spent in the performance of separately billed services. This included personally viewing all current laboratories and imaging studies, medication reconciliation, outpatient chart review, and discussion with specialists. Admission and Anticipated Discharge Date Admission Date: April 05, 2024 Subjective Patient was seen and examined in room 251. Follow-up bright red blood per rectum. She offers no acute concerns this morning. She had a small bowel movement this morning with no blood mixed in the stool, but did have some bright red blood on the toilet paper. She denies any abdominal pain. She denies any fever, chills, sweats, lightheadedness, dizziness, chest pain, shortness breath, nausea, vomiting. She received 1 unit of PRBC last evening and tolerated it well. Review of Systems Review of Systems: All systems reviewed & are unremarkable except as noted in HPI & below Physical Exam Physical Exam: Gen: WD/WN, NAD, A&O x3 HEENT: Normocephalic, atraumatic, conjunctivae moist, sclerae anicteric, mucous membranes moist. Lung: Clear to Auscultation bilaterally, no wheezes/rales/rhonchi Heart: Regular rate, regular rhythm, no murmurs, rubs, or gallops Abdomen: Soft, NT, ND +BS x 4 Extremities: No edema Skin: Warm, no rash, negative turgor. Results & Data Results & Data Vital Signs (Past 12 Hours) Vital Signs Temp Pulse Pulse Pulse Resp BP BP 04/06/24 11:10 36.7 C 64 18 138/70 04/06/24 07:45 04/06/24 07:20 36.7 C 70 18 126/59 L 04/06/24 07:12 67 04/06/24 02:57 36.7 C 75 18 135/74 04/06/24 02:05 36.6 C 70 18 130/72 04/06/24 01:38 73 115/73 04/06/24 01:05 36.5 C 76 18 164/78 H Pulse Ox O2 Del Method 04/06/24 11:10 97 Room Air 04/06/24 07:45 Room Air 04/06/24 07:20 97 Room Air 04/06/24 07:12 04/06/24 02:57 97 04/06/24 02:05 96 04/06/24 01:38 04/06/24 01:05 100 Laboratory Results Short CBC 04/05/24 04/06/24 Range/Units 17:40 07:47 WBC 6.77 (4.8-10.8) K/ul Hgb 9.0 L 10.2 L (12.0-16.0) g/dl Hct 28.0 L 30.8 L (37.0-47.0) % Plt Count 180 (130-400) K/uL BMP 04/06/24 07:47 Sodium 138 Potassium 4.9 Chloride 113 H Carbon Dioxide 22 BUN 60 H D Creatinine 1.61 H D Glucose 100 H Calcium 9.6 Liver Function 04/06/24 Range/Units 07:47 Total Bilirubin 0.8 (0.2-1.0) mg/dl AST 10 L (13-39) U/L ALT 7 (7-52) U/L Alkaline Phosphatase 57 (34-104) U/L Albumin 3.9 (3.4-5.0) gm/dl I have independently reviewed and interpreted patient's labs including CBC, CMP, mag Medications Administered Current Inpatient Medications Acetaminophen (Acetaminophen 325 Mg Tab) 650 mg PO Q4H PRN PRN Reason: Pain or Fever Stop: 05/05/24 16:05 Last Admin: 04/06/24 09:10 Dose: 650 mg Aspirin (Aspirin 81 Mg Ectab) 81 mg PO QAM [facility] Stop: 05/05/24 16:14 Last Admin: 04/06/24 09:07 Dose: 81 mg Atorvastatin Calcium (Atorvastatin 40 Mg Tab) 40 mg PO DAILY [facility] Stop: 05/06/24 08:59 Last Admin: 04/06/24 09:07 Dose: 40 mg Famotidine (Famotidine 20 Mg Tab) 20 mg PO DAILY PRN PRN Reason: Heartburn Stop: 05/05/24 16:05 Ceftriaxone Sodium (Rocephin) 2,000 mg in 50 mls @ 100 mls/hr IV Q24H [facility] Stop: 04/16/24 08:59 Last Infusion: 04/06/24 09:11 Dose: Infused Pantoprazole Sodium 40 mg/ (Syringe) 10 mls @ 5 mls/min IV BID [facility] Stop: 05/05/24 16:29 Last Admin: 04/06/24 08:39 Dose: 5 mls/min Sodium Chloride (Nss) 1,000 mls @ 60 mls/hr IV .[id number] [facility] Stop: 04/07/24 01:25 Last Admin: 04/06/24 12:13 Dose: 60 mls/hr Melatonin (Melatonin 3 Mg Tab) 6 mg PO HS PRN PRN Reason: Sleep Stop: 05/05/24 20:59 Metoprolol Succinate (Metoprolol Succ 50mg Ext Rel Tab) 100 mg PO [facility] Stop: 05/05/24 16:29 Last Admin: 04/06/24 09:07 Dose: 100 mg Ondansetron HCl (Ondansetron Inj 2 Mg/Ml 2 Ml Vial) 4 mg IV Q6H PRN PRN Reason: Nausea Stop: 05/05/24 16:05 Polyethylene Glycol (Polyethylene (Miralax) 17 Gm Pack) 17 gm PO DAILY PRN PRN Reason: Constipation Stop: 05/05/24 16:05 (2) CAD (coronary artery disease) Coronary Disease-Associated Artery/Lesion type: [place] artery [place] vs. transplanted heart: [place] heart Associated angina: without angina Qualified Code(s): I25.10 - Atherosclerotic heart disease of [place] coronary artery without angina pectoris (4) Congestive heart failure Heart failure type: combined systolic and diastolic
[2024-04-06] MEDS: BUMETANIDE 1 MG TAB PO SCH (13:29)
[2024-04-06] MEDS: LAVAGE SOLUTION 4000ML PO ONE (16:30)
[2024-04-06] MEDS: ONDANSETRON INJ 2 MG/ML 2 ML VIAL IV PRN (20:19)
[2024-04-07 06:30] LABS: Basophils # (auto) 0.04 K/uL (0.00-0.20); Basophils % (auto) 0.6 %; Eosinophils # (auto) 0.23 K/uL (0.00-0.50); Eosinophils % (auto) 3.5 %; Hematocrit (blood only) 28.8 % (37.0-47.0); Hemoglobin 9.7 g/dl (12.0-16.0); Immature Granulocytes # (auto) 0.02 K/uL (0.01-0.20); Immature Granulocytes % (auto) 0.3 %; Lymphocytes # (auto) 1.22 K/uL (1.20-3.40); Lymphocytes % (auto) 18.7 %; Mean Corpuscular Hemoglobin 29.2 pg (25.0-34.0); Mean Corpuscular Hgb Conc 33.7 g/dL (32.0-36.0); Mean Corpuscular Volume 86.7 fL (80.0-100.0); Mean Platelet Volume 9.8 fL (9.4-12.4); Monocytes # (auto) 0.54 K/uL (0.11-0.59); Monocytes % (auto) 8.3 %; Neutrophils # (auto) 4.49 K/uL (1.40-6.50); Neutrophils % (auto) 68.6 %; Platelet Count 171 K/uL (130-400); RDW Coefficient of Variation 15.3 % (11.5-14.5); RDW Standard Deviation 48.2 fL (36.4-46.3); Red Blood Count 3.32 M/uL (4.20-5.40); White Blood Count 6.54 K/ul (4.8-10.8)
[2024-04-07 07:10] LABS: BUN Creatinine Ratio 26.3 (10-20); Calcium 9.4 mg/dl (8.6-10.3); Creatinine Clr Calc Pharmacy 33.1 ml/min; Est GFR (African American) 39.8 ml/min; Est GFR (Non-African American) 34.4 ml/min; Potassium 4.2 mmol/L (3.5-5.1)
--- NOTE | 2024-04-07 09:40 | History & Physical Bridge Note ---
Date of Service April 07, 2024 History & Physical Bridge Note I have examined the patient, reviewed the History & Physical and in the interval since the performance of the History & Physical I have noted the following changes of clinical significance: no changes noted. Patient finished most of her prep. she tells me that stools have been coming out clear. no further bleeding. 04/07 hgb 9.7 (previously 10.2). no new GI concerns. no chest pain/sob. - plan for colonoscopy later today. Supervising Physician Co-Signing Physician Notes I saw and examined this patient with our nurse practitioner and agree with her assessment and plan
--- NOTE | 2024-04-07 10:44 | Hospitalist Progress Note ---
Date of Service April 07, 2024 Assessment & Plan (1) Bright red blood per rectum: (2) CAD (coronary artery disease): (3) Anticoagulant long-term use: (4) Congestive heart failure: (5) CKD (chronic kidney disease) stage 3, GFR 30-59 ml/min: Plan This is a 68 yr old F Who has a significant past medical history of CAD (PCI mid LAD and distal LAD 03/2024), chronic HFpEF with hx of cardiomyopathy, atrial fibrillation, CKD stage IIIb, chronic anemia, history of renal calculi, hyperkalemia no longer tolerating lokelma who presents to ED in setting of bright red blood per rectum x 1 day. Bright red blood per rectum on antiplatelet/DOAC Chronic anemia admit to [facility] tele Dr. Sawant obtained blood consent Pt required 1 unit PRBC evening of 04/05 due to hgb 9.0 in setting of active GIB and recent coronary stents hold eliquis, plavix- last dose was on 04/04 p.m. for eliquis and a.m. for plavix Per cardiology recommend at least ASA 81mg daily and as soon as able recommend switching ASA to plavix. [place] tx for her is plavix/eliquis when able --CT abd w/o identifiable source of bleeding possible diverticular vs hemorrhoidal appreciate GI recs- C scope planned for toay CBC, BMP in a.m. CAD (PCI mid LAD and distal LAD 03/2024) Chronic HFpEF Hx of tachycardic induced cardiomyopathy (EF improved) Atrial fibrillation [place] [facility] [place] Echo: LVEF 55-60%, moderate pericardial effusion w/o tamponade on metoprolol, bumex, statin, plavix, eliquis as OP Resume Bumex today in setting of IVF/PRBC, + UOP Continue ASA for now, replace with Plavix as soon as able and reintroduce e liquis as soon as able daily weights, strict intake and output pt is not on Jardiance, ARB in setting of UTI hx and hyperkalemia CKD-3b: chronic, baseline cr 1.4, stable follows [facility] [place], avoid nephrotoxic agents, in setting of ureteral obstruction and L renal atrophy, consider nephro consult if worsens, Cr improving today to 1.5 Obstructing L UPJ Calculus Possible complicated UTI vs contamination CT a/p: There is a 1.5 cm obstructing calculus/calculi at/below the left ureteropelvic junction. This causes severe left-sided hydronephrosis and is similar to the 02/09/2024 examination. follows [facility] [place] - awaiting [place] renal scan, plan for OP treatment continue IV ceftriaxone, await urine culture - currently reincubating consider urology consult Abnormal CT a/p finding: prominent ovaries for age, recommend OP Pelvic US DVT ppx:SCDS FULL CODE PCP: Nicholas Magallanes Dispo: admit to [facility] A total of 52 minutes was spent coordinating, documenting, and providing care for this patient excluding time spent in the performance of separately billed services. This included personally viewing all current laboratories and imaging studies, medication reconciliation, outpatient chart review, and discussion with specialists. Admission and Anticipated Discharge Date Admission Date: April 05, 2024 Supervising Physician Co-Signing Physician Notes Attending addendum: The patient was seen and examined in medical telemetry unit She has been feeling much better and denies any more rectal bleeding Denies any GI symptoms and awaiting colonoscopy Feels hungry On examination No apparent distress at rest Remains hemodynamically stable with unremarkable physical examination All labs and imaging studies reviewed Bright red rectal blood with stable hemoglobin and awaiting colonoscopy today For other significant medical conditions remained stable Agree with assessment plan and take the full responsibility of the Patient as documented by Socorro Lorenzo,PONCHO Total time spent in documenting was [address] Manny Moura Subjective Patient was seen and examined in room 251. Follow-up bright red blood per rectum. She was prepped for a colonoscopy this morning. She moved her bowels frequently last night and states she only had blood on the toilet paper. She denies f/c/s, chest pain, sob, n/v/d. She reports this warm sensation that comes and goes on her chest. SHe wonders if its the fluid around the heart. She states she talked to her surgical asst about this. EKG last night was normal. Review of Systems Review of Systems: All systems reviewed & are unremarkable except as noted in HPI & below Physical Exam Physical Exam: Gen: WD/WN, NAD, A&O x3 HEENT: Normocephalic, atraumatic, conjunctivae moist, sclerae anicteric, mucous membranes moist. Lung: Clear to Auscultation bilaterally, no wheezes/rales/rhonchi Heart: Regular rate, regular rhythm, no murmurs, rubs, or gallops Abdomen: Soft, NT, ND +BS x 4 Extremities: No edema Skin: Warm, no rash, negative turgor. Results & Data Results & Data Vital Signs (Past 12 Hours) Vital Signs Temp Pulse Pulse Resp BP Pulse Ox O2 Del Method 04/07/24 07:30 77 04/07/24 07:13 36.9 C 68 18 138/73 98 Room Air 04/07/24 03:30 36.7 C 57 L 18 129/61 97 Room Air Laboratory Results I have independently reviewed and interpreted patient's admitting labs including CBC, BMP. Medications Administered Current Inpatient Medications Acetaminophen (Acetaminophen 325 Mg Tab) 650 mg PO Q4H PRN PRN Reason: Pain or Fever Stop: 05/05/24 16:05 Last Admin: 04/07/24 08:23 Dose: 650 mg Aspirin (Aspirin 81 Mg Ectab) 81 mg PO QAM [facility] Stop: 05/05/24 16:14 Last Admin: 04/07/24 08:19 Dose: 81 mg Atorvastatin Calcium (Atorvastatin 40 Mg Tab) 40 mg PO DAILY [facility] Stop: 05/06/24 08:59 Last Admin: 04/07/24 08:19 Dose: 40 mg Bumetanide (Bumetanide 1 Mg Tab) 2 mg PO DAILY [facility] Stop: 05/06/24 12:29 Last Admin: 04/07/24 08:19 Dose: 2 mg Famotidine (Famotidine 20 Mg Tab) 20 mg PO DAILY PRN PRN Reason: Heartburn Stop: 05/05/24 16:05 Ceftriaxone Sodium (Rocephin) 2,000 mg in 50 mls @ 100 mls/hr IV Q24H [facility] Stop: 04/16/24 08:59 Last Infusion: 04/07/24 09:01 Dose: Infused Pantoprazole Sodium 40 mg/ (Syringe) 10 mls @ 5 mls/min IV BID [facility] Stop: 05/05/24 16:29 Last Admin: 04/07/24 08:19 Dose: 5 mls/min Sodium Chloride (Nss) 500 mls @ 15 mls/hr IV .Q24H [facility] Stop: 04/08/24 07:29 Melatonin (Melatonin 3 Mg Tab) 6 mg PO HS PRN PRN Reason: Sleep Stop: 05/05/24 20:59 Metoprolol Succinate (Metoprolol Succ 50mg Ext Rel Tab) 100 mg PO QAM [facility] Stop: 05/05/24 16:29 Last Admin: 04/07/24 08:19 Dose: 100 mg Ondansetron HCl (Ondansetron Inj 2 Mg/Ml 2 Ml Vial) 4 mg IV Q6H PRN PRN Reason: Nausea Stop: 05/05/24 16:05 Last Admin: 04/06/24 20:19 Dose: 4 mg Polyethylene Glycol (Polyethylene (Miralax) 17 Gm Pack) 17 gm PO DAILY PRN PRN Reason: Constipation Stop: 05/05/24 16:05 (2) CAD (coronary artery disease) Associated angina: without angina Coronary Disease-Associated Artery/Lesion type: [place] artery [place] vs. transplanted heart: [place] heart Qualified Code(s): I25.10 - Atherosclerotic heart disease of [place] coronary artery without angina pectoris (4) Congestive heart failure Heart failure type: combined systolic and diastolic
--- NOTE | 2024-04-07 11:08 | Anesthesiology Consultation ---
Date of Service April 07, 2024 Assessment & Plan Chart Review Chart Review: Acceptable Risk for Surgery, Patient NOT seen in Pre Admission Testing and blasting entry specialist initiated Consults Requested none Proposed Anesthesia Anesthesia Type: MAC History Surgery Operation Date: 04/07/24 16:30 Proposed Procedures p Colonoscopy Dr. Maynor Mcguire MD Height/Weight Height: 5 ft 2 in Weight: 77.2 kg Allergies Allergy/AdvReac Type Severity Reaction Status Date / Time Iodinated Contrast Media AdvReac Intermediate Nausea Verified 04/02/24 09:18 Medications Home Medications Medication Instructions Recorded Confirmed Last Taken apixaban 5 mg tablet (Eliquis) 5 mg PO BID 90 days #180 tabs 12/04/23 04/05/24 03/09/24 08:00 nitroglycerin 0.4 mg sublingual 0.4 mg sublingual UD PRN chest 02/13/24 04/05/24 Unknown tablet (Nitrostat) pain #20 tabs metoprolol succinate 100 mg 100 mg PO QAM 02/16/24 04/05/24 03/11/24 tablet,extended release 24 hr clopidogrel 75 mg tablet 75 mg PO DAILY #30 tabs 03/11/24 04/05/24 Unknown atorvastatin 40 mg tablet 40 mg PO DAILY 04/05/24 04/05/24 Unknown bumetanide 2 mg tablet 2 mg PO DAILY 04/05/24 04/05/24 Unknown Active Medications Generic Name Dose Route Start Last Admin Trade Name Freq PRN Reason Stop Dose Admin Acetaminophen 650 mg 04/05/24 16:06 04/07/24 08:23 Acetaminophen 325 Mg Tab PO 05/05/24 16:05 650 mg Q4H PRN Administration Pain or Fever Aspirin 81 mg 04/05/24 16:15 04/07/24 08:19 Aspirin 81 Mg Ectab PO 05/05/24 16:14 81 mg QAM [facility] Administration Atorvastatin Calcium 40 mg 04/06/24 09:00 04/07/24 08:19 Atorvastatin 40 Mg Tab PO 05/06/24 08:59 40 mg DAILY [facility] Administration Bumetanide 2 mg 04/06/24 12:30 04/07/24 08:19 Bumetanide 1 Mg Tab PO 05/06/24 12:29 2 mg DAILY [facility] Administration Ceftriaxone Sodium 2,000 mg in 50 mls @ 100 mls/hr 04/06/24 09:00 04/07/24 09:01 Rocephin IV 04/16/24 08:59 Infused Q24H [facility] Infusion Pantoprazole Sodium 40 mg/ 10 mls @ 5 mls/min 04/05/24 16:30 04/07/24 08:19 Syringe IV 05/05/24 16:29 5 mls/min BID [facility] Administration Metoprolol Succinate 100 mg 04/05/24 16:30 04/07/24 08:19 Metoprolol Succ 50mg Ext Rel Tab PO 05/05/24 16:29 100 mg QAM [facility] Administration Ondansetron HCl 4 mg 04/05/24 16:06 04/06/24 20:19 Ondansetron Inj 2 Mg/Ml 2 Ml Vial IV 05/05/24 16:05 4 mg Q6H PRN Administration Nausea Past Medical History Medical History Cellulitis of left foot being treated for at present 02/2024 Hx of non-ST elevation myocardial infarction (NSTEMI) November 2023 [place] Kidney stone at present 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, stage 3 Acute HFrEF (heart failure with reduced ejection fraction) follows with [facility] Atrial fibrillation with rapid ventricular response one episode at [place] 02/2024 > cardioversion Renal insufficiency CKD (chronic kidney disease) stage 3, GFR 30-59 ml/min History of tobacco abuse Past Family History Family History Other Cancer Clotting disorder Past Surgical History Surgical History History of tooth extraction History of colonoscopy Social History Smoking Status: Current some day smoker Smoking cigarettes per day: 30 Do You Dip or Chew Tobacco: No Smoking End Date: quit smoking around [place] - occassionally still smokes Hx Alcohol Use: No Hx Substance Use: No substance use type: does not use Physical Exam Vital Signs Last Vital Signs Temp 36.7 C 04/07/24 11:03 Pulse 74 04/07/24 11:03 Resp 18 04/07/24 11:03 BP 131/75 04/07/24 11:03 Pulse Ox 98 04/07/24 11:03 O2 Del Method Room Air 04/07/24 11:03 Testing Laboratory Results 04/07/24 06:01 04/07/24 06:01 Urine Color Yellow 04/05/24 10:35 Urine Appearance Cloudy (Clear) A 04/05/24 10:35 Urine pH 5.5 (4.5-7.5) 04/05/24 10:35 Ur Specific [place] 1.018 (1.000-1.030) 04/05/24 10:35 Urine Protein 2+ (Negative) H 04/05/24 10:35 Urine Glucose (UA) Negative (Negative) 04/05/24 10:35 Urine Ketones Negative (Negative) 04/05/24 10:35 Urine Nitrite Negative (Negative) 04/05/24 10:35 Ur Leukocyte Esterase 1+ (Negative) H 04/05/24 10:35 Urine WBC (Auto) 11-20 /hpf (0-5) H 04/05/24 10:35 Urine RBC (Auto) 3-5 /hpf (0-2) H 04/05/24 10:35 U Hyaline Cast (Auto) 0-2 /lpf (0-2) 04/05/24 10:35 U Epithel Cells (Auto) 11-20 /hpf (0-2) H 04/05/24 10:35 Urine Bacteria (Auto) 2+ (None Seen) H 04/05/24 10:35 Blood Type A Positive 04/05/24 19: Antibody Screen NEGATIVE 04/05/24 19:24 04/05/24 10:35 Urine Culture - Preliminary Urine,Clean Catch Pin-point growth present, reincubating. Electrocardiogram Date: 04/06/24 Findings: + NSR @ (79) WNL Chest X-Ray Date: 02/09/24 CLINICAL HISTORY: chest pain TECHNIQUE: Single frontal radiograph of the chest was obtained. Comparison: Comparison is made to 11/13/2023 FINDINGS: Exam is limited by underpenetration. Cardiomegaly is noted. The aortic arch is calcified. The lungs are clear. No evidence of pleural effusion or pneumothorax. IMPRESSION: No acute chest disease. Cardiomegaly is noted. Echocardiogram Date: 04/05/24 EF: 55-60 LV Function: normal Other Findings: + atrial enlargement (mild left) and + LVH (mod) mod pericardial effusion
[2024-04-07] MEDS: SODIUM CHLORIDE 0.9% 500 ML IV SCH ×2 (12:33→14:42)
[2024-04-07] MEDS: LIDOCAINE 2% 2 ML VIAL/AMP(20MG/ML) INFIL ONE (14:43)
[2024-04-07] MEDS: ENDOSCOPIC MARKER 5 ML SYR TOP ONE (14:43)
[2024-04-07] MEDS: PROPOFOL IV EMULSION 10 MG/ML 20 ML VIAL IV ONE ×2 (14:43)
--- NOTE | 2024-04-07 15:31 | Anesthesiology Progress Note ---
Date of Service April 07, 2024 Anesthesia Post Procedure Vital Signs Vital Signs: Temp Pulse Pulse Resp BP Pulse Ox O2 Del Method 04/07/24 15:10 36.4 C L 72 18 159/78 H 97 Room Air 04/07/24 14:25 59 L 16 145/62 H 100 Room Air 04/07/24 14:10 62 16 134/63 97 Room Air 04/07/24 13:55 60 16 120/67 97 Room Air 04/07/24 12:21 36.2 C L 74 16 136/77 98 Room Air 04/07/24 11:03 36.7 C 74 18 131/75 98 Room Air 04/07/24 07:30 77 04/07/24 07:13 36.9 C 68 18 138/73 98 Room Air 04/07/24 03:30 36.7 C 57 L 18 129/61 97 Room Air 04/06/24 22:29 73 04/06/24 22:20 36.3 C L 66 18 153/71 H 98 Room Air 04/06/24 19:15 36.6 C 75 18 145/78 H 99 Room Air Pain Intensity Left Flank: Pain Intensity: 2 Back: Pain Intensity: 5 Transfer of Care Handoff Completed per policy Notes Mental Status: alert / awake / arousable and participated in evaluation Patient Amnestic to Procedure: Yes Nausea / Vomiting: adequately controlled Pain: adequately controlled Airway Patency, RR, SpO2: stable & adequate BP & HR: stable & adequate Hydration State: stable & adequate Anesthetic Complications: no major complications apparent and Pt Satisfied with anesthetic care
--- NOTE | 2024-04-07 15:43 | GI REPORT ---
[facility] Patient: KHARI RODRIGUEZ : 1955 Sex at : Female Age: 68 Years Procedure: Colonoscopy Date: 04/07/2024 Attending Physician: Andrzej Mgcuire MD Referring MD: Referred Self Indications: - Hematochezia Medications: - Monitored Anesthesia Care Complications: - No immediate complications. Procedure: - Prior to the procedure, a History and Physical was performed, and patient medications, allergies and sensitivities were reviewed. The patient's tolerance of previous anesthesia was reviewed. - The risks and benefits of the procedure and the sedation options and risks were discussed with the patient. All questions were answered and informed consent was obtained. - ASA Grade Assessment: I - A normal, healthy patient. - Prior Anticoagulants: The patient has taken no anticoagulant or antiplatelet agents. - The adult colonoscope was introduced through the anus and advanced to the cecum and Terminal Ileum, identified by appendiceal orifice and ileocecal valve. - The appendiceal orifice and the ileocecal valve were photographed. - The colonoscopy was performed without difficulty. - The patient tolerated the procedure well. - The quality of the bowel preparation was adequate. Findings: - The perianal and digital rectal examinations were normal. - A polypoid, sessile and infiltrative non-obstructing [Size] mass was found in the distal sigmoid colon. The mass was partially circumferential (involving one-third of the lumen circumference). The mass measured 4 cm (in length). In addition, its diameter measured 20 mm. No bleeding was present. Biopsies were taken with a cold forceps for histology. Area was tattooed with an injection of 2 mL of Spot (carbon black). - A diminutive (1-3 mm) polyp was found in the descending colon. The polyp was sessile. Polyp completely removed with cold forceps piecemeal - A 5 mm polyp was found in the distal descending colon not removed likely in field of ultimate left hemicolectomy.. - Many medium-mouthed diverticula were found in the sigmoid colon and descending colon. - The terminal ileum appeared normal. Impression: - Likely malignant tumor in the distal sigmoid colon. Biopsied. Tattooed. - One diminutive (1-3 mm) polyp in the descending colon. - Polyp completely removed with cold forceps piecemeal - One 5 mm polyp in the distal descending colon. - Diverticulosis in the sigmoid colon and in the descending colon. - The examined portion of the ileum was normal. Recommendation: - Discharge patient to home. - Patient has a contact number available for emergencies. The signs and symptoms of potential delayed complications were discussed with the patient. Return to normal activities tomorrow. Written discharge instructions were provided to the patient. - Resume previous diet. - Repeat colonoscopy in 6 to 12 months postsurgical resection Procedure Code(s): - 79734, Colonoscopy, flexible; with biopsy, single or multiple - 95825, Colonoscopy, flexible; with directed submucosal injection(s), any substance Diagnosis Code(s): - K92.1, Melena (includes Hematochezia) - D49.0, Neoplasm of unspecified behavior of digestive system - D12.4, Benign neoplasm of descending colon - K57.30, Diverticulosis of large intestine without perforation or abscess without bleeding CPT(R) - 2023 copyright [employer]. All Rights Reserved. The CPT codes, CCI edits and ICD codes generated are intended as suggestions and were generated based on input data. These codes are preliminary and upon photo optics technician review may be revised to meet current compliance and payer requirements. The provider is responsible for the final determination of appropriate codes, and modifiers. Andrzej Mcguire MD This document has been electronically signed. Note Initiated:04/07/2024 Note Completed:04/07/2024 3:42 PM \\[id number]
--- NOTE | 2024-04-07 23:10 | Electrocardiogram Report ---
Test Reason : Blood Pressure : */* mmHG Vent. Rate : 79 BPM Atrial Rate : 79 BPM P-R Int : 134 ms QRS Dur : 84 ms QT Int : 368 ms P-R-T Axes : 56 -6 83 degrees QTcB Int : 421 ms Sinus rhythm with occasional Premature ventricular complexes Low voltage QRS Nonspecific T wave abnormality When compared with ECG of 11-Mar-2024 09:36, Premature ventricular complexes are now Present Confirmed by Eddie Faust ([id number]) on 04/07/2024 11:09:41 PM Referred By: REFERRED SELF Confirmed By: Eddie Faust
[2024-04-07] MEDS: MELATONIN 3 MG TAB PO PRN (23:30)
--- NOTE | 2024-04-08 06:05 | Electrocardiogram Report ---
Test Reason : Blood Pressure : */* mmHG Vent. Rate : 66 BPM Atrial Rate : 66 BPM P-R Int : 196 ms QRS Dur : 90 ms QT Int : 404 ms P-R-T Axes : 19 -15 86 degrees QTcB Int : 423 ms Sinus rhythm with marked sinus arrhythmia with occasional Premature ventricular complexes Otherwise normal ECG When compared with ECG of 05-Apr-2024 09:13, No significant change was found Confirmed by Eddie Faust ([id number]) on 04/08/2024 6:05:26 AM Referred By: REFERRED SELF Confirmed By: Eddie Faust
[2024-04-08 07:06] LABS: Hemoglobin 9.9 g/dl (12.0-16.0); Mean Corpuscular Hemoglobin 29.6 pg (25.0-34.0); Mean Corpuscular Volume 89.6 fL (80.0-100.0); Mean Platelet Volume 10.2 fL (9.4-12.4); Platelet Count 157 K/uL (130-400); RDW Coefficient of Variation 15.5 % (11.5-14.5); RDW Standard Deviation 50.7 fL (36.4-46.3); Red Blood Count 3.35 M/uL (4.20-5.40); White Blood Count 6.68 K/ul (4.8-10.8)
[2024-04-08 07:14] LABS: BUN Creatinine Ratio 20.6 (10-20); Calcium 9.6 mg/dl (8.6-10.3); Creatinine Clr Calc Pharmacy 31.5 ml/min; Est GFR (African American) 37.4 ml/min; Est GFR (Non-African American) 32.3 ml/min; Potassium 4.2 mmol/L (3.5-5.1)
--- NOTE | 2024-04-08 10:03 | Gastroenterology Progress Note ---
Date of Service April 08, 2024 Assessment & Plan (1) Colonic mass: Plan: - await pathology. - recommend surgical consultation for colon mass. - okay to advance diet as tolerated. Admission and Anticipated Discharge Date Admission Date: April 07, 2024 Supervising Physician Co-Signing Physician Notes I saw and examined this patient with our nurse practitioner and agree with her assessment and plan. Resting comfortably no evidence of active bleeding. Colonoscopy revealed a sigmoid mass consistent with malignancy. Will need surgical input regarding treatment plan. Should have repeat colonoscopy 6 to 12 months after surgical intervention. Resume anticoagulation upon discharge. Subjective Patient tells me she has not had further bleeding. we reviewed her colonoscopy report. pathology is pending. CEA 6.6. Her only complaint currently is that she wants her diet advanced. rest of GI ros unremarakble. Review of Systems Review of Systems: All systems reviewed & are unremarkable except as noted in HPI & below Physical Exam Constitutional: WD/WN, vitals as above Respiratory: normal respiratory effort, lungs clear to auscultation Cardiovascular: Rate/Rhythm: regular rate and regular rhythm Gastrointestinal (Abdomen): normal bowel sounds, soft, nontender, no hepatosplenomegaly Psychiatric: Orientation: alert and oriented x 3 Affect: euthymic affect Results & Data Results & Data Vital Signs (Past 12 Hours) Vital Signs Temp Pulse Pulse Resp BP Pulse Ox O2 Del Method 04/08/24 07:50 Room Air 04/08/24 07:26 98.1 F 72 18 168/79 H 95 Room Air 04/08/24 07:00 58 L 04/08/24 04:34 97.7 F 54 L 16 108/58 L 97 Room Air 04/08/24 00:21 97.3 F L 62 18 141/67 H 98 Room Air 04/07/24 23:00 57 L Coding Level of Care Code 66939 SUB INP/OBS CARE 25MIN Diagnoses Colonic mass K63.89
--- NOTE | 2024-04-08 15:49 | Surgery Consultation ---
Date of Consultation April 08, 2024 Assessment & Plan (1) Colonic mass: Patient is a 68-year-old female with a PMH of A-fib, anticoagulated on Eliquis and Plavix, CAD, and a cardiomyopathy, CHF, (echo on 11/13/23 showing EF of 35- 40%) Cardiac stents placed 03/11/24, who presented to the ER with complaint of rectal bleeding on 04/05/24. She was admitted to the hospital , anticoagulation was held , she was cleared by cardiology to have a colonoscopy. She underwent a colonoscopy on 04/07/24 and distal sigmoid mass was biopsied. Pathology is currently pending. General surgery was consulted for possible bowel resection. The patient denies any prior abdominal surgical history. On exam patient is no acute distress, abdomen soft , non tender non distended, reports rectal bleeding has stopped. VSS Ideally it would be better to have the pathology results of the colon bx prior to surgical intervention. Would recommend consulting cardiology for surgical clearance and recommendation on anticoagulation prior to and after surgery. Recommend the patient have a Chest CT. She would also need to have bowel prep the day prior to surgery consisting of clear liquids only no solid food, at 1400 8oz of clear liquids, 1500 two Ducolax tablets, 1600 drink 8oz clear liquids, 1700 one entire bottle of miralax into 64oz of Gatorade and drink 8oz glass every 15min until gone. At 1900 two Ducolax tablets , at 2100 and 2200 drink 8oz of clear liquids and NPO at MN. Pt seen and examined with Dr. Moreno. Supervising Physician Co-Signing Physician Notes Patient seen and examined, labs and imaging reviewed, agree with above. Recent stent placement on Plavix and Eliquis presented with GI bleed. Colonoscopy showed sigmoid colon mass, biopsy, pathology results pending. CEA elevated. CT of the abdomen showed no evidence of metastatic disease. She has ongoing issues with kidney stones. No prior abdominal surgical history. Her antiplatelet therapy and anticoagulation has been held. On exam she is afebrile stable vitals, abdomen soft, nontender, nondistended. H&H stable. CEA 6.6. CT personally reviewed and interpreted agree with the assessment of kidney stones, but there is no obvious sigmoid colon mass identified. We will continue to discuss the case with primary team as well as cardiology regarding holding her Plavix and Eliquis in the setting of recent stent placement versus bleeding from this mass. We have tentatively plan for sigmoidectomy on Friday, but will discuss with the patient History of Present Illness Reason for Consultation: sigmoid mass Requesting Physician: PADMA Rios Attending Physician: Joshua Moura MD History of Present Illness Patient is a 68-year-old female with a PMH of A-fib, anticoagulated on Eliquis and Plavix, CAD, and a cardiomyopathy, CHF, (echo on 11/13/23 showing EF of 35- 40%) who presented to the ER with complaint of rectal bleeding on 04/05/24. She was admitted to the hospital , anticoagulation was held , she was cleared by cardiology to have a colonoscopy. She underwent a colonoscopy on 04/07/24 and distal sigmoid mass was biopsied. Pathology is currently pending. General surgery was consulted for possible bowel resection. The patient denies any prior abdominal surgical history. Allergies Allergy/AdvReac Type Severity Reaction Status Date / Time Iodinated Contrast Media AdvReac Intermediate Nausea Verified 04/07/24 12:21 Home Medications Medication Instructions Recorded Confirmed Type apixaban 5 mg tablet (Eliquis) 5 mg PO BID 90 days #180 tabs 12/04/23 04/05/24 Rx nitroglycerin 0.4 mg sublingual 0.4 mg sublingual UD PRN chest 02/13/24 04/05/24 Rx tablet (Nitrostat) pain #20 tabs metoprolol succinate 100 mg 100 mg PO QAM 02/16/24 04/05/24 History tablet,extended release 24 hr clopidogrel 75 mg tablet 75 mg PO DAILY #30 tabs 03/11/24 04/05/24 Rx atorvastatin 40 mg tablet 40 mg PO DAILY 04/05/24 04/05/24 History bumetanide 2 mg tablet 2 mg PO DAILY #30 tabs 04/07/24 Rx Patient History Medical History Cellulitis of left foot being treated for at present 02/2024 Hx of non-ST elevation myocardial infarction (NSTEMI) November 2023 [place] Kidney stone at present 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, stage 3 Acute HFrEF (heart failure with reduced ejection fraction) follows with [facility] Atrial fibrillation with rapid ventricular response one episode at [place] 02/2024 > cardioversion Renal insufficiency CKD (chronic kidney disease) stage 3, GFR 30-59 ml/min History of tobacco abuse Surgical History History of tooth extraction History of colonoscopy Family History Other Cancer Clotting disorder Social History Smoking Status: Current some day smoker Tobacco Type: Cigarettes Age Started Using Tobacco: 18; Age Quit Using Tobacco: 68; Cigarettes Per Day: 30; Second Hand Exposure: No; Do You Dip or Chew Tobacco: No; Hx Alcohol Use: No Hx Substance Use: No Preferred Language: German Communication Ability: Effective Visual Impairment: No Limitations Hearing Ability: Normal Manager Rn Required: No Beliefs That Will Affect Care: None marital status: Single Current Living Situation: Other Current Living Situation Comment: currently living with neighbor during house renovations - lives alone current occupational status: 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 How many Children do You have: 0 Feels Safe at Home: Yes Diet: low salt caffeine: Yes Dental Care, Regularly: No Physical Activity Frequency: Daily Seatbelt Use: always Do you think of yourself as: straight/heterosexual Gender Identity: Female Assistive Devices: Cane and Walker Review of Systems Constitutional: no fever and no chills Gastrointestinal: no abdominal pain, no nausea and no vomiting Physical Exam Constitutional: cooperative and comfortable; no acute distress Respiratory: normal respiratory effort; no respiratory distress Gastrointestinal (Abdomen): Inspection/Auscultation: abdomen not distended Percussion/Palpation: abdomen soft Psychiatric: A+Ox3, euthymic affect Results & Data Vital Signs (Past 12 Hours) Vital Signs Temp Pulse Pulse Resp BP Pulse Ox O2 Del Method 04/08/24 14:15 75 04/08/24 11:21 97.9 F 56 L 18 128/63 96 Room Air 04/08/24 07:50 Room Air 04/08/24 07:26 98.1 F 72 18 168/79 H 95 Room Air 04/08/24 07:00 58 L 04/08/24 04:34 97.7 F 54 L 16 108/58 L 97 Room Air Results CBC w Diff Results: RBC 3.35 M/uL (4.20-5.40) L 04/08/24 WBC 6.68 K/ul (4.8-10.8) 04/08/24 Hgb 9.9 g/dl (12.0-16.0) L 04/08/24 Hct 30.0 % (37.0-47.0) L 04/08/24 MCV 89.6 fL (80.0-100.0) 04/08/24 MCH 29.6 pg (25.0-34.0) 04/08/24 MCHC 33.0 g/dL (32.0-36.0) 04/08/24 RDW Standard Deviation 50.7 fL (36.4-46.3) H 04/08/24 RDW Coefficient of Variation 15.5 % (11.5-14.5) H 04/08/24 Plt Count 157 K/uL (130-400) 04/08/24 MPV 10.2 fL (9.4-12.4) 04/08/24 Neutrophils (%) (Auto) 68.6 % 04/07/24 Lymphocytes (%) (Auto) 18.7 % 04/07/24 Monocytes # (Auto) 0.54 K/uL (0.11-0.59) 04/07/24 Eosinophils # (Auto) 0.23 K/uL (0.00-0.50) 04/07/24 Immature Granulocyte % (Auto) 0.3 % 04/07/24 Neutrophils # (Auto) 4.49 K/uL (1.40-6.50) 04/07/24 Lymphocytes # (Auto) 1.22 K/uL (1.20-3.40) 04/07/24 Monocytes # (Auto) 0.54 K/uL (0.11-0.59) 04/07/24 Eosinophils # (Auto) 0.23 K/uL (0.00-0.50) 04/07/24 Basophils # (Auto) 0.04 K/uL (0.00-0.20) 04/07/24 Immature Granulocyte # (Auto) 0.02 K/uL (0.01-0.20) 4 PG Care Time/CCT Total # of Minutes Spent Total Time Spent with Patient: Total time spent is greater than 50% in coordination of care (as documented) at patient's floor/unit and/or counseling patient: Coding Level of Care Code 78593 INT INP/OBS CARE MIN Diagnoses Colonic mass K63.89
[2024-04-08] MEDS ORDERED: Heparin IV Adult Wt-Based Low-Dose *NO* INITIAL Bolus Protocol IV STA (16:14)
--- NOTE | 2024-04-08 16:28 | Hospitalist Progress Note ---
Date of Service April 08, 2024 Assessment & Plan (1) Bright red blood per rectum: (2) CAD (coronary artery disease): (3) Anticoagulant long-term use: (4) Congestive heart failure: (5) CKD (chronic kidney disease) stage 3, GFR 30-59 ml/min: Plan This is a 68 yr old F Who has a significant past medical history of CAD (PCI mid LAD and distal LAD 03/2024), chronic HFpEF with hx of cardiomyopathy, atrial fibrillation, CKD stage IIIb, chronic anemia, history of renal calculi, hyperkalemia no longer tolerating lokelma who presents to ED in setting of bright red blood per rectum x 1 day. Sigmoid Colonic Mass: Bright red blood per rectum: admit to med tele Pt required 1 unit PRBC evening of 04/05 due to hgb 9.0 in setting of active GIB and recent coronary stents hold eliquis, plavix- last dose was on 04/04 p.m. for eliquis and a.m. for plavix Per cardiology recommend at least ASA 81mg daily and as soon as able recommend switching ASA to plavix. [place] tx for her is plavix/eliquis when able --CT abd w/o identifiable source of bleeding possible diverticular vs hemorrhoidal appreciate GI recs- C scope performed on 04/07; sigmoid mass identified General surgery consult performed today: Plan for colon resection scheduled on Friday 04/13 @ 1140. Pathology results pending but given patient is off of AC currently, willl avoid restarting/stopping AC again. Cardiology consult placed for clearance for surgery; discussed directly with Dr. Faust who will outline recommendations; understanding the risks associated with being off of anticoagulation with recent stent placement on 03/11. Will place on Heparin gtt; monitor for rebleeding. Per general surgery recommendations: Recommend the patient have a Chest CT; ordered. preop bowel prep day prior to surgery per gen surg: (needs to be ordered) 1. clear liquids only no solid food 2. 1400 8oz of clear liquids 3. 1500 two Ducolax tablets 4. 1600 drink 8oz clear liquids 5. 1700 one entire bottle of Miralax into 64oz of Gatorade and drink 8oz glass every 15min until gone. 6. 1900, 2100, 2200: two Ducolax tablets 7. 2200 drink 8oz of clear liquids 8. NPO after MN CAD (PCI mid LAD and distal LAD 03/2024) Chronic HFpEF Hx of tachycardic induced cardiomyopathy (EF improved) Atrial fibrillation follows [facility] [place] Echo: LVEF 55-60%, moderate pericardial effusion w/o tamponade on metoprolol, bumex, statin, plavix, eliquis as OP Resume Bumex today in setting of IVF/PRBC, + UOP Continue ASA for now, replace with Plavix as soon as able and reintroduce eliquis as soon as able daily weights, strict intake and output pt is not on Jardiance, ARB in setting of UTI hx and hyperkalemia Place on Heparin gtt; low dose no bolus and monitor for rebleeding. CKD-3b: chronic, baseline cr 1.4, stable follows [facility] nephro, avoid nephrotoxic agents, in setting of ureteral obstruction and L renal atrophy, consider nephro consult if worsens, Cr improving today to 1.5 Obstructing L UPJ Calculus Possible complicated UTI vs contamination CT a/p: There is a 1.5 cm obstructing calculus/calculi at/below the left ureteropelvic junction. This causes severe left-sided hydronephrosis and is similar to the 02/09/2024 examination. follows [facility] urology - awaiting NM renal scan, plan for OP treatment continue IV ceftriaxone, await urine culture - currently reincubating consider urology consult Abnormal CT a/p finding: prominent ovaries for age, recommend OP Pelvic US Disposition: DVT ppx:SCDS FULL CODE PCP: Nicholas Magallanes admit to [facility] A total of 62 minutes was spent coordinating, documenting, and providing care for this patient excluding time spent in the performance of separately billed services. This included personally viewing all current laboratories and imaging studies, medication reconciliation, outpatient chart review, and discussion with specialists. Admission and Anticipated Discharge Date Admission Date: April 07, 2024 Supervising Physician Co-Signing Physician Notes Attending addendum: The patient was seen and examined in medical telemetry unit She has been feeling much better and awaiting to be discharged She will be seen by surgery and further recommendation will be according to surgery service On examination Sitting in a chair without any acute distress but very anxious Hemodynamically stable with unremarkable physical examination Her labs, medications and imaging studies reviewed Has sigmoid mass on colonoscopy, plan for surgery on Friday as per the surgery service Agree with assessment and plan as outlined above by Praveena ROUSE and take the full responsibility of the patient care in the hospital. Dr. Dereje Moura Subjective Patient laying in her bed in no apparent distress She is currently tolerating advancing diet Her main concern is about receiving a nuclear med scan for ureteral calculi that was scheduled for tomorrow Tentative colon resection planned for 04/13 @ 1140 Pt denies Sparks, dizziness, chest pain, palpitations, SOB, dysuria or fevers/chills. Review of Systems Review of Systems: Neuro: (-) Falls, trauma, slurred speech HEENT: (-) SPARKS, dizziness, dysphagia, visual or auditory changes CV: (-) CP, palpitations, swelling Resp: (-) SOB GI: (-) appetite changes, N/V/D, bowel changes : (-) urinary changes Skin: (-) rashes Psych: (-) anxiety, depression Physical Exam Physical Exam: Neuro: AAOx4, PERRLA, no aphagia, memory changes, CNII-XII grossly intact HEENT: head normocephalic, moist mucus membranes CV: S1/S2, (-) M/G/R, (-) edema, cap refill < 3 seconds Resp: Lungs CTA in all prieto. On RA GI: Abdomen S/NT/ND, Ax4 bowel sounds, (-) CVA tenderness Musculoskeletal: 5/5 B/L UE strength, 5/5 B/L LE strength. No gait disturbance Skin: (-) rashes , (-) erythema. Psych: euthymic mood Results & Data Results & Data Vital Signs (Past 12 Hours) Vital Signs Temp Pulse Pulse Resp BP Pulse Ox O2 Del Method 04/08/24 15:47 36.6 C 52 L 18 141/66 H 96 Room Air 04/08/24 14:15 75 04/08/24 11:21 36.6 C 56 L 18 128/63 96 Room Air 04/08/24 07:50 Room Air 04/08/24 07:26 36.7 C 72 18 168/79 H 95 Room Air 04/08/24 07:00 58 L 04/08/24 04:34 36.5 C 54 L 16 108/58 L 97 Room Air Laboratory Results Short CBC 04/08/24 Range/Units 06:07 WBC 6.68 (4.8-10.8) K/ul Hgb 9.9 L (12.0-16.0) g/dl Hct 30.0 L (37.0-47.0) % Plt Count 157 (130-400) K/uL BMP 04/08/24 06:07 Sodium 139 Potassium 4.2 Chloride 108 H Carbon Dioxide 25 BUN 33 H Creatinine 1.60 H Glucose 97 Calcium 9.6 (2) CAD (coronary artery disease) Associated angina: without angina Coronary Disease-Associated Artery/Lesion type: [place] artery [place] vs. transplanted heart: [place] heart Qualified Code(s): I25.10 - Atherosclerotic heart disease of [place] coronary artery without angina pectoris (4) Congestive heart failure Heart failure type: combined systolic and diastolic
--- NOTE | 2024-04-08 17:41 | Cardiology Progress Note ---
Date of Service April 08, 2024 Assessment & Plan (1) CAD (coronary artery disease): (2) Pericardial effusion: (3) Cardiomyopathy: (4) Persistent atrial fibrillation: (5) Heart failure with improved ejection fraction (HFimpEF): Plan ASSESSMENT/PLAN: 1. CAD s/p LAD PCI x 2: Recent PCI on 03/11/2024. No angina. Recommend antiplatelet therapy without interruption. Given recent PCI, recommend resuming Plavix when able from a surgical standpoint. Dual antiplatelet therapy or Plavix with anticoagulation therapy recommended for at least 6 months from initial PCI. Continue beta-mckay. Continue high intensity statin therapy. 2. 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 Surgery planned for 04/13/2024. Continue aspirin 81 mg daily. Continue beta-mckay without interruption. Not ideal to be without dual antiplatelet therapy or anticoagulation therapy with Plavix given recent stents but with concern for malignancy with this large tumor, can proceed with surgery as necessary. 3. Atrial fibrillation s/p prior DC CV: Sinus rhythm. Okay to hold Eliquis given GI bleed. Would resume Eliquis when safe from a bleeding standpoint, for stroke risk reduction. In the meantime, consider heparin drip if no further bleeding, which can be quickly discontinued if bleeding should return. Would discontinue for any signs of bleeding. Monitor CBC. 4. Heart failure with improved EF: She does not appear hypervolemic. Takes Bum ex at home. Low-sodium diet. Strict I's and O's. 5. Cardiomyopathy: Likely tachycardia induced as LV systolic function improved with improved heart rate and muslim of sinus rhythm. 6. Pericardial effusion: Clinically not in tamponade. Stable compared to 02/13/2024 study. Continue to monitor in the outpatient setting intermittently. 7. Disposition: Please call on-call director of radio services with any further questions or concerns. Patient care communicated with primary hospitalist service, Praveena Rios. On discharge, follow-up with Ina Keyes of the heart failure program and Dr. Martinez of electrophysiology, her primary director of radio services. Admission and Anticipated Discharge Date Admission Date: April 07, 2024 Subjective Patient seen this afternoon. No angina but has had chronic feeling in her chest intermittently, previously described as a warmth. She denies shortness of breath, syncope, near syncope, palpitations. She has not noted any melena or hematochezia since initial evaluation. She underwent colonoscopy yesterday which demonstrated large sigmoid tumor. She was seen by surgery today who recommends sigmoidectomy on Friday. She was alone in her hospital room. Physical Exam Physical Exam: Gen.: No acute distress. Alert. HEENT: Anicteric sclera. Neck: No JVD. Cardiac: Regular. Normal S1-S2. No murmurs, rubs, or gallops. Pulmonary: Clear to auscultation bilaterally without wheezes, rales, or rhonchi. Abdomen: Soft, nondistended, with normoactive bowel sounds. No bruits noted. Extremities: 2+ radial pulses bilaterally. 2+ posterior tibialis pulses bilaterally. No edema or cyanosis. Results & Data Vital Signs (Past 12 Hours) Vital Signs Temp Pulse Pulse Resp BP Pulse Ox O2 Del Method 04/08/24 15:47 36.6 C 52 L 18 141/66 H 96 Room Air 04/08/24 14:15 75 04/08/24 11:21 36.6 C 56 L 18 128/63 96 Room Air 04/08/24 07:50 Room Air 04/08/24 07:26 36.7 C 72 18 168/79 H 95 Room Air 04/08/24 07:00 58 L Laboratory Results Laboratory Results - last 24 hr 04/08/24 06:07 WBC 6.68 RBC 3.35 L Hgb 9.9 L Hct 30.0 L MCV 89.6 MCH 29.6 MCHC 33.0 RDW Std Deviation 50.7 H RDW Coeff of Jame 15.5 H Plt Count 157 MPV 10.2 Sodium 139 Potassium 4.2 Chloride 108 H Carbon Dioxide 25 Anion Gap 6 BUN 33 H Creatinine 1.60 H Est Cr Clr Drug Dosing 31.5 Est GFR ( Amer) 37.4 Est GFR (Non-Af Amer) 32.3 BUN/Creatinine Ratio 20.6 H Glucose 97 Calcium 9.6 Carcinoembryonic Ag 6.6 H Diagnostic Findings Surgery consultation note reviewed. Colonoscopy report reviewed as summarized above. Telemetry personally reviewed and notable for sinus rhythm. No arrhythmia. Labs reviewed and notable for stable anemia, mildly abnormal but stable renal function, normal potassium. Medications Administered Current Inpatient Medications Acetaminophen (Acetaminophen 325 Mg Tab) 650 mg PO Q4H PRN PRN Reason: Pain or Fever Stop: 05/05/24 16:05 Last Admin: 04/08/24 16:37 Dose: 650 mg Aspirin (Aspirin 81 Mg Ectab) 81 mg PO QAM [facility] Stop: 05/05/24 16:14 Last Admin: 04/08/24 07:53 Dose: 81 mg Atorvastatin Calcium (Atorvastatin 40 Mg Tab) 40 mg PO DAILY [facility] Stop: 05/06/24 08:59 Last Admin: 04/08/24 07:53 Dose: 40 mg Bumetanide (Bumetanide 1 Mg Tab) 2 mg PO DAILY [facility] Stop: 05/06/24 12:29 Last Admin: 04/08/24 07:53 Dose: 2 mg Famotidine (Famotidine 20 Mg Tab) 20 mg PO DAILY PRN PRN Reason: Heartburn Stop: 05/05/24 16:05 Ceftriaxone Sodium (Rocephin) 2,000 mg in 50 mls @ 100 mls/hr IV Q24H [facility] Stop: 04/16/24 08:59 Last Infusion: 04/08/24 08:36 Dose: Infused Pantoprazole Sodium 40 mg/ (Syringe) 10 mls @ 5 mls/min IV BID [facility] Stop: 05/05/24 16:29 Last Admin: 04/08/24 07:54 Dose: 5 mls/min Heparin Sodium/Dextrose (Heparin Sodium/Dextrose) 25,000 units in 500 mls @ 0.02 mls/hr IV .Q24H [facility]; Protocol Stop: 04/13/24 07:00 Melatonin (Melatonin 3 Mg Tab) 6 mg PO HS PRN PRN Reason: Sleep Stop: 05/05/24 20:59 Last Admin: 04/07/24 23:30 Dose: 6 mg Metoprolol Succinate (Metoprolol Succ 50mg Ext Rel Tab) 100 mg PO [facility] Stop: 05/05/24 16:29 Last Admin: 04/08/24 07:53 Dose: 100 mg Ondansetron HCl (Ondansetron Inj 2 Mg/Ml 2 Ml Vial) 4 mg IV Q6H PRN PRN Reason: Nausea Stop: 05/05/24 16:05 Last Admin: 04/06/24 20:19 Dose: 4 mg Polyethylene Glycol (Polyethylene (Miralax) 17 Gm Pack) 17 gm PO DAILY PRN PRN Reason: Constipation Stop: 05/05/24 16:05 PG Care Time/CCT Total # of Minutes Spent Total Time Spent with Patient: Total time spent is greater than 50% in coordination of care (as documented) at patient's floor/unit and/or counseling patient: Coding Level of Care Code 86438 SUB INP/OBS CARE 3/50MIN Diagnoses Coronary artery disease involving [place] coronary artery of [place] heart without angina pectoris I25.10 Coronary Disease-Associated Artery/Lesion type: [place] artery [place] vs. transplanted heart: [place] heart Associated angina: without angina Pericardial effusion I31.39 Cardiomyopathy, unspecified type I42.9 Cardiomyopathy type: unspecified Persistent atrial fibrillation I48.19 Heart failure with improved ejection fraction (HFimpEF) I50.32 (1) CAD (coronary artery disease) Coronary Disease-Associated Artery/Lesion type: [place] artery [place] vs. transplanted heart: [place] heart Associated angina: without angina Qualified Code(s): I25.10 - Atherosclerotic heart disease of [place] coronary artery without angina pectoris (3) Cardiomyopathy Cardiomyopathy type: unspecified Qualified Code(s): I42.9 - Cardiomyopathy, unspecified
[2024-04-08] MEDS: HEPARIN SODIUM/DEXTROSE 25,000 UNITS/500 ML BAG IV SCH (18:15)
[2024-04-08 18:18] LABS: ANTI-Xa, UFH(UnfractionatedHep < 0.10 IU/ml (0.3-0.7)
[2024-04-08 18:26] LABS: Basophils # (auto) 0.03 K/uL (0.00-0.20); Basophils % (auto) 0.5 %; Eosinophils # (auto) 0.18 K/uL (0.00-0.50); Eosinophils % (auto) 2.7 %; Hematocrit (blood only) 31.7 % (37.0-47.0); Hemoglobin 10.7 g/dl (12.0-16.0); Immature Granulocytes # (auto) 0.01 K/uL (0.01-0.20); Immature Granulocytes % (auto) 0.2 %; Lymphocytes # (auto) 1.23 K/uL (1.20-3.40); Lymphocytes % (auto) 18.6 %; Mean Corpuscular Hemoglobin 29.9 pg (25.0-34.0); Mean Corpuscular Hgb Conc 33.8 g/dL (32.0-36.0); Mean Corpuscular Volume 88.5 fL (80.0-100.0); Mean Platelet Volume 9.8 fL (9.4-12.4); Monocytes # (auto) 0.39 K/uL (0.11-0.59); Monocytes % (auto) 5.9 %; Neutrophils # (auto) 4.76 K/uL (1.40-6.50); Neutrophils % (auto) 72.1 %; Platelet Count 183 K/uL (130-400); RDW Coefficient of Variation 15.2 % (11.5-14.5); RDW Standard Deviation 49.5 fL (36.4-46.3); Red Blood Count 3.58 M/uL (4.20-5.40)
[2024-04-08 18:49] LABS: Partial Thromboplastin Ratio 0.9; Partial Thromboplastin Time 25 Seconds (21-31)
[2024-04-09 01:34] LABS: ANTI-Xa, UFH(UnfractionatedHep 0.64 IU/ml (0.3-0.7)
[2024-04-09 07:32] LABS: Hematocrit (blood only) 30.7 % (37.0-47.0); Hemoglobin 10.4 g/dl (12.0-16.0); Mean Corpuscular Hemoglobin 29.9 pg (25.0-34.0); Mean Corpuscular Hgb Conc 33.9 g/dL (32.0-36.0); Mean Corpuscular Volume 88.2 fL (80.0-100.0); Mean Platelet Volume 9.7 fL (9.4-12.4); Platelet Count 170 K/uL (130-400); RDW Standard Deviation 48.5 fL (36.4-46.3); Red Blood Count 3.48 M/uL (4.20-5.40); White Blood Count 6.96 K/ul (4.8-10.8)
--- NOTE | 2024-04-09 07:50 | Hospitalist Progress Note ---
Date of Service April 09, 2024 Assessment & Plan (1) Bright red blood per rectum: (2) CAD (coronary artery disease): (3) Anticoagulant long-term use: (4) Congestive heart failure: (5) CKD (chronic kidney disease) stage 3, GFR 30-59 ml/min: Plan This is a 68 yr old F Who has a significant past medical history of CAD (PCI mid LAD and distal LAD 03/2024), chronic HFpEF with hx of cardiomyopathy, atrial fibrillation, CKD stage IIIb, chronic anemia, history of renal calculi, hyperkalemia no longer tolerating lokelma who presents to ED in setting of bright red blood per rectum x 1 day. Sigmoid Colonic Mass: Bright red blood per rectum: admit to med tele Pt required 1 unit PRBC evening of 04/05 due to hgb 9.0 in setting of active GIB and recent coronary stents hold eliquis, plavix- last dose was on 04/04 p.m. for eliquis and a.m. for plavix Per cardiology recommend at least ASA 81mg daily and as soon as able recommend switching ASA to plavix. [place] tx for her is plavix/eliquis when able --CT abd w/o identifiable source of bleeding possible diverticular vs hemorrhoidal appreciate GI recs- C scope performed on 04/07; sigmoid mass identified General surgery consult performed today: Plan for colon resection scheduled on Friday 04/13 @ 1140. Pathology results pending but given patient is off of AC currently, willl avoid restarting/stopping AC again. Cardiology consult placed for clearance for surgery; discussed directly with Dr. Faust on 04/08 who will outline recommendations; understanding the risks associated with being off of anticoagulation with recent stent placement on 03/11. Will place on Heparin gtt; monitor for rebleeding. Per general surgery recommendations: Recommend the patient have a Chest CT; ordered. preop bowel prep day prior to surgery per gen surg: (These have been ordered) 1. clear liquids only no solid food 2. 1400 8oz of clear liquids 3. 1500 two Ducolax tablets 4. 1600 drink 8oz clear liquids 5. 1700 one entire bottle of Miralax into 64oz of Gatorade and drink 8oz glass every 15min until gone. 6. 1900, 2100, 2200: two Ducolax tablets 7. 2200 drink 8oz of clear liquids 8. NPO after MN CKD: chronic serum creatinine today 1.9, worse from yesterday 1.6; baseline cr 1.4-2.1 follows [facility] [place] avoid nephrotoxic agents, in setting of ureteral obstruction and L renal atrophy As Chest CT recommended prior to surgery; discussed with Dr. Vincent from Nephro and will order 1LNS 6 hours [address] to [address] CT and follow by another 1LNS for 6 h ours after Chest CT consider nephro consult if worsens CAD (PCI mid LAD and distal LAD 03/2024) Chronic HFpEF Hx of tachycardic induced cardiomyopathy (EF improved) Atrial fibrillation follows [facility] cardi[place] Echo: LVEF 55-60%, moderate pericardial effusion w/o tamponade on metoprolol, bumex, statin, plavix, eliquis as OP Resume Bumex today in setting of IVF/PRBC, + UOP Continue ASA for now, replace with Plavix as soon as able and reintroduce eliquis as soon as able; after surgery revisit restarting daily weights, strict intake and output pt is not on Jardiance, ARB in setting of UTI hx and hyperkalemia Place on Heparin gtt; low dose no bolus and monitor for rebleeding. Obstructing L UPJ Calculus Possible complicated UTI vs contamination CT a/p: There is a 1.5 cm obstructing calculus/calculi at/below the left ureteropelvic junction. This causes severe left-sided hydronephrosis and is similar to the 02/09/2024 examination. follows [facility] urology - awaiting NM renal scan, plan for OP treatment continue IV ceftriaxone, await urine culture - currently reincubating consider urology consult Abnormal CT a/p finding: prominent ovaries for age, recommend OP Pelvic US Disposition: DVT ppx: SCDS Code Status: FULL CODE PCP: Nicholas Magallanes admit to [facility] A total of 55 minutes was spent coordinating, documenting, and providing care for this patient excluding time spent in the performance of separately billed services. This included personally viewing all current laboratories and imaging studies, medication reconciliation, outpatient chart review, and discussion with specialists. Admission and Anticipated Discharge Date Admission Date: April 07, 2024 Supervising Physician Co-Signing Physician Notes . Attending addendum: The patient was seen and examined in medical telemetry unit She has been stable without any significant symptoms Awaiting planned surgery for sigmoid mass on Friday next On examination Remains hemodynamically stable Other physical examination remains unremarkable Her labs and imaging studies reviewed Sigmoid mass with planned surgery on Friday next Will review CT scan of the chest and also MRI of the kidneys Agree with assessment and plan as outlined above by Praveena ROUSE and take the full responsibility of the patient care Total time spent in documentation and talking with the patient was [address] Manny Ch Pt sitting in her hospital bed; ambulating around the room in no apparent distress She denies SPARKS, dizziness, SOB, chest pain. Discussed pain medications and agreed to continue with Tylenol for now to avoid opioids and any NSAIDs She has received THREE doses of Tylenol over past 24 hours; comfortable with current pain regimen. She will remain inpatient through the weekend with planned sigmoidectomy on Friday 04/13 See A/P for further details Review of Systems Review of Systems: Neuro: (-) Falls, trauma, slurred speech HEENT: (-) SPARKS, dizziness, dysphagia, visual or auditory changes CV: (-) CP, palpitations, swelling Resp: (-) SOB GI: (-) appetite changes, N/V/D, bowel changes : (-) urinary changes Skin: (-) rashes Psych: (-) anxiety, depression Physical Exam Physical Exam: Neuro: AAOx4, PERRLA, no aphagia, memory changes, CNII-XII grossly intact HEENT: head normocephalic, moist mucus membranes CV: S1/S2, (-) M/G/R, (-) edema, cap refill < 3 seconds Resp: Lungs CTA in all prieto. On RA GI: Abdomen S/NT/ND, Ax4 bowel sounds, (-) CVA tenderness Musculoskeletal: 5/5 B/L UE strength, 5/5 B/L LE strength. No gait disturbance Skin: (-) rashes , (-) erythema. Psych: euthymic mood Results & Data Results & Data Vital Signs (Past 12 Hours) Vital Signs Temp Pulse Pulse Resp BP Pulse Ox O2 Del Method 04/09/24 07:29 36.5 C 57 L 18 134/71 98 Room Air 04/09/24 07:00 73 04/09/24 03:46 36.5 C 56 L 18 135/69 97 Room Air 04/08/24 23:29 36.5 C 57 L 16 113/59 L 95 Room Air 04/08/24 21:40 86 Laboratory Results Short CBC 04/08/24 04/09/24 Range/Units 18:03 07:11 WBC 6.60 6.96 (4.8-10.8) K/ul Hgb 10.7 L 10.4 L (12.0-16.0) g/dl Hct 31.7 L 30.7 L (37.0-47.0) % Plt Count 183 170 (130-400) K/uL (2) CAD (coronary artery disease) Associated angina: without angina Coronary Disease-Associated Artery/Lesion type: [place] artery [place] vs. transplanted heart: [place] heart Qualified Code(s): I25.10 - Atherosclerotic heart disease of [place] coronary artery without angina pectoris (4) Congestive heart failure Heart failure type: combined systolic and diastolic
[2024-04-09 07:54] LABS: BUN Creatinine Ratio 20.8 (10-20); Calcium 9.6 mg/dl (8.6-10.3); Creatinine Clr Calc Pharmacy 26.2 ml/min; Est GFR (Non-African American) 25.9 ml/min; Potassium 4.3 mmol/L (3.5-5.1)
[2024-04-09 08:10] LABS: ANTI-Xa, UFH(UnfractionatedHep 1.09 IU/ml (0.3-0.7)
--- NOTE | 2024-04-09 08:34 | Surgery Progress Note ---
Date of Service April 09, 2024 Assessment & Plan (1) Colonic mass: Plan: sigmoid bowel resection planned for 04/13 patient aware of date Thursday 04/12 patient to do complete a bowel prep of : 1. clear liquids only no solid food 2. 1400 8oz of clear liquids 3. 1500 two Ducolax tablets (ordered) 4. 1600 drink 8oz clear liquids 5. 1700 one entire bottle of miralax into 64oz (ordered ) of Gatorade and drink 8oz glass every 15min until gone. 6. 1900 two Ducolax tablets (Ordered) 7. 2100, 2200 drink 8oz of clear liquids 8. NPO after MN (ordered) h/h today 10.430.7 continue to monitor h/h and for rectal bleeding appreciate hospitalist and cardiology recs Pt needs chest CT scan prior to OR [facility] gen surgery is on over weekend and holiday, will follow peripherally until Friday Please call communication engineer surgeon with question/concerns Admission and Anticipated Discharge Date Admission Date: April 07, 2024 Supervising Physician Co-Signing Physician Notes Patient seen and examined, labs reviewed, agree with above. Will plan for sigmoidectomy on Friday. Bowel prep over the weekend. Subjective pt reports no abd pain denies known rectal bleeding Review of Systems Constitutional: no fever and no chills Respiratory: no dyspnea Cardiovascular: no chest pain Gastrointestinal: no abdominal pain, no nausea and no vomiting Physical Exam Constitutional: cooperative and comfortable; no acute distress Respiratory: normal respiratory effort and able to speak in complete sentences; no respiratory distress Gastrointestinal (Abdomen): Inspection/Auscultation: abdomen not distended Percussion/Palpation: abdomen soft; abdomen nontender and no guarding Psychiatric: A+Ox3, euthymic affect Results & Data Vital Signs (Past 12 Hours) Vital Signs Temp Pulse Pulse Resp BP Pulse Ox O2 Del Method 04/09/24 07:29 97.7 F 57 L 18 134/71 98 Room Air 04/09/24 07:00 73 04/09/24 03:46 97.7 F 56 L 18 135/69 97 Room Air 04/08/24 23:29 97.7 F 57 L 16 113/59 L 95 Room Air 04/08/24 21:40 86 Results CBC w Diff Results: RBC 3.48 M/uL (4.20-5.40) L 04/09/24 WBC 6.96 K/ul (4.8-10.8) 04/09/24 Hgb 10.4 g/dl (12.0-16.0) L 04/09/24 Hct 30.7 % (37.0-47.0) L 04/09/24 MCV 88.2 fL (80.0-100.0) 04/09/24 MCH 29.9 pg (25.0-34.0) 04/09/24 MCHC 33.9 g/dL (32.0-36.0) 04/09/24 RDW Standard Deviation 48.5 fL (36.4-46.3) H 04/09/24 RDW Coefficient of Variation 15.0 % (11.5-14.5) H 04/09/24 Plt Count 170 K/uL (130-400) 04/09/24 MPV 9.7 fL (9.4-12.4) 04/09/24 Neutrophils (%) (Auto) 72.1 % 04/08/24 Lymphocytes (%) (Auto) 18.6 % 04/08/24 Monocytes # (Auto) 0.39 K/uL (0.11-0.59) 04/08/24 Eosinophils # (Auto) 0.18 K/uL (0.00-0.50) 04/08/24 Immature Granulocyte % (Auto) 0.2 % 04/08/24 Neutrophils # (Auto) 4.76 K/uL (1.40-6.50) 04/08/24 Lymphocytes # (Auto) 1.23 K/uL (1.20-3.40) 04/08/24 Monocytes # (Auto) 0.39 K/uL (0.11-0.59) 04/08/24 Eosinophils # (Auto) 0.18 K/uL (0.00-0.50) 04/08/24 Basophils # (Auto) 0.03 K/uL (0.00-0.20) 04/08/24 Immature Granulocyte # (Auto) 0.01 K/uL (0.01-0.20) 4 PG Care Time/CCT Total # of Minutes Spent Total Time Spent with Patient: Total time spent is greater than 50% in coordination of care (as documented) at patient's floor/unit and/or counseling patient: Coding Level of Care Code 99366 SUB INP/OBS CARE 09/04MIN Diagnoses Colonic mass K63.89
[2024-04-09] MEDS: SODIUM CHLORIDE 0.9% 1,000 ML IV SCH ×2 (10:48→18:22)
--- NOTE | 2024-04-09 13:36 | Nuclear Medicine Report ---
NUCLEAR RENAL SCAN CLINICAL HISTORY: Atrophic left kidney. Ureteral calculi. COMPARISON STUDY: Abdominal CT dated 04/05/2024. TECHNIQUE: A nuclear renal scan is performed following the IV administration of 8.6 mCi technetium 99 m radiolabeled Mertiatide. Posterior flow images were acquired at one frame every two seconds for a t otal 30 frames. Posterior static images were acquired every 5 minutes for a total of 30 minutes. Domenic al curves were calculated. FINDINGS: On the flow images, there is normal accumulation of activity in the right kidney. No significant acti vity is shown to be markedly atrophic left kidney. On the delayed images, there is normal and symmetric accumulation and excretion of activity from the right kidney. There is only faint tracer localizing to the atrophic left kidney. No excreted activity as seen on the left. There is no right-sided hydronephrosis. This could not be assessed on the left. Time to peak on the right measures 4 minutes and time to peak on the left measures 0.3 minutes Time from maximum activity to 2/3 maximum activity on the right measured 12.8 minutes and on the left measured 0.02 minutes. Split function measures 97.5% on the right and 2.5% on the left. IMPRESSION: 1. Normal scintigraphic examination of the right kidney which shows 97.5% of total renal function. 2. Only faint tracer activity was shown within the markedly atrophic and hydronephrotic left kidney s hown by CT. ACT 112: Negative or not required by law. Electronically signed by: Nikhil Owen M.D. 04/09/2024 1:34 PM
[2024-04-09] MEDS: OPTIRAY 320 125ml IV ONE (16:52)
[2024-04-09 16:53] LABS: ANTI-Xa, UFH(UnfractionatedHep 0.48 IU/ml (0.3-0.7)
--- NOTE | 2024-04-09 18:24 | CT Scan Report ---
CT ANGIOGRAM OF THE CHEST CLINICAL HISTORY: Dyspnea COMPARISON STUDY: Chest x-ray dated 02/09/2024. Abdominal CT dated 04/05/2024 and 02/09/2024. TECHNIQUE: Following the IV administration of 118 cc of Optiray 320, CT angiogram of the chest was pe rformed from the upper abdomen to the thoracic inlet utilizing the pulmonary embolus protocol. Images are reviewed in the axial, sagittal, and coronal planes. 3-D MIPS images are created and assessed. I V contrast was administered without complication. A dose lowering technique was utilized adhering to the principles of ALARA. There is streak artifact from the arms which could not be elevated above th e chest. CT DOSE: 915.37 mGy.cm FINDINGS: Thyroid: Mildly enlarged and heterogeneous. Thoracic aorta: There is atherosclerotic calcification of the thoracic aorta, which is normal in rosy linda and demonstrates standard 3-vessel arch anatomy. No dissection is identified involving the thorac ic aorta. Question a focal dissection of the innominate artery on axial image #183. Pulmonary vasculature: The pulmonary trunk is normal in caliber. There are no filling defects identif ied in main, lobar, or segmental pulmonary branches to suggest pulmonary embolus. Heart: The heart is mildly enlarged noting a moderate pericardial effusion. The coronary arteries are densely calcified. Lungs and pleural spaces: There is no airspace consolidation or pleural effusion. The trachea and lois tral airways are clear. Mild atelectasis is seen at the lung bases. There are scattered calcified gra nulomas. Mediastinum: There is no mediastinal lymphadenopathy. [place]: Clear. Axillae: There is no axillary lymphadenopathy. Upper abdomen: Gallstones are noted. The partially imaged left kidney is markedly atrophic and shows severe hydronephrosis. There is a 4 mm nonobstructing left renal calculus. Skeletal structures: The skeletal structures are osteopenic. No lytic or blastic bony lesions are see n. Degenerative change is noted in the shoulders and spine. IMPRESSION: 1. There is no evidence of pulmonary embolus in the main, lobar, or segmental pulmonary arteries. 2. Cardiomegaly noting a moderate pericardial effusion. 3. No airspace consolidation or pleural effusion is identified. 4. 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 This is age indeterminate and may be chronic. 5. Cholelithiasis. 6. Atrophic and severely hydronephrotic left kidney with nephrolithiasis. This is similar to previous . 7. Additional findings as above. ACT 112: Negative or not required by law. Electronically signed by: Nikhil Owen M.D. 04/09/2024 6:22 PM
--- NOTE | 2024-04-09 21:33 | Electrocardiogram Report ---
Test Reason : Blood Pressure : */* mmHG Vent. Rate : 79 BPM Atrial Rate : 79 BPM P-R Int : 202 ms QRS Dur : 92 ms QT Int : 386 ms P-R-T Axes : 15 -11 83 degrees QTcB Int : 442 ms Normal sinus rhythm Normal ECG When compared with ECG of 06-Apr-2024 05:42, Premature ventricular complexes are no longer Present Confirmed by Eddie Faust ([id number]) on 04/09/2024 9:33:37 PM Referred By: REFERRED SELF Confirmed By: Eddie Faust
[2024-04-10 05:41] LABS: Hematocrit (blood only) 28.4 % (37.0-47.0); Hemoglobin 9.4 g/dl (12.0-16.0); Mean Corpuscular Hemoglobin 29.6 pg (25.0-34.0); Mean Corpuscular Hgb Conc 33.1 g/dL (32.0-36.0); Mean Corpuscular Volume 89.3 fL (80.0-100.0); Mean Platelet Volume 9.2 fL (9.4-12.4); Platelet Count 141 K/uL (130-400); RDW Standard Deviation 49.1 fL (36.4-46.3); Red Blood Count 3.18 M/uL (4.20-5.40)
[2024-04-10 05:58] LABS: Calcium 9.2 mg/dl (8.6-10.3); Creatinine Clr Calc Pharmacy 33.1 ml/min; Est GFR (African American) 39.8 ml/min; Est GFR (Non-African American) 34.4 ml/min; Potassium 4.1 mmol/L (3.5-5.1)
[2024-04-10 06:10] LABS: ANTI-Xa, UFH(UnfractionatedHep 0.36 IU/ml (0.3-0.7)
--- NOTE | 2024-04-10 09:35 | Gastroenterology Progress Note ---
Date of Service April 10, 2024 Assessment & Plan (1) Colon cancer: Plan: Pathology positive for adenocarcinoma. Plan for colectomy and resection of colon mass next week. Call if any further issues. Admission and Anticipated Discharge Date Admission Date: April 07, 2024 Subjective Resting comfortably no complaints denies shortness of breath chest pain or abdominal pain. Physical Exam Physical Exam: Eyes; anicteric HENT No masses Chest clear to A Cor S1, S2 physiologic Abd: softer nontender no masses Ext no edema Results & Data Results & Data Vital Signs (Past 12 Hours) Vital Signs Temp Pulse Pulse Resp BP BP Pulse Ox 04/10/24 07:40 36.5 C 66 16 115/64 98 04/10/24 06:47 70 04/10/24 03:50 36.6 C 79 20 173/82 H 97 04/10/24 00:23 36.7 C 73 18 147/76 H 98 04/09/24 21:53 68 O2 Del Method 04/10/24 07:40 Room Air 04/10/24 06:47 04/10/24 03:50 Room Air 04/10/24 00:23 Room Air 04/09/24 21:53 Laboratory Results Laboratory Results - last 48 hr 04/05/24 04/08/24 04/08/24 19:24 17:10 18:03 WBC 6.60 RBC 3.58 L Hgb 10.7 L Hct 31.7 L MCV 88.5 MCH 29.9 MCHC 33.8 RDW Std Deviation 49.5 H RDW Coeff of Jame 15.2 H Plt Count 183 MPV 9.8 Immature Gran % (Auto) 0.2 Neut % (Auto) 72.1 Lymph % (Auto) 18.6 [place] % (Auto) 5.9 Eos % (Auto) 2.7 Baso % (Auto) 0.5 Neut # (Auto) 4.76 Lymph # (Auto) 1.23 [place] # (Auto) 0.39 Eos # (Auto) 0.18 Baso # (Auto) 0.03 Immature Gran # (Auto) 0.01 PT 11.0 INR 1.0 APTT 25 PTT Ratio 0.9 Heparin Anti-Xa, Unfract < 0.10 L Sodium Potassium Chloride Carbon Dioxide Anion Gap BUN Creatinine Est Cr Clr Drug Dosing Est GFR ( Amer) Est GFR (Non-Af Amer) BUN/Creatinine Ratio Glucose Calcium Crossmatch See Detail 04/09/24 04/09/24 04/09/24 00:39 07:11 16:13 WBC 6.96 RBC 3.48 L Hgb 10.4 L Hct 30.7 L MCV 88.2 MCH 29.9 MCHC 33.9 RDW Std Deviation 48.5 H RDW Coeff of Jame 15.0 H Plt Count 170 MPV 9.7 Immature Gran % (Auto) Neut % (Auto) Lymph % (Auto) [place] % (Auto) Eos % (Auto) Baso % (Auto) Neut # (Auto) Lymph # (Auto) [place] # (Auto) Eos # (Auto) Baso # (Auto) Immature Gran # (Auto) PT INR APTT PTT Ratio Heparin Anti-Xa, Unfract 0.64 1.09 H* 0.48 Sodium 138 Potassium 4.3 Chloride 107 Carbon Dioxide 24 Anion Gap 7 BUN 40 H Creatinine 1.92 H D Est Cr Clr Drug Dosing 26.2 Est GFR ( Amer) 30.0 Est GFR (Non-Af Amer) 25.9 BUN/Creatinine Ratio 20.8 H Glucose 97 Calcium 9.6 Crossmatch 04/10/24 05:27 WBC 5.50 RBC 3.18 L Hgb 9.4 L Hct 28.4 L MCV 89.3 MCH 29.6 MCHC 33.1 RDW Std Deviation 49.1 H RDW Coeff of Jame 15.0 H Plt Count 141 MPV 9.2 L Immature Gran % (Auto) Neut % (Auto) Lymph % (Auto) [place] % (Auto) Eos % (Auto) Baso % (Auto) Neut # (Auto) Lymph # (Auto) [place] # (Auto) Eos # (Auto) Baso # (Auto) Immature Gran # (Auto) PT INR APTT PTT Ratio Heparin Anti-Xa, Unfract 0.36 Sodium 138 Potassium 4.1 Chloride 110 H Carbon Dioxide 23 Anion Gap 5 BUN 35 H Creatinine 1.52 H D Est Cr Clr Drug Dosing 33.1 Est GFR ( Amer) 39.8 Est GFR (Non-Af Amer) 34.4 BUN/Creatinine Ratio 23.0 H Glucose 85 Calcium 9.2 Crossmatch PG Care Time/CCT Total # of Minutes Spent Total Time Spent with Patient: Total time spent is greater than 50% in coordination of care (as documented) at patient's floor/unit and/or counseling patient: Coding Level of Care Code 12534 SUB INP/OBS CARE MIN Diagnoses Colon cancer C18.9
--- NOTE | 2024-04-10 16:19 | Hospitalist Progress Note ---
Date of Service April 10, 2024 Assessment & Plan (1) Bright red blood per rectum: (2) CAD (coronary artery disease): (3) Anticoagulant long-term use: (4) Congestive heart failure: (5) CKD (chronic kidney disease) stage 3, GFR 30-59 ml/min: Plan This is a 68 yr old F Who has a significant past medical history of CAD (PCI mid LAD and distal LAD 03/2024), chronic HFpEF with hx of cardiomyopathy, atrial fibrillation, CKD stage IIIb, chronic anemia, history of renal calculi, hyperkalemia no longer tolerating lokelma who presents to ED in setting of bright red blood per rectum x 1 day. Sigmoid Colonic Mass: Infiltrative adenocarcinoma of the colon Bright red blood per rectum: admit to [facility] Pt required 1 unit PRBC evening of 04/05 due to hgb 9.0 in setting of active GIB and recent coronary stents hold eliquis, plavix- last dose was on 04/04 p.m. for eliquis and a.m. for plavix Per cardiology recommend at least ASA 81mg daily and as soon as able recommend switching ASA to plavix. [place] tx for her is plavix/eliquis when able --CT abd w/o identifiable source of bleeding possible diverticular vs hemorrhoidal appreciate GI recs- C scope performed on 04/07; sigmoid mass identified General surgery consult performed today: Plan for colon resection scheduled on Friday 04/13 @ 1140. Pathology results pending but given patient is off of AC currently, willl avoid restarting/stopping AC again. Cardiology consult placed for clearance for surgery; discussed directly with Dr. Faust on 04/08 who will outline recommendations; understanding the risks associated with being off of anticoagulation with recent stent placement on 03/11. Will place on Heparin gtt; monitor for rebleeding. Per general surgery recommendations: Recommend the patient have a Chest CT; ordered. CTA did not show any evidence of pulmonary embolism and/or metastatic disease preop bowel prep day prior to surgery per gen surg: (These have been ordered) 1. clear liquids only no solid food 2. 1400 8oz of clear liquids 3. 1500 two Ducolax tablets 4. 1600 drink 8oz clear liquids 5. 1700 one entire bottle of Miralax into 64oz of Gatorade and drink 8oz glass every 15min until gone. 6. 1900, 2100, 2200: two Ducolax tablets 2199 drink 8oz of clear liquids 8. NPO after MN CKD: chronic serum creatinine today 1.9, worse from yesterday 1.6; baseline cr 1.4-2.1 [place] [facility] [place] nephrotoxic agents, in setting of ureteral obstruction and L renal atrophy As Chest CT recommended prior to surgery; discussed with Dr. Vincent from Nephro and will order 1LNS 6 hours prior to Chest CT and follow by another 1LNS for [address] consider nephro consult if worsens Nuclear renal scan did show nonfunctioning left kidney with hydronephrosis-will inform the urologist CAD (PCI mid LAD and distal LAD 03/2024) Chronic HFpEF Hx of tachycardic induced cardiomyopathy (EF improved) Atrial fibrillation [place] [facility] [place]: LVEF 55-60%, moderate pericardial effusion w/o tamponade on metoprolol, bumex, statin, plavix, eliquis as OP Resume Bumex today in setting of IVF/PRBC, + UOP Continue ASA for now, replace with Plavix as soon as able and reintroduce eliquis as soon as able; after surgery revisit restarting daily weights, strict intake and output pt is not on Jardiance, ARB in setting of UTI hx and hyperkalemia Place on Heparin gtt; low dose no bolus and monitor for rebleeding. Obstructing L UPJ Calculus Possible complicated UTI vs contamination CT a/p: There is a 1.5 cm obstructing calculus/calculi at/below the left ureteropelvic junction. This causes severe left-sided hydronephrosis and is similar to the 02/09/2024 examination. [place] [facility] [place] renal scan, plan for OP treatment continue IV ceftriaxone, await urine culture - currently reincubating consider urology consult Abnormal CT a/p finding: prominent ovaries for age, recommend OP Pelvic US Disposition: DVT ppx: SCDS Code Status: FULL CODE PCP: Nicholas Magallanes admit to [facility] Admission and Anticipated Discharge Date Admission Date: April 07, 2024 Subjective 04/10/2024 The patient was seen and examined in medical telemetry unit She denies any significant symptoms She has been waiting for sigmoid resection on Friday Review of Systems Review of Systems: All systems reviewed and are unremarkable except as noted below Physical Exam Physical Exam: Lying in bed without any acute distress Constitutional: well developed and well nourished; not ill appearing Eyes: PERRL, conjunctivae normal, anicteric sclerae ENMT: external ear and nose normal, oropharynx normal Neck: trachea midline, no thyromegaly Respiratory: no respiratory distress Auscultation: + lungs not clear to auscultation Cardiovascular: Rate/Rhythm: regular rate, regular rhythm and + bradycardic Heart Sounds: normal S1, normal S2 and + murmur Extremities: no edema Gastrointestinal (Abdomen): Inspection/Auscultation: normal bowel sounds; abdomen not distended Percussion/Palpation: abdomen soft; abdomen nontender Musculoskeletal: no acute arthritis involving any of the joints Neurologic: normal touch/pain/proprioception and moves all extremities; no focal motor deficits Psychiatric: A+Ox3, euthymic affect Lymphatic: no cervical or axillary lymphadenopathy Results & Data Results & Data Vital Signs (Past 12 Hours) Vital Signs Temp Pulse Pulse Resp BP Pulse Ox O2 Del Method 04/10/24 15:38 37.2 C 58 L 16 146/64 H 95 Room Air 04/10/24 13:33 58 L 04/10/24 11:20 36.6 C 82 16 150/71 H 96 Room Air 04/10/24 10:18 Room Air 04/10/24 07:40 36.5 C 66 16 115/64 98 Room Air 04/10/24 06:47 70 Laboratory Results Short CBC 04/10/24 Range/Units 05:27 WBC 5.50 (4.8-10.8) K/ul Hgb 9.4 L (12.0-16.0) g/dl Hct 28.4 L (37.0-47.0) % Plt Count 141 (130-400) K/uL BMP 04/10/24 05:27 Sodium 138 Potassium 4.1 Chloride 110 H Carbon Dioxide 23 BUN 35 H Creatinine 1.52 H D Glucose 85 Calcium 9.2 Medications Administered Current Inpatient Medications Acetaminophen (Acetaminophen 325 Mg Tab) 650 mg PO Q4H PRN PRN Reason: Pain or Fever Stop: 05/05/24 16:05 Last Admin: 04/10/24 15:01 Dose: 650 mg Aspirin (Aspirin 81 Mg Ectab) [facility] [place]: 05/05/24 16:14 Last Admin: 04/10/24 08:38 Dose: 81 mg Atorvastatin Calcium (Atorvastatin 40 Mg Tab) 40 mg PO DAILY [facility] Stop: 05/06/24 08:59 Last Admin: 04/10/24 08:38 Dose: 40 mg Bisacodyl (Bisacodyl 5 Mg Tabec) 10 mg PO NOW ONE Stop: 04/12/24 15:01 Bisacodyl (Bisacodyl 5 Mg Tabec) 10 mg PO NOW ONE Stop: 04/12/24 19:01 Bisacodyl (Bisacodyl 5 Mg Tabec) 10 mg PO 2100 ONE Stop: 04/12/24 21:01 Bisacodyl (Bisacodyl 5 Mg Tabec) 10 mg PO 2200 ONE Stop: 04/12/24 22:01 Bumetanide (Bumetanide 1 Mg Tab) 2 mg PO DAILY [facility] Stop: 05/06/24 12:29 Last Admin: 04/10/24 08:37 Dose: 2 mg Famotidine (Famotidine 20 Mg Tab) 20 mg PO DAILY PRN PRN Reason: Heartburn Stop: 05/05/24 16:05 Ceftriaxone Sodium (Rocephin) 2,000 mg in 50 mls @ 100 mls/hr IV Q24H [facility] Stop: 04/16/24 08:59 Last Infusion: 04/10/24 09:10 Dose: Infused Pantoprazole Sodium 40 mg/ (Syringe) 10 mls @ 5 mls/min IV BID [facility] Stop: 05/05/24 16:29 Last Admin: 04/10/24 08:40 Dose: 5 mls/min Heparin Sodium/Dextrose (Heparin Sodium/Dextrose) 25,000 units in 500 mls @ 10 mls/hr IV .Q24H [facility]; Protocol Stop: 04/13/24 17:59 Last Titration: 04/10/24 06:19 Dose: 500 units/hr, 10 mls/hr Melatonin (Melatonin 3 Mg Tab) 6 mg PO HS PRN PRN Reason: Sleep Stop: 05/05/24 20:59 Last Admin: 04/09/24 23:58 Dose: 6 mg Metoprolol Succinate (Metoprolol Succ 50mg Ext Rel Tab) 100 mg PO QAM [facility] Stop: 05/05/24 16:29 Last Admin: 04/10/24 08:38 Dose: 100 mg Ondansetron HCl (Ondansetron Inj 2 Mg/Ml 2 Ml Vial) 4 mg IV Q6H PRN PRN Reason: Nausea Stop: 05/05/24 16:05 Last Admin: 04/06/24 20:19 Dose: 4 mg Polyethylene Glycol (Polyethylene (Miralax) 17 Gm Pack) 17 gm PO DAILY PRN PRN Reason: Constipation Stop: 05/05/24 16:05 Polyethylene Glycol (Polyethylene (Miralax) 17 Gm Pack) 238 gm PO ONCE ONE Stop: 04/12/24 17:01 (2) CAD (coronary artery disease) Coronary Disease-Associated Artery/Lesion type: [place] artery [place] vs. transplanted heart: [place] heart Associated angina: without angina Qualified Code(s): I25.10 - Atherosclerotic heart disease of [place] coronary artery without angina pectoris (4) Congestive heart failure Heart failure type: combined systolic and diastolic
[2024-04-11 07:45] LABS: ANTI-Xa, UFH(UnfractionatedHep 0.35 IU/ml (0.3-0.7)
--- NOTE | 2024-04-11 15:39 | Hospitalist Progress Note ---
Date of Service April 11, 2024 Assessment & Plan (1) Bright red blood per rectum: (2) CAD (coronary artery disease): (3) Anticoagulant long-term use: (4) Congestive heart failure: (5) CKD (chronic kidney disease) stage 3, GFR 30-59 ml/min: Plan This is a 68 yr old F Who has a significant past medical history of CAD (PCI mid LAD and distal LAD 03/2024), chronic HFpEF with hx of cardiomyopathy, atrial fibrillation, CKD stage IIIb, chronic anemia, history of renal calculi, hyperkalemia no longer tolerating lokelma who presents to ED in setting of bright red blood per rectum x 1 day. Sigmoid Colonic Mass: Infiltrative adenocarcinoma of the colon Bright red blood per rectum: admit to [facility] Pt required 1 unit PRBC evening of 04/05 due to hgb 9.0 in setting of active GIB and recent coronary stents hold eliquis, plavix- last dose was on 04/04 p.m. for eliquis and a.m. for plavix Per cardiology recommend at least ASA 81mg daily and as soon as able recommend switching ASA to plavix. [place] tx for her is plavix/eliquis when able --CT abd w/o identifiable source of bleeding possible diverticular vs hemorrhoidal appreciate GI recs- C scope performed on 04/07; sigmoid mass identified General surgery consult performed today: Plan for colon resection scheduled on Friday 04/13 @ 1140. Pathology results pending but given patient is off of AC currently, willl avoid restarting/stopping AC again. Cardiology consult placed for clearance for surgery; discussed directly with Dr. Faust on 04/08 who will outline recommendations; understanding the risks associated with being off of anticoagulation with recent stent placement on 03/11. Will place on Heparin gtt; monitor for rebleeding. Per general surgery recommendations: Recommend the patient have a Chest CT; ordered. CTA did not show any evidence of pulmonary embolism and/or metastatic disease Will have bowel preparation for the proposed surgery on Friday as below She remained otherwise stable and will continue current management preop bowel prep day prior to surgery per gen surg: (These have been ordered) 1. clear liquids only no solid food 2. 1400 8oz of clear liquids 3. 1500 two Ducolax tablets 4. 1600 drink 8oz clear liquids 5. 1700 one entire bottle of Miralax into 64oz of Gatorade and drink 8oz glass every 15min until gone. 6. 1900, 2100, 2200: two Ducolax tablets 7. 0 drink 8oz of clear liquids 8. NPO after MN CKD: chronic serum creatinine today 1.9, worse from yesterday 1.6; baseline cr 1.4-2.1 follows [facility] [place] avoid nephrotoxic agents, in setting of ureteral obstruction and L renal atrophy As Chest CT recommended prior to surgery; discussed with Dr. Vincent from Nephro and will order 1LNS 6 hours prior to Chest CT and follow by another 1LNS for [address] consider nephro consult if worsens Nuclear renal scan did show nonfunctioning left kidney with hydronephrosis-will inform the urologist She will need to have left nephrectomy as an outpatient electively CAD (PCI mid LAD and distal LAD 03/2024) Chronic HFpEF Hx of tachycardic induced cardiomyopathy (EF improved) Atrial fibrillation follows [facility] [place] cardi[place] Echo: LVEF 55-60%, moderate pericardial effusion w/o tamponade on metoprolol, bumex, statin, plavix, eliquis as OP Resume Bumex today in setting of IVF/PRBC, + UOP Continue ASA for now, replace with Plavix as soon as able and reintroduce eliquis as soon as able; after surgery revisit restarting daily weights, strict intake and output pt is not on Jardiance, ARB in setting of UTI hx and hyperkalemia Place on Heparin gtt; low dose no bolus and monitor for rebleeding. Denies any cardiac symptoms Obstructing L UPJ Calculus Possible complicated UTI vs contamination CT a/p: There is a 1.5 cm obstructing calculus/calculi at/below the left ureteropelvic junction. This causes severe left-sided hydronephrosis and is similar to the 02/09/2024 examination. follows [facility] [place] - awaiting NM renal scan, plan for OP treatment continue IV ceftriaxone, await urine culture - currently reincubating consider urology consult Abnormal CT a/p finding: prominent ovaries for age, recommend OP Pelvic US Disposition: DVT ppx: SCDS Code Status: FULL CODE PCP: Nicholas Magallanes admit to [facility] Admission and Anticipated Discharge Date Admission Date: April 07, 2024 Subjective 04/10/2024 The patient was seen and examined in medical telemetry unit She denies any significant symptoms She has been waiting for sigmoid resection on Friday04/11/2024 The patient was seen and examined in medical telemetry unit She remains stable and free of any symptoms Awaiting definitive surgery for sigmoid mass on Friday Review of Systems Review of Systems: All systems reviewed and are unremarkable except as noted below Physical Exam Physical Exam: Lying in bed without any acute distress Constitutional: well developed and well nourished; not ill appearing Eyes: PERRL, conjunctivae normal, anicteric sclerae ENMT: external ear and nose normal, oropharynx normal Neck: trachea midline, no thyromegaly Respiratory: no respiratory distress Auscultation: + lungs not clear to auscultation Cardiovascular: Rate/Rhythm: regular rate, regular rhythm and + bradycardic Heart Sounds: normal S1, normal S2 and + murmur Extremities: no edema Gastrointestinal (Abdomen): Inspection/Auscultation: normal bowel sounds; abdomen not distended Percussion/Palpation: abdomen soft; abdomen nontender Neurologic: normal touch/pain/proprioception and moves all extremities; no focal motor deficits Psychiatric: A+Ox3, euthymic affect Lymphatic: no cervical or axillary lymphadenopathy Results & Data Results & Data Vital Signs (Past 12 Hours) Vital Signs Temp Pulse Pulse Resp BP Pulse Ox O2 Del Method 04/11/24 11:25 36.8 C 57 L 18 119/65 99 Room Air 04/11/24 08:26 57 L 04/11/24 07:50 36.7 C 58 L 18 162/86 H 98 Room Air 04/11/24 07:25 Room Air 04/11/24 03:37 36.7 C 60 18 153/72 H 97 Room Air Medications Administered Current Inpatient Medications Acetaminophen (Acetaminophen 325 Mg Tab) 650 mg PO Q4H PRN PRN Reason: Pain or Fever Stop: 05/05/24 16:05 Last Admin: 04/11/24 07:12 Dose: 650 mg Aspirin (Aspirin 81 Mg Ectab) 81 mg PO QAM [facility] Stop: 05/05/24 16:14 Last Admin: 04/11/24 08:04 Dose: 81 mg Atorvastatin Calcium (Atorvastatin 40 Mg Tab) 40 mg PO DAILY [facility] Stop: 05/06/24 08:59 Last Admin: 04/11/24 08:04 Dose: 40 mg Bisacodyl (Bisacodyl 5 Mg Tabec) 10 mg PO NOW ONE Stop: 04/12/24 15:01 Bisacodyl (Bisacodyl 5 Mg Tabec) 10 mg PO NOW ONE Stop: 04/12/24 19:01 Bisacodyl (Bisacodyl 5 Mg Tabec) 10 mg PO 2100 ONE Stop: 04/12/24 21:01 Bisacodyl (Bisacodyl 5 Mg Tabec) 10 mg PO 2200 ONE Stop: 04/12/24 22:01 Bumetanide (Bumetanide 1 Mg Tab) 2 mg PO DAILY [facility] Stop: 05/06/24 12:29 Last Admin: 04/11/24 08:05 Dose: 2 mg Famotidine (Famotidine 20 Mg Tab) 20 mg PO DAILY PRN PRN Reason: Heartburn Stop: 05/05/24 16:05 Ceftriaxone Sodium (Rocephin) 2,000 mg in 50 mls @ 100 mls/hr IV Q24H [facility] Stop: 04/16/24 08:59 Last Infusion: 04/11/24 09:24 Dose: Infused Pantoprazole Sodium 40 mg/ (Syringe) 10 mls @ 5 mls/min IV BID [facility] Stop: 05/05/24 16:29 Last Admin: 04/11/24 08:05 Dose: 5 mls/min Heparin Sodium/Dextrose (Heparin Sodium/Dextrose) 25,000 units in 500 mls @ 10 mls/hr IV .Q24H [facility]; Protocol Stop: 04/13/24 17:59 Last Titration: 04/11/24 07:03 Dose: 500 units/hr, 10 mls/hr Melatonin (Melatonin 3 Mg Tab) 6 mg PO HS PRN PRN Reason: Sleep Stop: 05/05/24 20:59 Last Admin: 04/11/24 00:30 Dose: 6 mg Metoprolol Succinate (Metoprolol Succ 50mg Ext Rel Tab) 100 mg PO QAM [facility] Stop: 05/05/24 16:29 Last Admin: 04/11/24 08:03 Dose: 100 mg Ondansetron HCl (Ondansetron Inj 2 Mg/Ml 2 Ml Vial) 4 mg IV Q6H PRN PRN Reason: Nausea Stop: 05/05/24 16:05 Last Admin: 04/06/24 20:19 Dose: 4 mg Polyethylene Glycol (Polyethylene (Miralax) 17 Gm Pack) 17 gm PO DAILY PRN PRN Reason: Constipation Stop: 05/05/24 16:05 Polyethylene Glycol (Polyethylene (Miralax) 17 Gm Pack) 238 gm PO ONCE ONE Stop: 04/12/24 17:01 (2) CAD (coronary artery disease) Coronary Disease-Associated Artery/Lesion type: [place] artery [place] vs. transplanted heart: [place] heart Associated angina: without angina Qualified Code(s): I25.10 - Atherosclerotic heart disease of [place] coronary artery without angina pectoris (4) Congestive heart failure Heart failure type: combined systolic and diastolic
[2024-04-12 05:54] LABS: Basophils # (auto) 0.05 K/uL (0.00-0.20); Basophils % (auto) 0.9 %; Eosinophils # (auto) 0.26 K/uL (0.00-0.50); Eosinophils % (auto) 4.5 %; Hematocrit (blood only) 28.5 % (37.0-47.0); Hemoglobin 9.2 g/dl (12.0-16.0); Immature Granulocytes # (auto) 0.02 K/uL (0.01-0.20); Immature Granulocytes % (auto) 0.3 %; Lymphocytes # (auto) 1.22 K/uL (1.20-3.40); Lymphocytes % (auto) 21.3 %; Mean Corpuscular Hemoglobin 29.1 pg (25.0-34.0); Mean Corpuscular Hgb Conc 32.3 g/dL (32.0-36.0); Mean Corpuscular Volume 90.2 fL (80.0-100.0); Mean Platelet Volume 10.1 fL (9.4-12.4); Monocytes # (auto) 0.41 K/uL (0.11-0.59); Monocytes % (auto) 7.2 %; Neutrophils # (auto) 3.77 K/uL (1.40-6.50); Neutrophils % (auto) 65.8 %; Platelet Count 145 K/uL (130-400); RDW Coefficient of Variation 15.2 % (11.5-14.5); RDW Standard Deviation 50.1 fL (36.4-46.3); Red Blood Count 3.16 M/uL (4.20-5.40); White Blood Count 5.73 K/ul (4.8-10.8)
[2024-04-12 06:10] LABS: BUN Creatinine Ratio 21.8 (10-20); Calcium 9.1 mg/dl (8.6-10.3); Est GFR (African American) 38.6 ml/min; Est GFR (Non-African American) 33.3 ml/min; Magnesium 1.8 mg/dl (1.7-2.4); Potassium 4.1 mmol/L (3.5-5.1)
[2024-04-12 06:19] LABS: ANTI-Xa, UFH(UnfractionatedHep 0.29 IU/ml (0.3-0.7)
--- NOTE | 2024-04-12 13:58 | Hospitalist Progress Note ---
Date of Service April 12, 2024 Assessment & Plan (1) Bright red blood per rectum: (2) CAD (coronary artery disease): (3) Anticoagulant long-term use: (4) Congestive heart failure: (5) CKD (chronic kidney disease) stage 3, GFR 30-59 ml/min: Plan This is a 68 yr old F Who has a significant past medical history of CAD (PCI mid LAD and distal LAD 03/2024), chronic HFpEF with hx of cardiomyopathy, atrial fibrillation, CKD stage IIIb, chronic anemia, history of renal calculi, hyperkalemia no longer tolerating lokelma who presents to ED in setting of bright red blood per rectum x 1 day. Sigmoid Colonic Mass: Infiltrative adenocarcinoma of the colon Bright red blood per rectum: admit to [facility] Pt required 1 unit PRBC evening of 04/05 due to hgb 9.0 in setting of active GIB and recent coronary stents hold eliquis, plavix- last dose was on 04/04 p.m. for eliquis and a.m. for plavix Per cardiology recommend at least ASA 81mg daily and as soon as able recommend switching ASA to plavix. [place] tx for her is plavix/eliquis when able --CT abd w/o identifiable source of bleeding possible diverticular vs hemorrhoidal appreciate GI recs- C scope performed on 04/07; sigmoid mass identified General surgery consult performed today: Plan for colon resection scheduled on Friday 04/13 @ 1140. Pathology results pending but given patient is off of AC currently, willl avoid restarting/stopping AC again. Cardiology consult placed for clearance for surgery; discussed directly with Dr. Faust on 04/08 who will outline recommendations; understanding the risks associated with being off of anticoagulation with recent stent placement on 03/11. Will place on Heparin gtt; monitor for rebleeding. Per general surgery recommendations: Recommend the patient have a Chest CT; ordered. CTA did not show any evidence of pulmonary embolism and/or metastatic disease Will have bowel preparation for the proposed surgery on Friday as below She remained otherwise stable and will continue current management Remains medically stable and no contraindication for proposed surgery She will have bowel preparation as below for proposed surgery tomorrow preop bowel prep day prior to surgery per gen surg: (These have been ordered) 1. clear liquids only no solid food 2. 1400 8oz of clear liquids 3. 1500 two Ducolax tablets 4. 1600 drink 8oz clear liquids 5. 1700 one entire bottle of Miralax into 64oz of Gatorade and drink 8oz glass every 15min until gone. 6. 1900, 2100, 2200: two Ducolax tablets 7. 2200 drink 8oz of clear liquids 8. NPO after MN CKD: chronic serum creatinine today 1.9, worse from yesterday 1.6; baseline cr 1.4-2.[address] [facility] [place] nephrotoxic agents, in setting of ureteral obstruction and L renal atrophy As Chest CT recommended prior to surgery; discussed with Dr. Vincent from Nephro and will order 1LNS 6 hours prior to Chest CT and follow by another 1LNS for [address] consider nephro consult if worsens Nuclear renal scan did show nonfunctioning left kidney with hydronephrosis-will inform the urologist She will need to have left nephrectomy as an outpatient electively Creatinine remains stable at 1.56 with normal electrolytes CAD (PCI mid LAD and distal LAD 03/2024) Chronic HFpEF Hx of tachycardic induced cardiomyopathy (EF improved) Atrial fibrillation follows [facility] [place] Echo: LVEF 55-60%, moderate pericardial effusion w/o tamponade on metoprolol, bumex, statin, plavix, eliquis as OP Resume Bumex today in setting of IVF/PRBC, + UOP Continue ASA for now, replace with Plavix as soon as able and reintroduce eliquis as soon as able; after surgery revisit restarting daily weights, strict intake and output pt is not on Jardiance, ARB in setting of UTI hx and hyperkalemia Place on Heparin gtt; low dose no bolus and monitor for rebleeding. Denies any cardiac symptoms No arrhythmias and/or chest pain Obstructing L UPJ Calculus Possible complicated UTI vs contamination CT a/p: There is a 1.5 cm obstructing calculus/calculi at/below the left ureteropelvic junction. This causes severe left-sided hydronephrosis and is similar to the 02/09/[address] [facility] [place] - awaiting NM renal scan, plan for OP treatment continue IV ceftriaxone, await urine culture - currently reincubating Will need to have nephrectomy as an outpatient given the results of nuclear scan of the kidneys Abnormal CT a/p finding: prominent ovaries for age, recommend OP Pelvic US Disposition: DVT ppx: SCDS Code Status: FULL CODE PCP: Nicholas Magallanes admit to med tele Admission and Anticipated Discharge Date Admission Date: April 07, 2024 Subjective 04/10/2024 The patient was seen and examined in medical telemetry unit She denies any significant symptoms She has been waiting for sigmoid resection on Friday04/11/2024 The patient was seen and examined in medical telemetry unit She remains stable and free of any symptoms Awaiting definitive surgery for sigmoid mass on Friday04/12/2024 The patient was seen and examined in medical telemetry unit She denies any symptoms and remains medically stable She will have sigmoid colon resection with colostomy tomorrow 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 tach Review of Systems Review of Systems: All systems reviewed and are unremarkable except as noted below Physical Exam Physical Exam: Lying in bed without any acute distress Constitutional: well developed and well nourished; not ill appearing Eyes: PERRL, conjunctivae normal, anicteric sclerae ENMT: external ear and nose normal, oropharynx normal Neck: trachea midline, no thyromegaly Respiratory: no respiratory distress Auscultation: + lungs not clear to auscultation Cardiovascular: Rate/Rhythm: regular rate, regular rhythm and + bradycardic Heart Sounds: normal S1, normal S2 and + murmur Extremities: no edema Gastrointestinal (Abdomen): Inspection/Auscultation: normal bowel sounds; abdomen not distended Percussion/Palpation: abdomen soft; abdomen nontender Neurologic: normal touch/pain/proprioception and moves all extremities; no focal motor deficits Psychiatric: A+Ox3, euthymic affect Lymphatic: no cervical or axillary lymphadenopathy Results & Data Results & Data Vital Signs (Past 12 Hours) Vital Signs Temp Pulse Pulse Resp BP BP Pulse Ox 04/12/24 11:10 36.8 C 65 16 129/74 99 04/12/24 08:42 58 L 04/12/24 07:33 36.8 C 57 L 18 136/75 98 04/12/24 07:24 04/12/24 04:14 36.3 C L 69 18 156/76 H 97 O2 Del Method 04/12/24 11:10 Room Air 04/12/24 08:42 04/12/24 07:33 Room Air 04/12/24 07:24 Room Air 04/12/24 04:14 Room Air Laboratory Results Short CBC 04/12/24 Range/Units 05:27 WBC 5.73 (4.8-10.8) K/ul Hgb 9.2 L (12.0-16.0) g/dl Hct 28.5 L (37.0-47.0) % Plt Count 145 (130-400) K/uL [facility] 04/12/24 05:27 Sodium 138 Potassium 4.1 Chloride 109 H Carbon Dioxide 24 BUN 34 H Creatinine 1.56 H Glucose 110 H Calcium 9.1 Medications Administered Short CBC 04/12/24 Range/Units 05:27 WBC 5.73 (4.8-10.8) K/ul Hgb 9.2 L (12.0-16.0) g/dl Hct 28.5 L (37.0-47.0) % Plt Count 145 (130-400) K/uL [facility] 04/12/24 05:27 Sodium 138 Potassium 4.1 Chloride 109 H Carbon Dioxide 24 BUN 34 H Creatinine 1.56 H Glucose 110 H Calcium 9.1 (2) CAD (coronary artery disease) Coronary Disease-Associated Artery/Lesion type: [place] artery [place] vs. transplanted heart: [place] heart Associated angina: without angina Qualified Code(s): I25.10 - Atherosclerotic heart disease of [place] coronary artery without angina pectoris (4) Congestive heart failure Heart failure type: combined systolic and diastolic
[2024-04-12] MEDS: bisacodyL 5 MG TABEC PO ONE ×4 (15:21→21:58)
[2024-04-12] MEDS: POLYETHYLENE (MIRALAX) 17 GM PACK PO ONE (16:34)
[2024-04-13] MEDS: HOLD HEPARIN ORDER ONE (00:01)
--- NOTE | 2024-04-13 09:12 | Anesthesiology Consultation ---
Date of Service April 13, 2024 Assessment & Plan Chart Review Chart Review: Acceptable Risk for Surgery (high risk, cardiac note reviewed) and Patient NOT seen in Pre Admission Testing History Surgery Operation Date: 04/07/24 16:30 Proposed Procedures p Colonoscopy Dr. Maynor Mcguire MD Operation Date: 04/13/24 11:40 Proposed Procedures p Robotic Sigmoid Colon Resection, Possible Open - Ugo Moreno DO, FACS Height/Weight Height: 5 ft 2 in Weight: 75.1 kg Allergies Allergy/AdvReac Type Severity Reaction Status Date / Time Iodinated Contrast Media AdvReac Intermediate Nausea Verified 04/07/24 12:21 Medications Home Medications Medication Instructions Recorded Confirmed Last Taken apixaban 5 mg tablet (Eliquis) 5 mg PO BID 90 days #180 tabs 12/04/23 04/05/24 03/09/24 08:00 nitroglycerin 0.4 mg sublingual 0.4 mg sublingual UD PRN chest 02/13/24 04/05/24 Unknown tablet (Nitrostat) pain #20 tabs metoprolol succinate 100 mg 100 mg PO QAM 02/16/24 04/05/24 03/11/24 tablet,extended release 24 hr clopidogrel 75 mg tablet 75 mg PO DAILY #30 tabs 03/11/24 04/05/24 Unknown atorvastatin 40 mg tablet 40 mg PO DAILY 04/05/24 04/05/24 Unknown bumetanide 2 mg tablet 2 mg PO DAILY #30 tabs 04/07/24 Unknown Active Medications Generic Name Dose Route Start Last Admin Trade Name Freq PRN Reason Stop Dose Admin Acetaminophen 650 mg 04/05/24 16:06 04/12/24 23:13 Acetaminophen 325 Mg Tab PO 05/05/24 16:05 650 mg Q4H PRN Administration Pain or Fever Aspirin 81 mg 04/05/24 16:15 04/12/24 08:07 Aspirin 81 Mg Ectab PO 05/05/24 16:14 81 mg QAM PILO Administration Atorvastatin Calcium 40 mg 04/06/24 09:00 04/12/24 08:07 Atorvastatin 40 Mg Tab PO 05/06/24 08:59 40 mg DAILY PILO Administration Bumetanide 2 mg 04/06/24 12:30 04/12/24 08:07 Bumetanide 1 Mg Tab PO 05/06/24 12:29 2 mg DAILY PILO Administration Ceftriaxone Sodium 2,000 mg in 50 mls @ 100 mls/hr 04/06/24 09:00 04/12/24 08:46 Rocephin IV 04/16/24 08:59 Infused Q24H PILO Infusion Pantoprazole Sodium 40 mg/ 10 mls @ 5 mls/min 04/05/24 16:30 04/12/24 20:24 Syringe IV 05/05/24 16:29 5 mls/min BID PILO Administration Heparin Sodium/Dextrose 25,000 units in 500 mls @ 0 mls/hr 04/08/24 18:00 04/13/24 00:00 Heparin Sodium/Dextrose IV 05/08/24 17:59 Infused .Q0M PILO Titration Protocol 0 UNITS/HR Melatonin 6 mg 04/05/24 21:00 04/12/24 23:13 Melatonin 3 Mg Tab PO 05/05/24 20:59 6 mg HS PRN Administration Sleep Metoprolol Succinate 100 mg 04/05/24 16:30 04/12/24 08:07 Metoprolol Succ 50mg Ext Rel Tab PO 05/05/24 16:29 Not Given QAM PILO Ondansetron HCl 4 mg 04/05/24 16:06 04/06/24 20:19 Ondansetron Inj 2 Mg/Ml 2 Ml Vial IV 05/05/24 16:05 4 mg Q6H PRN Administration Nausea NPO Date Last Intake of Fluids: 04/07/24 Time Last Intake of Fluids: 08:00 Last Intake of Fluids Comment: sips with meds Date Last Intake of Solids: 04/04/24 Past Medical History Medical History Cellulitis of left foot being treated for at present 02/2024 Hx of non-ST elevation myocardial infarction (NSTEMI) November 2023 [place] Kidney stone at present 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, stage 3 Acute HFrEF (heart failure with reduced ejection fraction) follows with [facility] Atrial fibrillation with rapid ventricular response one episode at [facility] 02/2024 > cardioversion Renal insufficiency CKD (chronic kidney disease) stage 3, GFR 30-59 ml/min History of tobacco abuse Past Family History Family History Other Cancer Clotting disorder Past Surgical History Surgical History History of tooth extraction History of colonoscopy Social History Smoking Status: Current some day smoker Smoking cigarettes per day: 30 Do You Dip or Chew Tobacco: No Smoking End Date: quit smoking around [place] - occassionally still smokes Hx Alcohol Use: No Hx Substance Use: No substance use type: does not use Physical Exam Vital Signs Last Vital Signs Temp 36.5 C 04/13/24 07:44 Pulse 60 04/13/24 07:44 Resp 18 04/13/24 07:44 BP 138/88 04/13/24 07:44 Pulse Ox 97 04/13/24 07:44 O2 Del Method Room Air 04/13/24 07:44 Testing Laboratory Results 04/12/24 05:27 04/12/24 05:27 PT 11.0 Seconds (9.0-12.0) 04/08/24 17:10 INR 1.0 (0.9-1.1) 04/08/24 17:10 APTT 25 Seconds (21-31) 04/08/24 17:10 Urine Color Yellow 04/05/24 10:35 Urine Appearance Cloudy (Clear) A 04/05/24 10:35 Urine pH 5.5 (4.5-7.5) 04/05/24 10:35 Ur Specific [place] 1.018 (1.000-1.030) 04/05/24 10:35 Urine Protein 2+ (Negative) H 04/05/24 10:35 Urine Glucose (UA) Negative (Negative) 04/05/24 10:35 Urine Ketones Negative (Negative) 04/05/24 10:35 Urine Nitrite Negative (Negative) 04/05/24 10:35 Ur Leukocyte Esterase 1+ (Negative) H 04/05/24 10:35 Urine WBC (Auto) 11-20 /hpf (0-5) H 04/05/24 10:35 Urine RBC (Auto) 3-5 /hpf (0-2) H 04/05/24 10:35 U Hyaline Cast (Auto) 0-2 /lpf (0-2) 04/05/24 10:35 U Epithel Cells (Auto) 11-20 /hpf (0-2) H 04/05/24 10:35 Urine Bacteria (Auto) 2+ (None Seen) H 04/05/24 10:35 Blood Type A Positive 04/05/24 19:24 Antibody Screen NEGATIVE 04/05/24 19:24 04/05/24 10:35 Urine Culture - Final Urine,Clean Catch More than three types of organisms present, all low counts mixed probable skin andrew. No further identifications or sensitivities to follow. Electrocardiogram Date: 04/06/24 Findings: + NSR @ (79) WNL Chest X-Ray Date: 02/09/24 CLINICAL HISTORY: chest pain TECHNIQUE: Single frontal radiograph of the chest was obtained. Comparison: Comparison is made to 11/13/2023 FINDINGS: Exam is limited by underpenetration. Cardiomegaly is noted. The aortic arch is calcified. The lungs are clear. No evidence of pleural effusion or pneumothorax. IMPRESSION: No acute chest disease. Cardiomegaly is noted. Echocardiogram Date: 04/05/24 EF: 55-60 LV Function: normal Other Findings: + atrial enlargement (mild left) and + LVH (mod) mod pericardial effusion
--- NOTE | 2024-04-13 11:08 | Hospitalist Progress Note ---
Date of Service April 13, 2024 Assessment & Plan (1) Bright red blood per rectum: (2) CAD (coronary artery disease): (3) Anticoagulant long-term use: (4) Congestive heart failure: (5) CKD (chronic kidney disease) stage 3, GFR 30-59 ml/min: Plan This is a 68 yr old F Who has a significant past medical history of CAD (PCI mid LAD and distal LAD 03/2024), chronic HFpEF with hx of cardiomyopathy, atrial fibrillation, CKD stage IIIb, chronic anemia, history of renal calculi, hyperkalemia no longer tolerating lokelma who presents to ED in setting of bright red blood per rectum x 1 day. Sigmoid Colonic Mass: Infiltrative adenocarcinoma of the colon Bright red blood per rectum: admit [facility] Pt required 1 unit PRBC evening of 04/05 due to hgb 9.0 in setting of active GIB and recent coronary stents hold eliquis, plavix- last dose was on 04/04 p.m. for eliquis and a.m. for plavix Per cardiology recommend at least ASA 81mg daily and as soon as able recommend switching ASA to plavix. [place] tx for her is plavix/eliquis when able --CT abd w/o identifiable source of bleeding bleeding likey in setting of mass appreciate GI recs- C scope performed on 04/07; sigmoid mass identified General surgery consult performed today: Plan for colon resection scheduled on Friday 04/13 @ 1140. Pathology results pending but given patient is off of AC currently, willl avoid restarting/stopping AC again. Cardiology consult placed for clearance for surgery; discussed directly with Dr. Faust on 04/08 who will outline recommendations; understanding the risks associated with being off of anticoagulation with recent stent placement on 03/11. Will place on Heparin gtt; monitor for rebleeding. Per general surgery recommendations: Recommend the patient have a Chest CT; ordered. CTA did not show any evidence of pulmonary embolism and/or metastatic disease Will have bowel preparation for the proposed surgery on Friday as below CKD: chronic cr stable baseline cr 1.4-2.1 follows [facility] nephro avoid nephrotoxic agents, in setting of ureteral obstruction and L renal atrophy Nuclear renal scan did show nonfunctioning left kidney with hydronephrosis-will inform the urologist She will need to have left nephrectomy as an outpatient electively CAD (PCI mid LAD and distal LAD 03/2024) Chronic HFpEF Hx of tachycardic induced cardiomyopathy (EF improved) Atrial fibrillation [place] [facility] [place] Echo: LVEF 55-60%, moderate pericardial effusion w/o tamponade on metoprolol, bumex, statin, plavix, eliquis as OP Resume Bumex today in setting of IVF/PRBC, + UOP Continue ASA for now, replace with Plavix as soon as able and reintroduce eliquis as soon as able; after surgery revisit restarting daily weights, strict intake and output pt is not on Jardiance, ARB in setting of UTI hx and hyperkalemia Place on Heparin gtt; low dose no bolus and monitor for rebleeding. Denies any cardiac symptoms No arrhythmias and/or chest pain Obstructing L UPJ Calculus Possible complicated UTI vs contamination CT a/p: There is a 1.5 cm obstructing calculus/calculi at/below the left ureteropelvic junction. This causes severe left-sided hydronephrosis and is similar to the 02/09/2024 examination. [place] [facility] [place] - awaiting [place] renal scan, plan for OP treatment urine culture grew multiple andrew, likely contaminent, will complete treatment Will need to have nephrectomy as an outpatient given the results of nuclear scan of the kidneys Abnormal CT a/p finding: prominent ovaries for age, recommend OP Pelvic US Disposition: DVT ppx: SCDS Code Status: FULL CODE PCP: Nicholas Magallanes Pt to undergo colon resection today, discharge to depend on surgical clearance, will need PT/OT consults post operatively A total of 54 minutes was spent coordinating, documenting, and providing care for this patient excluding time spent in the performance of separately billed services. This included personally viewing all current laboratories and imaging studies, medication reconciliation, outpatient chart review, and discussion with specialists. Admission and Anticipated Discharge Date Admission Date: April 07, 2024 Supervising Physician Co-Signing Physician Notes Attending addendum: The patient was seen and examined in medical telemetry unit She was seen prior to the surgery but later on it was known that she did not have the surgery as because she will need colorectal surgeon for her colon mass to remove. She was not having any symptoms during my examination in the morning On examination No apparent distress at rest Remained hemodynamically stable Her labs and medications reviewed Noted to have low level sigmoid mass removed with adenocarcinoma and not amenable to surgery by general surgeon Will likely need to be referred to colorectal surgery Will resume her usual medical medications on discharge will be tomorrow Agree with assessment and plan as outlined above by Areli Duran PA-C and take the full responsibility of care Total time spent was [address] Manny Moura Subjective Patient was seen and examined in room 262-2. F/U GIB, sigmoid mass. She is going to colon resection today. She reports being nervous about the procedure. She tells story of her mom living until 89 and just passing away a year ago. She denies f/c/s, chest pain, sob, n/v/abd pain. She had her second bowel prep last night and reported a lot of bleeding with the prep. She reports being up all night last night due to the prep. Review of Systems Review of Systems: All systems reviewed & are unremarkable except as noted in HPI & below Physical Exam Physical Exam: Gen: WD/WN, NAD, A&O x3 HEENT: Normocephalic, atraumatic, conjunctivae moist, sclerae anicteric, mucous membranes moist. Lung: Clear to Auscultation bilaterally, no wheezes/rales/rhonchi Heart: Regular rate, regular rhythm, no murmurs, rubs, or gallops Abdomen: Soft, NT, ND +BS x 4 Extremities: No edema, multiple bruising over extremities Skin: Warm, no rash, negative turgor. Results & Data Results & Data Vital Signs (Past 12 Hours) Vital Signs Temp Pulse Pulse Resp BP BP Pulse Ox 04/13/24 07:44 36.5 C 60 18 138/88 97 04/13/24 07:00 60 04/13/24 03:54 36.6 C 68 18 122/67 97 04/12/24 23:42 36.5 C 61 18 135/69 99 04/12/24 23:00 57 L O2 Del Method 04/13/24 07:44 Room Air 04/13/24 07:00 04/13/24 03:54 Room Air 04/12/24 23:42 Room Air 04/12/24 23:00 Medications Administered Current Inpatient Medications Acetaminophen (Acetaminophen 325 Mg Tab) 650 mg PO Q4H PRN PRN Reason: Pain or Fever Stop: 05/05/24 16:05 Last Admin: 04/13/24 09:57 Dose: 650 mg Aspirin (Aspirin 81 Mg Ectab) 81 mg PO QAM [facility] Stop: 05/05/24 16:14 Last Admin: 04/12/24 08:07 Dose: 81 mg Atorvastatin Calcium (Atorvastatin 40 Mg Tab) 40 mg PO DAILY [facility] Stop: 05/06/24 08:59 Last Admin: 04/13/24 09:59 Dose: Not Given Bumetanide (Bumetanide 1 Mg Tab) 2 mg PO DAILY [facility] Stop: 05/06/24 12:29 Last Admin: 04/13/24 09:59 Dose: Not Given Famotidine (Famotidine 20 Mg Tab) 20 mg PO DAILY PRN PRN Reason: Heartburn Stop: 05/05/24 16:05 Ceftriaxone Sodium (Rocephin) 2,000 mg in 50 mls @ 100 mls/hr IV Q24H [facility] Stop: 04/16/24 08:59 Last Infusion: 04/13/24 10:59 Dose: Infused Pantoprazole Sodium 40 mg/ (Syringe) 10 mls @ 5 mls/min IV BID [facility] Stop: 05/05/24 16:29 Last Admin: 04/13/24 09:58 Dose: 5 mls/min Heparin Sodium/Dextrose (Heparin Sodium/Dextrose) 25,000 units in 500 mls @ 0 mls/hr IV .Q0M [facility]; Protocol Stop: 05/08/24 17:59 Last Titration: 04/13/24 00:00 Dose: Infused Melatonin (Melatonin 3 Mg Tab) 6 mg PO HS PRN PRN Reason: Sleep Stop: 05/05/24 20:59 Last Admin: 04/12/24 23:13 Dose: 6 mg Metoprolol Succinate (Metoprolol Succ 50mg Ext Rel Tab) [facility] [place] Stop: 05/05/24 16:29 Last Admin: 04/13/24 09:58 Dose: 100 mg Ondansetron HCl (Ondansetron Inj 2 Mg/Ml 2 Ml Vial) 4 mg IV Q6H PRN PRN Reason: Nausea Stop: 05/05/24 16:05 Last Admin: 04/06/24 20:19 Dose: 4 mg Polyethylene Glycol (Polyethylene (Miralax) 17 Gm Pack) 17 gm PO DAILY PRN PRN Reason: Constipation Stop: 05/05/24 16:05 (2) CAD (coronary artery disease) Associated angina: without angina Coronary Disease-Associated Artery/Lesion type: [place] artery [place] vs. transplanted heart: [place] heart Qualified Code(s): I25.10 - Atherosclerotic heart disease of [place] coronary artery without angina pectoris (4) Congestive heart failure Heart failure type: combined systolic and diastolic
[2024-04-13] MEDS: LACTATED RINGER'S 1,000 ML IV SCH ×2 (11:19→16:28)
--- NOTE | 2024-04-13 11:40 | Surgery Progress Note ---
Date of Service April 13, 2024 Assessment & Plan (1) Colonic mass: Plan: Sigmoid mass Plan for laparoscopic hemicolectomy, possible open hemicolectomy, possible ostomy Risks of the procedure were discussed to include but not limited to bleeding, infection, leak, damage to surrounding structures, need for future more extensive surgery, and the risk of anesthesia Admission and Anticipated Discharge Date Admission Date: April 07, 2024 Subjective Patient with sigmoid mass and recent bleeding, has been stable since holding Plavix. She completed her bowel prep. No events over the weekend. Physical Exam Constitutional: WD/WN, vitals as above + obese Gastrointestinal (Abdomen): normal bowel sounds, soft, nontender, no hepatosplenomegaly Results & Data Vital Signs (Past 12 Hours) Vital Signs Temp Pulse Pulse Resp BP BP Pulse Ox 04/13/24 11:21 36.6 C 59 L 18 157/89 H 99 04/13/24 07:44 36.5 C 60 18 138/88 97 04/13/24 07:00 60 04/13/24 03:54 36.6 C 68 18 122/67 97 04/12/24 23:42 36.5 C 61 18 135/69 99 O2 Del Method 04/13/24 11:21 Room Air 04/13/24 07:44 Room Air 04/13/24 07:00 04/13/24 03:54 Room Air 04/12/24 23:42 Room Air PG Care Time/CCT Total # of Minutes Spent Total Time Spent with Patient: Total time spent is greater than 50% in coordination of care (as documented) at patient's floor/unit and/or counseling patient: Coding Level of Care Code 95650 SUB INP/OBS CARE 2/35MIN Diagnoses Colonic mass K63.89
[2024-04-13] MEDS ORDERED: ONDANSETRON INJ 2 MG/ML 2 ML VIAL IV PRN (12:17)
[2024-04-13] MEDS ORDERED: HYDROmorphone INJ 1 MG/ML SYRINGE IV PRN (12:17)
[2024-04-13] MEDS ORDERED: ePHEDrine sulfate 50 MG/ML AMP IV PRN (12:17)
[2024-04-13] MEDS ORDERED: fentaNYL citrate PF 100 MCG/2 ML VIAL IV PRN (12:17)
[2024-04-13] MEDS ORDERED: ATROPINE SULFATE 0.1 MG/ML 10ML SYR IV PRN (12:17)
[2024-04-13] MEDS ORDERED: fentaNYL citrate PF 100 MCG/2 ML VIAL ONE ×2 (12:29→13:43)
[2024-04-13] MEDS ORDERED: DEXAMETHASONE SOD INJ 4 MG/ML VIAL ONE (12:30)
[2024-04-13] MEDS ORDERED: ROCURONIUM BROMIDE 10 MG/ML 5 ML VIAL IV ONE (12:30)
[2024-04-13] MEDS ORDERED: PHENYLEPHRINE HCL 10 MG/ML VIAL ONE (12:30)
[2024-04-13] MEDS ORDERED: GLYCOPYRROLATE 0.2 MG/ML VIAL ONE (12:30)
[2024-04-13] MEDS ORDERED: ETOMIDATE 2 MG/ML 20 ML VIAL IV ONE (12:30)
[2024-04-13] MEDS ORDERED: ONDANSETRON INJ 2 MG/ML 2 ML VIAL ONE (12:30)
[2024-04-13] MEDS ORDERED: LABETALOL HCL IV 5 MG/ML 20ML IV ONE (13:48)
[2024-04-13] MEDS ORDERED: DexMEDEtomidine HCL IV 100 MCG/ML VIAL IV ONE (13:57)
[2024-04-13] MEDS: BUPIVACAINE 0.5 % 5 MG/1 ML MPF 30ML VIAL INJ ONE (14:19)
[2024-04-13] MEDS ORDERED: SUGAMMADEX SODIUM 200 MG/2 ML VIAL IV ONE (14:19)
[2024-04-13] MEDS: BUPIVACAINE LIPOSOME 1.3% 266 MG/20 ML VIAL INFIL ONE (14:21)
--- NOTE | 2024-04-13 14:39 | Operative Report ---
PG Post Operative Report Pre & Post Diagnosis Operation Date: 04/13/24 11:40 Pre-Op Diagnosis: Sigmoid mass. Post-Op Diagnosis: Rectal mass. I identified the patient and participated in the time-out.: Yes Procedure Operation Date: 04/13/24 11:40 Actual Procedures p Diagnostic Laparscopy, Rigid Proctoscopy(Not Applicable) - Ugo Moreno DO, YESENIA Surgeon Ugo Moreno DO, YESENIA [employer] Manager Raine Loyd Estimated Blood Loss 2 Findings Consistent with Post-Op Diagnosis Diagnostic laparoscopy performed, tattoo identified at the peritoneal reflection in the distal rectum. Rigid proctoscopy performed, tattoo tumor visible at approximately 9 to 10 cm. Specimens None Anesthesia Type General Complications none Disposition Accompanied Patient To Recovery: No Disposition: Recovery Room Indications 68-year-old female admitted with GI bleeding after initiating antiplatelet therapy following stent placement, she is also on anticoagulation. Colonoscopy revealed a mass in the distal sigmoid colon which was tattooed and biopsied. 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 CT imaging showed no evidence of a mass. Plan for laparoscopic hemicolectomy, possible open hemicolectomy, possible ostomy. The risks of the procedure were discussed, all questions were answered, and the patient agreed to proceed with surgery as planned. Description of Procedure The patient was appropriate identified, consented, taken to the operating room where she was placed in the low lithotomy position. General endotracheal anesthesia was induced. A Frias catheter and an OG tube were placed. Preoperative antibiotics were administered. The patient had a bowel prep prior to the surgery. SCDs and a safety belt were placed. The abdomen was prepped and draped in standard sterile fashion. Surgical timeout was performed and all parties were in agreement as correct patient and procedure be performed we continued as planned. Local anesthetic was injected in the right upper quadrant an incision was made. Veress needle was inserted and saline drop test confirmed entry into the abdom en. The abdomen was inflated with carbon dioxide which the patient tolerated without incident. The Veress needle was removed and the abdomen was entered using a 5 mm 30 degree scope and a 5 mm trocar. The introducer was removed and the abdomen was explored. There was no damage from initial trocar placement or Veress needle placement. There were no obvious abnormalities in the 4 quadrants of the abdomen. The tattoo was not immediately visible. A 12 mm port was then placed in the right lower quadrant, 8 mm robotic ports were then placed x 3. The patient was placed in the Trendelenburg position and rotated towards the left. The small bowel was swept out of the way. The sigmoid colon was then explored and there was no evidence of a tattoo. The sigmoid colon was then retracted proximally and we examined the rectum and pelvis. The tattoo was visible right at the peritoneal reflection and seem to be in the distal rectum. I then broke scrub and went to the bottom of the bed and performed a rigid proctoscopy. The tattoo site and tumor were visible in the distal rectum. When measuring from the anus this appeared to be around 9 to 10 cm at the tattoo site. At this point I elected to abort the procedure as this appeared to be quite a low tumor and she may benefit from neoadjuvant therapy or endoscopic mucosal resection. The rigid proctoscope was removed. The Efrain-Elvin device was used to close the fascia of the 12 mm port site with a [id number] 0 Vicryl suture. The ports were all removed under direct visualization. Exparel mixed with Marcaine was injected. The incisions were closed with 4-0 Monocryl subcuticular sutures followed by Dermabond. Frias catheter and OG tube were removed. Patient was extubated in the operating room and taken to the PACU where she recovered without incident. All sponge, instrument, and needle counts were correct at conclusion of the procedure. The patient tolerated procedure without incident. The physicians museum assistant was present and scrubbed for the entire the case. She was critical in positioning the patient, prepping and draping, retraction and exposure, driving the laparoscope, closure the incisions, placement of the dressings. I attest to the content of the Intraoperative Record and any orders documented therein. Any exceptions are noted below.
--- NOTE | 2024-04-13 15:00 | Surgery Progress Note ---
Date of Service April 13, 2024 Assessment & Plan (1) Colon cancer: Plan: Day of surgery from diagnostic laparoscopy and rigid proctoscopy. Unfortunately, at the time of surgery, the tumor was quite low and would not be amenable to resection at this institution. She may benefit from other therapy such as endomucosal resection if there is no infiltrative component, or she may benefit from neoadjuvant chemoradiation therapy given the location of the tumor. I did discuss this with Dr. Camacho, a colorectal surgeon with [facility]. She agrees with outpatient follow-up. She did request that we reconsult GI and see if they could potentially get a more definitive biopsy on the tumor prior to restarting her Plavix and Eliquis. Though if Eliquis is only for A-fib, she may be able to hold this and lieu of the bleeding she has experienced in the past. We will allow her to have clear liquids and make her n.p.o. at midnight. She may restart the heparin drip but hold after midnight. Continue the 81 mg ASA. Await GI input. I discussed this with the patient's niece, Nicolasa, who expressed understanding and agreed with the plan. Admission and Anticipated Discharge Date Admission Date: April 07, 2024 Subjective Day of surgery from diagnostic laparoscopy and rigid proctoscopy. Results & Data Vital Signs (Past 12 Hours) Vital Signs Temp Pulse Pulse Resp BP BP Pulse Ox 04/13/24 11:21 36.6 C 59 L 18 157/89 H 99 04/13/24 09:30 04/13/24 07:44 36.5 C 60 18 138/88 97 04/13/24 07:00 60 04/13/24 03:54 36.6 C 68 18 122/67 97 O2 Del Method 04/13/24 11:21 Room Air 04/13/24 09:30 Room Air 04/13/24 07:44 Room Air 04/13/24 07:00 04/13/24 03:54 Room Air PG Care Time/CCT Total # of Minutes Spent Total Time Spent with Patient: Total time spent is greater than 50% in coordination of care (as documented) at patient's floor/unit and/or counseling patient: Coding Level of Care Code None Diagnoses Colon cancer C18.9
[2024-04-13] MEDS ORDERED: MoRPHine SULFATE 2 MG/ML CARP IV PRN (15:53)
--- NOTE | 2024-04-13 16:01 | Anesthesiology Progress Note ---
Date of Service April 13, 2024 Anesthesia Post Procedure Vital Signs Vital Signs: Temp Pulse Pulse Pulse Resp BP BP 04/13/24 15:40 36.4 C L 58 L 14 147/64 H 04/13/24 15:25 58 L 12 146/63 H 04/13/24 15:15 62 12 147/64 H 04/13/24 15:05 63 13 152/65 H 04/13/24 14:55 63 22 145/63 H 04/13/24 14:45 36.6 C 67 16 151/64 H 04/13/24 11:21 36.6 C 59 L 18 157/89 H 04/13/24 09:30 04/13/24 07:44 36.5 C 60 18 138/88 04/13/24 07:00 60 04/13/24 03:54 36.6 C 68 18 122/67 04/12/24 23:42 36.5 C 61 18 135/69 04/12/24 23:00 57 L 04/12/24 21:27 04/12/24 19:08 36.4 C L 62 18 136/56 L Pulse Ox O2 Del Method O2 Flow Rate 04/13/24 15:40 93 Room Air 04/13/24 15:25 97 Room Air 04/13/24 15:15 100 Oxymask 3 04/13/24 15:05 100 Oxymask 3 04/13/24 14:55 100 Oxymask 6 04/13/24 14:45 100 Oxymask 6 04/13/24 11:21 99 Room Air 04/13/24 09:30 Room Air 04/13/24 07:44 97 Room Air 04/13/24 07:00 04/13/24 03:54 97 Room Air 04/12/24 23:42 99 Room Air 04/12/24 23:00 04/12/24 21:27 Room Air 04/12/24 19:08 99 Room Air Pain Intensity Left Flank: Pain Intensity: 2 Back: Pain Intensity: 7 Head: Pain Intensity: 6 Transfer of Care Handoff Completed per policy Notes Mental Status: alert / awake / arousable and participated in evaluation Patient Amnestic to Procedure: Yes Nausea / Vomiting: adequately controlled Pain: adequately controlled Airway Patency, RR, SpO2: stable & adequate BP & HR: stable & adequate Hydration State: stable & adequate Anesthetic Complications: no major complications apparent
[2024-04-14 00:10] LABS: ANTI-Xa, UFH(UnfractionatedHep 0.16 IU/ml (0.3-0.7)
[2024-04-14] MEDS: HEPARIN SOD (PORCINE) 1000 UNIT/ML IV ONE (00:38)
[2024-04-14] MEDS: oxyCODONE HCL IR 5 MG TAB (IMMEDIATE RELEASE) PO PRN ×2 (03:50→17:36)
[2024-04-14] MEDS: HOLD HEPARIN ORDER ONE (04:04)
--- NOTE | 2024-04-14 07:59 | Surgery Progress Note ---
Date of Service April 14, 2024 Assessment & Plan (1) Colon cancer: Plan: Pt w/ multiple medical issues, recent coronary stent on plavix/asa, afib on eliquis here with [facility]. Colonoscopy confirmed colonic mass in the distal sigmoid with biopsy suspicious for infiltrative adenocarcinoma Given patient's bowels were prepped and blood thinners on hold we proceeded to take patient to the OR yesterday for robotic sigmoidectomy Unfortunately the tumor/tattooed area appeared too low for surgical intervention at our institution After discussions with a [place] colorectal surgeon, it was recommended patient undergo repeat colonoscopy for better tissue sampling and confirmation of location of tumor GI agreeable to proceed with colonoscopy and biopsy today... this information will help guide her future treatment options be it neoadjuvant chemo, colorectal resection, vs other procedures Will likely f/u with colorectal as an outpatient Pt agreeable to plan. Hep gtt currently on hold this AM and she remains NPO for colonoscopy today Admission and Anticipated Discharge Date Admission Date: April 07, 2024 Supervising Physician Co-Signing Physician Notes Patient seen and examined, with above. POD #1 diagnostic laparoscopy and rigid proctoscopy for low rectal tumor. This was unamenable to resection at this institution and she may benefit from other therapies. We discussed this with colorectal surgery in [place] Dr. Camacho. She is recommending a repeat scope as the biopsies did not show definitive adenocarcinoma, and this is scheduled for today. After this she can restart her Plavix from our perspective, consider holding the Eliquis given its for A-fib. If no signs of bleeding and she could be discharged home if tolerating a low fiber diet with plans on outpatient follow-up with colorectal surgery with [facility]. From surgery standpoint, she may advance diet as tolerated to low fiber after the colonoscopy today. Subjective Patient feeling okay this AM. Twinge of abdominal pain this AM with movement requiring pain meds, otherwise post op pain has been tolerable. No n/v. She has lots of questions regarding next steps, etc. Physical Exam Physical Exam: awake/alert, no distress Respiratory: normal respiratory effort Gastrointestinal (Abdomen): Inspection/Auscultation: + abdominal surgical incision (c/d/i with skin glue, no signs of infection); abdomen not distended Percussion/Palpation: + abdomen tender (mild expected cheng incisional discomfort ) and abdomen soft Results & Data Vital Signs (Past 12 Hours) Vital Signs Temp Pulse Pulse Resp BP BP Pulse Ox 04/14/24 03:27 97.9 F 68 18 145/61 H 96 04/14/24 00:00 68 04/13/24 22:46 97.9 F 64 18 157/63 H 99 04/13/24 21:35 O2 Del Method 04/14/24 03:27 Room Air 04/14/24 00:00 04/13/24 22:46 Room Air 04/13/24 21:35 Room Air PG Care Time/CCT Total # of Minutes Spent Total Time Spent with Patient: Total time spent is greater than 50% in coordination of care (as documented) at patient's floor/unit and/or counseling patient: Coding Level of Care Code 44967 Post Operative Follow-Up Diagnoses Colon cancer C18.9
[2024-04-14 08:46] LABS: Basophils # (auto) 0.02 K/uL (0.00-0.20); Basophils % (auto) 0.3 %; Hematocrit (blood only) 28.1 % (37.0-47.0); Hemoglobin 9.4 g/dl (12.0-16.0); Immature Granulocytes # (auto) 0.04 K/uL (0.01-0.20); Immature Granulocytes % (auto) 0.5 %; Lymphocytes # (auto) 0.73 K/uL (1.20-3.40); Lymphocytes % (auto) 9.3 %; Mean Corpuscular Hemoglobin 29.8 pg (25.0-34.0); Mean Corpuscular Hgb Conc 33.5 g/dL (32.0-36.0); Mean Corpuscular Volume 89.2 fL (80.0-100.0); Mean Platelet Volume 10.2 fL (9.4-12.4); Monocytes # (auto) 0.44 K/uL (0.11-0.59); Monocytes % (auto) 5.6 %; Neutrophils # (auto) 6.63 K/uL (1.40-6.50); Neutrophils % (auto) 84.3 %; Platelet Count 138 K/uL (130-400); RDW Coefficient of Variation 14.8 % (11.5-14.5); RDW Standard Deviation 48.7 fL (36.4-46.3); Red Blood Count 3.15 M/uL (4.20-5.40); White Blood Count 7.86 K/ul (4.8-10.8)
--- NOTE | 2024-04-14 08:53 | Anesthesiology Consultation ---
Date of Service April 14, 2024 Assessment & Plan (1) Encounter for pre-operative examination: Chart Review Chart Review: Acceptable Risk for Surgery History Surgery Operation Date: 04/07/24 16:30 Proposed Procedures p Colonoscopy Dr. Maynor Mcguire MD Operation Date: 04/13/24 11:40 Proposed Procedures p Robotic Sigmoid Colon Resection, Possible Open - Ugo Moreno DO, FACS Operation Date: 04/14/24 16:45 Proposed Procedures p Flexible Sigmoidoscopy Herminia Hope MD Height/Weight Height: 5 ft 2 in Weight: 78.5 kg Allergies Allergy/AdvReac Type Severity Reaction Status Date / Time Iodinated Contrast Media AdvReac Intermediate Nausea Verified 04/13/24 11:17 Medications Home Medications Medication Instructions Recorded Confirmed Last Taken apixaban 5 mg tablet (Eliquis) 5 mg PO BID 90 days #180 tabs 12/04/23 04/05/24 03/09/24 08:00 nitroglycerin 0.4 mg sublingual 0.4 mg sublingual UD PRN chest 02/13/24 04/05/24 Unknown tablet (Nitrostat) pain #20 tabs metoprolol succinate 100 mg 100 mg PO QAM 02/16/24 04/05/24 03/11/24 tablet,extended release 24 hr clopidogrel 75 mg tablet 75 mg PO DAILY #30 tabs 03/11/24 04/05/24 Unknown atorvastatin 40 mg tablet 40 mg PO DAILY 04/05/24 04/05/24 Unknown bumetanide 2 mg tablet 2 mg PO DAILY #30 tabs 04/07/24 Unknown Active Medications Generic Name Dose Route Start Last Admin Trade Name Freq PRN Reason Stop Dose Admin Acetaminophen 650 mg 04/05/24 16:06 04/13/24 22:11 Acetaminophen 325 Mg Tab PO 05/05/24 16:05 650 mg Q4H PRN Administration Pain or Fever Aspirin 81 mg 04/05/24 16:15 04/13/24 11:04 Aspirin 81 Mg Ectab PO 05/05/24 16:14 81 mg QAM PILO Administration Atorvastatin Calcium 40 mg 04/06/24 09:00 04/13/24 09:59 Atorvastatin 40 Mg Tab PO 05/06/24 08:59 Not Given DAILY PILO Bumetanide 2 mg 04/06/24 12:30 04/13/24 09:59 Bumetanide 1 Mg Tab PO 05/06/24 12:29 Not Given DAILY PILO Ceftriaxone Sodium 2,000 mg in 50 mls @ 100 mls/hr 04/06/24 09:00 04/13/24 10:59 Rocephin IV 04/16/24 08:59 Infused Q24H PILO Infusion Pantoprazole Sodium 40 mg/ 10 mls @ 5 mls/min 04/05/24 16:30 04/13/24 20:48 Syringe IV 05/05/24 16:29 5 mls/min BID PILO Administration Heparin Sodium/Dextrose 25,000 units in 500 mls @ 13 mls/hr 04/08/24 18:00 04/14/24 00:40 Heparin Sodium/Dextrose IV 05/08/24 17:59 650 units/hr .Q24H PILO 13 mls/hr Titration Protocol 650 UNITS/HR Lactated Ringer's 1,000 mls @ 80 mls/hr 04/13/24 16:00 04/14/24 04:43 Lr IV 05/13/24 15:59 80 mls/hr .[id number] PILO Administration Melatonin 6 mg 04/05/24 21:00 04/13/24 22:10 Melatonin 3 Mg Tab PO 05/05/24 20:59 6 mg HS PRN Administration Sleep Metoprolol Succinate 100 mg 04/05/24 16:30 04/13/24 09:58 Metoprolol Succ 50mg Ext Rel Tab PO 05/05/24 16:29 100 mg QAM PILO Administration Ondansetron HCl 4 mg 04/05/24 16:06 04/06/24 20:19 Ondansetron Inj 2 Mg/Ml 2 Ml Vial IV 05/05/24 16:05 4 mg Q6H PRN Administration Nausea Oxycodone HCl 5 mg 04/13/24 15:53 04/14/24 03:50 Oxycodone Hcl Ir 5 Mg Tab (Immediate Release) PO 04/27/24 15:52 5 mg Q4H PRN Administration Moderate Pain (Scale 4, 5, 6) NPO Date Last Intake of Fluids: 04/12/24 Time Last Intake of Fluids: 20:00 Last Intake of Fluids Comment: sip water this am with meds- last 1055 Date Last Intake of Solids: 04/11/24 Time Last Intake of Solids: 17:00 Past Medical History Medical History Colonic mass Anemia CAD (coronary artery disease) 03/2024- PCI x 2 LAD Cellulitis of left foot being treated for at present 02/2024 Hx of non-ST elevation myocardial infarction (NSTEMI) November 2023 [place] Kidney stone at present 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, stage 3 Acute HFrEF (heart failure with reduced ejection fraction) follows with [facility] Atrial fibrillation with rapid ventricular response one episode at [place] 02/2024 > cardioversion Renal insufficiency CKD (chronic kidney disease) stage 3, GFR 30-59 ml/min History of tobacco abuse Past Family History Family History Other Cancer Clotting disorder Past Surgical History Surgical History (Updated 04/14/24 @ 08:52 by Raul Peacock MD) History of coronary angioplasty with insertion of stent History of tooth extraction History of colonoscopy Social History Smoking Status: Current some day smoker Smoking cigarettes per day: 30 Do You Dip or Chew Tobacco: No Smoking End Date: quit smoking around - occassionally still smokes Hx Alcohol Use: No Hx Substance Use: No substance use type: does not use Physical Exam Vital Signs Last Vital Signs Temp 36.4 C L 04/14/24 08:15 Pulse 71 04/14/24 08:15 Resp 18 04/14/24 08:15 BP 157/73 H 04/14/24 08:15 Pulse Ox 96 04/14/24 08:15 O2 Del Method Room Air 04/14/24 08:15 O2 Flow Rate 3 04/13/24 15:15 Testing Laboratory Results 04/14/24 08:00 PT 11.0 Seconds (9.0-12.0) 04/08/24 17:10 INR 1.0 (0.9-1.1) 04/08/24 17:10 APTT 25 Seconds (21-31) 04/08/24 17:10 Urine Color Yellow 04/05/24 10:35 Urine Appearance Cloudy (Clear) A 04/05/24 10:35 Urine pH 5.5 (4.5-7.5) 04/05/24 10:35 Ur Specific Pimento 1.018 (1.000-1.030) 04/05/24 10:35 Urine Protein 2+ (Negative) H 04/05/24 10:35 Urine Glucose (UA) Negative (Negative) 04/05/24 10:35 Urine Ketones Negative (Negative) 04/05/24 10:35 Urine Nitrite Negative (Negative) 04/05/24 10:35 Ur Leukocyte Esterase 1+ (Negative) H 04/05/24 10:35 Urine WBC (Auto) 11-20 /hpf (0-5) H 04/05/24 10:35 Urine RBC (Auto) 3-5 /hpf (0-2) H 04/05/24 10:35 U Hyaline Cast (Auto) 0-2 /lpf (0-2) 04/05/24 10:35 U Epithel Cells (Auto) 11-20 /hpf (0-2) H 04/05/24 10:35 Urine Bacteria (Auto) 2+ (None Seen) H 04/05/24 10:35 Blood Type A Positive 04/05/24 19:24 Antibody Screen NEGATIVE 04/05/24 19:24 04/05/24 10:35 Urine Culture - Final Urine,Clean Catch More than three types of organisms present, all low counts mixed probable skin andrew. No further identifications or sensitivities to follow. Echocardiogram Date: 04/05/24 EF: 55-60% LV Function: normal Other Findings: + LVH moderate pericardial effusion - no evidence of tamponade
[2024-04-14 09:09] LABS: Albumin Globulin Ratio 1.6 (0.9-2); Albumin Level 3.6 gm/dl (3.4-5.0); BUN Creatinine Ratio 18.3 (10-20); Bilirubin,Total 0.3 mg/dl (0.2-1.0); Calcium 9.7 mg/dl (8.6-10.3); Creatinine Clr Calc Pharmacy 44.2 ml/min; Est GFR (African American) 55.8 ml/min; Est GFR (Non-African American) 48.2 ml/min; Globulin 2.3 gm/dl (2.5-4.0); Magnesium 1.8 mg/dl (1.7-2.4); Potassium 4.2 mmol/L (3.5-5.1); Total Protein 5.9 gm/dl (6.0-8.3)
[2024-04-14] MEDS: SOD PHOSPHATE/SOD BIPHOSPHATE ENEMA 132 ML BTL PR ONE (09:38)
--- NOTE | 2024-04-14 09:42 | History & Physical Bridge Note ---
Date of Service April 14, 2024 History & Physical Bridge Note I have examined the patient, reviewed the History & Physical and in the interval since the performance of the History & Physical I have noted the following changes of clinical significance: no changes noted. We had recieved a message from surgery last evening. Patient had gone to the OR on 04/13 for scheduled sigmoidectomy but unfortunately the mass/tattoo appeared too low for them to safely resect the area of concern. They believe she will benefit from a colorectal surgeon given the location. Surgery had reached out to one she may be able to follow up with as an outpatient and they asked if there was potential the patient to be scoped again and try to get a better biopsy. discussed this with the patient, she is agreeable. - recommend fleets enema this morning. - will plan for flex sig later today. Supervising Physician Co-Signing Physician Notes I examined the patient and reviewed patient's chart , laboratory data and imaging studies. I agree with with assessment and plan of care as suggested by advanced practice provider. Flexible sigmoidoscopy with multiple biopsies for definitive diagnosis of adenocarcinoma.
--- NOTE | 2024-04-14 10:53 | Hospitalist Progress Note ---
<Statement entered by Moody Escobedo, - 04/14/24 13:13> I have seen and examined the patient and have discussed the case with the provider above. I have reviewed the advanced practitioner's documentation, and I agree with, and take responsibility for that plan of care. 14 minutes spent in coordinating care and examined the patient at bedside. Patient nontoxic in appearance, no abdominal distention or pain to palpation Plan of care as outlined below, anticipate discharge pending results of colonoscopy, uncomplicated postprocedure course and coordination about the patient follow-up with colorectal surgery. Date of Service April 14, 2024 Assessment & Plan (1) Bright red blood per rectum: (2) CAD (coronary artery disease): (3) Anticoagulant long-term use: (4) Congestive heart failure: (5) CKD (chronic kidney disease) stage 3, GFR 30-59 ml/min: Plan This is a 68 yr old F Who has a significant past medical history of CAD (PCI mid LAD and distal LAD 03/2024), chronic HFpEF with hx of cardiomyopathy, atrial fibrillation, CKD stage IIIb, chronic anemia, history of renal calculi, hyperkalemia no longer tolerating lokelma who presents to ED in setting of bright red blood per rectum x 1 day. Sigmoid Colonic Mass: Infiltrative adenocarcinoma of the colon Bright red blood per rectum: admit to [facility] Pt required 1 unit PRBC evening of 04/05 due to hgb 9.0 in setting of active GIB and recent coronary stents Plavix/Eliquis on hold, Pt on ASA at recs of cardiology for now --CT abd w/o identifiable source of bleeding bleeding likey in setting of mass CTA did not show any evidence of pulmonary embolism and/or metastatic disease appreciate GI recs- C scope performed on 04/07; sigmoid mass identified General surgery consult performed today: Plan for colon resection scheduled on Friday 04/13 @ 1140. Surgery was aborted due to mass being too low and recommended pt see colorectal Cardiology consult placed for clearance for surgery; discussed directly with Dr. Faust on 04/08 who will outline recommendations; understanding the risks associated with being off of anticoagulation with recent stent placement on 03/11. Currently pt on heparin gtt and asa She is undergoing a repeat colonscopy today for further biopsies per colorectal surgery in [place], Dr. Camacho to help determine diagnosis and aide in treatment planning Post colonoscopy today plan will be to resume low fiber diet Will restart plavix in addition to aspirin and stop heparin gtt, pt has been in NSR throughout admission Will discuss with cardiology as she will need close follow up as outpt, but plan would be to continue to hold eliquis in favor of of ASA/Plavix for now, likely to be able to resume eliquis in the near future She will need general surgery/colorectal follow up as outpatient CKD: chronic cr stable baseline cr 1.4-2.1 follows [facility] nephro avoid nephrotoxic agents, in setting of ureteral obstruction and L renal atrophy Nuclear renal scan did show nonfunctioning left kidney with hydronephrosis-will inform the urologist She will need to have left nephrectomy as an outpatient electively - She will need urology follow up CAD (PCI mid LAD and distal LAD 03/2024) Chronic HFpEF Hx of tachycardic induced cardiomyopathy (EF improved) Atrial fibrillation follows [facility] cardiology Echo: LVEF 55-60%, moderate pericardial effusion w/o tamponade on metoprolol, bumex, statin, plavix, eliquis as OP Resume Bumex today in setting of IVF/PRBC, + UOP Continue ASA for now, replace with Plavix as soon as able and reintroduce eliquis as soon as able; after surgery revisit restarting daily weights, strict intake and output pt is not on Jardiance, ARB in setting of UTI hx and hyperkalemia Place on Heparin gtt; low dose no bolus and monitor for rebleeding. Post C scope today will d/c heparin gtt in favor of ASA, Plavix - in future plan to re start eliquis Obstructing L UPJ Calculus Possible complicated UTI vs contamination CT a/p: There is a 1.5 cm obstructing calculus/calculi at/below the left ureteropelvic junction. This causes severe left-sided hydronephrosis and is similar to the 02/09/2024 examination. follows [facility] urology - awaiting NM renal scan, plan for OP treatment urine culture grew multiple andrew, likely contaminant, will complete treatment on 04/15 Will need to have nephrectomy as an outpatient given the results of nuclear scan of the kidneys Abnormal CT a/p finding: prominent ovaries for age, recommend OP Pelvic US, will obtain prior to discharge as pt has difficulty getting to appointments. Disposition: DVT ppx: SCDS, heparin gtt Code Status: FULL CODE PCP: Nicholas Magallanes Pt to under go C scope today, will advance diet, likely discharge tomorrow with close outpt follow up A total of 50 minutes was spent coordinating, documenting, and providing care for this patient excluding time spent in the performance of separately billed services. This included personally viewing all current laboratories and imaging studies, medication reconciliation, outpatient chart review, and discussion with specialists. Admission and Anticipated Discharge Date Admission Date: April 07, 2024 Subjective Patient was seen and examined in room 262-2. F/U GIB, sigmoid mass. Pt is very frustrated and tearful. States she didn't sleep much last night. She feels like its one thing after another. She denies pain. She wishes to eat something. She denies f/c/s, chest pain, sob, n/v. She denies any further rectal bleeding. Review of Systems Review of Systems: All systems reviewed & are unremarkable except as noted in HPI & below Physical Exam Physical Exam: Gen: WD/WN, NAD, A&O x3 HEENT: Normocephalic, atraumatic, conjunctivae moist, sclerae anicteric, mucous membranes moist. Lung: Clear to Auscultation bilaterally, no wheezes/rales/rhonchi Heart: Regular rate, regular rhythm, no murmurs, rubs, or gallops Abdomen: Soft, NT, ND +BS x 4 Extremities: No edema, multiple bruising over extremities Skin: Warm, no rash, negative turgor. Results & Data Results & Data Vital Signs (Past 12 Hours) Vital Signs Temp Pulse Pulse Resp BP BP Pulse Ox 04/14/24 08:15 36.4 C L 71 18 157/73 H 96 04/14/24 08:14 62 04/14/24 03:27 36.6 C 68 18 145/61 H 96 04/14/24 00:00 68 O2 Del Method 04/14/24 08:15 Room Air 04/14/24 08:14 04/14/24 03:27 Room Air 04/14/24 00:00 Laboratory Results Short CBC 04/14/24 Range/Units 08:00 WBC 7.86 (4.8-10.8) K/ul Hgb 9.4 L (12.0-16.0) g/dl Hct 28.1 L (37.0-47.0) % Plt Count 138 (130-400) K/uL BMP 04/14/24 08:00 Sodium 139 Potassium 4.2 Chloride 109 H Carbon Dioxide 25 BUN 21 Creatinine 1.15 Glucose 85 Calcium 9.7 Liver Function 04/14/24 Range/Units 08:00 Total Bilirubin 0.3 (0.2-1.0) mg/dl AST 17 (13-39) U/L ALT 21 (7-52) U/L Alkaline Phosphatase 51 (34-104) U/L Albumin 3.6 (3.4-5.0) gm/dl Medications Administered Current Inpatient Medications Acetaminophen (Acetaminophen 325 Mg Tab) 650 mg PO Q4H PRN PRN Reason: Pain or Fever Stop: 05/05/24 16:05 Last Admin: 04/14/24 09:38 Dose: 650 mg Aspirin (Aspirin 81 Mg Ectab) 81 mg PO QAM [facility] Stop: 05/05/24 16:14 Last Admin: 04/13/24 11:04 Dose: 81 mg Atorvastatin Calcium (Atorvastatin 40 Mg Tab) 40 mg PO DAILY [facility] Stop: 05/06/24 08:59 Last Admin: 04/13/24 09:59 Dose: Not Given Bumetanide (Bumetanide 1 Mg Tab) 2 mg PO DAILY [facility] Stop: 05/06/24 12:29 Last Admin: 04/13/24 09:59 Dose: Not Given Famotidine (Famotidine 20 Mg Tab) 20 mg PO DAILY PRN PRN Reason: Heartburn Stop: 05/05/24 16:05 Ceftriaxone Sodium (Rocephin) 2,000 mg in 50 mls @ 100 mls/hr IV Q24H [facility] Stop: 04/16/24 08:59 Last Admin: 04/14/24 10:24 Dose: 100 mls/hr Pantoprazole Sodium 40 mg/ (Syringe) 10 mls @ 5 mls/min IV BID [facility] Stop: 05/05/24 16:29 Last Admin: 04/14/24 10:24 Dose: 5 mls/min Heparin Sodium/Dextrose (Heparin Sodium/Dextrose) 25,000 units in 500 mls @ 13 mls/hr IV .Q24H [facility]; Protocol Stop: 05/08/24 17:59 Last Titration: 04/14/24 00:40 Dose: 650 units/hr, 13 mls/hr Lactated Ringer's (Lr) 1,000 mls @ 80 mls/hr IV .[id number] [facility] Stop: 05/13/24 15:59 Last Admin: 04/14/24 04:43 Dose: 80 mls/hr Sodium Chloride (Nss) 500 mls @ 15 mls/hr IV .Q24H [facility] Stop: 04/15/24 07:29 Melatonin (Melatonin 3 Mg Tab) 6 mg PO HS PRN PRN Reason: Sleep Stop: 05/05/24 20:59 Last Admin: 04/13/24 22:10 Dose: 6 mg Metoprolol Succinate (Metoprolol Succ 50mg Ext Rel Tab) 100 mg PO QAM [facility] Stop: 05/05/24 16:29 Last Admin: 04/13/24 09:58 Dose: 100 mg Morphine Sulfate (Morphine Sulfate 2 Mg/Ml Carp) 2 mg IV Q2H PRN PRN Reason: severe or break through pain Stop: 04/27/24 15:52 Ondansetron HCl (Ondansetron Inj 2 Mg/Ml 2 Ml Vial) 4 mg IV Q6H PRN PRN Reason: Nausea Stop: 05/05/24 16:05 Last Admin: 04/06/24 20:19 Dose: 4 mg Oxycodone HCl (Oxycodone Hcl Ir 5 Mg Tab (Immediate Release)) 5 mg PO Q4H PRN PRN Reason: Moderate Pain (Scale 4, 5, 6) Stop: 04/27/24 15:52 Last Admin: 04/14/24 03:50 Dose: 5 mg Oxycodone HCl (Oxycodone Hcl Ir 5 Mg Tab (Immediate Release)) 10 mg PO Q4H PRN PRN Reason: Severe Pain (Scale 7, 8, 9,10) Stop: 04/27/24 15:52 Polyethylene Glycol (Polyethylene (Miralax) 17 Gm Pack) 17 gm PO DAILY PRN PRN Reason: Constipation Stop: 05/05/24 16:05 Saccharomyces Boulardii (Saccharomyces Boulardii 250 Mg Cap) 250 mg PO DAILY [facility] Stop: 04/20/24 08:59 (2) CAD (coronary artery disease) Associated angina: without angina Coronary Disease-Associated Artery/Lesion type: [place] artery [place] vs. transplanted heart: [place] heart Qualified Code(s): I25.10 - Atherosclerotic heart disease of [place] coronary artery without angina pectoris (4) Congestive heart failure Heart failure type: combined systolic and diastolic
[2024-04-14] MEDS: SODIUM CHLORIDE 0.9% 500 ML IV SCH ×2 (12:43→16:31)
--- NOTE | 2024-04-14 13:48 | GI REPORT ---
[facility] Patient: KHARI RODRIGUEZ : 1955 Sex at : Female Age: 68 Years Procedure: Flexible Sigmoidoscopy Date: 04/14/2024 Attending Physician: Martín Hope MD Referring MD: Referred Self Indications: - Additional tissue sampling of suspected sigmoid carcinoma. Medications: - Monitored Anesthesia Care Complications: - No immediate complications. Estimated Blood Loss: - Estimated blood loss was minimal. Procedure: - The pediatric colonoscope was introduced through the anus and advanced to the sigmoid colon. - The flexible sigmoidoscopy was accomplished without difficulty. Findings: - The digital rectal exam was normal. Pertinent negatives include no palpable rectal lesions. - A frond-like/villous and infiltrative [Obstructing] medium-sized mass was found in the sigmoid colon and at 20 cm proximal to the anus. The mass was partially circumferential (involving one-third of the lumen circumference). The mass measured 4 cm (in length). [Diameter]. [Bleeding]. Multiple tissue fragments were obtained with a cold snare polypectomy. Impression: - Likely malignant tumor in the sigmoid colon and at 20 cm proximal to the anus. - Multiple tissue fragments were obtained with a cold snare polypectomy. - No specimens collected. Recommendation: - Await pathology results. - Awaiting pathology. Procedure Code(s): - 23660, Sigmoidoscopy, flexible; diagnostic, including collection of specimen(s) by brushing or washing, when performed (separate procedure) Diagnosis Code(s): - D49.0, Neoplasm of unspecified behavior of digestive system CPT(R) - 2023 copyright [employer]. All Rights Reserved. The CPT codes, CCI edits and ICD codes generated are intended as suggestions and were generated based on input data. These codes are preliminary and upon electrophysiology technologist review may be revised to meet current compliance and payer requirements. The provider is responsible for the final determination of appropriate codes, and modifiers. Martín Hope M.D. , This document has been electronically signed. Note Initiated:04/14/2024 Note Completed:04/14/2024 1:47 PM \\[email or web address]\Provation\Results\[email or web address]\[id number]
--- NOTE | 2024-04-14 14:13 | Anesthesiology Progress Note ---
Date of Service April 14, 2024 Anesthesia Post Procedure Vital Signs Vital Signs: Temp Pulse Pulse Pulse Resp BP BP 04/14/24 13:57 69 16 144/50 H 04/14/24 13:42 69 18 122/45 L 04/14/24 12:41 35.8 C L 69 16 174/95 H 04/14/24 12:02 36.3 C L 62 18 157/71 H 04/14/24 08:15 36.4 C L 71 18 157/73 H 04/14/24 08:14 62 04/14/24 03:27 36.6 C 68 18 145/61 H 04/14/24 00:00 68 04/13/24 22:46 36.6 C 64 18 157/63 H 04/13/24 21:35 04/13/24 19:04 36.3 C L 68 18 164/67 H 04/13/24 17:41 36.5 C 70 16 130/64 04/13/24 16:52 36 C L 59 L 16 157/76 H 04/13/24 16:24 36.3 C L 58 L 18 144/61 H 04/13/24 16:09 36.3 C L 64 18 157/75 H 04/13/24 15:40 36.4 C L 58 L 14 147/64 H 04/13/24 15:25 58 L 12 146/63 H 04/13/24 15:15 62 12 147/64 H 04/13/24 15:05 63 13 152/65 H 04/13/24 14:55 63 22 145/63 H 04/13/24 14:45 36.6 C 67 16 151/64 H Pulse Ox O2 Del Method O2 Flow Rate 04/14/24 13:57 97 Room Air 04/14/24 13:42 99 Room Air 04/14/24 12:41 98 Room Air 04/14/24 12:02 96 Room Air 04/14/24 08:15 96 Room Air 04/14/24 08:14 04/14/24 03:27 96 Room Air 04/14/24 00:00 04/13/24 22:46 99 Room Air 04/13/24 21:35 Room Air 04/13/24 19:04 99 Room Air 04/13/24 17:41 98 Room Air 04/13/24 16:52 99 Room Air 04/13/24 16:24 95 Room Air 04/13/24 16:09 95 Room Air 04/13/24 15:40 93 Room Air 04/13/24 15:25 97 Room Air 04/13/24 15:15 100 Oxymask 3 04/13/24 15:05 100 Oxymask 3 04/13/24 14:55 100 Oxymask 6 04/13/24 14:45 100 Oxymask 6 Pain Intensity Left Flank: Pain Intensity: 2 Back: Pain Intensity: 7 Head: Pain Intensity: 6 Transfer of Care Handoff Completed per policy Notes Mental Status: alert / awake / arousable Patient Amnestic to Procedure: Yes Nausea / Vomiting: adequately controlled Pain: adequately controlled Airway Patency, RR, SpO2: stable & adequate BP & HR: stable & adequate Hydration State: stable & adequate Anesthetic Complications: no major complications apparent
[2024-04-14] MEDS: SACCHAROMYCES BOULARDII 250 MG CAP PO SCH (17:34)
[2024-04-15 06:28] LABS: Basophils # (auto) 0.05 K/uL (0.00-0.20); Basophils % (auto) 0.7 %; Eosinophils # (auto) 0.15 K/uL (0.00-0.50); Hematocrit (blood only) 28.6 % (37.0-47.0); Hemoglobin 9.2 g/dl (12.0-16.0); Immature Granulocytes # (auto) 0.03 K/uL (0.01-0.20); Immature Granulocytes % (auto) 0.4 %; Lymphocytes # (auto) 1.52 K/uL (1.20-3.40); Lymphocytes % (auto) 20.3 %; Mean Corpuscular Hemoglobin 29.8 pg (25.0-34.0); Mean Corpuscular Hgb Conc 32.2 g/dL (32.0-36.0); Mean Corpuscular Volume 92.6 fL (80.0-100.0); Mean Platelet Volume 10.5 fL (9.4-12.4); Monocytes # (auto) 0.54 K/uL (0.11-0.59); Monocytes % (auto) 7.2 %; Neutrophils % (auto) 69.4 %; Platelet Count 148 K/uL (130-400); RDW Coefficient of Variation 15.5 % (11.5-14.5); RDW Standard Deviation 52.4 fL (36.4-46.3); Red Blood Count 3.09 M/uL (4.20-5.40); White Blood Count 7.49 K/ul (4.8-10.8)
[2024-04-15 06:52] LABS: Albumin Globulin Ratio 1.7 (0.9-2); Albumin Level 3.7 gm/dl (3.4-5.0); BUN Creatinine Ratio 16.7 (10-20); Bilirubin,Total 0.3 mg/dl (0.2-1.0); Calcium 9.4 mg/dl (8.6-10.3); Creatinine Clr Calc Pharmacy 33.3 ml/min; Est GFR (African American) 40.5 ml/min; Est GFR (Non-African American) 34.9 ml/min; Globulin 2.2 gm/dl (2.5-4.0); Magnesium 1.8 mg/dl (1.7-2.4); Potassium 4.1 mmol/L (3.5-5.1); Total Protein 5.9 gm/dl (6.0-8.3)
[2024-04-15 07:37] VITALS: RESP 16
[2024-04-15] MEDS: PROPOFOL IV EMULSION 10 MG/ML 20 ML VIAL IV ONE (08:09)
[2024-04-15] MEDS: LIDOCAINE 2% 2 ML VIAL/AMP(20MG/ML) INFIL ONE (08:09)
[2024-04-15] MEDS: PANTOprazole 40 MG TAB PO SCH (08:10)
[2024-04-15] MEDS: CLOPIDOGREL BISULFATE 75 MG TAB PO SCH (08:11)
[2024-04-15 11:44] VITALS: TEMP 98.2; O2SAT 98
--- NOTE | 2024-04-15 13:47 | Surgery Progress Note ---
Date of Service April 15, 2024 Assessment & Plan (1) Colon cancer: Plan: POD #1 diagnostic laparoscopy and rigid proctoscopy for rectal tumor. Repeat colonoscopy yesterday showed the tumor was at 20 cm, this is does not match what we found at the time of operation as it was at the peritoneal reflection and appeared to be 9 to 10 cm on rigid proctoscopy. Biopsies of the tumor were taken. I did discuss this with the GI doctor who stated that this was the site of prior tattooing. She is restart her Plavix and has no evidence of rectal bleeding at this time. She is okay to take a low fiber diet and discharge to home from a general surgery standpoint. She has follow-up scheduled with colorectal surgery with Immanuelhung Trotter, though she is try to get this appointment moved up as it is currently scheduled for the end of May. If she is not seen in that time, she may follow-up with me in 2 weeks to assess her incisions. Admission and Anticipated Discharge Date Admission Date: April 07, 2024 Subjective POD #2 diagnostic laparoscopy and rigid proctoscopy for rectal tumor. Underwent repeat colonoscopy yesterday which did show the tumor at 20 cm in the distal sigmoid. Restarted Plavix, no bleeding. Physical Exam Constitutional: WD/WN, vitals as above Gastrointestinal (Abdomen): normal bowel sounds, soft, nontender, no hepatosplenomegaly Inspection/Auscultation: + abdominal surgical incision (Healing well, no infection) Results & Data Vital Signs (Past 12 Hours) Vital Signs Temp Pulse Pulse Resp BP BP Pulse Ox 04/15/24 11:44 36.8 C 67 16 121/56 L 98 04/15/24 07:36 36.6 C 66 16 126/73 95 04/15/24 07:20 55 L 04/15/24 03:05 36.3 C L 71 20 144/78 H 95 O2 Del Method 04/15/24 11:44 Room Air 04/15/24 07:36 Room Air 04/15/24 07:20 04/15/24 03:05 Room Air PG Care Time/CCT Total # of Minutes Spent Total Time Spent with Patient: Total time spent is greater than 50% in coordination of care (as documented) at patient's floor/unit and/or counseling patient: Coding Level of Care Code 61285 Post Operative Follow-Up Diagnoses Colon cancer C18.9
--- NOTE | 2024-04-15 14:33 | Discharge Summary ---
<Statement entered by Moody Escobedo, DO - 04/15/24 17:06> I have seen and examined the patient and have discussed the case with the provider above. I have reviewed the advanced practitioner's documentation, and I agree with, and take responsibility for that plan of care. 14 minutes spent in coordination of care and evaluation of patient. Patient sitting up in chair finishing breakfast this morning. Somewhat depressed over her overall condition, but understanding of the need for ongoing follow-up with colorectal surgery. Discharge plans as outlined below Discharge Summary Date of Service April 15, 2024 Principal Dx & Hospital Course #1 = Principal Diagnosis (1) Bright red blood per rectum: (2) CAD (coronary artery disease): (3) Anticoagulant long-term use: (4) Congestive heart failure: (5) CKD (chronic kidney disease) stage 3, GFR 30-59 ml/min: Plan This is a 68 yr old F Who has a significant past medical history of CAD (PCI mid LAD and distal LAD 03/2024), chronic HFpEF with hx of cardiomyopathy, atrial fibrillation, CKD stage IIIb, chronic anemia, history of renal calculi, hyperkalemia no longer tolerating lokelma who presents to ED in setting of bright red blood per rectum x 1 day. Sigmoid Colonic Mass: Infiltrative adenocarcinoma of the colon Bright red blood per rectum: Pt required 1 unit PRBC evening of 04/05 due to hgb 9.0 in setting of active GIB and recent coronary stents CT abd w/o identifiable source of bleeding, likely 2/2 mass CTA did not show any evidence of pulmonary embolism and/or metastatic disease Colonoscopy 04/07 - sigmoid mass identified General surgery consulted with plan for colon resection but case was aborted due to mass being too low; recommending colorectal follow-up Surgery was aborted due to mass being too low and recommended pt see colorectal Underwent repeat colonoscopy for further biopsies per colorectal surgery in [place], Dr. Camacho to help determine diagnosis and aide in treatment planning [facility] colorectal currently scheduled for 06/09 but attempted to push up appointment; tentatively scheduled to see Dr. Moreno in 2 weeks if unable to see colorectal sooner for incision check CAD (PCI mid LAD and distal LAD 03/2024) Chronic HFpEF Hx of tachycardic induced cardiomyopathy (EF improved) Atrial fibrillation Follows with [facility] Echo: LVEF 55-60%, moderate pericardial effusion w/o tamponade On metoprolol, bumex, statin, plavix, eliquis as OP Pt is not on Jardiance, ARB in setting of UTI hx and hyperkalemia Cardiology consult placed for clearance for surgery; discussed directly with Dr. Faust on 04/08- understanding the risks associated with being off of anticoagulation with recent stent placement on 03/11 Per cardiology, okay to continue to hold eliquis in favor of of ASA/Plavix for now until colorectal appt clarified - will need to follow up with cards in the next week regarding when to resume Eliquis based on final colorectal appt date Obstructing L UPJ Calculus Possible complicated UTI vs contamination CT a/p: There is a 1.5 cm obstructing calculus/calculi at/below the left ureteropelvic junction. This causes severe left-sided hydronephrosis and is similar to the 02/09/2024 examination. Follows [facility]rology - awaiting NM renal scan, plan for OP treatment Urine culture grew multiple andrew, likely contaminant, completed treatment on 04/15 Nuclear renal scan did show nonfunctioning left kidney with hydronephrosis She will need to have left nephrectomy as an outpatient electively - She will need urology follow up Abnormal CT a/p finding Prominent ovaries for age, recommend outpatient Pelvic US Patient with multiple comorbidities, studies pending. Has very limited social support. Nurse navigator able to coordinate an outpatient case packer and sealer for patient, who will call her tomorrow. Reviewed discharge instructions with patient myself at bedside as did RN. Notes For Next Care Provider Medication Changes From Visit Continue aspirin, plavis for now, HOLD eliquis Admission HPI Per Admitting Provider This is a 68 yr old F Who has a significant past medical history of CAD (PCI mid LAD and distal LAD 03/2024), chronic HFpEF with hx of cardiomyopathy, atrial fibrillation, CKD stage IIIb, chronic anemia, history of renal calculi, hyperkalemia no longer tolerating lokelma who presents to ED in setting of bright red blood per rectum x 1 day. She complains of bleeding per rectum. This morning she woke up and had a bowel movement and had bright red blood. She has been taking miralax to help her move her bowels. She reports previously her stools have been orange and she attributes this to a tea mix she was using. Yesterday she had a brown bowel movement and thought it was resolved and it was just the tea mix. This morning when she passed a small amount of stool with significant bright red blood and clots mixed with stool. She denies any recent f/c/s, chest pain, sob, dizziness, lightheaded, n/v/d, abd pain, dysuria, increased urg/freq with urination and hematuria. Patient follows [facility]ology and has a significant cardiac history. In November 2023 she was Admitted to hospital for CHF and new onset A-fib in setting of worsening shortness of breath and lower extremity edema for 4 months. Symptoms have been progressive. She was noted to have an ejection fraction of 35 to 40% with a pericardial effusion, global hypokinesis. upon presentation she was essentially on no outpatient medications at this time and did not follow with a physician regularly. She was started on diuresis, metoprolol and Jardiance. She has been following closely with cardiology and due to a UTI her Jardiance was discontinued. She was also having difficulty with hyperkalemia and was placed on Lokelma but has not tolerated this and this has since been discontinued and her potassium has normalized. she was hospitalized February 08February 12 in setting of UTI, cellulitis, NARAYAN, A-fib and chest pain. During this hospitalization she underwent cardioversion on 02/10/2024. On 03/11/24 she underwent a cardiac cath which revealed Multivessel coronary artery disease with 90% mid LAD, 80% diffuse earlydistal LAD, Diffusely diseased second diagonal up to 90%, 60% sequential OM2 lesions,40-50% distal RCA, 50% small RPDA. She underwent successful PCI of mid LAD with 2.75 x 12 mm Osmar STERLING and distal LAD with 2.25 x 30 mm Osmar STERLING. She is to continue with eliquis and plavix for at least 6 months. It is recommend medical management of residual diffuse diagonal disease and moderate OM2, RCA disease. Of significance she also was following with urology in setting of an obstru cting left ureteral stone and an atrophic left kidney. Given her recent cardiac history and anticoagulation she is high risk for surgery and therefore they have been awaiting cardiac clearance prior to proceeding with treatment for ureteral stone. Admission Exam Per Admitting Provider GENERAL: Alert and oriented x3. NAD, on RA. HEENT: No pallor, no icterus. Pupils equal, round and reactive to light. Oral mucosa moist. NECK: No JVD, no neck masses. HEART: S1 and S2 heard. Regular rate and rhythm. No murmur, no gallop. RESPIRATORY SYSTEM: Normal AP diameter. No accessory muscle use. No wheezing, no crackles. ABDOMEN: Soft, bowel sounds present, nontender, no distention. CENTRAL NERVOUS SYSTEM: No facial droop. Speech is clear. Obeys simple commands. Moves extremities. EXTREMITIES: No edema, no erythema seen. No CVA angle tenderness. Discharge Exam GENERAL: A&Ox3. NAD, on RA, + depressed mood HEENT: No pallor, no icterus. Pupils equal, round and reactive to light. Oral mucosa moist. HEART: S1 and S2 heard. Regular rate and rhythm RESPIRATORY SYSTEM: Lungs clear to auscultation. No accessory muscle use. No wheezing, no crackles. ABDOMEN: Soft, bowel sounds present, nontender, no distention. CENTRAL NERVOUS SYSTEM: No facial droop. Speech is clear. Obeys simple commands. Moves extremities. EXTREMITIES: No edema, no erythema seen. Updated Medication List Medication Instructions Recorded Confirmed Type apixaban 5 mg tablet (Eliquis) 5 mg PO BID 90 days #180 tabs 12/04/23 04/14/24 Rx nitroglycerin 0.4 mg sublingual 0.4 mg sublingual UD PRN chest 02/13/24 04/05/24 Rx tablet (Nitrostat) pain #20 tabs metoprolol succinate 100 mg 100 mg PO QAM 02/16/24 04/05/24 History tablet,extended release 24 hr clopidogrel 75 mg tablet 75 mg PO DAILY #30 tabs 03/11/24 04/14/24 Rx atorvastatin 40 mg tablet 40 mg PO DAILY 04/05/24 04/05/24 History bumetanide 2 mg tablet 2 mg PO DAILY #30 tabs 04/07/24 Rx oxycodone 5 mg tablet 5 mg PO Q6H PRN moderate-severe 04/15/24 Rx pain #8 tabs Hospital Stay Data Consultations 04/05/24 11:50 ED Decision to Admit Stat 04/05/24 12:43 Consult Cardiology Routine Consult Gastroenterology Routine 04/08/24 10:15 Consult General Surgery Routine Procedures Performed Operation Date: 04/14/24 16:45 Actual Procedures p Flexible Sigmoidoscopy Biopsy - Martín Hope MD Diagnostic Imagining Performed 04/05/24 09:50 CT abd pelvis wo con Stat 04/09/24 10:21 CT angio chest PE protocol Routine Pending Results Patient Have Any Pending Studies at Discharge: Yes Discharge Instructions Given to Patient (Per Discharging Provider) 1. For colonic mass: -You were admitted to hospital for rectal bleeding and were found to have a sigmoid Colonic Mass: Infiltrative adenocarcinoma of the colon - biopsies pending -Location of mass is too low for general surgery, recommending colorectal follow-up. -Scheduled for colorectal surgery with [facility] for 06/09, staff anam lara to move appointment up. -[facility] general surgery with Dr. Moreno scheduled in 2 weeks for incision check. 2. For recent cardiac STERLING: -Holding Eliquis for now until colorectal appt determined - continue aspirin and plavix for now given recent stent 03/11 -Scheduled for cardiac rehab and [facility] cardiology follow up as above - need to call and clarify when to resume Eliquis once colorectal appointment confirmed 3. Obstructing ureteral stone: -CT a/p: There is a 1.5 cm obstructing calculus/calculi at/below the left ureteropelvic junction. This causes severe left-sided hydronephrosis and is similar to the 02/09/2024 -Nuclear renal scan did show nonfunctioning left kidney with hydronephrosis -Will need to have left nephrectomy as an outpatient electively - urology follow up 4. Abnormal CT a/p finding: -Imaging showing prominent ovaries for age, recommend outpatient Pelvic US. Follow up with PCP MEDICATION CHANGES: Continue aspirin and plavix for now. HOLD Eliquis until directed by cardiology. PENDING TEST RESULTS: Colon biopsies pending RECOMMENDATIONS FOR FOLLOW-UP: Please see above for all scheduled upcomping appointments. You have been assigned an out-patient case packer and sealer to help coordinate your complex care - she will call you tomorrow. Continue medication regimen as scheduled aside from changes noted above. OTHER INSTRUCTIONS: Seek medical attention if you have: * temperature above 101 * chest pain or trouble breathing * abdominal pain, nausea, vomiting * diarrhea, dark stools or bloody stools * any unanswered questions or concerns Call 911 if symptoms are severe. Please take good care of yourself. Call if you have any questions or problems. You can reach a [facility] hospitalist on duty at [facility] 24 hours a day by calling [phone]. Total Time Total Time Spent Total Time Spent (In Minutes): 75
[2024-04-15 14:45] VITALS: BP 126/73; PULSE 67
== END 2024-04-15 17:42 | disposition home or self-care (01) | DRG 345 ==
LOC: ED 08:56 → EDINP 08:56 → SUATTDRO 13:31 → 2W 14:20 → SUATTDRO 04-07 14:54 → 2W 04-09 01:04